=== PATIENT | female | born 2000 | race African-American/Black ===

== ENCOUNTER 2020-12-27 14:59 | Inpatient (IN) ==
[2020-12-27] MEDS ORDERED: ONDANSETRON INJ 2 MG/ML 2 ML VIAL IV STA ×2 (15:35→19:19)
[2020-12-27] MEDS ORDERED: SODIUM CHLORIDE 0.9% 500 ML IV STA (15:35)
[2020-12-27] MEDS ORDERED: SODIUM CHLORIDE 0.9% 1000ML 1,000 ML IV ONE (16:13)
[2020-12-27] MEDS ORDERED: LOPERAMIDE HCL 2 MG CAP PO STA (16:27)
--- NOTE | 2020-12-27 16:33 | Emergency Department Note ---
History of Present Illness General Chief complaint: Vomiting Stated complaint: THROWING UP/DIARRHEA Time Seen by Provider: 12/27/20 16:07 History of Present Illness Maximum Pain Intensity: 5 This 20-year-old female patient with significant past medical history of type 2 diabetes, heart disease, kidney disease presents to the emergency department today for evaluation of nausea, vomiting, diarrhea which began yesterday. Patient reports some burning in her upper abdomen and lower chest as well as some discomfort in her epigastrium associated with vomiting. She denies any other pain. The patient denies any fever. She denies any cough, congestion, difficulty breathing. She states she has been unable to keep down food or fluids since yesterday and has taken 1 dose of Zofran without relief of her symptoms. The patient rates her pain a 5/10 and describes it as burning. Patient did not get a COVID-19 vaccine or a influenza vaccine this year. Home Medications Medication Instructions Recorded Confirmed Type carvedilol 12.5 mg tablet 12.5 mg PO BID 12/27/20 12/27/20 History cetirizine 10 mg tablet 10 mg PO DAILY 12/27/20 12/27/20 History ferrous sulfate 27 mg iron tablet 0 mg PO DAILY 12/27/20 12/27/20 History furosemide 40 mg tablet 40 mg PO QPM 12/27/20 12/27/20 History furosemide 40 mg tablet 80 mg PO QAM 12/27/20 12/27/20 History losartan 25 mg tablet 25 mg PO DAILY 12/27/20 12/27/20 History spironolactone 25 mg tablet 12.5 mg PO DAILY 12/27/20 12/27/20 History Allergies Allergy/AdvReac Type Severity Reaction Status Date / Time latex Allergy Makes skin Verified 12/27/20 17:51 itchy & red Past Med/Surg History Medical History Chronic kidney disease, stage 3 Diabetes mellitus type 2 in obese Heart failure Hypertension Kidney disease Obesity Social History Smoking Status: Never smoker Preferred Language: American Current Living Situation: Family Feels Safe at Home: Yes Review of Systems A total of 10 systems reviewed and were otherwise negative Physical Exam Vital Signs Vital Signs - 24 hr 12/27/20 15:31 12/27/20 17:00 12/27/20 18:44 Temperature 36.5 C Temperature Source Temporal Artery Scan Pulse Rate 92 H Pulse Rate [Finger] 88 85 Pulse Rhythm Regular Pulse Strength Normal Respiratory Rate 20 18 18 Respiratory Effort / Characteristics Non-Labored Spontaneous Respiratory Depth Normal Respiratory Pattern Regular Blood Pressure 137/75 Blood Pressure [Right Arm] 155/109 H 155/109 H Blood Pressure Mean 95 Blood Pressure Mean [Right Arm] 124 124 Blood Pressure Position Sitting Pulse Oximetry 91 94 98 Oxygen Delivery Method Room Air Room Air Nasal Cannula Oxygen Flow Rate 1 Sepsis Recent Fever Within 48 Hours No Sepsis New/Unexplained Change in Mental Status No Sepsis Action Taken by Nursing No Action Required 12/27/20 20:00 12/27/20 22:00 12/28/20 00:10 Temperature Temperature Source Pulse Rate Pulse Rate [Finger] 87 93 H 84 Pulse Rhythm Pulse Strength Respiratory Rate 18 18 24 Respiratory Effort / Characteristics Spontaneous Respiratory Depth Normal Respiratory Pattern Blood Pressure Blood Pressure [Right Arm] 134/107 H 136/83 133/99 Blood Pressure Mean Blood Pressure Mean [Right Arm] 116 100 110 Blood Pressure Position Pulse Oximetry 97 95 96 Oxygen Delivery Method Nasal Cannula Nasal Cannula Nasal Cannula Oxygen Flow Rate 2 3 3 Sepsis Recent Fever Within 48 Hours Sepsis New/Unexplained Change in Mental Status Sepsis Action Taken by Nursing VITALS: Vitals are noted on the nurse's note and reviewed by myself. Vital signs stable. GENERAL: This is a morbidly obese 20-year-old black female, in no acute distress, nondiaphoretic, well-developed well-nourished. SKIN: The skin was without rashes, erythema, edema, or bruising. There is no tenting of the skin. Capillary refill less than 2 seconds. HEAD: Normocephalic atraumatic. EYES: Conjunctivae without injection, sclerae without icterus. NECK: Supple without nuchal rigidity. No lymphadenopathy. No thyromegaly. Cervical spine is nontender. No JVD. HEART: Regular rate and rhythm without murmurs gallops or rubs. LUNGS: Clear to auscultation bilaterally without wheezes, rales or rhonchi. No retractions or accessory muscle use. ABDOMEN: Positive bowel sounds x 4. Epigastric tenderness to palpation. Pt. states "Don't do that!" as I am palpating her epigastrum and RUQ. Otherwise, abdomen soft, nontender, without masses or organomegaly. Cary sign negative. No guarding or rebound tenderness. MUSCULOSKELETAL: No muscle atrophy, erythema, or edema noted. Full range of motion without joint tenderness in all extremities. No tenderness to palpation. Normal gait. Strength 5/5 throughout. NEURO: Patient was alert and oriented to person place and time. No focal neurological deficits. Course Course The patient was seen and evaluated as above. An order was placed for continuous cardiac monitoring. The monitor shows a normal sinus rhythm at a rate of 92 bpm. IV access obtained, labs drawn. Patient medicated with IV fluids, Zofran, p.o. Imodium. Labs reviewed by myself. I discussed the findings with the patient at bedside. I again questioned the patient and her mother regarding past medical history given the significantly elevated creatinine at 5. The patient's mother notes she is uncertain of a baseline. She is uncertain of the patient's CKD staging. She states the patient has not seen her hairpiece stylist in a while. The patient still will not communicate. Further laboratory evaluation and chest x-ray ordered at this time. I discussed the case with the manager night. I discussed with the medical secretary teacher the need for medical records from [facility]. She will attempt to complete a release form. I was notified by the ED medical secretary teacher that the patient is not willing to complete a medical records release form. I again spoke with the patient and her mother. At this time, the patient is upright and speaking, but notes she does not recall me being in the room or evaluating her prior to this time. The patient is unable to clarify any of her past medical history. She did sign records release form. Patient's mother questions why the patient needs to stay in the hospital. I advised her that I am very concerned for the renal failure, particularly given inability up until this point to compare to the patient's baseline. I am concerned she may require the need for dialysis. I am concerned for heart failure or other causes. I asked if the patient has a history of heart failure and the patient's mother states she does not. She indicates that the patient was admitted about a year ago to [place] for "tachycardia." I discussed the case with my attending. I [facility] the [facility] from [facility] have been received at this time. It appears that the patient follows with a heart failure specialist as well as a hairpiece stylist in [place]. He requested I speak with Dr. Reyna, hairpiece stylist on-call to determine whether the patient may be added onto the dialysis list if need be tomorrow or if we would need to transfer the patient to a different facility. I spoke with Dr. Reyna who did review the staffing and schedule for dialysis for tomorrow. He advised that if needed, the patient would likely be able to be dialyzed, added onto the schedule. He did request orders for an echocardiogram, renal ultrasound, coags, and urine protein to creatinine ratio be ordered. We did also discuss the underlying cause of the patient's nausea, vomiting, diarrhea. We decided to add on stool cultures to evaluate for possible GI infection. I again spoke with Dr. Luna. He will see the patient for admission. Administered Medications Discontinued Medications Cholestyramine Resin (Cholestyramine Light 4 Gm Pkt) 4 gm PO NOW STA Stop: 12/27/20 23:30 Last Admin: 12/28/20 00:14 Dose: 4 gm Documented by: [id number] Sodium Chloride (Nss) 500 mls @ 999 mls/hr IV .Q31M STA Stop: 12/27/20 16:05 Last Infusion: 12/27/20 23:31 Dose: 0 mls/hr Documented by: [id number] Admin: 12/27/20 19:26 Dose: 999 mls/hr Documented by: [id number] Sodium Chloride (Nss 1000ml) 1,000 mls @ 999 mls/hr IV .Q1H1M ONE Stop: 12/27/20 17:13 Last Infusion: 12/27/20 19:33 Dose: 0 mls/hr Documented by: [id number] Admin: 12/27/20 17:04 Dose: 999 mls/hr Documented by: [id number] Loperamide HCl (Loperamide Hcl 2 Mg Cap) 4 mg PO NOW STA Stop: 12/27/20 16:28 Last Admin: 12/27/20 17:02 Dose: 4 mg Documented by: [id number] Ondansetron HCl (Ondansetron Inj 2 Mg/Ml 2 Ml Vial) 4 mg IV NOW STA Stop: 12/27/20 15:36 Last Admin: 12/27/20 17:02 Dose: 4 mg Documented by: [id number] Ondansetron HCl (Ondansetron Inj 2 Mg/Ml 2 Ml Vial) 4 mg IV NOW STA Stop: 12/27/20 19:20 Last Admin: 12/27/20 19:26 Dose: 4 mg Documented by: [id number] Medical Decision Making Differential Diagnosis Gastroenteritis, food borne illness, infections, appendicitis, diverticulitis, inflammatory bowel disease, obstruction, GI bleed, biliary pathology, volvulus, as well as other pathologies. Medical Records Attestation: I reviewed the patient's medical records. Home Medications Current Medication List: was personally reviewed by me Laboratory Data Attestation: I reviewed the patient's lab results. No leukocytosis or anemia. No thrombocytopenia. Creatinine elevated at 5.12. BUN 38. Electrolytes without significant abnormality. Troponin negative. BNP greater than 35,000. Hepatic function without significant abnormality. Urinalysis positive for 4+ protein, trace glucose, trace ketones, 1+ blood, 1+ bilirubin, greater than 30,000 white blood cells, 2+ bacteria, does appear to be contaminated specimen. Influenza testing negative. COVID-19 testing negative. INR 1.2. Urine test negative. Result diagrams: 12/27/20 17:20 12/27/20 17:20 Lab Results 12/27/20 12/27/20 12/27/20 Range/Units 15:36 17:20 17:20 WBC 5.55 (4.8-10.8) K/uL RBC 6.14 H (4.2-5.4) M/uL Hgb 15.3 (12.0-16.0) g/dL Hct 49.9 H (37-47) % MCV 81.3 (80-100) fL MCH 24.9 L (25-34) pg MCHC 30.7 L (32-36) g/dL RDW Std Deviation 57.2 H (36.4-46.3) fL RDW Coeff of Nicole 19.6 H (11.5-14.5) % Plt Count 242 (130-400) K/uL MPV 10.4 (7.4-10.4) fL Immature Gran % (Auto) 0.2 % Neut % (Auto) 81.7 % Lymph % (Auto) 13.7 % [place] % (Auto) 3.4 % Eos % (Auto) 0.5 % Baso % (Auto) 0.5 % Neut # (Auto) 4.53 (1.4-6.5) K/uL Lymph # (Auto) 0.76 L (1.2-3.4) K/uL [place] # (Auto) 0.19 (0.11-0.59) K/uL Eos # (Auto) 0.03 (0-0.5) K/uL Baso # (Auto) 0.03 (0-0.2) K/uL Immature Gran # (Auto) 0.01 (0.00-0.02) K/uL PT (9.0-12.0) Seconds INR (0.9-1.1) APTT (21.0-31.0) Seconds PTT Ratio Sodium 141 (136-145) mmol/L Potassium 5.0 (3.5-5.1) mmol/L Chloride 111 H (98-107) mmol/L Carbon Dioxide 18 L (21-32) mmol/L Anion Gap 12.0 H (3-11) BUN 38 H (7-18) mg/dl Creatinine 5.12 H* (0.6-1.2) mg/dl Est Cr Clr Drug Dosing 24.7 ml/min Est GFR ( Amer) 13.0 ml/min Est GFR (Non-Af Amer) 11.3 ml/min BUN/Creatinine Ratio 7.5 L (10-20) Glucose 99 (70-99) mg/dl POC Glucose 105 H (70-99) mg/dl Calcium 7.7 L (8.5-10.1) mg/dl Total Bilirubin 1.3 H (0.2-1) mg/dl AST 15 (15-37) U/L ALT 10 L (12-78) U/L Alkaline Phosphatase 113 (45-117) U/L Troponin I < 0.015 (0-0.045) ng/ml NT-Pro-B Natriuret Pep > 63418 H (0-450) pg/ml Total Protein 6.9 (6.4-8.2) gm/dl Albumin 1.7 L (3.4-5.0) gm/dl Globulin 5.1 H (2.5-4.0) gm/dl Albumin/Globulin Ratio 0.3 L (0.9-2) Lipase 101 (73-393) U/L Urine Color Urine Appearance (Clear) Urine pH (4.5-7.5) Ur Specific [place] (1.000-1.030) Urine Protein (Negative) Urine Glucose (UA) (Negative) Urine Ketones (Negative) Urine Blood (Negative) Urine Nitrite (Negative) Urine Bilirubin (Negative) Urine Urobilinogen (Negative) Ur Leukocyte Esterase (Negative) Urine WBC (Auto) (0-5) /hpf Urine RBC (Auto) (0-4) /hpf U Hyaline Cast (Auto) (0-5) /lpf U Epithel Cells (Auto) (0-5) /lpf Urine Bacteria (Auto) (Negative) Ur Random Creatinine mg/dl U Random Total Protein (0-11.9) mg/dl Protein/Creatinin Ratio (0-0.2) Urine Test (Negative) Influ A Molecular Assay (Negative) Influ B Molecular Assay (Negative) SARS-CoV-2, RNA, NAAT (NEGATIVE) 12/27/20 12/27/20 12/27/20 Range/Units 17:55 17:55 19:30 WBC (4.8-10.8) K/uL RBC (4.2-5.4) M/uL Hgb (12.0-16.0) g/dL Hct (37-47) % MCV (80-100) fL MCH (25-34) pg MCHC (32-36) g/dL RDW Std Deviation (36.4-46.3) fL RDW Coeff of Nicole (11.5-14.5) % Plt Count (130-400) K/uL MPV (7.4-10.4) fL Immature Gran % (Auto) % Neut % (Auto) % Lymph % (Auto) % [place] % (Auto) % Eos % (Auto) % Baso % (Auto) % Neut # (Auto) (1.4-6.5) K/uL Lymph # (Auto) (1.2-3.4) K/uL [place] # (Auto) (0.11-0.59) K/uL Eos # (Auto) (0-0.5) K/uL Baso # (Auto) (0-0.2) K/uL Immature Gran # (Auto) (0.00-0.02) K/uL PT (9.0-12.0) Seconds INR (0.9-1.1) APTT (21.0-31.0) Seconds PTT Ratio Sodium (136-145) mmol/L Potassium (3.5-5.1) mmol/L Chloride (98-107) mmol/L Carbon Dioxide (21-32) mmol/L Anion Gap (3-11) BUN (7-18) mg/dl Creatinine (0.6-1.2) mg/dl Est Cr Clr Drug Dosing ml/min Est GFR ( Amer) ml/min Est GFR (Non-Af Amer) ml/min BUN/Creatinine Ratio (10-20) Glucose (70-99) mg/dl POC Glucose (70-99) mg/dl Calcium (8.5-10.1) mg/dl Total Bilirubin (0.2-1) mg/dl AST (15-37) U/L ALT (12-78) U/L Alkaline Phosphatase (45-117) U/L Troponin I (0-0.045) ng/ml NT-Pro-B Natriuret Pep (0-450) pg/ml Total Protein (6.4-8.2) gm/dl Albumin (3.4-5.0) gm/dl Globulin (2.5-4.0) gm/dl Albumin/Globulin Ratio (0.9-2) Lipase (73-393) U/L Urine Color Dark Yellow Urine Appearance Clear (Clear) Urine pH 6.0 (4.5-7.5) Ur Specific [place] 1.029 (1.000-1.030) Urine Protein 4+ H (Negative) Urine Glucose (UA) Trace H (Negative) Urine Ketones Trace H (Negative) Urine Blood 1+ H (Negative) Urine Nitrite Negative (Negative) Urine Bilirubin 1+ H (Negative) Urine Urobilinogen Negative (Negative) Ur Leukocyte Esterase Negative (Negative) Urine WBC (Auto) >30 H (0-5) /hpf Urine RBC (Auto) 5-10 H (0-4) /hpf U Hyaline Cast (Auto) 5-10 H (0-5) /lpf U Epithel Cells (Auto) >30 H (0-5) /lpf Urine Bacteria (Auto) 2+ H (Negative) Ur Random Creatinine mg/dl U Random Total Protein (0-11.9) mg/dl Protein/Creatinin Ratio (0-0.2) Urine Test (Negative) Influ A Molecular Assay Negative (Negative) Influ B Molecular Assay Negative (Negative) SARS-CoV-2, RNA, NAAT NEGATIVE (NEGATIVE) 12/27/20 12/27/20 12/27/20 Range/Units 19:30 19:30 23:43 WBC (4.8-10.8) K/uL RBC (4.2-5.4) M/uL Hgb (12.0-16.0) g/dL Hct (37-47) % MCV (80-100) fL MCH (25-34) pg MCHC (32-36) g/dL RDW Std Deviation (36.4-46.3) fL RDW Coeff of Nicole (11.5-14.5) % Plt Count (130-400) K/uL MPV (7.4-10.4) fL Immature Gran % (Auto) % Neut % (Auto) % Lymph % (Auto) % [place] % (Auto) % Eos % (Auto) % Baso % (Auto) % Neut # (Auto) (1.4-6.5) K/uL Lymph # (Auto) (1.2-3.4) K/uL [place] # (Auto) (0.11-0.59) K/uL Eos # (Auto) (0-0.5) K/uL Baso # (Auto) (0-0.2) K/uL Immature Gran # (Auto) (0.00-0.02) K/uL PT 12.1 H (9.0-12.0) Seconds INR 1.2 H (0.9-1.1) APTT 30.5 (21.0-31.0) Seconds PTT Ratio 1.2 Sodium (136-145) mmol/L Potassium (3.5-5.1) mmol/L Chloride (98-107) mmol/L Carbon Dioxide (21-32) mmol/L Anion Gap (3-11) BUN (7-18) mg/dl Creatinine (0.6-1.2) mg/dl Est Cr Clr Drug Dosing ml/min Est GFR ( Amer) ml/min Est GFR (Non-Af Amer) ml/min BUN/Creatinine Ratio (10-20) Glucose (70-99) mg/dl POC Glucose (70-99) mg/dl Calcium (8.5-10.1) mg/dl Total Bilirubin (0.2-1) mg/dl AST (15-37) U/L ALT (12-78) U/L Alkaline Phosphatase (45-117) U/L Troponin I (0-0.045) ng/ml NT-Pro-B Natriuret Pep (0-450) pg/ml Total Protein (6.4-8.2) gm/dl Albumin (3.4-5.0) gm/dl Globulin (2.5-4.0) gm/dl Albumin/Globulin Ratio (0.9-2) Lipase (73-393) U/L Urine Color Urine Appearance (Clear) Urine pH (4.5-7.5) Ur Specific [place] (1.000-1.030) Urine Protein (Negative) Urine Glucose (UA) (Negative) Urine Ketones (Negative) Urine Blood (Negative) Urine Nitrite (Negative) Urine Bilirubin (Negative) Urine Urobilinogen (Negative) Ur Leukocyte Esterase (Negative) Urine WBC (Auto) (0-5) /hpf Urine RBC (Auto) (0-4) /hpf U Hyaline Cast (Auto) (0-5) /lpf U Epithel Cells (Auto) (0-5) /lpf Urine Bacteria (Auto) (Negative) Ur Random Creatinine 159.0 mg/dl U Random Total Protein 2317.0 H (0-11.9) mg/dl Protein/Creatinin Ratio 14.6 H (0-0.2) Urine Test Negative (Negative) Influ A Molecular Assay (Negative) Influ B Molecular Assay (Negative) SARS-CoV-2, RNA, NAAT (NEGATIVE) Imaging Data My Impression: Chest x-ray, reviewed by myself: Cardiomegaly. No evidence of consolidation. No pneumothorax, hemothorax, pleural effusion. ECG Data Attestation: I personally reviewed and interpreted this ECG as follows: Indication: + SOB/dyspnea Rate (beats per minute): 90 Rhythm: + normal sinus ECG [place]: + Normal ECG ST segments: no ST depression, no ST elevation or no T-wave inversions Comparison ECG Date: no prior available Blood Pressure Blood Pressure Findings: Elevated blood pressure Blood Pressure Disposition: further management by hospitalist MDM Narrative This 20-year-old female patient presents to the emergency department today ac companied by her mother who provides majority of the history. The patient is refusing to speak throughout most of her stay. She did indicate to the imaging technician that she had a poor experience at [facility] and has been on trusting of healthcare providers since that time. She advised that this is why she has been refusing to speak. The patient's mother indicated her past medical history of hypertension, kidney disease, and type 2 diabetes. Of note, after I was able to review previous medical records from hospitalization in February of this year, it appears that the patient does have a history of heart failure, CKD stage III, had an EF of 20%, was to receive an ICD in March of this year which was not performed. The patient's mother notes the patient was discharged from her primary care provider's office due to missing appointments and she has not been seen by a doctor recently. The patient and her mother are extremely poor historians and are having difficulty communicating her disease state to providers here in the hospital. This inability to obtain an accurate history in this complex patient is providing some barriers to care. I am concerned for the patient's renal failure. Unclear of recent laboratory testing and all of the patient's previous medical records are through [facility]. The patient was hydrated with IV fluids and initial management with antiemetics and Imodium due to her complaints of diarrhea. As more information became available, further testing to include troponin, BNP, chest x-ray performed. The patient was hypoxic at one point while in the ED with an O2 saturation of 85% on room air and was placed on oxygen by nursing staff. [facility] well as the hairpiece stylist who indicated the patient could be added to the dialysis list tomorrow if need be. Further testing added on at the request of Dr. Reyna. The hospitalist team will attempt to obtain further medical records on this apparently very complex patient in order to more appropriately manage her disease process. Please see hospitalist, nephrology dictation regarding ongoing management and care of this patient. The chart was completed utilizing [employer] voice recognition software. Grammatical errors, random word insertions, pronoun errors, and incomplete sentences are an occasional consequence of this system due to software limi tations, ambient noise, and hardware issues. Any formal questions or concerns about the content, text, or information contained within the body of this dictation should be directly addressed to the provider for clarification. Impression & Plan Acute renal failure (ARF), Proteinuria, Nausea & vomiting, Diarrhea, Heart failure, Hypoxia, Diabetes Discharge Plan Visit Data Chief Complaint: Vomiting Stated Complaint: THROWING UP/DIARRHEA ED Provider: Corey Magdaleno ED Midlevel Provider: Iona Bryson Prescriptions Prescriptions: No Action carvedilol 12.5 mg tablet 12.5 mg PO BID RF: 0 furosemide 40 mg tablet 40 mg PO QPM RF: 0 furosemide 40 mg tablet 80 mg PO QAM RF: 0 cetirizine 10 mg tablet 10 mg PO DAILY RF: 0 spironolactone 25 mg tablet 12.5 mg PO DAILY RF: 0 losartan 25 mg tablet 25 mg PO DAILY RF: 0 ferrous sulfate 27 mg iron Tablet 0 mg PO DAILY RF: 0
[2020-12-27 17:51] LABS: Basophils # (auto) 0.03 K/uL (0-0.2); Basophils % (auto) 0.5 %; Eosinophils # (auto) 0.03 K/uL (0-0.5); Eosinophils % (auto) 0.5 %; Hematocrit (blood only) 49.9 % (37-47); Hemoglobin 15.3 g/dL (12.0-16.0); Immature Granulocytes # (auto) 0.01 K/uL (0.00-0.02); Immature Granulocytes % (auto) 0.2 %; Lymphocytes # (auto) 0.76 K/uL (1.2-3.4); Lymphocytes % (auto) 13.7 %; Mean Corpuscular Hemoglobin 24.9 pg (25-34); Mean Corpuscular Hgb Conc 30.7 g/dL (32-36); Mean Corpuscular Volume 81.3 fL (80-100); Mean Platelet Volume 10.4 fL (7.4-10.4); Monocytes # (auto) 0.19 K/uL (0.11-0.59); Monocytes % (auto) 3.4 %; Neutrophils # (auto) 4.53 K/uL (1.4-6.5); Neutrophils % (auto) 81.7 %; Platelet Count 242 K/uL (130-400); RDW Coefficient of Variation 19.6 % (11.5-14.5); RDW Standard Deviation 57.2 fL (36.4-46.3); Red Blood Count 6.14 M/uL (4.2-5.4); White Blood Count 5.55 K/uL (4.8-10.8)
[2020-12-27 18:16] LABS: Alanine Aminotransferase 10 U/L (12-78); Albumin Globulin Ratio 0.3 (0.9-2); Albumin Level 1.7 gm/dl (3.4-5.0); Alkaline Phosphatase 113 U/L (45-117); Aspartate Aminotransferase 15 U/L (15-37); BUN Creatinine Ratio 7.5 (10-20); Bilirubin,Total 1.3 mg/dl (0.2-1); Blood Urea Nitrogen 38 mg/dl (7-18); Calcium 7.7 mg/dl (8.5-10.1); Carbon Dioxide 18 mmol/L (21-32); Chloride 111 mmol/L (98-107); Creatinine Clr Calc Pharmacy 24.7 ml/min; Est GFR (Non-African American) 11.3 ml/min; Globulin 5.1 gm/dl (2.5-4.0); Glucose 99 mg/dl (70-99); Lipase 101 U/L (73-393); Sodium 141 mmol/L (136-145); Total Protein 6.9 gm/dl (6.4-8.2)
[2020-12-27 18:19] LABS: Influenza A virus by PCR Negative (Negative); Influenza B virus by PCR Negative (Negative)
[2020-12-27 19:43] LABS: Appearance Urine Clear (Clear); Bacteria Urine Automated 2+ (Negative); Blood Urine 1+ (Negative); Color Urine Dark Yellow; Epithelial Cell Urine Auto >30 /lpf (0-5); Glucose Urine UA Trace (Negative); Ketones Urine Trace (Negative); Leukocyte Esterase Urine Negative (Negative); Nitrite Urine Negative (Negative); Protein Urine 4+ (Negative); Specific Gravity Urine 1.029 (1.000-1.030); Urobilinogen Urine Negative (Negative); WBC Urine Automated >30 /hpf (0-5)
[2020-12-27 19:45] LABS: Bilirubin Urine 1+ (Negative)
[2020-12-27 19:50] LABS: Pregnancy Test, Urine Negative (Negative)
[2020-12-27 20:25] LABS: NT Pro B Type Natriuretic Pept > 35000 pg/ml (0-450); Troponin I < 0.015 ng/ml (0-0.045)
--- NOTE | 2020-12-27 23:17 | History & Physical Report ---
Date of Service December 27, 2020 Assessment & Plan (1) BRADEN (acute kidney injury): Plan: Patient is a 20 year old female with PMHx Focal segmental glomerulosclerosis, HFrEF 2/2 nonischemic cardiomyopathy, CKD stage III, GERD, Asthma, DM2, that presents with 2 day history of worsening nausea, vomiting, and diarrhea. Patient does not do well in regards to discussion of her medical care while alone, please call her mother at [phone] for questions regarding the patients care and for updates. Vomiting and Diarrhea -Suspect viral gastritis with patient's history -Symptomatic control with cholestyramine and IV Zofran -Fluid given in ED -Stool samples pending -Should symptoms worsen or patient develop abdominal pain, will consider imaging with CT ab/pelv -NPO at this time for bowel rest BRADEN on CKD Stage II with Hx Focal Segmental Glomerulosclerosis -Unsure if patient has FSGS, will request records from patients Biology Laboratory Assistant in [facility], though patient denies history of treatment with steroids or calcineurin inhibitors -Base Cr 2.5-2.6 with acute worsening to 5.12 on admission -Suspect BRADEN more due to pre-renal causes from fluid losses of vomiting and diarrhea -Patient received 1.5L NSS while in the ED, will hold on further fluids at this time due to concerns of her cardiac function -Stat read of b/l renal US shows no hydronephrosis and notes increased echogenicity of kidneys b/l -Urine Microalbumin >10k and Urine Protein/Creatinine ratio 14.6 -Will defer steroids until evaluated by Nephrology -Hold patient's Lasix, Losartan, Spironolactone in the setting of BRADEN -Nephrology consulted Metabolic Acidosis -With slight gap of 12 -Suspect secondary to above renal dysfunction -Repeat labs as patient has had fluid resuscitation -Can consider sodium bicarb vermin exterminator if renal function continues to be compromised HFrEF -Patient with history of HFrEF secondary to nonischemic cardiomyopathy -Last Echo from [facility] records note EF 20% in February 2020 -BNP >35k on admission, no baseline for comparison -Will hold on further fluids at this time, monitor I/O's -Will request patient's cardiology records from [facility] -Continue Carvedilol 12.5mg BID -Hold Lasix as above for BRADEN -Echo in the AM -Cardiology consult DM2 -Will give basal bolus and SSI -HgbA1c in the AM Dispo: Med/Surg Telemetry FEN: NPO DVT: SCDs Code: Full (2) Focal segmental glomerulosclerosis: (3) Chronic kidney disease, stage 3: (4) Diabetes mellitus type 2 in obese: (5) Gastritis: History of Present Illness Chief Complaint: Nausea and Vomiting Primary Care Provider: NO PCP Patient is a 20 year old female with PMHx Focal segmental glomerulosclerosis, HFrEF 2/2 nonischemic cardiomyopathy, CKD stage III, GERD, Asthma, DM2, that presents with 2 day history of worsening nausea, vomiting, and diarrhea. History is limited secondary to patient participation, though some history is obtainable from the patient a majority is obtained through the mother who is also present in the room. Patient notes that for the past 2 days she has been unable to keep anything down that she eats or drinks to which her mother agrees. She has also not been taking her medications as a result as well. Patients mother states that everyone in the family has had a similar illness at least once in the past 1 month. 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 The patient typically follows with physicians in [place] including her Receiving Room Clerk and Biology Laboratory Assistant who had been monitoring her glomerulosclerosis and heart failure. Patient notes that currently her primary concern is in regards to her nausea, vomiting, and diarrhea. She notes that with her emesis she has noted primarily green/bile like emesis without blood. She denies any blood in her stool either, though it has been minimally improved with immodium. Her nausea has been improved with Zofran. She denies any fever, chills, SOB (despite being on 3L O2 NC currently), chest pain, abdominal pain, dizziness, headache, back pain, flank pain. Med Hx: Focal segmental glomerulosclerosis, HFrEF 2/2 nonischemic cardiomyopathy, CKD stage III, GERD, Asthma, DM2 Surg Hx: No surgeries Soc Hx: Denies tobacco, alcohol, illicit drug use Fam Hx: Maternal GMA and Maternal great grandfather DM2 Allergies Allergy/AdvReac Type Severity Reaction Status Date / Time latex Allergy Makes skin Verified 12/27/20 17:51 itchy & red Home Medications Medication Instructions Recorded Confirmed Type carvedilol 12.5 mg tablet 12.5 mg PO BID 12/27/20 12/27/20 History cetirizine 10 mg tablet 10 mg PO DAILY 12/27/20 12/27/20 History ferrous sulfate 27 mg iron tablet 0 mg PO DAILY 12/27/20 12/27/20 History furosemide 40 mg tablet 40 mg PO QPM 12/27/20 12/27/20 History furosemide 40 mg tablet 80 mg PO QAM 12/27/20 12/27/20 History losartan 25 mg tablet 25 mg PO DAILY 12/27/20 12/27/20 History spironolactone 25 mg tablet 12.5 mg PO DAILY 12/27/20 12/27/20 History Past Med/Surg History Medical History (Updated 12/28/20 @ 22:25 by Miguel Angel Noland MD) Chronic kidney disease, stage 3 Chronic systolic CHF (congestive heart failure) Diabetes mellitus type 2 in obese Hypertension Nonischemic cardiomyopathy Obesity Social History Smoking Status: Never smoker Hx Alcohol Use: No Hx Substance Use: No Preferred Language: Slovenian 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 Required: No Beliefs That Will Affect Care: None Current Living Situation: Parent and Family Feels Safe at Home: Yes Assistive Devices: None Review of Systems Review of Systems: All systems reviewed & are unremarkable except as noted in Subjective Physical Exam Constitutional: well developed, well nourished, + ill appearing and + morbidly obese; + uncooperative Eyes: PERRL, conjunctivae normal, anicteric sclerae normal visual kothari by confrontation ENMT: external ear and nose normal, oropharynx normal Neck: normal visual inspection Respiratory: normal respiratory effort; no respiratory distress and no cough Auscultation: lungs clear to auscultation bilaterally and + diminished lung sounds (secondary to body habitus ); no crackles, no rales and no wheezes Cardiovascular: Rate/Rhythm: regular rate and regular rhythm Heart Sounds: no murmur Gastrointestinal (Abdomen): Inspection/Auscultation: abdomen normal to inspection and normal bowel sounds; abdomen not distended Percussion/Palpation: abdomen soft; abdomen nontender, no guarding and abdomen not rigid Musculoskeletal: Head/Neck/Chest: normocephalic and head atraumatic; head normal to inspection Skin: no rashes, warm and dry Neurologic: PERRL, EOMI, accommodation nl, no face palsy, no dysarthria Psychiatric: Orientation: alert and oriented x 3 Eye Contact: + poor eye contact Affect: + flat affect and + irritable affect Results & Data Results & Data ([facility]) Vital Signs (Past 12 Hours) Vital Signs Temp Pulse Pulse Resp BP BP Pulse Ox 12/27/20 22:00 93 H 18 136/83 95 12/27/20 20:00 87 18 134/107 H 97 12/27/20 18:44 85 18 155/109 H 98 12/27/20 17:00 88 18 155/109 H 94 12/27/20 15:31 36.5 C 92 H 20 137/75 91 Laboratory Results Laboratory Results - last 24 hr 12/27/20 12/27/20 12/27/20 15:36 17:20 17:20 WBC 5.55 RBC 6.14 H Hgb 15.3 Hct 49.9 H MCV 81.3 MCH 24.9 L MCHC 30.7 L RDW Std Deviation 57.2 H RDW Coeff of Nicole 19.6 H Plt Count 242 MPV 10.4 Immature Gran % (Auto) 0.2 Neut % (Auto) 81.7 Lymph % (Auto) 13.7 [place] % (Auto) 3.4 Eos % (Auto) 0.5 Baso % (Auto) 0.5 Neut # (Auto) 4.53 Lymph # (Auto) 0.76 L [place] # (Auto) 0.19 Eos # (Auto) 0.03 Baso # (Auto) 0.03 Immature Gran # (Auto) 0.01 PT INR APTT PTT Ratio Sodium 141 Potassium 5.0 Chloride 111 H Carbon Dioxide 18 L Anion Gap 12.0 H BUN 38 H Creatinine 5.12 H* Est Cr Clr Drug Dosing 24.7 Est GFR ( Amer) 13.0 Est GFR (Non-Af Amer) 11.3 BUN/Creatinine Ratio 7.5 L Glucose 99 POC Glucose 105 H Calcium 7.7 L Total Bilirubin 1.3 H AST 15 ALT 10 L Alkaline Phosphatase 113 Troponin I < 0.015 NT-Pro-B Natriuret Pep > 35610 H Total Protein 6.9 Albumin 1.7 L Globulin 5.1 H Albumin/Globulin Ratio 0.3 L Lipase 101 Urine Color Urine Appearance Urine pH Ur Specific [place] Urine Protein Urine Glucose (UA) Urine Ketones Urine Blood Urine Nitrite Urine Bilirubin Urine Urobilinogen Ur Leukocyte Esterase Urine WBC (Auto) Urine RBC (Auto) U Hyaline Cast (Auto) U Epithel Cells (Auto) Urine Bacteria (Auto) Ur Random Creatinine Ur Random Microalbumin U Random Total Protein Protein/Creatinin Ratio Urine Test Giardia Antigen Influ A Molecular Assay Influ B Molecular Assay SARS-CoV-2, RNA, NAAT 12/27/20 12/27/20 12/27/20 17:55 17:55 19:30 WBC RBC Hgb Hct MCV MCH MCHC RDW Std Deviation RDW Coeff of Nicole Plt Count MPV Immature Gran % (Auto) Neut % (Auto) Lymph % (Auto) [place] % (Auto) Eos % (Auto) Baso % (Auto) Neut # (Auto) Lymph # (Auto) [place] # (Auto) Eos # (Auto) Baso # (Auto) Immature Gran # (Auto) PT INR APTT PTT Ratio Sodium Potassium Chloride Carbon Dioxide Anion Gap BUN Creatinine Est Cr Clr Drug Dosing Est GFR ( Amer) Est GFR (Non-Af Amer) BUN/Creatinine Ratio Glucose POC Glucose Calcium Total Bilirubin AST ALT Alkaline Phosphatase Troponin I NT-Pro-B Natriuret Pep Total Protein Albumin Globulin Albumin/Globulin Ratio Lipase Urine Color Dark Yellow Urine Appearance Clear Urine pH 6.0 Ur Specific [place] 1.029 Urine Protein 4+ H Urine Glucose (UA) Trace H Urine Ketones Trace H Urine Blood 1+ H Urine Nitrite Negative Urine Bilirubin 1+ H Urine Urobilinogen Negative Ur Leukocyte Esterase Negative Urine WBC (Auto) >30 H Urine RBC (Auto) 5-10 H U Hyaline Cast (Auto) 5-10 H U Epithel Cells (Auto) >30 H Urine Bacteria (Auto) 2+ H Ur Random Creatinine Ur Random Microalbumin U Random Total Protein Protein/Creatinin Ratio Urine Test Giardia Antigen Influ A Molecular Assay Negative Influ B Molecular Assay Negative SARS-CoV-2, RNA, NAAT NEGATIVE 12/27/20 12/27/20 12/27/20 19:30 19:30 23:43 WBC RBC Hgb Hct MCV MCH MCHC RDW Std Deviation RDW Coeff of Nicole Plt Count MPV Immature Gran % (Auto) Neut % (Auto) Lymph % (Auto) [place] % (Auto) Eos % (Auto) Baso % (Auto) Neut # (Auto) Lymph # (Auto) [place] # (Auto) Eos # (Auto) Baso # (Auto) Immature Gran # (Auto) PT 12.1 H INR 1.2 H APTT 30.5 PTT Ratio 1.2 Sodium Potassium Chloride Carbon Dioxide Anion Gap BUN Creatinine Est Cr Clr Drug Dosing Est GFR ( Amer) Est GFR (Non-Af Amer) BUN/Creatinine Ratio Glucose POC Glucose Calcium Total Bilirubin AST ALT Alkaline Phosphatase Troponin I NT-Pro-B Natriuret Pep Total Protein Albumin Globulin Albumin/Globulin Ratio Lipase Urine Color Urine Appearance Urine pH Ur Specific [place] Urine Protein Urine Glucose (UA) Urine Ketones Urine Blood Urine Nitrite Urine Bilirubin Urine Urobilinogen Ur Leukocyte Esterase Urine WBC (Auto) Urine RBC (Auto) U Hyaline Cast (Auto) U Epithel Cells (Auto) Urine Bacteria (Auto) Ur Random Creatinine 159.0 Ur Random Microalbumin > 29550.0 U Random Total Protein 2317.0 H Protein/Creatinin Ratio 14.6 H Urine Test Negative [place] Antigen Influ A Molecular Assay Influ B Molecular Assay SARS-CoV-2, RNA, NAAT 12/28/20 00:38 WBC RBC Hgb Hct MCV MCH MCHC RDW Std Deviation RDW Coeff of Nicole Plt Count MPV Immature Gran % (Auto) Neut % (Auto) Lymph % (Auto) [place] % (Auto) Eos % (Auto) Baso % (Auto) Neut # (Auto) Lymph # (Auto) [place] # (Auto) Eos # (Auto) Baso # (Auto) Immature Gran # (Auto) PT INR APTT PTT Ratio Sodium Potassium Chloride Carbon Dioxide Anion Gap BUN Creatinine Est Cr Clr Drug Dosing Est GFR ( Amer) Est GFR (Non-Af Amer) BUN/Creatinine Ratio Glucose POC Glucose Calcium Total Bilirubin AST ALT Alkaline Phosphatase Troponin I NT-Pro-B Natriuret Pep Total Protein Albumin Globulin Albumin/Globulin Ratio Lipase Urine Color Urine Appearance Urine pH Ur Specific [place] Urine Protein Urine Glucose (UA) Urine Ketones Urine Blood Urine Nitrite Urine Bilirubin Urine Urobilinogen Ur Leukocyte Esterase Urine WBC (Auto) Urine RBC (Auto) U Hyaline Cast (Auto) U Epithel Cells (Auto) Urine Bacteria (Auto) Ur Random Creatinine Ur Random Microalbumin U Random Total Protein Protein/Creatinin Ratio Urine Test Giardia Antigen Pending Influ A Molecular Assay Influ B Molecular Assay SARS-CoV-2, RNA, NAAT Supervising Physician Co-Signing Physician Notes Attending addendum: I have physically seen this patient, have supervised the medical residents ac tivities, and agree with the H&P unless as otherwise noted. Assessment and Plan: BRADEN on CKD/focal segmental glomerulosclerosis- Creatinine 5.12 upon admission, with baseline 2.5-2.6 Status post 1.5 L normal saline while in the ED Repeat laboratories every morning Renal ultrasound without acute findings Hold furosemide, losartan and spironolactone, repeat laboratories in a.m., and assessment by nephrology Vomiting and diarrhea- Stool studies pending Symptomatic treatment with cholestyramine p.o. and Zofran IV Famotidine 20 mg IV every 12 hours NPO Remaining orders and notations as noted Resident Activity Tracking Resident Involvement: Resident Care Provided Care Provided: Adult [facility]
[2020-12-27] MEDS ORDERED: CHOLESTYRAMINE LIGHT 4 GM PKT PO STA (23:29)
[2020-12-27 23:38] LABS: Protein Creatinine Ratio Urine 14.6 (0-0.2)
[2020-12-28 00:12] LABS: INR 1.2 (0.9-1.1); Partial Thromboplastin Ratio 1.2; Partial Thromboplastin Time 30.5 Seconds (21.0-31.0); Prothrombin Time 12.1 Seconds (9.0-12.0)
[2020-12-28 00:57] LABS: Microalbumin Urine > 10000.0 mg/L
[2020-12-28] MEDS ORDERED: GLUCOSE 40% GEL 15 GM TUBE PO PRN (01:43)
[2020-12-28] MEDS ORDERED: CHOLESTYRAMINE LIGHT 4 GM PKT PO PRN (01:43)
[2020-12-28] MEDS ORDERED: GLUCAGON FOR INJ 1 MG VIAL SQ PRN (01:43)
[2020-12-28] MEDS ORDERED: GLUCOSE 10 TABS/TUBE PO PRN (01:43)
[2020-12-28] MEDS ORDERED: DEXTROSE 50% 50 ML SYRINGE IV PRN (01:43)
[2020-12-28] MEDS ORDERED: ACETAMINOPHEN 325 MG TAB PO PRN (01:43)
[2020-12-28] MEDS: ONDANSETRON INJ 2 MG/ML 2 ML VIAL IV PRN ×3 (03:48→22:26)
[2020-12-28 05:52] LABS: Basophils # (auto) 0.02 K/uL (0-0.2); Basophils % (auto) 0.3 %; Eosinophils # (auto) 0.09 K/uL (0-0.5); Eosinophils % (auto) 1.2 %; Hematocrit (blood only) 42.7 % (37-47); Hemoglobin 13.1 g/dL (12.0-16.0); Immature Granulocytes # (auto) 0.01 K/uL (0.00-0.02); Immature Granulocytes % (auto) 0.1 %; Lymphocytes # (auto) 1.81 K/uL (1.2-3.4); Lymphocytes % (auto) 23.2 %; Mean Corpuscular Hemoglobin 24.6 pg (25-34); Mean Corpuscular Hgb Conc 30.7 g/dL (32-36); Mean Corpuscular Volume 80.3 fL (80-100); Mean Platelet Volume 10.1 fL (7.4-10.4); Monocytes # (auto) 0.64 K/uL (0.11-0.59); Monocytes % (auto) 8.2 %; Neutrophils # (auto) 5.22 K/uL (1.4-6.5); Platelet Count 345 K/uL (130-400); RDW Coefficient of Variation 19.4 % (11.5-14.5); RDW Standard Deviation 55.9 fL (36.4-46.3); Red Blood Count 5.32 M/uL (4.2-5.4); White Blood Count 7.79 K/uL (4.8-10.8)
[2020-12-28] MEDS: INSULIN ASPART 100 UNITS/ML 3 ML PEN SC SCH ×3 (06:12→17:48)
[2020-12-28 06:24] LABS: Albumin Globulin Ratio 0.3 (0.9-2); Albumin Level 1.5 gm/dl (3.4-5.0); BUN Creatinine Ratio 7.8 (10-20); Calcium 7.8 mg/dl (8.5-10.1); Creatinine Clr Calc Pharmacy 25.4 ml/min; Est GFR (African American) 13.5 ml/min; Est GFR (Non-African American) 11.6 ml/min; Globulin 4.7 gm/dl (2.5-4.0); Potassium 4.9 mmol/L (3.5-5.1); Total Protein 6.2 gm/dl (6.4-8.2)
--- NOTE | 2020-12-28 07:58 | Ultrasound Report ---
RENAL ULTRASOUND CLINICAL HISTORY: Renal failure. COMPARISON STUDY: None TECHNIQUE: Sonography of the kidneys and the urinary bladder was performed. FINDINGS: This exam is compromised by suboptimal penetration. The right kidney measures approximately 9.6 x 3.8 x 4.1 cm and the left measures 9.2 x 4.8 x 4.9 cm. There is no hydronephrosis. Both kidney s are echogenic. No renal calculus or mass is identified. Bladder is suboptimally assessed given unde rdistention. IMPRESSION: 1. No hydronephrosis. 2. Echogenic kidneys. This suggests nonspecific medical renal disease. 3. Exam compromised by suboptimal penetration. ACT 112: Negative or not required by law. Electronically signed by: Terrell Michelle M.D. 12/28/2020 7:56 AM
[2020-12-28 08:10] LABS: Estimated Average Glucose 128 mg/dl; Hemoglobin A1C 6.1 % (4.5-5.6)
--- NOTE | 2020-12-28 08:51 | XRay Report ---
XR chest 1V portable HISTORY: cough COMPARISON: None. FINDINGS: Cardiac silhouette is moderately enlarged. There is diffuse interstitial/vascular thickenin g consistent with mild interstitial pulmonary edema. No pneumothorax. Suspect a trace left pleural ef fusion. The trachea is midline and patent. IMPRESSION: 1. Moderate enlargement of the cardiac silhouette. This could be due to cardiomegaly or a pericardial effusion. 2. Diffuse interstitial/vascular thickening likely representing developing pulmonary edema. ACT 112: Negative or not required by law. Electronically signed by: Freddy Cast M.D. 12/28/2020 8:50 AM
[2020-12-28] MEDS: INSULIN GLARGINE SOLOSTAR 100 UNITS/ML 3 ML PEN SC SCH ×2 (09:10→22:18)
[2020-12-28] MEDS: carvediloL 12.5 MG TAB PO SCH ×2 (09:10→22:23)
--- NOTE | 2020-12-28 12:55 | Nephrology Consultation ---
Date of Consultation December 28, 2020 Assessment & Plan (1) BRADEN (acute kidney injury): * BRADEN/CKD likely reflective of intravascular volume depletion related to gastroenteritis, poor renal perfusion associated w/ CMP in the setting of ARB therapy * Cr mildly improved following cautious hydration * Urine microscopy negative for cellular casts * 12/27/20 renal US: R 9.6cm, L 9.2cm. No hydronephrosis. Increased cortical echogenicity bilaterally * SaO2 94% on RA, electrolyte balance is acceptable. No acute indication for HD today * Hold Furosemide, Spironolactone and Losartan * Monitor PRP. Will order urine Na & Cr (2) Chronic kidney disease, stage 3: * CKD likely due to multiple factors including DKD, FSGS, CRS * Baseline Cr 2.6 02/26 * Will request last two OV notes from Dr. Cooper (3) Heart failure: * BNP >55908, CXR w/ moderate CMG, primary service reports AICD considered during hospitalization 03/29 at [facility] * Recommend echocardiogram and consultation w/ Cardiology * Will request last two OV notes from ELVIS Castro Designer/Writer (4) Gastroenteritis: * Recommend testing for enteric pathogens History of Present Illness Reason for Consultation: BRADEN/CKD Attending Physician: Wali Dickinson DO History of Present Illness Miss Cedillo is a 20 year old female who was evaluated in the EMD this morning at the request of the [facility] hospitalist service for evaluation of BRADEN/CKD. Miss Agarwal will speak her name only. When asked about her medical history she called her mother on her cell phone and handed me the phone. Her mother states only that she Roseanne has " a lot of problems" and is under the care of both a Bank Vault Clerk and Designer/Writer in [place]. Available medical records in the EMR were reviewed today and plan of care was discussed w/ the hospitalist ELVIS. Miss Agarwal suffers from obesity, DM, HTN and nonischemic CMP. She is taking Losartan, Furosemide and Spironolactone. Hospitalist service reports that records from recent hospitalization in [place] reveal that AICD was recommended 03/29. Baseline Cr was 2.6 and patient's Bank Vault Clerk is Dr. Cooper. She was diagnosed as having nephrotic syndrome, FSGS, DKD and CRS. Miss Cedillo presented to the [facility] EMD last evening with a 2 day history of n/v and diarrhea. It is unclear whether she has had any ill contacts. She shakes her head "yes" when asked if she was taking her oral medications. Cr was 5.12 upon admission, BNP > 40248. Cr improved to 4.98 following 1 L IV NS. Allergies Allergy/AdvReac Type Severity Reaction Status Date / Time latex Allergy Makes skin Verified 12/27/20 17:51 itchy & red Home Medications Medication Instructions Recorded Confirmed Type carvedilol 12.5 mg tablet 12.5 mg PO BID 12/27/20 12/27/20 History cetirizine 10 mg tablet 10 mg PO DAILY 12/27/20 12/27/20 History ferrous sulfate 27 mg iron tablet 0 mg PO DAILY 12/27/20 12/27/20 History furosemide 40 mg tablet 40 mg PO QPM 12/27/20 12/27/20 History furosemide 40 mg tablet 80 mg PO QAM 12/27/20 12/27/20 History losartan 25 mg tablet 25 mg PO DAILY 12/27/20 12/27/20 History spironolactone 25 mg tablet 12.5 mg PO DAILY 12/27/20 12/27/20 History Patient History Medical History (Updated 12/28/20 @ 16:04 by Felix Reyna MD) Chronic kidney disease, stage 3 Diabetes mellitus type 2 in obese Heart failure Hypertension Kidney disease Obesity Social History Smoking Status: Never smoker Hx Alcohol Use: No Hx Substance Use: No Preferred Language: Rwandan 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 Patient was prone during her evaluation. She would not change to the supine position Constitutional: + obese; not in distress Eyes: PERRL, conjunctivae normal, anicteric sclerae Neck: trachea midline, no thyromegaly Respiratory: normal respiratory effort, lungs clear to auscultation Cardiovascular: Rate/Rhythm: regular rate and regular rhythm Gastrointestinal (Abdomen): normal bowel sounds, soft, nontender, no hepatosplenomegaly Skin: no rashes, warm and dry Neurologic: awake; not confused Results & Data ([facility]) Vital Signs (Past 12 Hours) Vital Signs Pulse Resp BP Pulse Ox 12/28/20 06:21 85 18 135/91 91 12/28/20 01:40 91 H 22 133/99 100 Laboratory Results Laboratory Tests 12/27/20 12/27/20 12/27/20 17:20 19:30 19:30 WBC Hgb Hct Plt Count Sodium Potassium Chloride Carbon Dioxide BUN 38 H Creatinine 5.12 H* Glucose Hemoglobin A1c Calcium NT-Pro-B Natriuret Pep > 78012 H Albumin Urine Color Dark Yellow Urine Appearance Clear Ur Specific [place] 1.029 Urine Protein 4+ H Urine Glucose (UA) Trace H Urine Ketones Trace H Urine Blood 1+ H Urine Nitrite Negative Urine WBC (Auto) >30 H Urine RBC (Auto) 5-10 H U Hyaline Cast (Auto) 5-10 H U Epithel Cells (Auto) >30 H Urine Bacteria (Auto) 2+ H Protein/Creatinin Ratio 14.6 H 12/28/20 12/28/20 12/28/20 05:22 05:22 05:22 WBC 7.79 Hgb 13.1 Hct 42.7 Plt Count 345 Sodium 140 Potassium 4.9 Chloride 110 H Carbon Dioxide 23 BUN 40 H Creatinine 4.98 H* Glucose 111 H Hemoglobin A1c 6.1 H Calcium 7.8 L NT-Pro-B Natriuret Pep Albumin 1.5 L Urine Color Urine Appearance Ur Specific [place] Urine Protein Urine Glucose (UA) Urine Ketones Urine Blood Urine Nitrite Urine WBC (Auto) Urine RBC (Auto) U Hyaline Cast (Auto) U Epithel Cells (Auto) Urine Bacteria (Auto) Protein/Creatinin Ratio Laboratory Tests 12/27/20 23:43 INR 1.2 H Diagnostic Findings 12/27 CXR: moderate CMG with mild pulmonary congestion PG Care Time/CCT Total # of Minutes Spent Total Time Spent with Patient: Total time spent is greater than 50% in coordination of care (as documented) at patient's floor/unit and/or counseling patient: Coding Level of Care Code 35171 Inpt Consult Level 5 Diagnoses BRADEN (acute kidney injury) N17.9 Chronic kidney disease, stage 3 N18.30 Gastroenteritis K52.9 Heart failure I50.9
--- NOTE | 2020-12-28 16:25 | XCELERA ---
[id number]
[2020-12-28] MEDS: LACTATED RINGER'S 1,000 ML IV SCH (17:06)
[2020-12-28] MEDS: PANTOprazole 40 MG in SYRINGE 0 ML IV SCH (17:06)
--- NOTE | 2020-12-28 18:13 | Hospitalist Progress Note ---
Date of Service December 28, 2020 Assessment & Plan (1) BRADEN (acute kidney injury): Plan: Patient is a 20 year old female with PMHx Focal segmental glomerulosclerosis, HFrEF 2/2 nonischemic cardiomyopathy, CKD stage III, GERD, Asthma, DM2, that presents with 2 day history of worsening nausea, vomiting, and diarrhea. Patient does not do well in regards to discussion of her medical care while alone, please call her mother at [phone] for questions regarding the patients care and for updates. Vomiting and Diarrhea -Suspect viral gastritis with patient's history -Symptomatic control with cholestyramine and IV Zofran -Fluid given in ED; began lactated Ringer's at a rate of 60 cc/h. 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 -Stat read of b/l renal US shows no hydronephrosis and notes increased echogenicity of kidneys b/l -Urine Microalbumin >10k and Urine Protein/Creatinine ratio 14.6 -Hold patient's Lasix, Losartan, Spironolactone in the setting of BRADEN -Nephrology consulted Metabolic Acidosis -With slight gap of 12 -Suspect secondary to above renal dysfunction -Repeat labs as patient has had fluid resuscitation -Can consider sodium bicarb half-way if renal function continues to be compromised HFrEF -Patient with history of HFrEF secondary to nonischemic cardiomyopathy due to diabetes according to mother. -Last Echo from [facility] records note EF 20% in February 2020 -Echo today showed EF of 25 to 30% which is an improvement from February 2020. -BNP >35k on admission, no baseline for comparison -Monitor I/O's -Will request patient's cardiology records from [facility] -Continue Carvedilol 12.5mg BID -Hold Lasix as above for BRADEN -Cardiology consulted DM2 -Will give basal bolus and SSI -HgbA1c of 6.1. Dispo: Med/Surg Telemetry FEN: Clear liquids DVT: SCDs Code: Full (2) Focal segmental glomerulosclerosis: (3) Heart failure: (4) Chronic kidney disease, stage 3: (5) Diabetes mellitus type 2 in obese: (6) Gastritis: Admission and Anticipated Discharge Date Admission Date: December 27, 2020 Supervising Physician Co-Signing Physician Notes I personally examined the patient and verified all casanova points of history and exam, discussed case, and agree with decision making with Dr Mark still nauseated. no new vomiting. some stomach pain vitals noted nad heent nc at mmm abd soft but epigastric tender no guarding no rebound intractable nausea, diarrhea - almost certainly viral GE superimposed on baseline illness - supportive care. acid suppression/zofran ARF on CKD - due to above/dehydration - fluids (slowly, cautiously) and appreciate nephro eval as well chronic systolic CHF//HFrEF - currently dry from above, but fluids with caution, cardiology to assist in following volume status as well DVT proph - SCDs Subjective Patient seen at bedside this morning after multiple attempts of revisiting as patient is very much fatigued and unwilling to answer questions without either parent present. When I finally made contact with her, her mother was present and was able to provide a substantial history. Patient states that since Monday she has been having symptoms of nausea, vomiting, and diarrhea with minimal p.o. intake. She has a history of focal segmental glomerulosclerosis, DM 2 that has been controlled, and HFrEF with a last ejection fraction noted to be 20% in February 2020. 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 She often gets sick from volunteering at this daycare. She has tried Imodium which did not help with the diarrhea. She has been having upward to 5-10 bowel movements per day that are loose. She has not vomited today, however, she is nauseous. Patient is asking for something to drink other than water. Patient denies shortness of breath even though without nasal cannula she is satting at 89% oxygen. With nasal cannula at 2 L she is satting at 100%. Patient does not voice any other complaints at this time. Review of Systems Review of Systems: All systems reviewed & are unremarkable except as noted in HPI & below Physical Exam Constitutional: well developed, well nourished, + ill appearing, + morbidly obese and + edematous; + uncooperative Eyes: PERRL, conjunctivae normal, anicteric sclerae Neck: trachea midline, no thyromegaly Respiratory: normal respiratory effort; no respiratory distress, no cough and not tachypneic Breath sounds are difficult to auscultate due to body habitus. Cardiovascular: Rate/Rhythm: regular rate and regular rhythm Extremities: + edema Heart sounds difficult to auscultate due to body habitus. Gastrointestinal (Abdomen): Inspection/Auscultation: + significant pannus and + hyperactive bowel sounds Percussion/Palpation: + abdomen tender (Diffusely) and abdomen soft Skin: no rashes, warm and dry Psychiatric: Orientation: alert Apperance: appropriately groomed Eye Contact: + poor eye contact Lymphatic: no cervical or axillary lymphadenopathy Results & Data Results & Data ([facility]) Vital Signs (Past 12 Hours) Vital Signs Temp Pulse Resp BP Pulse Ox 12/28/20 16:04 36.4 C L 80 20 109/77 94 12/28/20 12:00 37 C 777 H 18 130/68 98 12/28/20 08:00 36.8 C 85 18 134/75 96 12/28/20 06:21 85 18 135/91 91
--- NOTE | 2020-12-28 18:24 | Cardiology Consultation ---
Date of Consultation December 28, 2020 Assessment & Plan (1) Chronic systolic CHF (congestive heart failure): (2) Nonischemic cardiomyopathy: (3) Pericardial effusion: ASSESSMENT/PLAN: 1. Chronic systolic CHF (HFrEF): She does not appear hypervolemic and based on history, would appear hypovolemic. She has been receiving cautious hydration. Difficult exam given body habitus. Maintain strict I&Os and daily weights if possible. Monitor for signs or symptoms of hypervolemia / CHF. She did not present with CHF exacerbation. Low-sodium diet. Close follow-up with her primary trades helper who specializes in advanced heart failure and cardiac transplantation (Dr. Clif Jaramillo). 2. Nonischemic cardiomyopathy: Mother reports etiology as myocarditis. Records requested for review from her primary trades helper with [facility]. Typically takes carvedilol, losartan, and spironolactone. Continue carvedilol. Losartan and spironolactone are on hold due to acute on chronic renal insufficiency. Consider ICD for primary prevention. 3. Pericardial effusion: Small and appeared to be hemodynamically insignificant. Can monitor over time. Not likely contributing to her presentation. 4. Acute on chronic renal insufficiency /CKD with acute kidney injury: Receiving cautious hydration as per Nephrology. 5. Gastroenteritis: As per primary service. GI symptoms similar to recent contacts at work, including mother and sister. It appears as though symptoms have improved. 6.Disposition: Cardiology will continue to follow along. Please call with any questions or concerns. Thank you for allowing me to participate in the care of your patient. Please call for any other questions or concerns. Sincerely, Venkatesh Noland M.D. History of Present Illness Reason for Consultation: Chronic Heart Failure with reduced EF Requesting Physician: Mahesh Fajardo DO Attending Physician: Wali Dickinson DO History of Present Illness Ms. Cedillo ([facility]) is a 20-year-old female with history significant for heart failure with reduced EF, nonischemic cardiomyopathy, focal segmental glomerulosclerosis with CKD, type 2 diabetes (since 8 years of age), and asthma. She does not routinely participate in conversation with medical staff per patient's mother, who was present at the bedside. Today's history was obtained from communication with patient, patient's mother, and chart review. Her mother states that at near the age of 17 or 18, she was diagnosed with cardiomyopathy, felt to be due to myocarditis. Diagnosis was made at [facility] in [place]. She recalls having an EF of 15%. She also underwent renal biopsy around that time. She has since transitioned her cardiology care to Dr. Clif Jaramillo (Advanced Heart failure and Transplant Cardiology) of [facility]. She states that over time, LV systolic function has slightly improved. Patient was sleeping through most of the visit. She was arousable to verbal stimuli and denied shortness of breath or chest pain. She acknowledged that she had some abdominal discomfort and in stated that it was mild. She otherwise did not participate in conversation. Her mother states that this is usual for her daughter due to past unpleasant experiences at other facilities. 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 Her mother and sister have had gastrointestinal symptoms such as diarrhea, but have since improved. Roseanne developed such symptoms on 12/25/2020, initiating as nausea, vomiting, abdominal pain, and diarrhea. She did not tolerate p.o. intake. She took her usual medications that morning and developed the symptoms later that night, after taking her evening meds. On 12/26/2020, she took her medications in the morning and vomited within 5 minutes. She did not take any of her cardiac medicationsleading up to her admission on 12/27/2020. There has not been any further vomiting and no known diarrhea since hospitalization according to her mother. She has denied chest pain, shortness of breath, syncope, palpitations and apparently has intermittent lower extremity swelling, especially if she becomes ill. Her mother states that she has been sleeping as she has been quite tired due to not feeling well. On presentation, she was noted to have acute on chronic renal insufficiency with a creatinine of 5.12, where her baseline creatinine has been reported as 2.5- 2.6. She received IV fluids. Repeat creatinine this morning was 4.98. She has been seen by Nephrology. An echocardiogram was attempted earlier this morning but patient refused completion until her mother was present at the bedside. Echo was then completed later in the day. Unfortunately, documentation from current primary trades helper and injury prevention coordinator have been requested but are not yet available for review. Review of systems: As above and otherwise unobtainable due to lack of participation by the patient. Family history: No known cardiomyopathy. No known CAD in first-degree relati ves although she has grandparents and great grandparents with cardiac disorders. Social history: Her mother reports that Roseanne does not smoke, consume alcohol, or use illicit drugs. She has no children. She lives at home with her mother, father, and 2 sisters. She has 3 sisters total. Her mother was present at the bedside. Allergies Allergy/AdvReac Type Severity Reaction Status Date / Time latex Allergy Makes skin Verified 12/27/20 17:51 itchy & red Home Medications Medication Instructions Recorded Confirmed Type carvedilol 12.5 mg tablet 12.5 mg PO BID 12/27/20 12/27/20 History cetirizine 10 mg tablet 10 mg PO DAILY 12/27/20 12/27/20 History ferrous sulfate 27 mg iron tablet 0 mg PO DAILY 12/27/20 12/27/20 History furosemide 40 mg tablet 40 mg PO QPM 12/27/20 12/27/20 History furosemide 40 mg tablet 80 mg PO QAM 12/27/20 12/27/20 History losartan 25 mg tablet 25 mg PO DAILY 12/27/20 12/27/20 History spironolactone 25 mg tablet 12.5 mg PO DAILY 12/27/20 12/27/20 History Patient History Medical History (Updated 12/28/20 @ 22:25 by Miguel Angel Noland MD) Chronic kidney disease, stage 3 Chronic systolic CHF (congestive heart failure) Diabetes mellitus type 2 in obese Hypertension Nonischemic cardiomyopathy Obesity Social History Smoking Status: Never smoker Hx Alcohol Use: No Hx Substance Use: No Preferred Language: [place] Clinical Operations Manager Required: No Beliefs That Will Affect Care: None Current Living Situation: Parent and Family Feels Safe at Home: Yes Assistive Devices: None Physical Exam Physical Exam: Gen.: No acute distress. Somnolent but arousable with verbal stimuli. She was not conversive but which ache her head yes or no to answer questions. HEENT: Anicteric sclera. Neck: Thick neck. No bruits. Normal carotid upstrokes bilaterally. Cardiac: PMI was nonpalpable. No ventricular heave. Regular. Normal S1-S2. No mu rmurs, rubs, or gallops. Pulmonary: Clear to auscultation bilaterally without wheezes, rales, or rhonchi. Abdomen: Obese. Soft, nondistended, with normoactive bowel sounds. Appeared nontender. No bruits noted. Extremities: 2+ radial pulses bilaterally. 2+ posterior tibialis pulses bilaterally. Trace bilateral lower extremity edema. No cyanosis. Psychiatric: Affect appears appropriate. Results & Data ([facility]) Vital Signs (Past 12 Hours) Vital Signs Temp Pulse Resp BP Pulse Ox 12/28/20 16:04 36.4 C L 80 20 109/77 94 12/28/20 12:00 37 C 777 H 18 130/68 98 12/28/20 08:00 36.8 C 85 18 134/75 96 Intake & Output 12/26/20 12/27/20 12/28/20 12/29/20 06:59 06:59 06:59 06:59 Intake Total 1500 / 1500 Balance 1500 / 1500 Weight 333 lb 5.423 oz Laboratory Results Laboratory Results - last 24 hr 12/27/20 12/27/20 12/27/20 17:20 19:30 19:30 WBC RBC Hgb Hct MCV MCH MCHC RDW Std Deviation RDW Coeff of Nicole Plt Count MPV Immature Gran % (Auto) Neut % (Auto) Lymph % (Auto) Emanuel % (Auto) Eos % (Auto) Baso % (Auto) Neut # (Auto) Lymph # (Auto) Emanuel # (Auto) Eos # (Auto) Baso # (Auto) Immature Gran # (Auto) PT INR APTT PTT Ratio Sodium Potassium Chloride Carbon Dioxide Anion Gap BUN Creatinine Est Cr Clr Drug Dosing Est GFR ( Amer) Est GFR (Non-Af Amer) BUN/Creatinine Ratio Glucose POC Glucose Estimat Average Glucose Hemoglobin A1c Calcium Total Bilirubin AST ALT Alkaline Phosphatase Troponin I < 0.015 NT-Pro-B Natriuret Pep > 54242 H Total Protein Albumin Globulin Albumin/Globulin Ratio Urine Color Dark Yellow Urine Appearance Clear Urine pH 6.0 Ur Specific [place] 1.029 Urine Protein 4+ H Urine Glucose (UA) Trace H Urine Ketones Trace H Urine Blood 1+ H Urine Nitrite Negative Urine Bilirubin 1+ H Urine Urobilinogen Negative Ur Leukocyte Esterase Negative Urine WBC (Auto) >30 H Urine RBC (Auto) 5-10 H U Hyaline Cast (Auto) 5-10 H U Epithel Cells (Auto) >30 H Urine Bacteria (Auto) 2+ H Ur Random Creatinine Ur Random Microalbumin U Random Total Protein Protein/Creatinin Ratio Urine Test Negative Giardia Antigen 12/27/20 12/27/20 12/28/20 19:30 23:43 00:38 WBC RBC Hgb Hct MCV MCH MCHC RDW Std Deviation RDW Coeff of Nicole Plt Count MPV Immature Gran % (Auto) Neut % (Auto) Lymph % (Auto) Emanuel % (Auto) Eos % (Auto) Baso % (Auto) Neut # (Auto) Lymph # (Auto) Emanuel # (Auto) Eos # (Auto) Baso # (Auto) Immature Gran # (Auto) PT 12.1 H INR 1.2 H APTT 30.5 PTT Ratio 1.2 Sodium Potassium Chloride Carbon Dioxide Anion Gap BUN Creatinine Est Cr Clr Drug Dosing Est GFR ( Amer) Est GFR (Non-Af Amer) BUN/Creatinine Ratio Glucose POC Glucose Estimat Average Glucose Hemoglobin A1c Calcium Total Bilirubin AST ALT Alkaline Phosphatase Troponin I NT-Pro-B Natriuret Pep Total Protein Albumin Globulin Albumin/Globulin Ratio Urine Color Urine Appearance Urine pH Ur Specific [place] Urine Protein Urine Glucose (UA) Urine Ketones Urine Blood Urine Nitrite Urine Bilirubin Urine Urobilinogen Ur Leukocyte Esterase Urine WBC (Auto) Urine RBC (Auto) U Hyaline Cast (Auto) U Epithel Cells (Auto) Urine Bacteria (Auto) Ur Random Creatinine 159.0 Ur Random Microalbumin > 80915.0 U Random Total Protein 2317.0 H Protein/Creatinin Ratio 14.6 H Urine Test Giardia Antigen Pending 12/28/20 12/28/20 12/28/20 05:22 05:22 05:22 WBC 7.79 RBC 5.32 Hgb 13.1 Hct 42.7 MCV 80.3 MCH 24.6 L MCHC 30.7 L RDW Std Deviation 55.9 H RDW Coeff of Nicole 19.4 H Plt Count 345 MPV 10.1 Immature Gran % (Auto) 0.1 Neut % (Auto) 67.0 Lymph % (Auto) 23.2 Emanuel % (Auto) 8.2 Eos % (Auto) 1.2 Baso % (Auto) 0.3 Neut # (Auto) 5.22 Lymph # (Auto) 1.81 Emanuel # (Auto) 0.64 H Eos # (Auto) 0.09 Baso # (Auto) 0.02 Immature Gran # (Auto) 0.01 PT INR APTT PTT Ratio Sodium 140 Potassium 4.9 Chloride 110 H Carbon Dioxide 23 Anion Gap 7.0 BUN 40 H Creatinine 4.98 H* Est Cr Clr Drug Dosing 25.4 Est GFR ( Amer) 13.5 Est GFR (Non-Af Amer) 11.6 BUN/Creatinine Ratio 7.8 L Glucose 111 H POC Glucose Estimat Average Glucose 128 Hemoglobin A1c 6.1 H Calcium 7.8 L Total Bilirubin 1.0 AST 14 L ALT 13 Alkaline Phosphatase 103 Troponin I NT-Pro-B Natriuret Pep Total Protein 6.2 L Albumin 1.5 L Globulin 4.7 H Albumin/Globulin Ratio 0.3 L Urine Color Urine Appearance Urine pH Ur Specific [place] Urine Protein Urine Glucose (UA) Urine Ketones Urine Blood Urine Nitrite Urine Bilirubin Urine Urobilinogen Ur Leukocyte Esterase Urine WBC (Auto) Urine RBC (Auto) U Hyaline Cast (Auto) U Epithel Cells (Auto) Urine Bacteria (Auto) Ur Random Creatinine Ur Random Microalbumin U Random Total Protein Protein/Creatinin Ratio Urine Test Giardia Antigen 12/28/20 12/28/20 12/28/20 06:10 12:07 13:27 WBC RBC Hgb Hct MCV MCH MCHC RDW Std Deviation RDW Coeff of Nicole Plt Count MPV Immature Gran % (Auto) Neut % (Auto) Lymph % (Auto) Emanuel % (Auto) Eos % (Auto) Baso % (Auto) Neut # (Auto) Lymph # (Auto) Emanuel # (Auto) Eos # (Auto) Baso # (Auto) Immature Gran # (Auto) PT INR APTT PTT Ratio Sodium Potassium Chloride Carbon Dioxide Anion Gap BUN Creatinine Est Cr Clr Drug Dosing Est GFR ( Amer) Est GFR (Non-Af Amer) BUN/Creatinine Ratio Glucose POC Glucose 94 104 H 95 Estimat Average Glucose Hemoglobin A1c Calcium Total Bilirubin AST ALT Alkaline Phosphatase Troponin I NT-Pro-B Natriuret Pep Total Protein Albumin Globulin Albumin/Globulin Ratio Urine Color Urine Appearance Urine pH Ur Specific [place] Urine Protein Urine Glucose (UA) Urine Ketones Urine Blood Urine Nitrite Urine Bilirubin Urine Urobilinogen Ur Leukocyte Esterase Urine WBC (Auto) Urine RBC (Auto) U Hyaline Cast (Auto) U Epithel Cells (Auto) Urine Bacteria (Auto) Ur Random Creatinine Ur Random Microalbumin U Random Total Protein Protein/Creatinin Ratio Urine Test Giardia Antigen 12/28/20 17:47 WBC RBC Hgb Hct MCV MCH MCHC RDW Std Deviation RDW Coeff of Nicole Plt Count MPV Immature Gran % (Auto) Neut % (Auto) Lymph % (Auto) Emanuel % (Auto) Eos % (Auto) Baso % (Auto) Neut # (Auto) Lymph # (Auto) Emanuel # (Auto) Eos # (Auto) Baso # (Auto) Immature Gran # (Auto) PT INR APTT PTT Ratio Sodium Potassium Chloride Carbon Dioxide Anion Gap BUN Creatinine Est Cr Clr Drug Dosing Est GFR ( Amer) Est GFR (Non-Af Amer) BUN/Creatinine Ratio Glucose POC Glucose 94 Estimat Average Glucose Hemoglobin A1c Calcium Total Bilirubin AST ALT Alkaline Phosphatase Troponin I NT-Pro-B Natriuret Pep Total Protein Albumin Globulin Albumin/Globulin Ratio Urine Color Urine Appearance Urine pH Ur Specific [place] Urine Protein Urine Glucose (UA) Urine Ketones Urine Blood Urine Nitrite Urine Bilirubin Urine Urobilinogen Ur Leukocyte Esterase Urine WBC (Auto) Urine RBC (Auto) U Hyaline Cast (Auto) U Epithel Cells (Auto) Urine Bacteria (Auto) Ur Random Creatinine Ur Random Microalbumin U Random Total Protein Protein/Creatinin Ratio Urine Test Giardia Antigen Diagnostic Findings Chest x-ray 12/27/2020 personally reviewed: No infiltrate. Cardiomegaly. Renal ultrasound 12/27/2020: No hydronephrosis. Echogenic kidneys. Suboptimal penetration. ECG personally reviewed 12/27/2020: Sinus 90 beats per minute. Poor R-wave progression. Low voltage. Echo 12/28/2020: Dilated LV with severely reduced systolic function. EF 25- 30%. Global hypokinesis. Mild MR. RVSP 45. Small posterior pericardial effusion without echocardiographic evidence of tamponade physiology. Chart reviewed. Medications Administered Current Inpatient Medications Acetaminophen (Acetaminophen 325 Mg Tab) 650 mg PO Q4H PRN PRN Reason: Pain or Fever Stop: 01/27/21 01:42 Al Hydrox/Mg Hydrox/Simethicone (Aluminum/Magnesium/Simeth (Maalox Max) 30 Ml Udc) 15 ml PO BID NASEEM Stop: 01/27/21 20:59 Carvedilol (Carvedilol 12.5 Mg Tab) 12.5 mg PO BID NASEEM Stop: 01/27/21 08:59 Last Admin: 12/28/20 09:10 Dose: 12.5 mg Documented by: Cholestyramine Resin (Cholestyramine Light 4 Gm Pkt) 4 gm PO BID PRN PRN Reason: Diarrhea Stop: 01/27/21 01:42 Dextrose (Dextrose 50% 50 Ml Syringe) 25 - 50 ml IV UD PRN; Protocol PRN Reason: Hypoglycemia Protocol Stop: 01/27/21 01:42 Glucagon (Glucagon For Inj 1 Mg Vial) 1 mg SQ UD PRN; Protocol PRN Reason: Hypoglycemia Protocol Stop: 01/27/21 01:42 Glucose (Glucose 10 Tabs/Tube) 4 - 8 tabs PO UD PRN; Protocol PRN Reason: Hypoglycemia Protocol Stop: 01/27/21 01:42 Glucose (Glucose 40% Gel 15 Gm Tube) 15 - 30 gm PO UD PRN; Protocol PRN Reason: Hypoglycemia Protocol Stop: 01/27/21 01:42 Lactated Ringer's (Lr) 1,000 mls @ 60 mls/hr IV .[id number] [facility] Stop: 01/27/21 16:14 Last Admin: 12/28/20 17:06 Dose: 60 mls/hr Documented by: Famotidine 20 mg/ Syringe 5 mls @ 2.5 mls/min IV QD@08 [facility] Stop: 01/28/21 07:59 Pantoprazole Sodium 40 mg/ (Syringe) 10 mls @ 5 mls/min IV DAILY@1700 [facility] Stop: 01/27/21 16:59 Last Admin: 12/28/20 17:06 Dose: 5 mls/min Documented by: Insulin Aspart (Insulin Aspart 100 Units/Ml 3 Ml Pen) 0 units SC Q6 [facility] Stop: 01/27/21 05:59 Last Admin: 12/28/20 17:48 Dose: Not Given Documented by: Insulin Glargine (Insulin Glargine Solostar 100 Units/Ml 3 Ml Pen) 26 units SC BID [facility] Stop: 01/27/21 08:59 Last Admin: 12/28/20 09:10 Dose: 26 units Documented by: Miscellaneous (Carbohydrates For Hypoglycemia ) 15 - 30 gm PO UD PRN PRN Reason: Hypoglycemia Protocol Stop: 01/27/21 01:42 Ondansetron HCl (Ondansetron Inj 2 Mg/Ml 2 Ml Vial) 4 mg IV Q6H PRN PRN Reason: Nausea Stop: 01/27/21 01:42 Last Admin: 12/28/20 14:19 Dose: 4 mg Documented by: She PG Care Time/CCT Total # of Minutes Spent Total Time Spent with Patient: Total time spent is greater than 50% in coordination of care (as documented) at patient's floor/unit and/or counseling patient: Coding Level of Care Code 00535 Initial Inpt Care Lvl 3 Diagnoses Chronic systolic CHF (congestive heart failure) I50.22 Nonischemic cardiomyopathy I42.8 Pericardial effusion I31.3
--- NOTE | 2020-12-28 19:11 | Billing Data ---
Date of Service December 28, 2020 Coding Level of Care Code 26776 Subseq Hosp Care Lvl 3
[2020-12-28] MEDS: ALUMINUM/MAGNESIUM/SIMETH (MAALOX MAX) 30 ML UDC PO SCH (22:22)
[2020-12-29] MEDS ORDERED: hydrOXYzine HCl 25 MG TAB PO STA (00:21)
[2020-12-29] MEDS: INSULIN ASPART 100 UNITS/ML 3 ML PEN SC SCH ×3 (00:42→11:39)
--- NOTE | 2020-12-29 03:31 | Billing Data ---
Date of Service December 29, 2020 Coding Level of Care Code 47687 Initial Inpt Care Lvl 3
--- NOTE | 2020-12-29 06:00 | Electrocardiogram Report ---
Test Reason : Blood Pressure : / mmHG Vent. Rate : 090 BPM Atrial Rate : 090 BPM P-R Int : 180 ms QRS Dur : 092 ms QT Int : 404 ms P-R-T Axes : 059 097 083 degrees QTc Int : 494 ms Normal sinus rhythm Low voltage QRS Poor R wave progression, consider anterior NC vs. lead placement vs. LVH Prolonged QT Abnormal ECG No previous ECGs available Confirmed by Miguel Angel Noland ([id number]) on 12/29/2020 5:59:59 AM Referred By: REFERRED SELF Confirmed By:Miguel Angel Noland
[2020-12-29] MEDS: CARBOHYDRATES FOR HYPOGLYCEMIA PO PRN (06:19)
[2020-12-29] MEDS: ONDANSETRON INJ 2 MG/ML 2 ML VIAL IV PRN (06:30)
[2020-12-29] MEDS: FAMOTIDINE 20 MG in SYRINGE 3 ML IV SCH (07:32)
[2020-12-29] MEDS ORDERED: INSULIN GLARGINE SOLOSTAR 100 UNITS/ML 3 ML PEN SC SCH ×2 (09:00→21:00)
[2020-12-29 09:04] LABS: Hematocrit (blood only) 40.9 % (37-47); Hemoglobin 12.4 g/dL (12.0-16.0); Mean Corpuscular Hemoglobin 24.8 pg (25-34); Mean Corpuscular Hgb Conc 30.3 g/dL (32-36); Mean Platelet Volume 9.5 fL (7.4-10.4); Platelet Count 240 K/uL (130-400); RDW Coefficient of Variation 19.4 % (11.5-14.5); RDW Standard Deviation 57.1 fL (36.4-46.3); Red Blood Count 4.99 M/uL (4.2-5.4); White Blood Count 5.22 K/uL (4.8-10.8)
[2020-12-29] MEDS: ALUMINUM/MAGNESIUM/SIMETH (MAALOX MAX) 30 ML UDC PO SCH ×3 (09:35→20:13)
[2020-12-29] MEDS: LACTATED RINGER'S 1,000 ML IV SCH ×2 (09:35→23:20)
[2020-12-29] MEDS: INSULIN GLARGINE SOLOSTAR 100 UNITS/ML 3 ML PEN SC SCH ×2 (09:36→09:45)
[2020-12-29] MEDS: carvediloL 12.5 MG TAB PO SCH ×2 (09:40→20:13)
[2020-12-29 09:46] LABS: Albumin Globulin Ratio 0.4 (0.9-2); Albumin Level 1.5 gm/dl (3.4-5.0); Bilirubin,Total 0.8 mg/dl (0.2-1); Calcium 7.7 mg/dl (8.5-10.1); Creatinine Clr Calc Pharmacy 24.4 ml/min; Est GFR (African American) 12.9 ml/min; Est GFR (Non-African American) 11.1 ml/min; Globulin 4.2 gm/dl (2.5-4.0); Potassium 4.8 mmol/L (3.5-5.1); Total Protein 5.7 gm/dl (6.4-8.2)
[2020-12-29] MEDS: PROCHLORPERAZINE 10 MG in SYRINGE 8 ML IV SCH ×3 (10:38→22:30)
--- NOTE | 2020-12-29 10:47 | Nephrology Progress Note ---
Date of Service December 29, 2020 Assessment & Plan (1) BRADEN (acute kidney injury): Plan: * BRADEN/CKD likely reflective of intravascular volume depletion related to gastroenteritis, poor renal perfusion associated w/ CMP in the setting of ARB therapy * Patient is net 2.5 L volume +. UO has not been measured. I asked staffing recruiter record all UO. They note that patient has had nausea but no diarrhea over the last 24 hours * Urine microscopy negative for cellular casts * 12/27/20 renal US: R 9.6cm, L 9.2cm. No hydronephrosis. Increased cortical echogenicity bilaterally * SaO2 100% on O2 at 2L/min NC, electrolyte balance is acceptable * Continue to hold Furosemide, Spironolactone and Losartan * FeNa is 0.7%. Patient does not appear clinically volume overloaded. Continue gentle hydration w/ LR at 60 cc/hr * Awaiting records from primary Strategy Associate, [facility] and recent hospitalization at [facility] * If kidney function fails to improve w/ IV hydration, may need to consider THC and initiation of HD. Discussed w/ patient, she did not respond. I have called her mother Shamika this morning and provided an update. The possibility of IJ THC placement and the process of HD were described in detail. (2) Chronic kidney disease, stage 3: Plan: * CKD likely due to multiple factors including DKD, FSGS, CRS * Baseline Cr 2.6 02/26 * Will request last two OV notes from Dr. Cooper (3) Heart failure: Plan: * BNP >55054, CXR w/ moderate CMG, primary service reports AICD considered during hospitalization 03/29 at [facility] * 12/28/20 Echocardiogram: LVEF 25 - 30%, pHTN w/ PASP 45 mm Hg * Will request last two OV notes from [facility] (4) Gastroenteritis: Plan: * Stool culture for enteric pathogens - pending Admission and Anticipated Discharge Date Admission Date: December 27, 2020 Subjective Miss Cedillo was evaluated in her hospital room this morning. No family was present. Miss Cedillo opened her eyes to verbal greeting but would not answer any questions. Upon leaving the room she did say "thank you". Review of Systems Review of Systems: Unobtainable due to cognitive status Physical Exam Constitutional: + obese; not in distress Eyes: PERRL, conjunctivae normal, anicteric sclerae ENMT: external ear and nose normal, oropharynx normal Neck: trachea midline, no thyromegaly Respiratory: normal respiratory effort, lungs clear to auscultation Cardiovascular: Rate/Rhythm: regular rate and regular rhythm Extremities: no edema Gastrointestinal (Abdomen): normal bowel sounds, soft, nontender, no hepatosplenomegaly Skin: no rashes, warm and dry Neurologic: awake; not confused Results & Data ([facility]) Vital Signs (Past 12 Hours) Vital Signs Temp Pulse Pulse Resp BP BP Pulse Ox 12/29/20 07:00 36.4 C L 80 20 95/66 L 100 12/29/20 06:42 70 16 119/84 99 12/29/20 06:23 84 12/29/20 03:14 36.7 C 84 18 139/67 99 12/29/20 00:21 90 18 111/82 99 Laboratory Results Laboratory Tests 12/29/20 12/29/20 08:32 08:32 WBC 5.22 Hgb 12.4 Hct 40.9 Plt Count 240 Sodium 141 Potassium 4.8 Chloride 109 H Carbon Dioxide 22 BUN 36 H Creatinine 5.17 H* Glucose 88 Albumin 1.5 L PG Care Time/CCT Total # of Minutes Spent Total Time Spent with Patient: Total time spent is greater than 50% in coordination of care (as documented) at patient's floor/unit and/or counseling patient: Coding Level of Care Code 91940 Subseq Hosp Care Lvl 3 Diagnoses BRADEN (acute kidney injury) N17.9 Chronic kidney disease, stage 3 N18.30 Heart failure I50.9 Gastroenteritis K52.9
[2020-12-29] MEDS: PANTOprazole 40 MG in SYRINGE 0 ML IV SCH (16:23)
--- NOTE | 2020-12-29 16:44 | Cardiology Progress Note ---
Date of Service December 29, 2020 Assessment & Plan (1) Chronic systolic CHF (congestive heart failure): (2) Nonischemic cardiomyopathy: (3) Pericardial effusion: Plan: ASSESSMENT/PLAN: 1. Chronic systolic CHF (HFrEF): Clinical presentation was consistent with hypovolemia with nausea, vomiting, diarrhea and very little p.o. intake for a few days leading up to hospitalization. Despite hydration, she does not yet appear hypervolemic, however exam is difficult due to body habitus. Her breathing is at baseline and she is able to lay in bed. I&Os and daily weights if possible. Monitor for signs or symptoms of hypervolemia / CHF. She did not present with CHF exacerbation. Low-sodium diet. Close follow-up with her primary boat hop who specializes in advanced heart failure and cardiac transplantation (Dr. Clif Jaramillo). 2. Nonischemic cardiomyopathy: Mother reports etiology as myocarditis. Records requested for review from her primary boat hop with [facility]. Typically takes carvedilol, losartan, and spironolactone. Continue carvedilol. Losartan and spironolactone are on hold due to acute on chronic renal insufficiency. Consider ICD for primary prevention. 3. Pericardial effusion: Small and appeared to be hemodynamically insigni ficant. Can monitor over time. Not likely contributing to her presentation. 4. Acute on chronic renal insufficiency /CKD with acute kidney injury: Receiving cautious hydration as per Nephrology. Renal function has not significantly improved from presentation. Caution with fluids given reduced LV systolic function and chronic HFrEF. 5. Gastroenteritis: As per primary service. GI symptoms similar to recent contacts at work, including mother and sister. It appears as though symptoms have improved. 6. Disposition: Cardiology will continue to follow along. Please call with any questions or concerns. Patient care communicated with Dr. Dickinson of the primary hospitalist service. Admission and Anticipated Discharge Date Admission Date: December 27, 2020 Subjective Patient was seen this afternoon with her mom at the bedside. She had an episode of chest discomfort overnight. She had just finished eating Jell-O a few minutes before. She did not try eating much today until just before we entered the room. She otherwise has been tolerating p.o. fluids. She has been nauseated but no further vomiting. She denies shortness of breath, stating it is at baseline. She was out of bed sitting in the chair today. She was more conversive today. Review of systems: As above. Physical Exam Physical Exam: Gen.: No acute distress. Alert and oriented. HEENT: Anicteric sclera. Neck: Thick neck. Cardiac: Regular. Normal S1-S2. No murmurs, rubs, or gallops. Pulmonary: Distant, but clear to auscultation bilaterally without wheezes, rales, or rhonchi. Abdomen: Obese. Soft, nondistended, with normoactive bowel sounds. Extremities:Trace bilateral lower extremity edema. No cyanosis. Results & Data ([facility]) Vital Signs (Past 12 Hours) Vital Signs Temp Pulse Pulse Resp BP BP Pulse Ox 12/29/20 16:28 36.5 C 87 16 130/80 100 12/29/20 14:19 84 12/29/20 11:00 36.8 C 76 20 132/88 93 12/29/20 07:00 36.4 C L 80 20 95/66 L 100 12/29/20 06:42 70 16 119/84 99 12/29/20 06:23 84 Intake & Output 12/27/20 12/28/20 12/29/20 12/30/20 06:59 06:59 06:59 06:59 Intake Total 1500 / 1500 200 / 200 1397 / 1397 Output Total 100 / 100 Balance 1500 / 1500 200 / 200 1297 / 1297 Weight 333 lb 5.423 oz 333 lb 5.423 oz 333 lb 5.423 oz Laboratory Results Laboratory Results - last 24 hr 12/28/20 12/28/20 12/28/20 00:38 17:47 20:34 WBC RBC Hgb Hct MCV MCH MCHC RDW Std Deviation RDW Coeff of Nicole Plt Count MPV Sodium Potassium Chloride Carbon Dioxide Anion Gap BUN Creatinine Est Cr Clr Drug Dosing Est GFR ( Amer) Est GFR (Non-Af Amer) BUN/Creatinine Ratio Glucose POC Glucose 94 100 H Calcium Total Bilirubin AST ALT Alkaline Phosphatase Total Protein Albumin Globulin Albumin/Globulin Ratio Ur Random Creatinine Ur Random Sodium Giardia Antigen SEE NOTE 12/29/20 12/29/20 12/29/20 00:42 06:18 06:22 WBC RBC Hgb Hct MCV MCH MCHC RDW Std Deviation RDW Coeff of Nicole Plt Count MPV Sodium Potassium Chloride Carbon Dioxide Anion Gap BUN Creatinine Est Cr Clr Drug Dosing Est GFR ( Amer) Est GFR (Non-Af Amer) BUN/Creatinine Ratio Glucose POC Glucose 91 61 L* 60 L* Calcium Total Bilirubin AST ALT Alkaline Phosphatase Total Protein Albumin Globulin Albumin/Globulin Ratio Ur Random Creatinine Ur Random Sodium Giardia Antigen 12/29/20 12/29/20 12/29/20 06:43 07:14 08:32 WBC 5.22 RBC 4.99 Hgb 12.4 Hct 40.9 MCV 82.0 MCH 24.8 L MCHC 30.3 L RDW Std Deviation 57.1 H RDW Coeff of Nicole 19.4 H Plt Count 240 MPV 9.5 Sodium Potassium Chloride Carbon Dioxide Anion Gap BUN Creatinine Est Cr Clr Drug Dosing Est GFR ( Amer) Est GFR (Non-Af Amer) BUN/Creatinine Ratio Glucose POC Glucose 78 Calcium Total Bilirubin AST ALT Alkaline Phosphatase Total Protein Albumin Globulin Albumin/Globulin Ratio Ur Random Creatinine 103.0 Ur Random Sodium 21 Giardia Antigen 12/29/20 12/29/20 08:32 11:33 WBC RBC Hgb Hct MCV MCH MCHC RDW Std Deviation RDW Coeff of Nicole Plt Count MPV Sodium 141 Potassium 4.8 Chloride 109 H Carbon Dioxide 22 Anion Gap 9.0 BUN 36 H Creatinine 5.17 H* Est Cr Clr Drug Dosing 24.4 Est GFR ( Amer) 12.9 Est GFR (Non-Af Amer) 11.1 BUN/Creatinine Ratio 7.0 L Glucose 88 POC Glucose 88 Calcium 7.7 L Total Bilirubin 0.8 AST 13 L ALT 10 L Alkaline Phosphatase 94 Total Protein 5.7 L Albumin 1.5 L Globulin 4.2 H Albumin/Globulin Ratio 0.4 L Ur Random Creatinine Ur Random Sodium Giardia Antigen Diagnostic Findings Telemetry personally reviewed: Sinus rhythm. ECGs personally reviewed: ECG 12/29/2020 at 12:05 a.m.: Sinus rhythm 78 beats per minute. Poor R-wave progression. ECG 12/29/2020 at 6:00 a.m.: Sinus rhythm 72 beats per minute. Poor R-wave progression. Medications Administered Current Inpatient Medications Acetaminophen (Acetaminophen 325 Mg Tab) 650 mg PO Q4H PRN PRN Reason: Pain or Fever Stop: 01/27/21 01:42 Al Hydrox/Mg Hydrox/Simethicone (Aluminum/Magnesium/Simeth (Maalox Max) 30 Ml Udc) 15 ml PO BID NASEEM Stop: 01/27/21 20:59 Last Admin: 12/29/20 13:15 Dose: Not Given Documented by: Carvedilol (Carvedilol 12.5 Mg Tab) 12.5 mg PO BID NASEEM Stop: 01/27/21 08:59 Last Admin: 12/29/20 09:40 Dose: Not Given Documented by: Cholestyramine Resin (Cholestyramine Light 4 Gm Pkt) 4 gm PO BID PRN PRN Reason: Diarrhea Stop: 01/27/21 01:42 Dextrose (Dextrose 50% 50 Ml Syringe) 25 - 50 ml IV UD PRN; Protocol PRN Reason: Hypoglycemia Protocol Stop: 01/27/21 01:42 Glucagon (Glucagon For Inj 1 Mg Vial) 1 mg SQ UD PRN; Protocol PRN Reason: Hypoglycemia Protocol Stop: 01/27/21 01:42 Glucose (Glucose 10 Tabs/Tube) 4 - 8 tabs PO UD PRN; Protocol PRN Reason: Hypoglycemia Protocol Stop: 01/27/21 01:42 Glucose (Glucose 40% Gel 15 Gm Tube) 15 - 30 gm PO UD PRN; Protocol PRN Reason: Hypoglycemia Protocol Stop: 01/27/21 01:42 Lactated Ringer's (Lr) 1,000 mls @ 80 mls/hr IV .[id number] NASEEM Stop: 01/27/21 16:14 Last Infusion: 12/29/20 16:23 Dose: 80 mls/hr Documented by: Famotidine 20 mg/ Syringe 5 mls @ 2.5 mls/min IV QD@08 NASEEM Stop: 01/28/21 07:59 Last Admin: 12/29/20 07:32 Dose: 2.5 mls/min Documented by: Pantoprazole Sodium 40 mg/ (Syringe) 10 mls @ 5 mls/min IV DAILY@1700 [facility] Stop: 01/27/21 16:59 Last Admin: 12/29/20 16:23 Dose: 5 mls/min Documented by: Prochlorperazine 10 mg/ (Syringe) 10 mls @ 5 mls/min IV Q6H [facility] Stop: 01/28/21 10:14 Last Admin: 12/29/20 16:23 Dose: 5 mls/min Documented by: Miscellaneous (Carbohydrates For Hypoglycemia ) 15 - 30 gm PO UD PRN PRN Reason: Hypoglycemia Protocol Stop: 01/27/21 01:42 Last Admin: 12/29/20 06:19 Dose: 15 gm Documented by: Ondansetron HCl (Ondansetron Inj 2 Mg/Ml 2 Ml Vial) 4 mg IV Q6H PRN PRN Reason: Nausea Stop: 01/27/21 01:42 Last Admin: 12/29/20 06:30 Dose: 4 mg Documented by: PG Care Time/CCT Total # of Minutes Spent Total Time Spent with Patient: Total time spent is greater than 50% in coordination of care (as documented) at patient's floor/unit and/or counseling patient: Coding Level of Care Code 12960 Subseq Hosp Care Lvl 3 Diagnoses Chronic systolic CHF (congestive heart failure) I50.22 Nonischemic cardiomyopathy I42.8 Pericardial effusion I31.3
--- NOTE | 2020-12-29 17:51 | Hospitalist Progress Note ---
Date of Service December 29, 2020 Assessment & Plan (1) BRADEN (acute kidney injury): Plan: Patient is a 20 year old female with PMHx Focal segmental glomerulosclerosis, HFrEF 2/2 nonischemic cardiomyopathy, CKD stage III, GERD, Asthma, DM2, that presents with 2 day history of worsening nausea, vomiting, and diarrhea. Patient does not do well in regards to discussion of her medical care while alone, please call her mother at [phone] for questions regarding the patients care and for updates. Vomiting and Diarrhea -Suspect viral gastritis with patient's history -Symptomatic control with cholestyramine and IV Zofran as needed. Started Compazine scheduled every 6 hour. -Fluid given in ED; switched lactated Ringer's solution rate to 80 cc/h. -Stool samples pending -Should symptoms worsen or patient develop abdominal pain, will consider imaging with CT ab/pelv -Switch patient to regular diet until midnight tonight after which she will be put on n.p.o. -Continue famotidine, Protonix, and Mylanta -Gave patient waldo and alcohol to give brief periods of nausea relief in order to have some oral intake. BRADEN on CKD Stage II with Hx Focal Segmental Glomerulosclerosis -Unsure if patient has FSGS, will request records from patients [facility] in [facility], though patient denies history of treatment with steroids or calcineurin inhibitors -Base Cr 2.5-2.6 with acute worsening to 5.12 on admission. Now 5.17. -Suspect BRADEN more due to pre-renal causes from fluid losses of vomiting and diarrhea -Patient received 1.5L NSS while in the ED, resumed lactated Ringer's solution at a rate of 80 cc/h. -Stat read of b/l renal US shows no hydronephrosis and notes increased echogenicity of kidneys b/l -Urine Microalbumin >10k and Urine Protein/Creatinine ratio 14.6 -Hold patient's Lasix, Losartan, Spironolactone in the setting of BRADEN -Nephrology consulted. They are in agreement with slow rehydration. Metabolic Acidosis -With slight gap of 12 on admission. Now resolved at 9.0. -Suspect secondary to above renal dysfunction -Repeat labs as patient has had fluid resuscitation -Can consider sodium bicarb ocean transportation intermediary if renal function continues to be compromised HFrEF -Patient with history of HFrEF secondary to nonischemic cardiomyopathy. -Last Echo from [facility] records note EF 20% in February 2020 -Echo on 12/28 showed EF of 25 to 30% which is an improvement from February 2020. -BNP >35k on admission, no baseline for comparison -Monitor I/O's -Requested patient's cardiology records from [facility] -Continue Carvedilol 12.5mg BID -Hold Lasix as above for BRADEN -Cardiology consulted DM2 -Insulin discontinued as her oral intake is very low and her diabetes has been well controlled. -HgbA1c of 6.1. Dispo: Med/Surg Telemetry FEN: Clear liquids DVT: SCDs Code: Full (2) Focal segmental glomerulosclerosis: (3) Chronic kidney disease, stage 3: (4) Diabetes mellitus type 2 in obese: (5) Gastritis: Admission and Anticipated Discharge Date Admission Date: December 27, 2020 Supervising Physician Co-Signing Physician Notes I personally examined the patient and verified all casanova points of history and exam, discussed case, and agree with decision making with Dr Mark Awake, trying to eat a little bit. Still has abdominal pain, has not vomited. Did have a urinary accident on the floorurine is fairly dark brown. Mom and sister present, updated to the best of our ability and answered all questions to the best of our ability. They will be living closer to [place] for the foreseeable future, and likely would like to shift her care north. Patient seen at the same time as cardiologyinput greatly appreciated. Vitals noted, in general she is awake and alert pleasant appears very fatigued but otherwise no distress. HEENT normocephalic atraumatic mucous membranes moist. Breathing unlabored no accessory muscle use good effort. Skin shows no rashes no pallor or icterus. Neuro without focal deficits. Intractable nausea and diarrheaalmost certainly a viral gastroenteritis superimposed on her baseline illness. In further discussions, the mother notes that actually even preceding this acute illness the patient had had about 10 months of nauseafor now we will work on the acute setting with symptomatic care and advancing diet as tolerated. Depending on how she does, that will dictate how we have to work-up the chronic issue further, although I suspect an EGD may be in order in the near or subacute future. ARF on CKDdue to above/dehydration. We initiated fluids slowly and cautiously, her creatinine did not really improve, but I also suspect a lot of it is because she is fairly significantly volume down, but because of her CKD and cardiomyopathy would been going very slow with fluids. Increase fluids slightly. No acute indications for dialysis. Appreciate nephrology assistance. Follow electrolytes. Chronic systolic CHFcontinues to appear dry to both ourselves and cardiology. Continue to follow volume status Otherwise as above time in ~315p time out ~4p >30mins face to face Subjective Patient was seen at bedside this afternoon. Patient did have chest pain overnight after having eaten some Jell-O. This was subsequently cleared by patient drinking water per Dr. Fajardo. She was also having anxiety so she was given hydroxyzine which improved her symptoms. Today she was seen with her mother present. This morning Lantus was attempted to be given to the patient and she refused that as she is not on Lantus in the outpatient setting. Her mother was concerned that this happened and she was told that if she did not need insulin she would not be given it, but that is clearly not the case right now. We have reassured her that we would not try to purposely give her insulin that would lower her blood sugars to the point that it would be a medical emergency by any means. After having this discussion we assured her that the insulin would be discontinued to put her mind at ease. Otherwise patient overall looks much better today than yesterday and is much more conversive than she was. This was the first time that she has been able to tolerate eating some small amounts of food and she has been tolerating oral hydration. Patient still complains of some nausea, but reports no vomiting or diarrhea. Patient and mother have no other complaints at this time. Review of Systems Review of Systems: All systems reviewed & are unremarkable except as noted in HPI & below Physical Exam Constitutional: WD/WN, vitals as above + ill appearing and + morbidly obese; no acute distress Neck: normal visual inspection and trachea midline Respiratory: normal respiratory effort, lungs clear to auscultation Cardiovascular: RRR, no murmur, no edema Gastrointestinal (Abdomen): Inspection/Auscultation: abdomen normal to inspection and normal bowel sounds Percussion/Palpation: + abdomen tender and abdomen soft Skin: no rashes, warm and dry Psychiatric: Orientation: alert and oriented x 3 Results & Data Results & Data ([facility]) Vital Signs (Past 12 Hours) Vital Signs Temp Pulse Pulse Resp BP BP Pulse Ox 12/29/20 16:28 36.5 C 87 16 130/80 100 12/29/20 14:19 84 12/29/20 11:00 36.8 C 76 20 132/88 93 12/29/20 07:00 36.4 C L 80 20 95/66 L 100 12/29/20 06:42 70 16 119/84 99 12/29/20 06:23 84
--- NOTE | 2020-12-29 19:02 | Billing Data ---
Date of Service December 29, 2020 Coding Level of Care Code 31352 Subseq Hosp Care Lvl 3
--- NOTE | 2020-12-29 19:03 | Billing Data ---
Date of Service December 29, 2020 Coding Level of Care Code 46110 Prolonged Care (int'l)
[2020-12-30] MEDS: PROCHLORPERAZINE 10 MG in SYRINGE 8 ML IV SCH ×2 (04:33→13:11)
--- NOTE | 2020-12-30 06:58 | Electrocardiogram Report ---
Test Reason : Blood Pressure : / mmHG Vent. Rate : 078 BPM Atrial Rate : 078 BPM P-R Int : 180 ms QRS Dur : 096 ms QT Int : 434 ms P-R-T Axes : 069 098 104 degrees QTc Int : 494 ms Normal sinus rhythm Possible Left atrial enlargement Rightward axis Poor R wave progression, consider anterior WA vs. lead placement vs. LVH Prolonged QT Abnormal ECG When compared with ECG of 27-DEC-2020 19:21, No significant change Confirmed by Miguel Angel Noland ([id number]) on 12/30/2020 6:58:29 AM Referred By: REFERRED SELF Confirmed By:Miguel Angel Noland
[2020-12-30 09:10] LABS: Hematocrit (blood only) 39.2 % (37-47); Mean Corpuscular Hgb Conc 30.6 g/dL (32-36); Mean Corpuscular Volume 81.7 fL (80-100); Mean Platelet Volume 9.3 fL (7.4-10.4); Platelet Count 250 K/uL (130-400); RDW Coefficient of Variation 19.4 % (11.5-14.5); RDW Standard Deviation 56.3 fL (36.4-46.3); White Blood Count 5.83 K/uL (4.8-10.8)
[2020-12-30 09:50] LABS: BUN Creatinine Ratio 6.6 (10-20); Calcium 7.7 mg/dl (8.5-10.1); Creatinine Clr Calc Pharmacy 24.8 ml/min; Est GFR (African American) 13.1 ml/min; Est GFR (Non-African American) 11.3 ml/min; Potassium 4.8 mmol/L (3.5-5.1)
--- NOTE | 2020-12-30 11:20 | Nephrology Progress Note ---
Date of Service December 30, 2020 Assessment & Plan (1) BRADEN (acute kidney injury): Plan: * No improvement in kidney function despite IV hydration. Patient remains oliguric * Urine microscopy negative for cellular casts * 12/27/20 renal US: R 9.6cm, L 9.2cm. No hydronephrosis. Increased cortical echogenicity bilaterally * SaO2 100% on O2 at 2L/min NC, electrolyte balance is acceptable * Continue to hold Furosemide, Spironolactone and Losartan * FeNa is 0.7%. Patient does not appear clinically volume overloaded. Continue gentle hydration w/ LR at 60 cc/hr. Monitor PRP and UO * Discharge summary from 09/25 hospitalization at [facility] reviewed: 01/24 Cr 1.75. 2018 renal biopsy at [facility] - FSGS, DKD. 09/25 Cr 2.2. BASSAM-neg, C3 C4-wnl, ANCA-neg. Anti-GBM & HIV were drawn but results unavailable. Patient refused repeat kidney biopsy. She signed out AMA for outpatient follow up w/ Dr. Cooper * Discussed THC and initiation of HD w/ Miss Agarwal and her mother (by telephone) this morning. Miss Agarwal refuses THC or HD at this time. Her mother plans to come to the hospital this afternoon to discuss the plan of care with Roseanne's medical team * Recommend continued hospitalization for medical management and initiation of HD if necessary. If patient leaves [facility] it would be against medical advice due to her advanced renal dysfunction. If she chooses to leave, Miss Cedillo will need to follow up with her regular Nutrition Technician (Dr. Cooper in [place], [place]) GRAY for ongoing medical management. I did explain this in detail to both Roseanne and her mother this morning. (2) Chronic kidney disease, stage 3: Plan: * CKD likely due to multiple factors including DKD, FSGS, CRS (3) Heart failure: Plan: * BNP >94819, CXR w/ moderate CMG, primary service reports AICD considered during hospitalization 03/29 at [facility] * 12/28/20 Echocardiogram: LVEF 25 - 30%, pHTN w/ PASP 45 mm Hg (4) Gastroenteritis: Plan: * Stool was negative for enteric pathogens Admission and Anticipated Discharge Date Admission Date: December 27, 2020 Subjective Miss Cedillo was evaluated in her hospital room this morning. She has persistent nausea but notes that her diarrhea has improved. Miss Cedillo stated repeatedly that she plans to leave this morning because the bed is uncomfortable. tax staff accountant reports that the patient only had 100 cc UO yesterday, no diarrhea. IV access was lost and patient refuses new heplock insertion. Review of Systems Constitutional: no fever Eyes: no problem reported Ear, Nose, Mouth, Throat: no problem reported Respiratory: no dyspnea Cardiovascular: no chest pain Gastrointestinal: + nausea and + diarrhea/loose stools; no abdominal pain Genitourinary: no dysuria and no hematuria Musculoskeletal: no back pain Integumentary: no rash Neurologic: + confusion Physical Exam Physical Exam: Patient refused exam this morning Results & Data ([facility]) Vital Signs (Past 12 Hours) Vital Signs Temp Pulse Pulse Resp BP Pulse Ox 12/30/20 07:58 36.5 C 84 18 126/75 99 12/30/20 06:42 85 12/30/20 04:00 36.6 C 85 18 119/83 97 Laboratory Results Laboratory Tests 12/30/20 12/30/20 08:39 08:39 WBC 5.83 Hgb 12.0 Hct 39.2 Plt Count 250 Sodium 140 Potassium 4.8 Chloride 110 H Carbon Dioxide 21 BUN 34 H Creatinine 5.10 H* Glucose 74 Calcium 7.7 L PG Care Time/CCT Total # of Minutes Spent Total Time Spent with Patient: Total time spent is greater than 50% in coordination of care (as documented) at patient's floor/unit and/or counseling patient: Coding Level of Care Code 96585 Subseq Hosp Care Lvl 3 Diagnoses BRADEN (acute kidney injury) N17.9 Chronic kidney disease, stage 3 N18.30 Heart failure I50.9 Gastroenteritis K52.9
[2020-12-30] MEDS: ALUMINUM/MAGNESIUM/SIMETH (MAALOX MAX) 30 ML UDC PO SCH ×2 (11:46→19:27)
[2020-12-30] MEDS: LACTATED RINGER'S 1,000 ML IV SCH ×2 (11:46→19:27)
[2020-12-30] MEDS: CARBOHYDRATES FOR HYPOGLYCEMIA PO PRN (12:33)
[2020-12-30] MEDS: carvediloL 12.5 MG TAB PO SCH ×2 (13:10→19:27)
[2020-12-30] MEDS: FAMOTIDINE 20 MG in SYRINGE 3 ML IV SCH (13:10)
--- NOTE | 2020-12-30 14:26 | Cardiology Progress Note ---
Date of Service December 30, 2020 Assessment & Plan (1) Chronic systolic CHF (congestive heart failure): (2) Nonischemic cardiomyopathy: (3) Pericardial effusion: Plan: ASSESSMENT/PLAN: 1. Chronic systolic CHF (HFrEF): Clinical presentation was consistent with hypovolemia with nausea, vomiting, diarrhea and very little p.o. intake for a few days leading up to hospitalization. Despite hydration, she had not yet appeared hypervolemic when last examined however exam is difficult due to body habitus. I&Os and daily weights if possible. Monitor for signs or symptoms of hypervolemia / CHF. She did not present with CHF exacerbation. Low-sodium diet. Close follow-up with her primary nuclear equipment sales engineer who specializes in advanced heart failure and cardiac transplantation (Dr. Clif Jaramillo). 2. Nonischemic cardiomyopathy: Mother reports etiology as myocarditis. Records have been requested for review from her primary nuclear equipment sales engineer with [facility]. Typically takes carvedilol, losartan, and spironolactone. Continue carvedilol. Losartan and spironolactone are on hold due to acute on chronic renal insufficiency. Consider ICD for primary prevention. This apparently has been scheduled in the past with her primary cardiology team. If she would like to andujar ve it done while hospitalized, can discussed with electrophysiology. Otherwise, she should follow-up soon after discharge with her primary nuclear equipment sales engineer. 3. Pericardial effusion: Small and appeared to be hemodynamically insignificant on echo during this hospitalization. Records from 2019 also report a small pericardial effusion at that time. This would suggest stable/chronic finding. Can monitor over time. Not likely contributing to her presentation. 4. Acute on chronic renal insufficiency /CKD with acute kidney injury: Receiving cautious hydration as per Nephrology. Renal function has not significantly improved from presentation. Caution with fluids given reduced LV systolic function and chronic HFrEF. 5. Gastroenteritis: As per primary service. GI symptoms similar to recent contacts at work, including mother and sister. It appears as though symptoms have improved since presentation. 6. Disposition: I will be away from the hospital for a prolonged period of time. Please call on-call nuclear equipment sales engineer for any further questions or concerns. She is not experiencing any acute cardiac issue at this time. Patient care has been communicated with Dr. Dickinson of the primary hospitalist service. Once again, recommend close follow-up with her nuclear equipment sales engineer, Dr. Jaramillo. Today's visit was 15 minutes in duration, including record review from [facility], chart review here, coordination with primary hospitalist team, and chart completion. Admission and Anticipated Discharge Date Admission Date: December 27, 2020 Subjective I presented to the bedside to evaluate her this morning. She was laying prone. Several attempts to speak with her but she did not acknowledge. Her glucose was normal and recent vitals demonstrated normal blood pressure and telemetry had been evaluated at that time and she was noted to be in sinus rhythm. Physical Exam Physical Exam: Exam was not performed as she was laying prone. Results & Data ([facility]) Vital Signs (Past 12 Hours) Vital Signs Temp Pulse Pulse Resp BP Pulse Ox 12/30/20 12:04 35.9 C L 76 18 112/77 96 12/30/20 07:58 36.5 C 84 18 126/75 99 12/30/20 06:42 85 12/30/20 04:00 36.6 C 85 18 119/83 97 Intake & Output 12/28/20 12/29/20 12/30/20 12/31/20 06:59 06:59 06:59 06:59 Intake Total 1500 / 1500 200 / 200 3099 / 3099 120 / 120 Output Total 100 / 100 Balance 1500 / 1500 200 / 200 2999 / 2999 120 / 120 Weight 333 lb 5.423 oz 333 lb 5.423 oz 333 lb 5.423 oz Laboratory Results Laboratory Results - last 24 hr 12/29/20 12/30/20 12/30/20 20:04 07:14 08:39 WBC 5.83 RBC 4.80 Hgb 12.0 Hct 39.2 MCV 81.7 MCH 25.0 MCHC 30.6 L RDW Std Deviation 56.3 H RDW Coeff of Nicole 19.4 H Plt Count 250 MPV 9.3 Sodium Potassium Chloride Carbon Dioxide Anion Gap BUN Creatinine Est Cr Clr Drug Dosing Est GFR ( Amer) Est GFR (Non-Af Amer) BUN/Creatinine Ratio Glucose POC Glucose 74 78 Calcium 12/30/20 12/30/20 12/30/20 08:39 12:27 12:59 WBC RBC Hgb Hct MCV MCH MCHC RDW Std Deviation RDW Coeff of Nicole Plt Count MPV Sodium 140 Potassium 4.8 Chloride 110 H Carbon Dioxide 21 Anion Gap 9.0 BUN 34 H Creatinine 5.10 H* Est Cr Clr Drug Dosing 24.8 Est GFR ( Amer) 13.1 Est GFR (Non-Af Amer) 11.3 BUN/Creatinine Ratio 6.6 L Glucose 74 POC Glucose 68 L* 79 Calcium 7.7 L Diagnostic Findings Telemetry personally reviewed: Sinus rhythm. No arrhythmia. ECG personally reviewed 12/30/2020: Sinus rhythm 81 beats per minute. Poor R- wave progression. Available records from [facility] reviewed records indicated qualification for supplemental oxygen, previously documented small pericardial effusion on CT imaging on 09/20/2019, sleep apnea which was reportedly treated in the past with CPAP. There was also mention on a 02/05/2020 note about being scheduled for subcutaneous ICD. Medications Administered Current Inpatient Medications Acetaminophen (Acetaminophen 325 Mg Tab) 650 mg PO Q4H PRN PRN Reason: Pain or Fever Stop: 01/27/21 01:42 Al Hydrox/Mg Hydrox/Simethicone (Aluminum/Magnesium/Simeth (Maalox Max) 30 Ml Udc) 15 ml PO BID NASEEM Stop: 01/27/21 20:59 Last Admin: 12/30/20 11:46 Dose: Not Given Documented by: Carvedilol (Carvedilol 12.5 Mg Tab) 12.5 mg PO BID NASEEM Stop: 01/27/21 08:59 Last Admin: 12/30/20 13:10 Dose: 12.5 mg Documented by: Cholestyramine Resin (Cholestyramine Light 4 Gm Pkt) 4 gm PO BID PRN PRN Reason: Diarrhea Stop: 01/27/21 01:42 Dextrose (Dextrose 50% 50 Ml Syringe) 25 - 50 ml IV UD PRN; Protocol PRN Reason: Hypoglycemia Protocol Stop: 01/27/21 01:42 Glucagon (Glucagon For Inj 1 Mg Vial) 1 mg SQ UD PRN; Protocol PRN Reason: Hypoglycemia Protocol Stop: 01/27/21 01:42 Glucose (Glucose 10 Tabs/Tube) 4 - 8 tabs PO UD PRN; Protocol PRN Reason: Hypoglycemia Protocol Stop: 01/27/21 01:42 Glucose (Glucose 40% Gel 15 Gm Tube) 15 - 30 gm PO UD PRN; Protocol PRN Reason: Hypoglycemia Protocol Stop: 01/27/21 01:42 Lactated Ringer's (Lr) 1,000 mls @ 80 mls/hr IV .[id number] [facility] Stop: 01/27/21 16:14 Last Infusion: 12/30/20 13:03 Dose: 80 mls/hr Documented by: Famotidine 20 mg/ Syringe 5 mls @ 2.5 mls/min IV QD@08 [facility] Stop: 01/28/21 07:59 Last Admin: 12/30/20 13:10 Dose: 2.5 mls/min Documented by: Pantoprazole Sodium 40 mg/ (Syringe) 10 mls @ 5 mls/min IV DAILY@1700 [facility] Stop: 01/27/21 16:59 Last Admin: 12/29/20 16:23 Dose: 5 mls/min Documented by: Miscellaneous (Carbohydrates For Hypoglycemia ) 15 - 30 gm PO UD PRN PRN Reason: Hypoglycemia Protocol Stop: 01/27/21 01:42 Last Admin: 12/30/20 12:33 Dose: 15 gm Documented by: Ondansetron HCl (Ondansetron Inj 2 Mg/Ml 2 Ml Vial) 4 mg IV Q6H PRN PRN Reason: Nausea Stop: 01/27/21 01:42 Last Admin: 12/29/20 06:30 Dose: 4 mg Documented by: PG Care Time/CCT Total # of Minutes Spent Total Time Spent with Patient: Total time spent is greater than 50% in coordination of care (as documented) at patient's floor/unit and/or counseling patient: Coding Level of Care Code 00932 Subseq Hosp Care Lvl 2 Diagnoses Chronic systolic CHF (congestive heart failure) I50.22 Nonischemic cardiomyopathy I42.8 Pericardial effusion I31.3
--- NOTE | 2020-12-30 14:53 | Electrocardiogram Report ---
Test Reason : Blood Pressure : / mmHG Vent. Rate : 072 BPM Atrial Rate : 072 BPM P-R Int : 184 ms QRS Dur : 096 ms QT Int : 440 ms P-R-T Axes : 033 051 028 degrees QTc Int : 482 ms Normal sinus rhythm Poor R wave progression, consider anterior HI vs. lead placement vs. LVH Prolonged QT Nonspecific T wave abnormality Abnormal ECG When compared with ECG of 29-DEC-2020 00:05, No significant change Confirmed by Miguel Angel Noland ([id number]) on 12/30/2020 2:53:25 PM Referred By: REFERRED SELF Confirmed By:Miguel Angel Noland
[2020-12-30 15:38] VITALS: BP 118/78; PULSE 81; TEMP 98.1; O2SAT 94
--- NOTE | 2020-12-30 16:32 | Hospitalist Progress Note ---
Date of Service December 30, 2020 Assessment & Plan (1) BRADEN (acute kidney injury): Plan: Patient is a 20 year old female with PMHx Focal segmental glomerulosclerosis, HFrEF 2/2 nonischemic cardiomyopathy, CKD stage III, GERD, Asthma, DM2, that presents with 2 day history of worsening nausea, vomiting, and diarrhea. Patient does not do well in regards to discussion of her medical care while alone, please call her mother at [phone] for questions regarding the patients care and for updates. Vomiting and Diarrhea -Suspect viral gastritis with patient's history. Patient has not vomited or had episodes of loose stools since being admitted to hospital. -Symptomatic control with cholestyramine and IV Zofran as needed. Discontinue Compazine as QT interval increased to 500. -Fluid given in ED; continue lactated Ringer solution at a rate of 80 cc/h. -Stool samples pending -Should symptoms worsen or patient develop abdominal pain, will consider imaging with CT ab/pelv -Diet switched to regular as dialysis is not being performed at this time. -Continue famotidine, Protonix, and Mylanta -Gave patient waldo and alcohol to give brief periods of nausea relief in order to have some oral intake. BRADEN on CKD Stage II with Hx Focal Segmental Glomerulosclerosis -Unsure if patient has FSGS, will request records from patients Management Planner in [facility], though patient denies history of treatment with steroids or calcineurin inhibitors -Base Cr 2.5-2.6 with acute worsening to 5.12 on admission. Now 5.10. -Ordered urine microscopy due to suspicion of possible acute tubular necrosis. -Suspect BRADEN more due to pre-renal causes from fluid losses of vomiting and diarrhea -Patient received 1.5L NSS while in the ED, resumed lactated Ringer's solution at a rate of 80 cc/h. -Stat read of b/l renal US shows no hydronephrosis and notes increased echogenicity of kidneys b/l -Urine Microalbumin >10k and Urine Protein/Creatinine ratio 14.6 -Hold patient's Lasix, Losartan, Spironolactone in the setting of BRADEN -Nephrology consulted. Consider doing hemodialysis today with the assumption that patient was anuric. After discussion with the patient, it was found patient has been urinating up to 4 times a day and is straw-colored in nature. Plan for now is to continue gentle rehydration with lactated Ringer's. Metabolic Acidosis -With slight gap of 12 on admission. Now resolved at 9.0. -Suspect secondary to above renal dysfunction -Repeat labs as patient has had fluid resuscitation -Can consider sodium bicarb termite control technician if renal function continues to be compromised HFrEF -Patient with history of HFrEF secondary to nonischemic cardiomyopathy. -Last Echo from [facility] records note EF 20% in February 2020 -Echo on 12/28 showed EF of 25 to 30% which is an improvement from February 2020. -BNP >35k on admission, no baseline for comparison -Monitor I/O's. This has been difficult as patient removes hat from toilet and flushes the urine down the drain. -Requested patient's cardiology records from [facility] -Continue Carvedilol 12.5mg BID -Hold Lasix as above for BRADEN -Cardiology consulted DM2 -Insulin discontinued on 12/29 as her oral intake is very low and her diabetes has been well controlled. Sugars have been well controlled since removal of insulin. -HgbA1c of 6.1. Dispo: Med/Surg Telemetry FEN: Regular diet DVT: SCDs Code: Full (2) Focal segmental glomerulosclerosis: (3) Heart failure: (4) Chronic kidney disease, stage 3: (5) Diabetes mellitus type 2 in obese: (6) Gastritis: Admission and Anticipated Discharge Date Admission Date: December 27, 2020 Supervising Physician Co-Signing Physician Notes I personally examined the patient and verified all casanova points of history and exam, discussed case, and agree with decision making with Dr Mark still not eating/drinking very well. IV site went bad - does not want a new one when we first are discussing situation. had previously discussed care w nephrology - biggest acute concern being oliguria with creatinine not improving raising concern for need for HD acutely for volume management -- after discus deepak with patient and mother - pt has been voiding a good bit just not recorded for myriad reasons. Vitals noted, in general she is awake and alert pleasant appears very fatigued but otherwise no distress. HEENT normocephalic atraumatic mucous membranes moist. Breathing unlabored no accessory muscle use good effort. Skin shows no rashes no pallor or icterus. Neuro without focal deficits. Intractable nausea and diarrheaalmost certainly a viral gastroenteritis superimposed on her baseline illness. In further discussions, the mother notes that actually even preceding this acute illness the patient had had about 10 months of nauseafor now we will work on the acute setting with symptomatic care and advancing diet as tolerated. Depending on how she does, that will dictate how we have to work-up the chronic issue further, although I suspect an EGD may be in order in the near or subacute future. also may be due to uremia if CKD //current creatinine is now at baseline but hopefully this isnt' the case ARF on CKDdue to above/dehydration hopefully versus less likely ATN, and least likely but possible progression of her CKD to ESRD. After discussion, patient realizes she is not realistically going to be able to drink enough to continue trial of hydration, and after discussion with patient and mother as well as IV team, patient is amenable to getting an IV placed again. Continue gentle fluids and follow Chronic systolic CHFcontinues to appear probably dry and no worse than euvolemic. The concern earlier was that she was oliguricand therefore at very high risk for acute pulmonary edema that would be difficult to manage without HDbut fortunately this was not the case, but rather was just erroneous ends and outs Otherwise as above time in ~1130a time out ~1220p >30mins face to face Subjective Patient seen at bedside this morning. Per usual patient is not very talkative when one-to-one, however, mother was able to calm around 11:00 this morning so that we can have a conversation with the patient. The case was discussed with nephrology at this morning who had the concerned that with the creatinine not improving overnight and her not having very much urine output, that she would require dialysis as this may be renal failure. After bring this point up to the mother and the patient, we are informed that the patient is actually urinating well about 4 times a day. There is discovered that the patient is taking out the hat in the toilet which is making it difficult to get accurate I's and O's in addition to getting a urine sample for urine microscopy. It was discussed with the patient and the mother that it was important that stay in the toilet so that we can accurately measure her urine output. Patient verbalizes multiple times that she just wants to go home. Overnight, patient's IV failed and there were multiple attempts to get a new one in. The patient became very frustrated and refused any more attempts at getting an IV placed. After discussing the importance of her getting IV fluid to help restore her kidney function as well as the mother positively reinforcing the idea of getting IV, the patient finally agreed to get another IV under the condition it was done by the IV team. Interestingly patient's nausea seems to have improved as she was able to eat the entire lunch tray she received today. Patient still denies shortness of breath, chest pain, diarrhea, or fevers. Patient has no other complaints at this time. Review of Systems Review of Systems: All systems reviewed & are unremarkable except as noted in HPI & below Physical Exam Constitutional: WD/WN, vitals as above well developed, well nourished, + ill appearing, + morbidly obese and + edematous; no acute distress and + uncooperative Eyes: PERRL, conjunctivae normal, anicteric sclerae Neck: normal visual inspection and trachea midline Respiratory: normal respiratory effort, lungs clear to auscultation normal respiratory effort; no respiratory distress, no cough and not tachypneic Cardiovascular: RRR, no murmur, no edema Rate/Rhythm: regular rate and regular rhythm Extremities: + edema Gastrointestinal (Abdomen): Inspection/Auscultation: abdomen normal to inspection, + significant pannus and + hyperactive bowel sounds Percussion/Palpation: + abdomen tender and abdomen soft Skin: no rashes, warm and dry Psychiatric: Orientation: alert and oriented x 3 Apperance: appropriately groomed Eye Contact: + poor eye contact Affect: + depressed affect Results & Data Results & Data ([facility]) Vital Signs (Past 12 Hours) Vital Signs Temp Pulse Pulse Resp BP Pulse Ox 12/30/20 15:37 36.7 C 81 18 118/78 94 12/30/20 14:20 87 12/30/20 12:04 35.9 C L 76 18 112/77 96 12/30/20 07:58 36.5 C 84 18 126/75 99 12/30/20 06:42 85
[2020-12-30] MEDS: PANTOprazole 40 MG in SYRINGE 0 ML IV SCH (16:58)
--- NOTE | 2020-12-30 17:24 | Billing Data ---
Date of Service December 30, 2020 Coding Level of Care Code 69226 Subseq Hosp Care Lvl 3
--- NOTE | 2020-12-30 17:24 | Billing Data ---
Date of Service December 30, 2020 Coding Level of Care Code 58775 Prolonged Care (int'l)
[2020-12-30 20:29] LABS: Bacteria Urine Automated 1+ (Negative); Epithelial Cell Urine Auto >30 /lpf (0-5); RBC Urine Automated 0-4 /hpf (0-4)
--- NOTE | 2020-12-31 06:36 | Electrocardiogram Report ---
Test Reason : Blood Pressure : / mmHG Vent. Rate : 081 BPM Atrial Rate : 081 BPM P-R Int : 184 ms QRS Dur : 096 ms QT Int : 430 ms P-R-T Axes : 065 127 066 degrees QTc Int : 500 ms Poor data quality, interpretation may be adversely affected Normal sinus rhythm Right axis deviation Poor R wave progression, consider anterior SC vs. lead placement vs. LVH Prolonged QT Nonspecific T wave abnormality Abnormal ECG When compared with ECG of 29-DEC-2020 06:00, QRS axis Shifted right Confirmed by Miguel Angel Noland ([id number]) on 12/31/2020 6:36:10 AM Referred By: REFERRED SELF Confirmed By:Miguel Angel Noland
[2020-12-31 08:20] LABS: Hematocrit (blood only) 36.1 % (37-47); Hemoglobin 11.3 g/dL (12.0-16.0); Mean Corpuscular Hemoglobin 25.3 pg (25-34); Mean Corpuscular Hgb Conc 31.3 g/dL (32-36); Mean Corpuscular Volume 80.8 fL (80-100); Mean Platelet Volume 9.2 fL (7.4-10.4); Platelet Count 245 K/uL (130-400); RDW Coefficient of Variation 19.2 % (11.5-14.5); RDW Standard Deviation 54.8 fL (36.4-46.3); Red Blood Count 4.47 M/uL (4.2-5.4); White Blood Count 5.54 K/uL (4.8-10.8)
[2020-12-31 09:02] LABS: BUN Creatinine Ratio 6.3 (10-20); Calcium 7.5 mg/dl (8.5-10.1); Creatinine Clr Calc Pharmacy 23.9 ml/min; Est GFR (African American) 12.6 ml/min; Est GFR (Non-African American) 10.8 ml/min; Potassium 4.5 mmol/L (3.5-5.1)
[2020-12-31] MEDS: LACTATED RINGER'S 1,000 ML IV SCH (09:52)
[2020-12-31] MEDS: carvediloL 12.5 MG TAB PO SCH (09:52)
[2020-12-31] MEDS: ALUMINUM/MAGNESIUM/SIMETH (MAALOX MAX) 30 ML UDC PO SCH (10:31)
[2020-12-31] MEDS: FAMOTIDINE 20 MG in SYRINGE 3 ML IV SCH (10:31)
--- NOTE | 2020-12-31 11:40 | Nephrology Progress Note ---
Date of Service December 31, 2020 Assessment & Plan (1) BRADEN (acute kidney injury): (2) Chronic kidney disease, stage 3: (3) Diabetes mellitus type 2 in obese: (4) Focal segmental glomerulosclerosis: (5) Nonischemic cardiomyopathy: (6) Chronic systolic CHF (congestive heart failure): Plan: 20-year-old female with stage IIIB CKD, baseline creatinine around 2, prior biopsy in 1999 18 as chop showed FSGS and diabetic nephropathy, serological workup was unremarkable at the time. Had repeated episodes of AK I over last 2 years. Admitted with acute kidney injury, creatinine was 5.0 was staying relatively stable but labs this morning showed further worsening. Initially oliguric but urine output slightly improved. Admitted with diarrhea and vomiting and noted to be volume depleted and has been on IV fluid since admission. Clinically she has been relatively stable and just wants to go home. Had detailed discussion with patient and her mom about possible need for dialysis in near future, however she is not sure whether she would to consider dialysis when needed. At this time there is no acute indication as potassium has been normal respiratory status acceptable and has been making urine. Blood pressure well controlled. -- Okay to continue on IV fluid and continue to encourage p.o. intake. Since renal function continues to slowly worsen, we will have to hold discharge and take it to the flanks until we see improvement in renal function or if renal function progressively worsened, at need to get a tunnel catheter and start on dialysis. Had detailed discussion again this morning with patient and her mom however she is adamant that she does not want to stay and just wants to get discharge. Explained that have she will have to sign against medical advise as she has significant risk for electrolyte abnormality and cardiac arrhythmia and other complication which can be fatal. Top will continue to monitor renal function with daily renal panel. No indication for emergency dialysis at this time. Will follow Admission and Anticipated Discharge Date Admission Date: December 27, 2020 Jadon Cronin was seen and examined in her room this morning with her mom and her nurse at bedside. She was overall upset and just wants to go home. Renal function slightly worsened to creatinine 5.3, electrolyte so for acceptable. Made 800 mL of urine over last 24 hours. Blood pressure acceptable. Denies any shortness of breath or chest pain. Review of Systems Review of Systems: Review of system was otherwise unremarkable Physical Exam Constitutional: WD/WN, vitals as above + morbidly obese; no acute distress Eyes: + anicteric sclerae ENMT: Ears: no hearing impairment and no external ear abnormality Nose: nasal mucous membranes not dry Neck: normal visual inspection Respiratory: normal respiratory effort; no respiratory distress Auscultation: lungs clear to auscultation bilaterally Cardiovascular: Rate/Rhythm: regular rate and regular rhythm Heart Sounds: normal S1 and normal S2 Extremities: no edema Skin: normal turgor; no rashes Neurologic: no focal motor deficits and not confused Psychiatric: Orientation: alert and oriented x 3 PG Care Time/CCT Total # of Minutes Spent Total Time Spent with Patient: Total time spent is greater than 50% in coordination of care (as documented) at patient's floor/unit and/or counseling patient: Coding Level of Care Code 45626 Subseq Hosp Care Lvl 3 Diagnoses BRADEN (acute kidney injury) N17.9 Chronic kidney disease, stage 3 N18.30 Diabetes mellitus type 2 in obese E11.69; E66.9 Focal segmental glomerulosclerosis N05.1 Nonischemic cardiomyopathy I42.8 Chronic systolic CHF (congestive heart failure) I50.22
--- NOTE | 2020-12-31 14:24 | Discharge Summary ---
Date of Service December 31, 2020 Admission HPI Per Admitting Provider Patient is a 20 year old female with PMHx Focal segmental glomerulosclerosis, HFrEF 2/2 nonischemic cardiomyopathy, CKD stage III, GERD, Asthma, DM2, that presents with 2 day history of worsening nausea, vomiting, and diarrhea. History is limited secondary to patient participation, though some history is obtainable from the patient a majority is obtained through the mother who is also present in the room. Patient notes that for the past 2 days she has been unable to keep anything down that she eats or drinks to which her mother agrees. She has also not been taking her medications as a result as well. Patients mother states that everyone in the family has had a similar illness at least once in the past 1 month. 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 The patient typically follows with physicians in [place] including her Air Conditioning Installer and Yam Curer who had been monitoring her glomerulosclerosis and heart failure. Patient notes that currently her primary concern is in regards to her nausea, vomiting, and diarrhea. She notes that with her emesis she has noted primarily green/bile like emesis without blood. She denies any blood in her stool either, though it has been minimally improved with immodium. Her nausea has been improved with Zofran. She denies any fever, chills, SOB (despite being on 3L O2 NC currently), chest pain, abdominal pain, dizziness, headache, back pain, flank pain. Med Hx: Focal segmental glomerulosclerosis, HFrEF 2/2 nonischemic cardiomyopathy, CKD stage III, GERD, Asthma, DM2 Surg Hx: No surgeries Soc Hx: Denies tobacco, alcohol, illicit drug use Fam Hx: Maternal GMA and Maternal great grandfather DM2 Principal Diagnosis Acute renal failure Discharge Exam Constitutional WD/WN, vitals as above well developed, well nourished, + ill appearing, + morbidly obese and + edematous; no acute distress and + uncooperative Eyes PERRL, conjunctivae normal, anicteric sclerae Neck trachea midline, no thyromegaly normal visual inspection and trachea midline Respiratory normal respiratory effort, lungs clear to auscultation normal respiratory effort; no respiratory distress, no cough and not tachypneic Cardiovascular RRR, no murmur, no edema Rate/Rhythm: regular rate and regular rhythm Extremities: + edema Gastrointestinal (Abdomen) Inspection/Auscultation: abdomen normal to inspection, + significant pannus and + hyperactive bowel sounds Percussion/Palpation: + abdomen tender and abdomen soft Skin no rashes, warm and dry Psychiatric Orientation: alert and oriented x 3 Apperance: appropriately groomed Eye Contact: + poor eye contact Affect: + depressed affect Discharge Data Allergies Allergy/AdvReac Type Severity Reaction Status Date / Time latex Allergy Makes skin Verified 12/27/20 17:51 itchy & red Consultations 12/27/20 21:19 ED Decision to Admit Stat 12/28/20 00:03 Consult Health Information Management Stat 12/28/20 01:43 Consult Cardiology Routine Consult Nephrology Routine Ordered Studies 12/27/20 21:14 US renal/blad retro comp Urgent Hospital Course (1) BRADEN (acute kidney injury): Patient was very adamant about leaving the hospital and after a long discussion about her prognosis and care plan she still decided to leave AGAINST MEDICAL ADVICE. The hospital course is written below, however, due to the state of her current medical condition, I did not feel right not giving her help after leaving the hospital. The following plan was made with patient in agreement: -Daily kidney function labs that would ideally be done by 9 AM every morning that we will review every day. -She consumes at least 80 ounces of fluids a day. Preferably water. -She has a VERY low threshold for returning to the hospital in the setting of shortness of breath, abnormal heart rhythms, or returning of her nausea or vomiting. -She follow-up with Dr. Remigio Mark at the [facility] residency clinic to continue her care. Patient is a 20 year old female with PMHx Focal segmental glomerulosclerosis, HFrEF 2/2 nonischemic cardiomyopathy, CKD stage III, GERD, Asthma, DM2, that presents with 2 day history of worsening nausea, vomiting, and diarrhea. Patient does not do well in regards to discussion of her medical care while alone, please call her mother at [phone] for questions regarding the patients care and for updates. Vomiting and Diarrhea -Suspect viral gastritis with patient's history. Patient has not vomited or had episodes of loose stools since being admitted to hospital. -Symptomatic control with cholestyramine and IV Zofran as needed. Discontinue Compazine as QT interval increased to 500. -Fluid given in ED; continue lactated Ringer solution at a rate of 80 cc/h. -Stool samples pending -Should symptoms worsen or patient develop abdominal pain, will consider imaging with CT ab/pelv -Diet switched to regular as dialysis is not being performed at this time. -Continue famotidine, Protonix, and Mylanta -Gave patient waldo and alcohol to give brief periods of nausea relief in order to have some oral intake. BRADEN on CKD Stage II with Hx Focal Segmental Glomerulosclerosis -Unsure if patient has FSGS, will request records from patients Yam Curer in [facility], though patient denies history of treatment with steroids or calcineurin inhibitors -Base Cr 2.5-2.6 with acute worsening to 5.12 on admission. Now 5.10. -Ordered urine microscopy due to suspicion of possible acute tubular necrosis. -Suspect BRADEN more due to pre-renal causes from fluid losses of vomiting and diarrhea -Patient received 1.5L NSS while in the ED, resumed lactated Ringer's solution at a rate of 80 cc/h. -Stat read of b/l renal US shows no hydronephrosis and notes increased echogenicity of kidneys b/l -Urine Microalbumin >10k and Urine Protein/Creatinine ratio 14.6 -Hold patient's Lasix, Losartan, Spironolactone in the setting of BRADEN -Nephrology consulted. Consider doing hemodialysis today with the assumption that patient was anuric. After discussion with the patient, it was found patient has been urinating up to 4 times a day and is straw-colored in nature. Plan for now is to continue gentle rehydration with lactated Ringer's. Metabolic Acidosis -With slight gap of 12 on admission. Now resolved at 9.0. -Suspect secondary to above renal dysfunction -Repeat labs as patient has had fluid resuscitation -Can consider sodium bicarb usp if renal function continues to be compromised HFrEF -Patient with history of HFrEF secondary to nonischemic cardiomyopathy. -Last Echo from [facility] records note EF 20% in February 2020 -Echo on 12/28 showed EF of 25 to 30% which is an improvement from February 2020. -BNP >35k on admission, no baseline for comparison -Monitor I/O's. This has been difficult as patient removes hat from toilet and flushes the urine down the drain. -Requested patient's cardiology records from [facility] -Continue Carvedilol 12.5mg BID -Hold Lasix as above for BRADEN -Cardiology consulted DM2 -Insulin discontinued on 12/29 as her oral intake is very low and her diabetes has been well controlled. Sugars have been well controlled since removal of insulin. -HgbA1c of 6.1. Dispo: Med/Surg Telemetry FEN: Regular diet DVT: SCDs Code: Full (2) Focal segmental glomerulosclerosis: (3) Heart failure: (4) Chronic kidney disease, stage 3: (5) Diabetes mellitus type 2 in obese: (6) Gastritis: Total Time Total Time Spent Total Time Spent (In Minutes): >30 Discharge Plan Discharge Items Patient Disposition: Against Medical Advice Reason For Visit: ACUTE RENAL FAILURE, GASTRITIS Activity: Per Instructions section Non-emergency contact: Primary Care Provider, Hospitalist, Air Conditioning Installer and Yam Curer Follow-up/Referrals: Felix Reyna MD [Physician] - Miguel Angel Noland MD [Physician] - Remigio Mark DO [Resident] - PCP,SP [Primary Care Provider] - Ambulatory Orders: Basic Metabolic Panel (DAILY) Timeframe: 20210102 Location: Determined by Patient Ordered By: Dayana Thal Basic Metabolic Panel (DAILY) Timeframe: 20210103 Location: Determined by Patient Ordered By: Dayana Thal Basic Metabolic Panel (DAILY) Timeframe: 20210104 Location: Determined by Patient Ordered By: Dayana Thal Basic Metabolic Panel (DAILY) Timeframe: 20210105 Location: Determined by Patient Ordered By: Daayna Thal Basic Metabolic Panel (DAILY) Timeframe: 20210106 Location: Determined by Patient Ordered By: Dayana Zambrano Addtl Coloring Room Man Provider Instructions: You were seen in the hospital for worsening kidney function likely secondary to gastroenteritis causing a state of dehydration. While you were here you were seen by our hot mill shearer and auto care center manager in addition to our inpatient care team. You were here you were treated with gentle rehydration with the hopes of improving your kidney function. However, after 3 days of gentle hydration as well as oral intake, your kidney function remained at 5% functioning. At this time it is making it less likely that this is an acute kidney injury and may be due to be something called acute tubular necrosis. This may take up to a couple of weeks to return your kidney function to baseline as you recover. We recommended that you continue gentle rehydration in the hospital due to the possibility of severe complications such as flash pulmonary edema (fluid filling the lungs) or hyperkalemia (high potassium) which could cause lethal heart rhythms. At this time we are highly recommending you do not take your Lasix, losartan, or spironolactone because when someone's kidneys are acutely injured, these medications can be more harm than good even though on a normal day they help your kidneys manage fluid and take strain off of your heart. While we would prefer you stay and receive your treatment in the hospital due to your health risks, we are still going to try to treat you at our best even if you are not in the hospital. At this time we are recommending the following since you are leaving the hospital: -We are going to be ordering daily kidney function labs that would ideally be done by 9 AM every morning that we will review every day. -You consume at least 80 ounces of fluids a day. Preferably water. -You have a VERY low threshold for returning to the hospital in the setting of shortness of breath, abnormal heart rhythms, or returning of your nausea or vomiting. -You follow-up with Dr. Remigio Mark at the [facility] residency clinic to continue your care. This appointment will be made for you and you will be called when it is. Diabetes: -It seems that your diabetes has improved and your sugars under control while you are here without insulin. Your A1c was 6.1 which is below a diabetic range. At this time discontinue your diabetic medications and you and Dr. Mark follow this in the outpatient setting. It was a pleasure to be a part of your care and we wish you the best in your health. Pending Studies at Discharge: No Stand-Alone Forms: My [facility], Smoking Cessation Medications and DC Order Prescriptions: Continued carvedilol 12.5 mg tablet 12.5 mg PO BID RF: 0 cetirizine 10 mg tablet 10 mg PO DAILY RF: 0 ferrous sulfate 27 mg iron Tablet 0 mg PO DAILY RF: 0 Discontinued furosemide 40 mg tablet 40 mg PO QPM RF: 0 furosemide 40 mg tablet 80 mg PO QAM RF: 0 spironolactone 25 mg tablet 12.5 mg PO DAILY RF: 0 losartan 25 mg tablet 25 mg PO DAILY RF: 0 Discharge Orders: Left Against Medical Advice (Routine); Ordered 11/25/21 Ordered By: Remigio Mark Admission Data Admit Date/Time: 12/27/20 23:49 Attending Provider: Wali Dickinson Admit Provider: Mahesh Fajardo Primary Care Provider: PCP,NO Other Providers: Nicola Luna ; Tian Paulino ; Felix Reyna Supervising Physician Co-Signing Physician Notes I personally examined the patient and verified all casanova points of history and exam, discussed case, and agree with decision making with Dr Mark eating and drinking better. really wants to leave. mother present at bedside as well, tearful, doesn't want dtr to leave but relates that as an adult the pt is able to make her own decision. Extensive discussions in regards to her current diagnosis and management (patient wondered what was actually happening with her hereI discussed daily labs, and close clinical, serial evaluationsbut the reason it felt like we are not doing anything is the fact that she is fortunately not shown pulmonary edema/hyperkalemia type deterioration)discussed current working diagnoses (given another day of IV fluids with no improvement a purely prerenal process seems less likely, ATN seems more likely, and an unfortunate deterioration where this is her new normal of kidney function is less likely but also possible)discussed preferred ongoing managementgentle fluids/daily labs/close/serial clinical evaluationand discussed very real concerns on decompensation relating that in the setting of rather significant renal failure, when pulmonary edema develops it sometimes happens extremely rapidly and even in the hospital can often lead to rapid deteriorationshould it happen at home, she may not have time for appropriate interventions to even be tried before she would reach a point of severe respiratory duress and/or . Discussed similar with electrolyte abnormalities (hyperkalemia). Patient expressed understanding, mom expressed understanding, but patient still strongly desirous of leaving. Discussed with patient frankly that I harbor grave concerns about this decision, and should she change her mind we would welcome her back to the hospital, even if she changed her mind an hour after leaving. Discussed trying to make this AMA as safe as possible, although not being able to be as safe as still being in the hospital, but outlined red flags (most notably any degree of dyspnea), and need for daily labs and close outpatient follow-up. Vitals noted, in general she is awake and alert upset/angry overall although once she realizes she is leaving AMA, she does make a few clever jokes. HEENT normocephalic atraumatic mucous membranes moist. Breathing unlabored no accessory muscle use good effort. Skin shows no rashes no pallor or icterus. Neuro without focal deficits. Intractable nausea and diarrheaalmost certainly a viral gastroenteritis superimposed on her baseline illness. In further discussions, the mother notes that actually even preceding this acute illness the patient had had about 10 months of nauseafor now we will work on the acute setting with symptomatic care and advancing diet as tolerated. Depending on how she does, that will dictate how we have to work-up the chronic issue further, although I suspect an EGD may be in order in the near or subacute future. also may be due to uremia if CKD //current creatinine is now at baseline but hopefully this isnt' the case. Would prefer to continue to follow through with this as an inpatient, but as she is leaving AMA, this will have to be pursued as an outpatient. It is reassuring that she ate and drank better today. ARF on CKDdue to above with dehydration and a prerenal insult being the initial cause, but now less likely that it still purely prerenal, and more likely that she has had ATN, and least likely but possible progression of her CKD to ESRD to this being a new baseline leaving against advice, see above discussion, patient aware of risk of rapid deterioration//suboptimal careand the inability of our care to possibly remedy the situation if the deterioration starts at home/out of our ability to immediately respond. Leaving against advice anyway. For now holding Lasix, ARB, spironolactone. Daily labs. Close outpatient follo w-up to be arranged. Return to hospital if willing/changes her mind, or if any red flags. Chronic systolic CHFsee above. Right now no dyspnea/hypoxia. Overall seems compensated. Otherwise as above >30mins face to face, largely spent in discussion of the ongoing differential diagnoses/management/plan, the exceedingly high risks posed to her by leaving against advice, alternatives to leaving against advice, and when it was clear she was leaving anyway, trying to make the AMA as safe as possible in the face of her dangerous decision.
--- NOTE | 2020-12-31 17:00 | Billing Data ---
Date of Service December 31, 2020 Coding Level of Care Code D/C DAY MANAGEMENT >30 MINS
== END 2020-12-31 13:00 | disposition left against medical advice (07) | DRG 683 ==
LOC: ED 14:59 → EDINP 23:49 → SUATTDRO 23:49 → 2W 12-28 01:41

== ENCOUNTER 2021-02-09 21:11 | Inpatient (IN) ==
--- NOTE | 2021-02-09 21:34 | Emergency Department Note ---
Impression & Plan Acute renal failure, SOB (shortness of breath), Pulmonary edema, Acute uremia, Acidosis ED Provider Note NAME: RAFAEL AGUAYO AGE: 20 SEX: F : 2000 ARRIVES VIA: Walk-In INFORMANT: Patient, ED PROVIDER(S): Soren Haas DO CHIEF COMPLAINT: Shortness of breath HPI: The patient is a 20-year-old female who has a history of diabetes as well as chronic renal insufficiency who presented to emergency department with her mother. The patient had recent laboratory studies which showed that she was having worsening renal function. She started having more shortness of breath. She denies having any fever. She does complain of a cough. The patient denies having any abdominal pain. She has had no recent trauma. She does complain of lower extremity swelling. The patient states symptoms are moderate to severe. She becomes very short of breath with any exertion. She was noted to have hypoxia and severe tachycardia in triage. I was called directly to room C6 to evaluate the patient. The patient had laboratory studies done yesterday which showed a creatinine that was elevated compared to baseline. Her potassium was normal. She is never had dialysis. She has been managed medically. ROS: See above HPI for pertinent positives & negatives. A total of 10 systems reviewed and were otherwise negative. PAST MEDICAL HISTORY: See Below PAST SURGICAL HISTORY: See Below FAMILY HISTORY: See Below SOCIAL HISTORY: See Below HOME MEDICATIONS: See Below ALLERGIES: See Below VITALS: See Below PHYSICAL EXAMINATION: GENERAL: The patient is awake and alert. She is very anxious appearing. EYES: The conjunctivae are clear. The pupils are round and reactive. EARS, NOSE, MOUTH AND THROAT: The nose is without any evidence of any deformity. NECK: The neck is nontender and supple. RESPIRATORY: Shallow and ineffective respirations were noted. There was significant tachypnea as well as conversational dyspnea. CARDIOVASCULAR: Tachycardic rate was noted to auscultation. There was a regular rhythm noted to auscultation. A rub was suggested. GASTROINTESTINAL: The abdomen is moderately distended. There is no tenderness guarding rigidity. MUSCULOSKELETAL/EXTREMITIES: There is no evidence of gross deformity full range of motion is noted in the hips and shoulders. SKIN: Anasarca was noted up to the abdomen. NEUROLOGIC: Patient is awake alert and oriented x3 MEDICAL DECISION MAKING: The patient is a 20-year-old female who presented to emergency department for an evaluation of difficulty breathing. The patient has a history of chronic renal insufficiency. She also has a history of diabetes and cardiomyopathy. The patient has a low ejection fraction. She had laboratory studies done yesterday. She was called today and told to go to the emergency department because of abnormal creatinine. Patient's creatinine was significantly elevated compared to baseline. Her history and physical exam appear to be consistent with pulmonary edema. The patient has anasarca. The patient was started on supplemental oxygen. Her vital signs continued to improve while she was in the emergency department. I discussed the patient's laboratory and radiographic studies with her and her mother. She does become significantly worse with any exertion. I discussed her case with the on-call life skills specialist as well as the on- call [facility] hospitalist group. The patient is to be evaluated for inpatient management as well as possible dialysis if symptoms do not improve. At this time her creatinine was elevated but her potassium was normal. Her EKG shows no changes consistent with significant electrolyte abnormality. Triage Nursing notes reviewed. Prior medical records reviewed Vital Signs: reviewed and remarkable for no significant abnormalities Differential diagnosis: Reactive airway disease, pneumonia, pneumothorax, COPD, CHF, infections, cardiac ischemia, pulmonary embolism, musculoskeletal, gastrointestinal, as well as other pathologies. ER treatment provided: See below Diagnostics interpreted by me: ECG: EKG was obtained in the emergency department. My interpretation is normal sinus rhythm at 90 bpm. There is no ectopy. Diffuse T wave flattening was noted. There was no acute ST segment abnormalities. This was compared to a tracing from January 182020. T wave flattening is new compared the previous tracing. Cardiac Monitoring: An order was placed for continuous cardiac monitoring. The monitor shows a rate of 90 bpm with sinus rhythm. Laboratory studies: As stated above and show below. Imaging studies: See below Consultation(s): I discussed this case with Dr. Reyna who is on-call for nephrology. I discussed this case with Dr. Luna who is on-call for the [facility] hospitalist group. Past Med/Surg History Medical History Acanthosis ADHD Anemia Chronic kidney disease, stage 3 Chronic systolic CHF (congestive heart failure) with reduced ejection fraction Depressed Diabetes mellitus type 2 in obese GERD (gastroesophageal reflux disease) Hypertension Insomnia Low ferritin level Mitral valve insufficiency Nonischemic cardiomyopathy Obesity Sleep apnea SOB (shortness of breath) Family History Family/Other Diabetes Hypertension Heart disease Prostate cancer Social History Smoking Status: Never smoker Hx Alcohol Use: No Hx Substance Use: No Preferred Language: Turkmen Script Coordinator Required: No Beliefs That Will Affect Care: None Current Living Situation: Parent and Family Feels Safe at Home: Yes Assistive Devices: None Allergies Allergies Allergy/AdvReac Type Severity Reaction Status Date / Time dog dander Allergy Unknown Verified 02/08/21 12:58 pollen extracts Allergy Unknown Verified 02/08/21 12:58 latex Allergy Makes skin Verified 02/08/21 12:58 itchy & red Home Meds Home Medications Medication Instructions Recorded Confirmed carvedilol 12.5 mg tablet 12.5 mg PO BID 12/27/20 02/09/21 cetirizine 10 mg tablet 10 mg PO DAILY 12/27/20 02/09/21 ferrous sulfate 27 mg iron tablet 27 mg PO DAILY 12/27/20 02/09/21 dicyclomine 10 mg capsule 10 mg PO TID 01/14/21 02/09/21 fluticasone propionate 44 2 puff INHALATION BID 01/14/21 02/09/21 mcg/actuation HFA aerosol inhaler (Flovent HFA) pantoprazole 20 mg tablet,delayed 20 mg PO BID tab 01/14/21 02/09/21 release (Protonix) topiramate 25 mg tablet (Topamax) 25 mg PO DAILY 01/14/21 02/09/21 albuterol sulfate 90 mcg/actuation 2 puff INHALATION QID PRN 02/09/21 02/09/21 aerosol inhaler Previous Rx's Medication Instructions Recorded budesonide 180 mcg/actuation 2 inh INHALATION BID #1 ea 01/18/21 breath activated powder inhaler (Pulmicort Flexhaler) furosemide 40 mg tablet 80 mg PO BID #60 tab 02/08/21 Results & Data (ED) Vital Signs Vital Signs - 24 hr 02/09/21 21:16 02/09/21 23:13 02/09/21 23:20 Temperature 37 C Temperature Source Temporal Artery Scan Pulse Rate 192 H 93 H Pulse Rate [Finger] 90 Pulse Rhythm Regular Pulse Rhythm [Finger] Regular Pulse Strength [Finger] Normal Respiratory Rate 18 20 24 Respiratory Effort / Characteristics Non-Labored Spontaneous Non-Labored Spontaneous Respiratory Depth Normal Normal Respiratory Pattern Regular Blood Pressure 116/78 Blood Pressure [Left Arm] 116/66 Blood Pressure Mean 90 Blood Pressure Mean [Left Arm] 82 Blood Pressure Position Sitting Blood Pressure Position [Left Arm] Sitting Pulse Oximetry 85 L 96 98 Oxygen Delivery Method Room Air Room Air Room Air Sepsis Recent Fever Within 48 Hours No Sepsis New/Unexplained Change in Mental Status No Sepsis Action Taken by Nursing No Action Required Home Medications Current Medication List: was personally reviewed by me Laboratory Data Attestation: I reviewed the patient's lab results. Result diagrams: 02/09/21 21:45 02/09/21 21:45 Lab Results 02/09/21 02/09/21 02/09/21 Range/Units 21:45 21:45 21:45 WBC 8.85 (4.8-10.8) K/uL RBC 4.85 (4.2-5.4) M/uL Hgb 11.7 L (12.0-16.0) g/dL POC Hgb (12.0-16.0) g/dl Hct 38.1 (37-47) % POC Hct (37-47) % MCV 78.6 L (80-100) fL MCH 24.1 L (25-34) pg MCHC 30.7 L (32-36) g/dL RDW Std Deviation 56.1 H (36.4-46.3) fL RDW Coeff of Nicole 19.9 H (11.5-14.5) % Plt Count 298 (130-400) K/uL MPV 9.0 (7.4-10.4) fL Immature Gran % (Auto) 0.3 % Neut % (Auto) 77.2 % Lymph % (Auto) 15.5 % [place] % (Auto) 5.5 % Eos % (Auto) 1.2 % Baso % (Auto) 0.3 % Neut # (Auto) 6.82 H (1.4-6.5) K/uL Lymph # (Auto) 1.37 (1.2-3.4) K/uL [place] # (Auto) 0.49 (0.11-0.59) K/uL Eos # (Auto) 0.11 (0-0.5) K/uL Baso # (Auto) 0.03 (0-0.2) K/uL Immature Gran # (Auto) 0.03 H (0.00-0.02) K/uL Absolute Nucleated RBC 0.17 H (0-0) K/uL Nucleated RBC % (auto) 1.9 % PT 12.5 H (9.0-12.0) Seconds INR 1.3 H (0.9-1.1) APTT 28.2 (21.0-31.0) Seconds PTT Ratio 1.1 VBG pH (7.36-7.41) VBG pCO2 (38-50) mmHg VBG pO2 mmHg VBG HCO3 mmol/L VBG O2 Saturation % VBG Base Excess mEq/L Barometric Pressure mm/Hg POC Sodium (135-144) mmol/L Sodium 142 (136-145) mmol/L POC Potassium (3.3-5.0) mmol/L Potassium 4.3 (3.5-5.1) mmol/L POC Chloride (101-112) mmol/L Chloride 112 H (98-107) mmol/L Carbon Dioxide 21 (21-32) mmol/L POC Total CO2 (24-31) mmol/L Anion Gap 9.0 (3-11) POC Anion Gap (16-25) mmol/L POC BUN (7-18) mg/dl BUN 84 H (7-18) mg/dl Creatinine 7.82 H* (0.6-1.2) mg/dl POC Creatinine mg/dl Est Cr Clr Drug Dosing 19.6 ml/min Est GFR ( Amer) 7.8 ml/min Est GFR (Non-Af Amer) 6.7 ml/min BUN/Creatinine Ratio 10.8 (10-20) Glucose 141 H (70-99) mg/dl POC Glucose (other) (70-99) mg/dl Calcium 7.3 L (8.5-10.1) mg/dl POC Ioniz Calcium Mono mmol/l Magnesium 1.8 (1.8-2.4) mg/dl Total Bilirubin 0.6 (0.2-1) mg/dl AST 17 (15-37) U/L ALT 22 (12-78) Alkaline Phosphatase 83 (45-117) U/L Troponin I 0.083 H* (0-0.045) ng/ml Total Protein 6.5 (6.4-8.2) gm/dl Albumin 1.8 L (3.4-5.0) gm/dl Globulin 4.7 H (2.5-4.0) gm/dl Albumin/Globulin Ratio 0.4 L (0.9-2) Lipase 389 (73-393) U/L HCG, Qual (Negative) SARS-CoV-2 (PCR) (Negative) Influenza Type A (PCR) (Neg) Influenza Type B (PCR) (Neg) RSV (RT-PCR) (Neg) 02/09/21 02/09/21 02/09/21 Range/Units 21:45 21:45 21:51 WBC (4.8-10.8) K/uL RBC (4.2-5.4) M/uL Hgb (12.0-16.0) g/dL POC Hgb (12.0-16.0) g/dl Hct (37-47) % POC Hct (37-47) % MCV (80-100) fL MCH (25-34) pg MCHC (32-36) g/dL RDW Std Deviation (36.4-46.3) fL RDW Coeff of Nicole (11.5-14.5) % Plt Count (130-400) K/uL MPV (7.4-10.4) fL Immature Gran % (Auto) % Neut % (Auto) % Lymph % (Auto) % [place] % (Auto) % Eos % (Auto) % Baso % (Auto) % Neut # (Auto) (1.4-6.5) K/uL Lymph # (Auto) (1.2-3.4) K/uL [place] # (Auto) (0.11-0.59) K/uL Eos # (Auto) (0-0.5) K/uL Baso # (Auto) (0-0.2) K/uL Immature Gran # (Auto) (0.00-0.02) K/uL Absolute Nucleated RBC (0-0) K/uL Nucleated RBC % (auto) % PT (9.0-12.0) Seconds INR (0.9-1.1) APTT (21.0-31.0) Seconds PTT Ratio VBG pH 7.26 L (7.36-7.41) VBG pCO2 44 (38-50) mmHg VBG pO2 43 mmHg VBG HCO3 19 mmol/L VBG O2 Saturation 69.6 % VBG Base Excess -7.5 mEq/L Barometric Pressure 734.7 mm/Hg POC Sodium (135-144) mmol/L Sodium (136-145) mmol/L POC Potassium (3.3-5.0) mmol/L Potassium (3.5-5.1) mmol/L POC Chloride (101-112) mmol/L Chloride (98-107) mmol/L Carbon Dioxide (21-32) mmol/L POC Total CO2 (24-31) mmol/L Anion Gap (3-11) POC Anion Gap (16-25) mmol/L POC BUN (7-18) mg/dl BUN (7-18) mg/dl Creatinine (0.6-1.2) mg/dl POC Creatinine mg/dl Est Cr Clr Drug Dosing ml/min Est GFR ( Amer) ml/min Est GFR (Non-Af Amer) ml/min BUN/Creatinine Ratio (10-20) Glucose (70-99) mg/dl POC Glucose (other) (70-99) mg/dl Calcium (8.5-10.1) mg/dl POC Ioniz Calcium Mono mmol/l Magnesium (1.8-2.4) mg/dl Total Bilirubin (0.2-1) mg/dl AST (15-37) U/L ALT (12-78) Alkaline Phosphatase (45-117) U/L Troponin I (0-0.045) ng/ml Total Protein (6.4-8.2) gm/dl Albumin (3.4-5.0) gm/dl Globulin (2.5-4.0) gm/dl Albumin/Globulin Ratio (0.9-2) Lipase (73-393) U/L HCG, Qual Negative (Negative) SARS-CoV-2 (PCR) NEGATIVE (Negative) Influenza Type A (PCR) Negative (Neg) Influenza Type B (PCR) Negative (Neg) RSV (RT-PCR) Negative (Neg) 02/09/21 Range/Units 21:54 WBC (4.8-10.8) K/uL RBC (4.2-5.4) M/uL Hgb (12.0-16.0) g/dL POC Hgb 13.3 (12.0-16.0) g/dl Hct (37-47) % POC Hct 39 (37-47) % MCV (80-100) fL MCH (25-34) pg MCHC (32-36) g/dL RDW Std Deviation (36.4-46.3) fL RDW Coeff of Nicole (11.5-14.5) % Plt Count (130-400) K/uL MPV (7.4-10.4) fL Immature Gran % (Auto) % Neut % (Auto) % Lymph % (Auto) % [place] % (Auto) % Eos % (Auto) % Baso % (Auto) % Neut # (Auto) (1.4-6.5) K/uL Lymph # (Auto) (1.2-3.4) K/uL [place] # (Auto) (0.11-0.59) K/uL Eos # (Auto) (0-0.5) K/uL Baso # (Auto) (0-0.2) K/uL Immature Gran # (Auto) (0.00-0.02) K/uL Absolute Nucleated RBC (0-0) K/uL Nucleated RBC % (auto) % PT (9.0-12.0) Seconds INR (0.9-1.1) APTT (21.0-31.0) Seconds PTT Ratio VBG pH (7.36-7.41) VBG pCO2 (38-50) mmHg VBG pO2 mmHg VBG HCO3 mmol/L VBG O2 Saturation % VBG Base Excess mEq/L Barometric Pressure mm/Hg POC Sodium 141 (135-144) mmol/L Sodium (136-145) mmol/L POC Potassium 4.2 (3.3-5.0) mmol/L Potassium (3.5-5.1) mmol/L POC Chloride 111 (101-112) mmol/L Chloride (98-107) mmol/L Carbon Dioxide (21-32) mmol/L POC Total CO2 19 L (24-31) mmol/L Anion Gap (3-11) POC Anion Gap 16.0 (16-25) mmol/L POC BUN 79 H (7-18) mg/dl BUN (7-18) mg/dl Creatinine (0.6-1.2) mg/dl POC Creatinine 7.8 mg/dl Est Cr Clr Drug Dosing ml/min Est GFR ( Amer) ml/min Est GFR (Non-Af Amer) ml/min BUN/Creatinine Ratio (10-20) Glucose (70-99) mg/dl POC Glucose (other) 138 H (70-99) mg/dl Calcium (8.5-10.1) mg/dl POC Ioniz Calcium Mono 1.02 mmol/l Magnesium (1.8-2.4) mg/dl Total Bilirubin (0.2-1) mg/dl AST (15-37) U/L ALT (12-78) Alkaline Phosphatase (45-117) U/L Troponin I (0-0.045) ng/ml Total Protein (6.4-8.2) gm/dl Albumin (3.4-5.0) gm/dl Globulin (2.5-4.0) gm/dl Albumin/Globulin Ratio (0.9-2) Lipase (73-393) U/L HCG, Qual (Negative) SARS-CoV-2 (PCR) (Negative) Influenza Type A (PCR) (Neg) Influenza Type B (PCR) (Neg) RSV (RT-PCR) (Neg) Imaging Data Radiologist's Impression: Chest X-Ray 02/09/21 21:20 XR chest 1V portable CLINICAL HISTORY: Chest Pain. COMPARISON STUDY: 02/08/2021 TECHNIQUE: 1 view of the chest FINDINGS: Single frontal view of the chest demonstrates the heart to again be enlarged. There has been interval development of mild central vascular congestion. There is no evidence for pleural effusion. No definite alveolar opacities are identified. There is no acute osseous pathology. IMPRESSION: Cardiomegaly with evidence for mild central vascular congestion. ACT 112: Negative or not required by law. Electronically signed by: Ming French M.D. 02/09/2021 9:59 PM Discharge Plan Visit Data Chief Complaint: Flank Pain Stated Complaint: DIALYSIS ED Provider: Soren Haas Discharge Problem: Acute renal failure, SOB (shortness of breath), Pulmonary edema, Acute uremia, Acidosis Patient Disposition: Being Evaluated by Hospitalist Forms Stand Alone Forms: My [facility] Prescriptions Prescriptions: No Action furosemide 40 mg tablet 80 mg PO BID Qty: 60 RF: 5 dicyclomine 10 mg capsule 10 mg PO TID RF: 0 Flovent HFA 44 mcg/actuation HFA aerosol inhaler 2 puff inhalation BID RF: 0 pantoprazole [Protonix] 20 mg tablet,delayed release (DR/EC) 20 mg PO BID RF: 0 topiramate [Topamax] 25 mg tablet 25 mg PO DAILY RF: 0 Pulmicort Flexhaler 180 mcg/actuation aerosol powdr breath activated 2 inh inhalation BID Qty: 1 RF: 2 carvedilol 12.5 mg tablet 12.5 mg PO BID RF: 0 cetirizine 10 mg tablet 10 mg PO DAILY RF: 0 ferrous sulfate 27 mg iron Tablet 27 mg PO DAILY RF: 0 albuterol sulfate 90 mcg/actuation HFA aerosol inhaler 2 puff INHALATION QID PRN (Reason: Wheezing) RF: 0 Referrals Referrals: Remigio Mark DO [Primary Care Provider] -
--- NOTE | 2021-02-09 22:00 | XRay Report ---
XR chest 1V portable CLINICAL HISTORY: Chest Pain. COMPARISON STUDY: 02/08/2021 TECHNIQUE: 1 view of the chest FINDINGS: Single frontal view of the chest demonstrates the heart to again be enlarged. There has been interval development of mild central vascular congestion. There is no evidence for pleural effusion. No defin ite alveolar opacities are identified. There is no acute osseous pathology. IMPRESSION: Cardiomegaly with evidence for mild central vascular congestion. ACT 112: Negative or not required by law. Electronically signed by: Ming French M.D. 02/09/2021 9:59 PM
[2021-02-09 22:01] LABS: Basophils # (auto) 0.03 K/uL (0-0.2); Basophils % (auto) 0.3 %; Eosinophils # (auto) 0.11 K/uL (0-0.5); Eosinophils % (auto) 1.2 %; Hematocrit (blood only) 38.1 % (37-47); Hemoglobin 11.7 g/dL (12.0-16.0); Immature Granulocytes # (auto) 0.03 K/uL (0.00-0.02); Immature Granulocytes % (auto) 0.3 %; Lymphocytes # (auto) 1.37 K/uL (1.2-3.4); Lymphocytes % (auto) 15.5 %; Mean Corpuscular Hemoglobin 24.1 pg (25-34); Mean Corpuscular Hgb Conc 30.7 g/dL (32-36); Mean Corpuscular Volume 78.6 fL (80-100); Monocytes # (auto) 0.49 K/uL (0.11-0.59); Monocytes % (auto) 5.5 %; Neutrophils # (auto) 6.82 K/uL (1.4-6.5); Neutrophils % (auto) 77.2 %; Nucleated RBC # (auto) 0.17 K/uL (0-0); Nucleated RBC % (auto) 1.9 %; Platelet Count 298 K/uL (130-400); RDW Coefficient of Variation 19.9 % (11.5-14.5); RDW Standard Deviation 56.1 fL (36.4-46.3); Red Blood Count 4.85 M/uL (4.2-5.4); White Blood Count 8.85 K/uL (4.8-10.8)
[2021-02-09 22:06] LABS: Base Excess VBG -7.5 mEq/L; Oxygen Saturation VBG 69.6 %; pH VBG 7.26 (7.36-7.41)
[2021-02-09 22:07] LABS: iSTAT Creatinine 7.8 mg/dl; iSTAT Hemoglobin 13.3 g/dl (12.0-16.0); iSTAT Ionized Calcium 1.02 mmol/l; iSTAT Potassium 4.2 mmol/L (3.3-5.0)
[2021-02-09 22:14] LABS: INR 1.3 (0.9-1.1); Partial Thromboplastin Ratio 1.1; Partial Thromboplastin Time 28.2 Seconds (21.0-31.0); Prothrombin Time 12.5 Seconds (9.0-12.0)
[2021-02-09 22:24] LABS: Pregnancy Test, Serum Negative (Negative)
[2021-02-09 22:42] LABS: Influenza A virus by PCR Negative (Neg); Influenza B virus by PCR Negative (Neg); RSV by PCR Negative (Neg); SARS CoV2 RNA(COVID-19) InHosp NEGATIVE (Negative)
[2021-02-09 22:54] LABS: Albumin Globulin Ratio 0.4 (0.9-2); Albumin Level 1.8 gm/dl (3.4-5.0); BUN Creatinine Ratio 10.8 (10-20); Calcium 7.3 mg/dl (8.5-10.1); Creatinine Clr Calc Pharmacy 19.6 ml/min; Est GFR (African American) 7.8 ml/min; Est GFR (Non-African American) 6.7 ml/min; Globulin 4.7 gm/dl (2.5-4.0); Magnesium 1.8 mg/dl (1.8-2.4); Potassium 4.3 mmol/L (3.5-5.1); Total Protein 6.5 gm/dl (6.4-8.2); Troponin I 0.083 ng/ml (0-0.045)
[2021-02-09 23:27] LABS: Bilirubin,Total 0.6 mg/dl (0.2-1)
[2021-02-09] MEDS ORDERED: FUROSEMIDE 40 MG/4 ML VIAL IV ONE (23:58)
--- NOTE | 2021-02-10 00:08 | History & Physical Report ---
Date of Service February 09, 2021 Assessment & Plan (1) Acute renal failure: Plan: Complicated 20 yo F with hx FSGS, nonischemic cardiomyopathy causing HFrEF (25- 30), GERD, CKD3, who is being admitted for management of acute renal failure. Mother Prasanth works in [employer] during the day, please call for updates [phone]. Metabolic acidosis due to acute renal failure in setting of CKD3 and FSGS and decompensated heart failure - BUN/Cr 84/7.82 - VBG 7.26/44/43/19 - no mental status alteration, VSS - case discussed with software application tester nephrology, will defer emergent dialysis at this time - likely mix of pre-existing CKD and poor forward flow from low EF and worsening fluid overload - still making urine - previously was euvolemic/dry on 80 mg PO lasix AM and 40 mg PM prior to last hospital admission - weight increased by 44 kg from 12/30/20. - 80 mg IV Q8h lasix for aggressive diuresis - BMP daily - appreciate nephrology recommendations Acute Decompensated Congested Heart Failure with Reduced Ejection Fraction - outpatient pro BNP >64984 - lasix as above - last tte 12/28/20: Ef 25-30, global hypokinesis, mild pulmonary htn, mild MR, small posterior pericardial effusion without tamponade physiology - daily weights - monitor I/o with khanna - will hold carvedilol while being diuresed - may require dobutamine for inotropic support with dobutamine if not responsive to diuresis with lasix or becoming hypotensive - appreciate cardiology recommendations Morbid Obesity - waffle boots, heel precautions, pressure ulcer precautions - skin check on admission showing mild irritated spots on abdomen but otherwise no signs of skin breakdown/existing ulcerations - khanna to help with preventing skin breakdown during diuresis - bariatric bed - turn Q2h Sinus Infection - continue outpatient doxycycline treatment - added BID flonase nares spray Asthma - cont home albuterol, budesonide, fluticasone inhalers - continue daily cetirizine GERD - cont pantoprazole BRANDON - CPAP nightly Anemia, chronic, stable - on iron at home - stable at 11.7 MISC - [place] [facility], patient is on topiramate and dicyclomine. unsure for which diagnoses. DVT ppx: heparin FEN/GI: low sodium diet, on pantoprazole Bowel regimen: prn Code Status: full code Dispo: PCU (2) Pulmonary edema: (3) Acute uremia: (4) Acidosis: (5) CKD (chronic kidney disease): (6) Acute on chronic HFrEF (heart failure with reduced ejection fraction): (7) GERD (gastroesophageal reflux disease): (8) Insomnia: (9) Nonischemic cardiomyopathy: (10) Focal segmental glomerulosclerosis: History of Present Illness Primary Care Provider: Remigio Mark, DO 20 yo F with a hx Focal segmental glomerulosclerosis, HFrEF 2/2 nonischemic cardiomyopathy(EF 25-30), CKD stage III, GERD, Asthma, DM2, sent to the ER by PCP for abnormal labs. She was seen by her edge roller Dr. Noland yesterday and advised to go to the hospital for acute management of decompensated heart failure, and at the time she declined. Today she received phone call from her PCP that her labs were critically high and she had to go to the ER for treatment and evaluation. Review of [facility] labs reveal the following: Na 138, K 4.3, Cl 112, Hco3 19, BUN 78, Cr 7.90, GFR 8, Gluc 120, Ca 7.3, BNP >70,000. She was brought to the ER by her mother who is her primary caregiver. Roseanne is minimally interactive with the interview, mainly watching tv. She denies much difficulty breathing but says it does worsen if she lays on her side. She also attests to leg weakness with standing and trying to move. She is actively being treated for bacterial sinus infection, for which she has had ongoing symptoms. Allergies Allergy/AdvReac Type Severity Reaction Status Date / Time dog dander Allergy Unknown Verified 02/08/21 12:58 pollen extracts Allergy Unknown Verified 02/08/21 12:58 latex Allergy Makes skin Verified 02/08/21 12:58 itchy & red Home Medications Medication Instructions Recorded Confirmed Type carvedilol 12.5 mg tablet 12.5 mg PO BID 12/27/20 02/09/21 History cetirizine 10 mg tablet 10 mg PO DAILY 12/27/20 02/09/21 History ferrous sulfate 27 mg iron tablet 27 mg PO DAILY 12/27/20 02/09/21 History dicyclomine 10 mg capsule 10 mg PO TID 01/14/21 02/09/21 History fluticasone propionate 44 2 puff INHALATION BID 01/14/21 02/09/21 History mcg/actuation HFA aerosol inhaler (Flovent HFA) pantoprazole 20 mg tablet,delayed 20 mg PO BID tab 01/14/21 02/09/21 History release (Protonix) topiramate 25 mg tablet (Topamax) 25 mg PO DAILY 01/14/21 02/09/21 History budesonide 180 mcg/actuation 2 inh INHALATION BID #1 ea 01/18/21 02/09/21 Rx breath activated powder inhaler (Pulmicort Flexhaler) furosemide 40 mg tablet 80 mg PO BID #60 tab 02/08/21 02/09/21 Rx albuterol sulfate 90 mcg/actuation 2 puff INHALATION QID PRN 02/09/21 02/09/21 History aerosol inhaler Past Med/Surg History Medical History Acanthosis ADHD Anemia Chronic kidney disease, stage 3 Chronic systolic CHF (congestive heart failure) with reduced ejection fraction Depressed Diabetes mellitus type 2 in obese GERD (gastroesophageal reflux disease) Hypertension Insomnia Low ferritin level Mitral valve insufficiency Nonischemic cardiomyopathy Obesity Sleep apnea SOB (shortness of breath) Family History Family/Other Diabetes Hypertension Heart disease Prostate cancer Social History Smoking Status: Never smoker Second Hand Exposure: Yes; Do You Dip or Chew Tobacco: No; Hx Alcohol Use: No Hx Substance Use: No Preferred Language: Estonian Communication Ability: Effective Compensation Consultant Required: No Beliefs That Will Affect Care: None Current Living Situation: Parent and Family Other Information That Helps Us Care for You: No Feels Safe at Home: Yes Safety Concerns: Feels Safe At This Time Assistive Devices: Oxygen - Continuous Review of Systems Constitutional: no fever, no chills, no body aches and no fatigue Respiratory: + cough, + dyspnea, + dyspnea on exertion and + sputum production; no hemoptysis and no pain on inspiration Cardiovascular: + dyspnea at rest and + edema; no chest pain, no dyspnea and no lightheadedness Gastrointestinal: + bloating; no abdominal pain, no nausea, no vomiting, no constipation and no diarrhea/loose stools Genitourinary: no dysuria, no hematuria, no dysmenorrhea, no vaginal discharge, no vaginal odor and no pelvic pain Integumentary: + dry skin and + pruritus; no lesions Physical Exam Physical Exam: Constitutional: morbidly obese, young female, anxious appearing but in no distress Eyes: EOMI, pupils equal and reactive bilaterally, no scleral icterus Cardiac: RRR, no murmurs, gallops or rubs. Normal S1, S2 Pulm: difficult to auscultate. crackles apparent on anterior chest exam, breathing comfortably on 2LNC Abd: soft, distended, tight skin, epigastric tenderness Extremities: 4+ pitting peripheral edema Neuro: no focal deficits, moving all 4 limbs, A&Ox3 Skin: multiple small skin breaks on anterior stomach, no heel or foot ulcerations, no visible ulcerations/lesions on back, hips, glutes on skin exam Results & Data Results & Data ([facility]) Vital Signs (Past 12 Hours) Vital Signs Temp Pulse Pulse Resp BP BP Pulse Ox 02/09/21 23:20 90 24 116/66 98 02/09/21 23:13 93 H 20 96 02/09/21 21:16 37 C 192 H 18 116/78 85 L Laboratory Results Laboratory Results WBC 8.85 K/uL (4.8-10.8) 02/09/21 21:45 RBC 4.85 M/uL (4.2-5.4) 02/09/21 21:45 Hgb 11.7 g/dL (12.0-16.0) L 02/09/21 21:45 POC Hgb 13.3 g/dl (12.0-16.0) 02/09/21 21:54 Hct 38.1 % (37-47) 02/09/21 21:45 POC Hct 39 % (37-47) 02/09/21 21:54 MCV 78.6 fL (80-100) L 02/09/21 21:45 MCH 24.1 pg (25-34) L 02/09/21 21:45 MCHC 30.7 g/dL (32-36) L 02/09/21 21:45 RDW Std Deviation 56.1 fL (36.4-46.3) H 02/09/21 21:45 RDW Coeff of Nicole 19.9 % (11.5-14.5) H 02/09/21 21:45 Plt Count 298 K/uL (130-400) 02/09/21 21:45 MPV 9.0 fL (7.4-10.4) 02/09/21 21:45 Immature Gran % (Auto) 0.3 % 02/09/21 21:45 Neut % (Auto) 77.2 % 02/09/21 21:45 Lymph % (Auto) 15.5 % 02/09/21 21:45 [place] % (Auto) 5.5 % 02/09/21 21:45 Eos % (Auto) 1.2 % 02/09/21 21:45 Baso % (Auto) 0.3 % 02/09/21 21:45 Neut # (Auto) 6.82 K/uL (1.4-6.5) H 02/09/21 21:45 Lymph # (Auto) 1.37 K/uL (1.2-3.4) 02/09/21 21:45 [place] # (Auto) 0.49 K/uL (0.11-0.59) 02/09/21 21:45 Eos # (Auto) 0.11 K/uL (0-0.5) 02/09/21 21:45 Baso # (Auto) 0.03 K/uL (0-0.2) 02/09/21 21:45 Immature Gran # (Auto) 0.03 K/uL (0.00-0.02) H 02/09/21 21:45 Absolute Nucleated RBC 0.17 K/uL (0-0) H 02/09/21 21:45 Nucleated RBC % (auto) 1.9 % 02/09/21 21:45 PT 12.5 Seconds (9.0-12.0) H 02/09/21 21:45 INR 1.3 (0.9-1.1) H 02/09/21 21:45 APTT 28.2 Seconds (21.0-31.0) 02/09/21 21:45 PTT Ratio 1.1 02/09/21 21:45 VBG pH 7.26 (7.36-7.41) L 02/09/21 21:45 VBG pCO2 44 mmHg (38-50) 02/09/21 21:45 VBG pO2 43 mmHg 02/09/21 21:45 VBG HCO3 19 mmol/L 02/09/21 21:45 VBG O2 Saturation 69.6 % 02/09/21 21:45 VBG Base Excess -7.5 mEq/L 02/09/21 21:45 Barometric Pressure 734.7 mm/Hg 02/09/21 21:45 POC Sodium 141 mmol/L (135-144) 02/09/21 21:54 Sodium 142 mmol/L (136-145) 02/09/21 21:45 POC Potassium 4.2 mmol/L (3.3-5.0) 02/09/21 21:54 Potassium 4.3 mmol/L (3.5-5.1) 02/09/21 21:45 POC Chloride 111 mmol/L (101-112) 02/09/21 21:54 Chloride 112 mmol/L (98-107) H 02/09/21 21:45 Carbon Dioxide 21 mmol/L (21-32) 02/09/21 21:45 POC Total CO2 19 mmol/L (24-31) L 02/09/21 21:54 Anion Gap 9.0 (3-11) 02/09/21 21:45 POC Anion Gap 16.0 mmol/L (16-25) 02/09/21 21:54 POC BUN 79 mg/dl (7-18) H 02/09/21 21:54 BUN 84 mg/dl (7-18) H 02/09/21 21:45 Creatinine 7.82 mg/dl (0.6-1.2) H* 02/09/21 21:45 POC Creatinine 7.8 mg/dl 02/09/21 21:54 Est Cr Clr Drug Dosing 19.6 ml/min 02/09/21 21:45 Est GFR ( Amer) 7.8 ml/min 02/09/21 21:45 Est GFR (Non-Af Amer) 6.7 ml/min 02/09/21 21:45 BUN/Creatinine Ratio 10.8 (10-20) 02/09/21 21:45 Glucose 141 mg/dl (70-99) H 02/09/21 21:45 POC Glucose (other) 138 mg/dl (70-99) H 02/09/21 21:54 Calcium 7.3 mg/dl (8.5-10.1) L 02/09/21 21:45 POC Ioniz Calcium Mono 1.02 mmol/l 02/09/21 21:54 Magnesium 1.8 mg/dl (1.8-2.4) 02/09/21 21:45 Total Bilirubin 0.6 mg/dl (0.2-1) 02/09/21 21:45 AST 17 U/L (15-37) 02/09/21 21:45 ALT 22 (12-78) 02/09/21 21:45 Alkaline Phosphatase 83 U/L (45-117) 02/09/21 21:45 Troponin I 0.083 ng/ml (0-0.045) H* 02/09/21 21:45 Total Protein 6.5 gm/dl (6.4-8.2) 02/09/21 21:45 Albumin 1.8 gm/dl (3.4-5.0) L 02/09/21 21:45 Globulin 4.7 gm/dl (2.5-4.0) H 02/09/21 21:45 Albumin/Globulin Ratio 0.4 (0.9-2) L 02/09/21 21:45 Lipase 389 U/L (73-393) 02/09/21 21:45 HCG, Qual Negative (Negative) 02/09/21 21:45 SARS-CoV-2 (PCR) NEGATIVE (Negative) 02/09/21 21:51 Influenza Type A (PCR) Negative (Neg) 02/09/21 21:51 Influenza Type B (PCR) Negative (Neg) 02/09/21 21:51 RSV (RT-PCR) Negative (Neg) 02/09/21 21:51 Impressions Chest X-Ray 02/09/21 21:20 XR chest 1V portable CLINICAL HISTORY: Chest Pain. COMPARISON STUDY: 02/08/2021 TECHNIQUE: 1 view of the chest FINDINGS: Single frontal view of the chest demonstrates the heart to again be enlarged. There has been interval development of mild central vascular congestion. There is no evidence for pleural effusion. No definite alveolar opacities are identified. There is no acute osseous pathology. IMPRESSION: Cardiomegaly with evidence for mild central vascular congestion. ACT 112: Negative or not required by law. Electronically signed by: Ming French M.D. 02/09/2021 9:59 PM Supervising Physician Co-Signing Physician Notes Attending addendum: I have physically seen this patient, have supervised the medical residents activities, and agree with the H&P unless as otherwise noted. Assessment and Plan: Acute on chronic renal failure/acute on chronic HFrEF/hypertension- Creatinine 7.82 upon admission, with most recent in the 5 range Likely combination of FSG and prerenal state due to decreased forward flow with EF 25 to 30% Trial of Lasix 80 mg IV every 8 hours If no significant improvement may require a course of dobutamine Hold carvedilol, oral furosemide. Nephrology consulted Remaining orders and notations as noted Resident Activity Tracking Resident Involvement: Resident Care Provided Care Provided: Adult Hospital Medicine (1) Acute renal failure Acute renal failure type: unspecified Qualified Code(s): N17.9 - Acute kidney failure, unspecified (2) Pulmonary edema Chronicity: acute Qualified Code(s): J81.0 - Acute pulmonary edema
[2021-02-10 01:16] LABS: Appearance Urine Clear (Clear); Bacteria Urine Automated Negative (Negative); Bilirubin Urine Negative (Negative); Blood Urine Trace (Negative); Color Urine Yellow; Epithelial Cell Urine Auto >30 /lpf (0-5); Glucose Urine UA Negative (Negative); Ketones Urine Negative (Negative); Leukocyte Esterase Urine Trace (Negative); Nitrite Urine Negative (Negative); Protein Urine 3+ (Negative); RBC Urine Automated 0-4 /hpf (0-4); Specific Gravity Urine 1.014 (1.000-1.030); Urobilinogen Urine Negative (Negative)
[2021-02-10] MEDS ORDERED: ONDANSETRON INJ 2 MG/ML 2 ML VIAL IV PRN (02:35)
[2021-02-10] MEDS ORDERED: ALBUTEROL HFA 8 GM INHALER INH PRN (02:35)
[2021-02-10] MEDS ORDERED: FUROSEMIDE 40 MG/4 ML VIAL IV ONE (03:05)
[2021-02-10 03:51] LABS: Basophils # (auto) 0.03 K/uL (0-0.2); Basophils % (auto) 0.3 %; Eosinophils # (auto) 0.14 K/uL (0-0.5); Eosinophils % (auto) 1.4 %; Hematocrit (blood only) 36.6 % (37-47); Hemoglobin 11.4 g/dL (12.0-16.0); Immature Granulocytes # (auto) 0.03 K/uL (0.00-0.02); Immature Granulocytes % (auto) 0.3 %; Lymphocytes # (auto) 1.91 K/uL (1.2-3.4); Lymphocytes % (auto) 19.7 %; Mean Corpuscular Hemoglobin 24.5 pg (25-34); Mean Corpuscular Hgb Conc 31.1 g/dL (32-36); Mean Corpuscular Volume 78.5 fL (80-100); Mean Platelet Volume 9.3 fL (7.4-10.4); Monocytes # (auto) 0.71 K/uL (0.11-0.59); Monocytes % (auto) 7.3 %; Neutrophils # (auto) 6.87 K/uL (1.4-6.5); Nucleated RBC # (auto) 0.17 K/uL (0-0); Nucleated RBC % (auto) 1.8 %; Platelet Count 291 K/uL (130-400); RDW Standard Deviation 56.7 fL (36.4-46.3); Red Blood Count 4.66 M/uL (4.2-5.4); White Blood Count 9.69 K/uL (4.8-10.8)
[2021-02-10 04:14] LABS: Anisocytosis Present; Poikilocytosis Present; Polychromasia 1+
[2021-02-10] MEDS: DOXYCYCLINE HYCLATE 100 MG in DEXTROSE 5% 100 ML IV SCH ×2 (04:14→17:45)
[2021-02-10 04:18] LABS: BUN Creatinine Ratio 10.7 (10-20); Calcium 7.4 mg/dl (8.5-10.1); Creatinine Clr Calc Pharmacy 20.2 ml/min; Est GFR (African American) 8.1 ml/min; Potassium 4.3 mmol/L (3.5-5.1); Troponin I 0.098 ng/ml (0-0.045)
[2021-02-10] MEDS: NITROGLYCERIN 2% OINTMENT 30GM TUBE EXT SCH ×3 (06:46→17:45)
--- NOTE | 2021-02-10 07:04 | Hospitalist Progress Note ---
Date of Service February 10, 2021 Assessment & Plan (1) Acute renal failure: Plan: Complicated 20 yo F with hx FSGS, nonischemic cardiomyopathy causing HFrEF (25- 30), GERD, CKD3, who is being admitted for management of acute renal failure. Mother Prasanth works in [employer] during the day, please call for updates [phone]. Acute renal failure in setting of CKD3 and FSGS and decompensated heart failure - BUN/Cr 84/7.82 -- downtrending - VBG 7.26/44/43/19 - no mental status alteration, VSS - likely mix of pre-existing CKD and poor forward flow from low EF and worsening fluid overload - previously was euvolemic/dry on 80 mg PO lasix AM and 40 mg PM prior to last hospital admission - weight increased by 44 kg from 12/30/20 - 80 mg IV Q8h Lasix for aggressive diuresis - Nephrology consulted: - Consult discharge planning to set up outpatient HD and transportation - Start daily nephrovite - Protect nondominant arm for AVF - Vascular consult by nephro -- plan for insertion of catheter for dialysis on 02/11/21 - BMP daily Acute Decompensated Congested Heart Failure with Reduced Ejection Fraction - outpatient pro BNP >52049 - Lasix as above -- nephrology consulted for possible dialysis - last TTE 12/28/20: Ef 25-30, global hypokinesis, mild pulmonary HTN, mild MR, small posterior pericardial effusion without tamponade physiology - daily weights - monitor I/o with Khalil - will hold carvedilol while being diuresed - may require dobutamine for inotropic support with dobutamine if not responsive to diuresis with lasix or becoming hypotensive - Cardiology consulted: - Will likely need dialysis but will defer to Nephrology. - If dialysis is not planned, can attempt Bumex 4 mg IV b.i.d. versus Bumex drip and would also encourage intravenous Diuril - Continue carvedilol at home dose 12.5 mg twice daily - elevated troponin likely due to decompensated CHF in the setting of acute on chronic renal failure. Nonischemic cardiomyopathy - Cardiology consulted: - Given renal failure, JANETTE-inhibitor, ARNI, ARB will not be used. Spironolactone should also be avoided - consider hydralazine/nitrate therapy as alternative therapy - has declined ICD both through [facility] and through outpatient visit here, despite discussion that ventricular arrhythmia can be more likely and fatal. - Nephro c/s: - Will order repeat echocardiogram - Provide one dose IV Diuril in addition to IV Furosemide and monitor UO Morbid Obesity - waffle boots, heel precautions, pressure ulcer precautions - skin check on admission showing mild irritated spots on abdomen but otherwise no signs of skin breakdown/existing ulcerations - Khalil to help with preventing skin breakdown during diuresis - bariatric bed - turn Q2h Sinus Infection - continue outpatient doxycycline treatment - added BID Flonase nares spray Asthma - cont home albuterol, budesonide, fluticasone inhalers - continue daily cetirizine GERD - cont pantoprazole BRANDON - CPAP nightly Anemia, chronic, stable - on iron at home - stable at 11.7 Medications for unclear diagnoses - confirmed with [facility] [place], patient is on topiramate and dicyclomine. unsure for which diagnoses. DVT ppx: heparin FEN/GI: low sodium diet, on pantoprazole Bowel regimen: prn Code Status: full code Dispo: PCU (2) Pulmonary edema: (3) Acute uremia: (4) Acidosis: (5) CKD (chronic kidney disease): (6) Acute on chronic HFrEF (heart failure with reduced ejection fraction): (7) GERD (gastroesophageal reflux disease): (8) Insomnia: (9) Nonischemic cardiomyopathy: (10) Focal segmental glomerulosclerosis: Admission and Anticipated Discharge Date Admission Date: February 09, 2021 Supervising Physician Co-Signing Physician Notes During face to face encounter, Patient seen and examined by bedside. Discussed plan of care with Dr. Xie and patient was updated in my presence. I reviewed above note and agree with it. Patientis complicated. Sadly she has had a difficult life as she has severe comorbdidites which now appear to include Severe non ischemic cardiomyopathy and ESRD. Patient is now fluid overloaded. She will need to start dialysis. 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 She will likely require counselling and a good relationship withher outpatient providers and perhaps psych. This will not be fixed in the short term, but hopefully over time. Appreciate input from Nephro and cardio. Subjective Seen at bedside. Patient was sleeping. Attempted to wake her several times by callling her name but did not respond. Eventually awoke with gentle moving of her arm, to which she responded "please stop shaking me" at which point I did and explained I was her physician and wanted to check up on her. She replied "I'm listening". However, as I started to explain the situation to her she r eplied "I'm not trying to be rude but if you have information you're gonna have to tell my mom because she is the one who needs to know". I told her she'd see Cardiology and Nephrology as well as the Hospitalist team and that we would update her mother daily but it would be in her best interest to engage with her physicians. She did not respond. I asked if she'd be okay with me examining her and she agreed. However, did not move for the exam and insisted on remaining in bed with eyes closed. Review of Systems Review of Systems: per subjective Physical Exam Physical Exam: GENERAL: Somnolent. NAD. CHEST/LUNGS: CTAB A/P. No crackles, wheezes, rales, rhonchi. Breath sounds distant. HEART: RRR. No m/g/r. ABDOMEN: NT/ND, soft. BS+ x4. EXTREMITIES: No cyanosis, no clubbing, no edema SKIN: Warm and dry. No rashes or lesions. PSYCHIATRIC: Euthymic affect, no SI, no pressured speech, no hallucinations NEUROLOGIC: Patient not cooperating with exam. unable to assess. Results & Data Results & Data ([facility]) Vital Signs (Past 12 Hours) Vital Signs Temp Pulse Pulse Pulse Resp BP BP 02/10/21 03:30 94 H 19 02/10/21 03:00 94 H 18 131/98 02/10/21 02:36 36.4 C L 91 H 18 137/65 02/10/21 02:00 36.1 C L 91 H 24 127/99 02/10/21 01:43 96 H 24 148/78 H 02/09/21 23:20 90 24 116/66 02/09/21 23:13 93 H 20 02/09/21 21:16 37 C 192 H 18 116/78 Pulse Ox 02/10/21 03:30 96 02/10/21 03:00 98 02/10/21 02:36 98 02/10/21 02:00 99 02/10/21 01:43 97 02/09/21 23:20 98 02/09/21 23:13 96 02/09/21 21:16 85 L Resident Activity Tracking Resident Involvement: Resident Care Provided Care Provided: Adult Hospital Medicine (1) Acute renal failure Acute renal failure type: unspecified Qualified Code(s): N17.9 - Acute kidney failure, unspecified (2) Pulmonary edema Chronicity: acute Qualified Code(s): J81.0 - Acute pulmonary edema
[2021-02-10] MEDS ORDERED: FLUTICASONE PROP HFA INH 44 MCG INHALER INH SCH (09:00)
--- NOTE | 2021-02-10 09:21 | Cardiology Consultation ---
Date of Consultation February 10, 2021 Assessment & Plan (1) Acute on chronic HFrEF (heart failure with reduced ejection fraction): (2) Acute on chronic renal failure: (3) Nonischemic cardiomyopathy: (4) Mitral valve insufficiency: (5) Pericardial effusion: (6) Elevated troponin: ASSESSMENT/PLAN: 1. Acute on chronic heart failure with reduced EF: Decompensated CHF. This has been progressively worsening over the past several weeks, and also occurring in the setting of acute on chronic renal. Diuresis thus far has been inadequate. Spoke with Nephrology. Dialysis was recommended last hospitalization but refused by patient. Will likely need dialysis but will defer to Nephrology. If dialysis is not planned, would continue diuresis. Can attempt Bumex 4 mg IV b.i.d. verses Bumex drip and would also encourage intravenous Diuril. Nephrology plans on seeing patient this morning to see if dialysis will occur. Could consider inotrope as well but according to records, there is concern of intrinsic kidney disease and is not clear if inotropic therapy will offer much benefit. Low-sodium diet. Strict I&Os. Daily weights. 2. Acute on chronic renal failure: Will defer to Nephrology. She presented last hospitalization hypovolemic in the setting of GI issues and reduced oral intake. She is now hypervolemic and renal dysfunction has progressed. 3. Mitral regurgitation: Non severe. 4. Nonischemic cardiomyopathy: Continue carvedilol at home dose 12.5 mg twice daily. She has been on this medication chronically. Would not titrate beta- shannon while decompensated. Given renal failure, JANETTE-inhibitor, ARNI, ARB will not be used. Spironolactone should also be avoided. Can consider hydralazine/nitrate therapy as alternative therapy. She has declined ICD both through [facility] and through outpatient visit here, despite discussion that ventricular arrhythmia can be more likely and fatal. 5. Pericardial effusion: Chronic. Would not account for her presentation. 6. Elevated troponin: She did not present with acute coronary syndrome. Elevated troponin likely due to decompensated CHF in the setting of acute on chronic renal failure. 7. Disposition: Very challenging situation. She has refused different therapies in the past. She would not participate in today's visit, which in has also been an issue in the past. Tried to contact her mother via telephone but there was no answer. Would consider allowing her mother to spend the day with her as she does communicate more when her mother is present. It is difficult to know her ability to make sound judgment and have insight as she typically does not communicate often in the presence of a provider. Poor overall prognosis given multiple comorbidities and history of signing out against medical advice and declining recommended care. Patient care was communicated with Dr. Reyna of Nephrology who plans to see the patient later this morning. Highly complex medical issues. Thank you for allowing me to participate in the care of your patient. Please call for any other questions or concerns. Sincerely, Venkatesh Noland M.D. History of Present Illness Attending Physician: Eliseo Gamez History of Present Illness [facility] is [facility] 20-year-[facility] female with history significant for heart failure with reduced EF, nonischemic cardiomyopathy, focal segmental glom erulosclerosis with CKD, type 2 diabetes (since 8 years of age), and asthma. She does not routinely participate in conversation with medical staff per patient's mother on previous encounter. Her primary legal administrative secretary is Dr. Clif Jaramillo (Advanced Heart failure and Transplant Cardiology) of [facility]. Near the age of 17 or 18, she was diagnosed with cardiomyopathy, felt to be due to myocarditis. Diagnosis was made at [facility] in [place]. Reportedly, her EF was 15% her mother however notes from [facility] suggested initial EF as mildly reduced and then later in 2019 in the 33-39% range. She also reportedly underwent renal biopsy around that time. She later followed with Dr. Clif Jaramillo (Advanced Heart failure and Transplant Cardiology) of [facility]. She states that over time, LV systolic function has slightly improved. [facility] Cardiology notes have discussed potential for heart/kidney transplant as well as ICD. She has declined ICD. She was hospitalized at [facility] on 12/27/2020 with GI symptoms and concern for hypovolemia with associated acute on chronic renal insufficiency. Her baseline creatinine had been 2.5-2.6 but was 5.12 on presentation. Diuretics were held and she received IV fluids to compensate for her GI volume loss. She eventually signed out against medical advice on 12/31/2020. She was followed by Nephrology throughout her hospital stay. She has had the following studies/procedures: 1. Echo 12/28/2020 [facility]: Moderate to severe LV dilation. EF 25-30%. Global hypokinesis. Mild MR. RVSP 45. Small posterior pericardial effusion without echocardiographic evidence of tamponade physiology (pericardial effusion chronic per [facility] records). She was seen in the office on 02/08/2021 and was significantly hypervolemic. It was recommended that she be hospitalized but she declined despite conversation including she and her mother. She left the office to obtain labs as ordered through her PCP. She was also recommended to take Lasix 80 mg twice daily. Lasix had been held after her last hospitalization after presenting with GI volume loss and felt to be hypovolemic on presentation. She had chronically been on diuretic therapy and most recently Lasix 80 mg in the morning and 40 mg in the evening prior to December 2020 hospitalization. She apparently was notified that her labs through her PCP on 02/08/2021 were significantly abnormal and was told to come to the hospital. Her creatinine is now over 7. Unfortunately, she did not communicate verbally with me today. She was sleeping but awakened with verbal stimuli. She would answer questions by striking her shoulders and shaking her head. This is consistent with some of her behavior during December hospitalization. She has tended to communicate verbally more so when her mother is present. When she was in the office 2 days ago, she initially communicated with hand gestures but as her mother spoke, she became more vocal at that time. When asked if she was short of breath today, she shrugged her shoulders. When asked if she was in pain she shook her head no. When asked if she wanted me to leave her alone so she could sleep, she nodded her head yes. Her creatinine on presentation was 7.8 to. According to nursing staff she has diuresed 300-500 mL of urine output thus far, despite Lasix 80 mg IV x1 and then ordered q.8 hours. Review of systems: As above. Family history:No known cardiomyopathy. No known CAD in first-degree relatives although she has grandparents and great grandparents with cardiac disorders. Social history:Denies tobacco, alcohol or drug abuse. She has no children. She lives at home with her mother, father, and 2 sisters. She has 3 sisters total. She was unaccompanied in her hospital room. Allergies Allergy/AdvReac Type Severity Reaction Status Date / Time dog dander Allergy Unknown Verified 02/08/21 12:58 pollen extracts Allergy Unknown Verified 02/08/21 12:58 latex Allergy Makes skin Verified 02/08/21 12:58 itchy & red Home Medications Medication Instructions Recorded Confirmed Type carvedilol 12.5 mg tablet 12.5 mg PO BID 12/27/20 02/09/21 History cetirizine 10 mg tablet 10 mg PO DAILY 12/27/20 02/09/21 History ferrous sulfate 27 mg iron tablet 27 mg PO DAILY 12/27/20 02/09/21 History dicyclomine 10 mg capsule 10 mg PO TID 01/14/21 02/09/21 History fluticasone propionate 44 2 puff INHALATION BID 01/14/21 02/09/21 History mcg/actuation HFA aerosol inhaler (Flovent HFA) pantoprazole 20 mg tablet,delayed 20 mg PO BID tab 01/14/21 02/09/21 History release (Protonix) topiramate 25 mg tablet (Topamax) 25 mg PO DAILY 01/14/21 02/09/21 History budesonide 180 mcg/actuation 2 inh INHALATION BID #1 ea 01/18/21 02/09/21 Rx breath activated powder inhaler (Pulmicort Flexhaler) furosemide 40 mg tablet 80 mg PO BID #60 tab 02/08/21 02/09/21 Rx albuterol sulfate 90 mcg/actuation 2 puff INHALATION QID PRN 02/09/21 02/09/21 History aerosol inhaler Patient History Medical History Acanthosis ADHD Anemia Chronic kidney disease, stage 3 Chronic systolic CHF (congestive heart failure) with reduced ejection fraction Depressed Diabetes mellitus type 2 in obese GERD (gastroesophageal reflux disease) Hypertension Insomnia Low ferritin level Mitral valve insufficiency Nonischemic cardiomyopathy Obesity Sleep apnea SOB (shortness of breath) Family History Family/Other Diabetes Hypertension Heart disease Prostate cancer Social History Smoking Status: Never smoker Second Hand Exposure: Yes; Do You Dip or Chew Tobacco: No; Hx Alcohol Use: No Hx Substance Use: No Preferred Language: Italian Communication Ability: Effective Cop Required: No Beliefs That Will Affect Care: None Current Living Situation: Parent and Family Other Information That Helps Us Care for You: No Feels Safe at Home: Yes Safety Concerns: Feels Safe At This Time Assistive Devices: Glasses and Walker Physical Exam Physical Exam: Gen.: No acute distress. HEENT: Anicteric sclera. Neck: Thick neck. Cannot assess JVD. Cardiac: PMI was nonpalpable. No ventricular heave. Regular. Normal S1-S2. No murmurs, rubs, or gallops. Pulmonary: Decreased breath sounds but otherwise clear to auscultation bilaterally without wheezes, rales, or rhonchi. Abdomen: Soft, nontender, nondistended, with normoactive bowel sounds. No bruits noted. 3+ abdominal body wall edema to above the umbilicus. Extremities: 2+ radial pulses bilaterally. 2+ posterior tibialis pulses bilaterally. 3+ bilateral lower extremity edema to the hips. No cyanosis. Results & Data ([facility]) Vital Signs (Past 12 Hours) Vital Signs Temp Pulse Pulse Pulse Resp BP BP 02/10/21 03:30 94 H 19 02/10/21 03:00 94 H 18 131/98 02/10/21 02:36 36.4 C L 91 H 18 137/65 02/10/21 02:00 36.1 C L 91 H 24 127/99 02/10/21 01:43 96 H 24 148/78 H 02/09/21 23:20 90 24 116/66 02/09/21 23:13 93 H 20 02/09/21 21:16 37 C 192 H 18 116/78 Pulse Ox 02/10/21 03:30 96 02/10/21 03:00 98 02/10/21 02:36 98 02/10/21 02:00 99 02/10/21 01:43 97 02/09/21 23:20 98 02/09/21 23:13 96 02/09/21 21:16 85 L Intake & Output 02/08/21 02/09/21 02/10/21 02/11/21 06:59 06:59 06:59 06:59 Intake Total 110 / 110 Output Total 350 / 350 Balance -240 / -240 Weight 437 lb 9.881 oz Laboratory Results Laboratory Results - last 24 hr 01/04/22 01/04/22 01/04/22 21:45 21:45 21:45 WBC 8.85 RBC 4.85 Hgb 11.7 L POC Hgb Hct 38.1 POC Hct MCV 78.6 L MCH 24.1 L MCHC 30.7 L RDW Std Deviation 56.1 H RDW Coeff of Nicole 19.9 H Plt Count 298 MPV 9.0 Immature Gran % (Auto) 0.3 Neut % (Auto) 77.2 Lymph % (Auto) 15.5 Charlton % (Auto) 5.5 Eos % (Auto) 1.2 Baso % (Auto) 0.3 Neut # (Auto) 6.82 H Lymph # (Auto) 1.37 Charlton # (Auto) 0.49 Eos # (Auto) 0.11 Baso # (Auto) 0.03 Immature Gran # (Auto) 0.03 H Absolute Nucleated RBC 0.17 H Nucleated RBC % (auto) 1.9 Polychromasia Poikilocytosis Anisocytosis PT 12.5 H INR 1.3 H APTT 28.2 PTT Ratio 1.1 VBG pH VBG pCO2 VBG pO2 VBG HCO3 VBG O2 Saturation VBG Base Excess Barometric Pressure POC Sodium Sodium 142 POC Potassium Potassium 4.3 POC Chloride Chloride 112 H Carbon Dioxide 21 POC Total CO2 Anion Gap 9.0 POC Anion Gap POC BUN BUN 84 H Creatinine 7.82 H* POC Creatinine Est Cr Clr Drug Dosing 19.6 Est GFR ( Amer) 7.8 Est GFR (Non-Af Amer) 6.7 BUN/Creatinine Ratio 10.8 Glucose 141 H POC Glucose (other) Calcium 7.3 L POC Ioniz Calcium Mono Magnesium 1.8 Total Bilirubin 0.6 AST 17 ALT 22 Alkaline Phosphatase 83 Troponin I 0.083 H* Total Protein 6.5 Albumin 1.8 L Globulin 4.7 H Albumin/Globulin Ratio 0.4 L Lipase 389 HCG, Qual Urine Color Urine Appearance Urine pH Ur Specific Pansey Urine Protein Urine Glucose (UA) Urine Ketones Urine Blood Urine Nitrite Urine Bilirubin Urine Urobilinogen Ur Leukocyte Esterase Urine WBC (Auto) Urine RBC (Auto) U Hyaline Cast (Auto) U Epithel Cells (Auto) Urine Bacteria (Auto) Ur Renal Epithelial Cell Ur Random Microalbumin Nasal Screen MRSA (PCR) SARS-CoV-2 (PCR) Influenza Type A (PCR) Influenza Type B (PCR) RSV (RT-PCR) 02/09/21 02/09/2122 21:45 21:45 21:51 WBC RBC Hgb POC Hgb Hct POC Hct MCV MCH MCHC RDW Std Deviation RDW Coeff of Nicole Plt Count MPV Immature Gran % (Auto) Neut % (Auto) Lymph % (Auto) Charlton % (Auto) Eos % (Auto) Baso % (Auto) Neut # (Auto) Lymph # (Auto) Charlton # (Auto) Eos # (Auto) Baso # (Auto) Immature Gran # (Auto) Absolute Nucleated RBC Nucleated RBC % (auto) Polychromasia Poikilocytosis Anisocytosis PT INR APTT PTT Ratio VBG pH 7.26 L VBG pCO2 44 VBG pO2 43 VBG HCO3 19 VBG O2 Saturation 69.6 VBG Base Excess -7.5 Barometric Pressure 734.7 POC Sodium Sodium POC Potassium Potassium POC Chloride Chloride Carbon Dioxide POC Total CO2 Anion Gap POC Anion Gap POC BUN BUN Creatinine POC Creatinine Est Cr Clr Drug Dosing Est GFR ( Amer) Est GFR (Non-Af Amer) BUN/Creatinine Ratio Glucose POC Glucose (other) Calcium POC Ioniz Calcium Mono Magnesium Total Bilirubin AST ALT Alkaline Phosphatase Troponin I Total Protein Albumin Globulin Albumin/Globulin Ratio Lipase HCG, Qual Negative Urine Color Urine Appearance Urine pH Ur Specific Pansey Urine Protein Urine Glucose (UA) Urine Ketones Urine Blood Urine Nitrite Urine Bilirubin Urine Urobilinogen Ur Leukocyte Esterase Urine WBC (Auto) Urine RBC (Auto) U Hyaline Cast (Auto) U Epithel Cells (Auto) Urine Bacteria (Auto) Ur Renal Epithelial Cell Ur Random Microalbumin Nasal Screen MRSA (PCR) SARS-CoV-2 (PCR) NEGATIVE Influenza Type A (PCR) Negative Influenza Type B (PCR) Negative RSV (RT-PCR) Negative 02/09/21 02/10/21 02/10/21 21:54 01:04 01:04 WBC RBC Hgb POC Hgb 13.3 Hct POC Hct 39 MCV MCH MCHC RDW Std Deviation RDW Coeff of Nicole Plt Count MPV Immature Gran % (Auto) Neut % (Auto) Lymph % (Auto) Charlton % (Auto) Eos % (Auto) Baso % (Auto) Neut # (Auto) Lymph # (Auto) Charlton # (Auto) Eos # (Auto) Baso # (Auto) Immature Gran # (Auto) Absolute Nucleated RBC Nucleated RBC % (auto) Polychromasia Poikilocytosis Anisocytosis PT INR APTT PTT Ratio VBG pH VBG pCO2 VBG pO2 VBG HCO3 VBG O2 Saturation VBG Base Excess Barometric Pressure POC Sodium 141 Sodium POC Potassium 4.2 Potassium POC Chloride 111 Chloride Carbon Dioxide POC Total CO2 19 L Anion Gap POC Anion Gap 16.0 POC BUN 79 H BUN Creatinine POC Creatinine 7.8 Est Cr Clr Drug Dosing Est GFR ( Amer) Est GFR (Non-Af Amer) BUN/Creatinine Ratio Glucose POC Glucose (other) 138 H Calcium POC Ioniz Calcium Mono 1.02 Magnesium Total Bilirubin AST ALT Alkaline Phosphatase Troponin I Total Protein Albumin Globulin Albumin/Globulin Ratio Lipase HCG, Qual Urine Color Yellow Urine Appearance Clear Urine pH 5.0 Ur Specific Pansey 1.014 Urine Protein 3+ H Urine Glucose (UA) Negative Urine Ketones Negative Urine Blood Trace H Urine Nitrite Negative Urine Bilirubin Negative Urine Urobilinogen Negative Ur Leukocyte Esterase Trace H Urine WBC (Auto) 10-30 H Urine RBC (Auto) 0-4 U Hyaline Cast (Auto) 1-5 U Epithel Cells (Auto) >30 H Urine Bacteria (Auto) Negative Ur Renal Epithelial Cell Not Reportable Ur Random Microalbumin 3600.0 Nasal Screen MRSA (PCR) SARS-CoV-2 (PCR) Influenza Type A (PCR) Influenza Type B (PCR) RSV (RT-PCR) 02/10/21 02/10/21 02/10/21 03:00 03:30 03:30 WBC 9.69 RBC 4.66 Hgb 11.4 L POC Hgb Hct 36.6 L POC Hct MCV 78.5 L MCH 24.5 L MCHC 31.1 L RDW Std Deviation 56.7 H RDW Coeff of Nicole 20.0 H Plt Count 291 MPV 9.3 Immature Gran % (Auto) 0.3 Neut % (Auto) 71.0 Lymph % (Auto) 19.7 Charlton % (Auto) 7.3 Eos % (Auto) 1.4 Baso % (Auto) 0.3 Neut # (Auto) 6.87 H Lymph # (Auto) 1.91 Charlton # (Auto) 0.71 H Eos # (Auto) 0.14 Baso # (Auto) 0.03 Immature Gran # (Auto) 0.03 H Absolute Nucleated RBC 0.17 H Nucleated RBC % (auto) 1.8 Polychromasia 1+ Poikilocytosis Present Anisocytosis Present PT INR APTT PTT Ratio VBG pH VBG pCO2 VBG pO2 VBG HCO3 VBG O2 Saturation VBG Base Excess Barometric Pressure POC Sodium Sodium 140 POC Potassium Potassium 4.3 POC Chloride Chloride 112 H Carbon Dioxide 18 L POC Total CO2 Anion Gap 10.0 POC Anion Gap POC BUN BUN 81 H Creatinine 7.58 H* POC Creatinine Est Cr Clr Drug Dosing 20.2 Est GFR ( Amer) 8.1 Est GFR (Non-Af Amer) 7.0 BUN/Creatinine Ratio 10.7 Glucose 130 H POC Glucose (other) Calcium 7.4 L POC Ioniz Calcium Mono Magnesium Total Bilirubin AST ALT Alkaline Phosphatase Troponin I 0.098 H* Total Protein Albumin Globulin Albumin/Globulin Ratio Lipase HCG, Qual Urine Color Urine Appearance Urine pH Ur Specific Pansey Urine Protein Urine Glucose (UA) Urine Ketones Urine Blood Urine Nitrite Urine Bilirubin Urine Urobilinogen Ur Leukocyte Esterase Urine WBC (Auto) Urine RBC (Auto) U Hyaline Cast (Auto) U Epithel Cells (Auto) Urine Bacteria (Auto) Ur Renal Epithelial Cell Ur Random Microalbumin Nasal Screen MRSA (PCR) Positive A SARS-CoV-2 (PCR) Influenza Type A (PCR) Influenza Type B (PCR) RSV (RT-PCR) 02/10/21 09:04 WBC RBC Hgb POC Hgb Hct POC Hct MCV MCH MCHC RDW Std Deviation RDW Coeff of Nicole Plt Count MPV Immature Gran % (Auto) Neut % (Auto) Lymph % (Auto) Charlton % (Auto) Eos % (Auto) Baso % (Auto) Neut # (Auto) Lymph # (Auto) Charlton # (Auto) Eos # (Auto) Baso # (Auto) Immature Gran # (Auto) Absolute Nucleated RBC Nucleated RBC % (auto) Polychromasia Poikilocytosis Anisocytosis PT INR APTT PTT Ratio VBG pH VBG pCO2 VBG pO2 VBG HCO3 VBG O2 Saturation VBG Base Excess Barometric Pressure POC Sodium Sodium POC Potassium Potassium POC Chloride Chloride Carbon Dioxide POC Total CO2 Anion Gap POC Anion Gap POC BUN BUN Creatinine POC Creatinine Est Cr Clr Drug Dosing Est GFR ( Amer) Est GFR (Non-Af Amer) BUN/Creatinine Ratio Glucose POC Glucose (other) Calcium POC Ioniz Calcium Mono Magnesium Total Bilirubin AST ALT Alkaline Phosphatase Troponin I Pending Total Protein Albumin Globulin Albumin/Globulin Ratio Lipase HCG, Qual Urine Color Urine Appearance Urine pH Ur Specific Pansey Urine Protein Urine Glucose (UA) Urine Ketones Urine Blood Urine Nitrite Urine Bilirubin Urine Urobilinogen Ur Leukocyte Esterase Urine WBC (Auto) Urine RBC (Auto) U Hyaline Cast (Auto) U Epithel Cells (Auto) Urine Bacteria (Auto) Ur Renal Epithelial Cell Ur Random Microalbumin Nasal Screen MRSA (PCR) SARS-CoV-2 (PCR) Influenza Type A (PCR) Influenza Type B (PCR) RSV (RT-PCR) Diagnostic Findings Telemetry personally reviewed: Sinus rhythm. No arrhythmia. Chest x-ray 02/09/2021: Cardiomegaly with mild central vascular congestion. ECG personally reviewed 02/09/2021: Sinus rhythm 90 beats per minute. Nonspecific T-wave abnormality. Medications Administered Current Inpatient Medications Acetaminophen (Acetaminophen 325 Mg Tab) 650 mg PO Q4H PRN PRN Reason: Pain or Fever Stop: 03/12/21 02:34 Albuterol (Albuterol Hfa 8 Gm Inhaler) 2 puffs INH QID PRN PRN Reason: Wheezing Stop: 03/12/21 02:34 Cetirizine HCl (Cetirizine Hcl 10 Mg Tablet) 10 mg PO DAILY NASEEM Stop: 03/12/21 08:59 Dicyclomine HCl (Dicyclomine Hcl 10 Mg Cap) 10 mg PO TID NASEEM Stop: 03/12/21 08:59 Fluticasone Furoate (Fluticasone Furoate 200mcg 14 Puffs/Inhaler) 1 puffs INH QAM NASEEM Stop: 03/12/21 08:59 Fluticasone Propionate (Fluticasone Propionate Na Spr 16 Gm Btl) 2 sprays NA BID NASEEM Stop: 03/12/21 08:59 Furosemide (Furosemide 40 Mg/4 Ml Vial) 80 mg IV Q8H NASEEM Stop: 03/12/21 02:34 Heparin Sodium (Porcine) (Heparin Sod 5,000 Unit/0.5 Ml Vial) 5,000 units SQ Q12 NASEEM Stop: 03/12/21 08:59 Doxycycline Hyclate 100 mg/ (Dextrose) 110 mls @ 50 mls/hr IV Q12H NASEEM Stop: 02/14/21 03:59 Last Infusion: 02/10/21 06:33 Dose: Infused Documented by: Nitroglycerin (Nitroglycerin 2% Ointment 30gm Tube) 0.5 inch EXT Q6H NASEEM Stop: 03/12/21 05:59 Last Admin: 02/10/21 06:46 Dose: 0.5 inch Documented by: Ondansetron HCl (Ondansetron Inj 2 Mg/Ml 2 Ml Vial) 4 mg IV Q6H PRN PRN Reason: Nausea Stop: 03/12/21 02:34 Pantoprazole Sodium (Pantoprazole 40 Mg Tab) 40 mg PO BID NASEEM Stop: 03/12/21 08:59 Topiramate (Topiramate 25 Mg Tab) 25 mg PO DAILY NASEEM Stop: 03/12/21 08:59 PG Care Time/CCT Total # of Minutes Spent Total Time Spent with Patient: Total time spent is greater than 50% in coordination of care (as documented) at patient's floor/unit and/or counseling patient: Coding Level of Care Code 05751 Initial Inpt Care Lvl 3 Diagnoses Acute on chronic HFrEF (heart failure with reduced ejection fraction) I50.23 Acute on chronic renal failure N17.9; N18.9 Nonischemic cardiomyopathy I42.8 Mitral valve insufficiency I34.0 Pericardial effusion I31.3 Elevated troponin R77.8
[2021-02-10] MEDS: FLUTICASONE FUROATE 200MCG 14 PUFFS/INHALER INH SCH (09:45)
[2021-02-10] MEDS: FLUTICASONE PROPIONATE NA SPR 16 GM BTL SCH ×2 (09:45→20:12)
[2021-02-10] MEDS: DICYCLOMINE HCL 10 MG CAP PO SCH ×3 (09:46→20:12)
[2021-02-10] MEDS: CETIRIZINE HCL 10 MG TABLET PO SCH (09:46)
[2021-02-10] MEDS: TOPIRAMATE 25 MG TAB PO SCH (09:46)
[2021-02-10] MEDS: PANTOprazole 40 MG TAB PO SCH ×2 (09:46→20:12)
[2021-02-10] MEDS: HEPARIN SOD 5,000 UNIT/0.5 ML VIAL SQ SCH ×2 (09:46→20:12)
[2021-02-10] MEDS: carvediloL 12.5 MG TAB PO SCH ×2 (09:47→20:12)
[2021-02-10] MEDS ORDERED: CHLOROTHIAZIDE SODIUM 500 MG in DEXTROSE 5% 50 ML IV ONE (10:00)
--- NOTE | 2021-02-10 10:50 | Consultation ---
Date of Consultation February 10, 2021 Assessment & Plan (1) Acute on chronic renal failure: PT also seen by Dr Barragan today, will plan on permcath insertion tomorrow at noon in OR with anesthesia. Procedure, risks, benefits, and alternatives discussed with pt by Dr Barragan and myself. Consent obtained by myself at Dr Barragan's request. Pt is agreeable, but would like her mother to be present in hospital for her procedure tomorrow. Patient was seen, examined, and chart reviewed. Agree with exam and treatment plan of the Vascular PA. History of Present Illness Reason for Consultation: ESRD Attending Physician: Eliseo Gamez History of Present Illness 20 yo f with multiple medical problems, including nonischemic cardiomyopathy, heart failure with reduced EF, CKD, GERD, DMII, anemia, depression, and morbid obesity, admitted with acute renal failure and fluid overload, seen in consultation today for insertion of tunneled dialysis catheter for HD initiation. HD had been discussed during previous admission d/t progression of kidney disease, however, pt refused and diuresis was attempted. Pt currently states she feels SOB even while sitting at almost 90 degrees, however, her oxygen sats remain around 95% on 2 L NC. Admits severe edema and fatigue. Pt denies CHANEY, fever, chest pain, abd pain, N/V, other complaints. Allergies Allergy/AdvReac Type Severity Reaction Status Date / Time dog dander Allergy Unknown Verified 02/08/21 12:58 pollen extracts Allergy Unknown Verified 02/08/21 12:58 latex Allergy Makes skin Verified 02/08/21 12:58 itchy & red Home Medications Medication Instructions Recorded Confirmed Type carvedilol 12.5 mg tablet 12.5 mg PO BID 12/27/20 02/09/21 History cetirizine 10 mg tablet 10 mg PO DAILY 12/27/20 02/09/21 History ferrous sulfate 27 mg iron tablet 27 mg PO DAILY 12/27/20 02/09/21 History dicyclomine 10 mg capsule 10 mg PO TID 01/14/21 02/09/21 History fluticasone propionate 44 2 puff INHALATION BID 01/14/21 02/09/21 History mcg/actuation HFA aerosol inhaler (Flovent HFA) pantoprazole 20 mg tablet,delayed 20 mg PO BID tab 01/14/21 02/09/21 History release (Protonix) topiramate 25 mg tablet (Topamax) 25 mg PO DAILY 01/14/21 02/09/21 History budesonide 180 mcg/actuation 2 inh INHALATION BID #1 ea 01/18/21 02/09/21 Rx breath activated powder inhaler (Pulmicort Flexhaler) furosemide 40 mg tablet 80 mg PO BID #60 tab 02/08/21 02/09/21 Rx albuterol sulfate 90 mcg/actuation 2 puff INHALATION QID PRN 02/09/21 02/09/21 History aerosol inhaler Patient History Medical History Acanthosis ADHD Anemia Chronic kidney disease, stage 3 Chronic systolic CHF (congestive heart failure) with reduced ejection fraction Depressed Diabetes mellitus type 2 in obese GERD (gastroesophageal reflux disease) Hypertension Insomnia Low ferritin level Mitral valve insufficiency Nonischemic cardiomyopathy Obesity Sleep apnea SOB (shortness of breath) Family History Family/Other Diabetes Hypertension Heart disease Prostate cancer Social History Smoking Status: Never smoker Second Hand Exposure: Yes; Do You Dip or Chew Tobacco: No; Hx Alcohol Use: No Hx Substance Use: No Preferred Language: Canadian Communication Ability: Effective Coroner Forensic Technician Required: No Beliefs That Will Affect Care: None Current Living Situation: Parent and Family Other Information That Helps Us Care for You: No Feels Safe at Home: Yes Safety Concerns: Feels Safe At This Time Assistive Devices: Oxygen - Continuous Review of Systems Review of Systems: All systems reviewed & are unremarkable except as noted in HPI & below Physical Exam Constitutional: well developed, + ill appearing, + morbidly obese and + edematous; not in distress ENMT: Ears: no hearing impairment Neck: trachea midline Respiratory: + labored breathing Auscultation: + diminished lung sounds and + crackles Cardiovascular: Rate/Rhythm: regular rate and regular rhythm Vessels: posterior tibial pulses present, dorsalis pedis pulses present and radial pulses present; + abnormal peripheral pulses Extremities: normal capillary refill and + edema Gastrointestinal (Abdomen): Percussion/Palpation: abdomen soft; abdomen nontender Musculoskeletal: no cyanosis or clubbing, extremities motor strength 5/5 Skin: no rashes Neurologic: moves all extremities and awake; no focal motor deficits and not confused Psychiatric: Orientation: alert and oriented x 3 Affect: + depressed affect and + flat affect Results & Data ([facility]) Vital Signs (Past 12 Hours) Vital Signs Temp Pulse Pulse Pulse Resp BP BP 02/10/21 03:30 94 H 19 02/10/21 03:00 94 H 18 131/98 02/10/21 02:36 36.4 C L 91 H 18 137/65 02/10/21 02:00 36.1 C L 91 H 24 127/99 02/10/21 01:43 96 H 24 148/78 H 02/09/21 23:20 90 24 116/66 02/09/21 23:13 93 H 20 Pulse Ox 02/10/21 03:30 96 02/10/21 03:00 98 02/10/21 02:36 98 02/10/21 02:00 99 02/10/21 01:43 97 02/09/21 23:20 98 02/09/21 23:13 96
[2021-02-10] MEDS: FUROSEMIDE 40 MG/4 ML VIAL IV SCH ×2 (11:44→20:12)
--- NOTE | 2021-02-10 11:47 | Nephrology Consultation ---
Date of Consultation February 10, 2021 Assessment & Plan (1) ESRD (end stage renal disease): * Vascular surgery consulted for IJ THC insertion * 1st run HD pending catheter placement today or tomorrow * Consult discharge planning to set up outpatient HD and transportation * Start daily nephrovite * Protect nondominant arm for AVF * Monitor PRP, CBC, UO (2) Nonischemic cardiomyopathy: * Will order repeat echocardiogram * Provide one dose IV Diuril in addition to IV Furosemide and monitor UO * Await Cardiology input - question need for AICD (3) Psychiatric disturbance: * Patient has often refused interaction w/ medical providers, has refused recommended care and signed out of [facility] and [facility] AMA in the past. Unclear whether she may have a developmental delay or underlying depression/psychiatric disturbance. Recommend Psychiatric consultation to help define cause and outline best plan to improve medical adherence History of Present Illness Reason for Consultation: ESRD Attending Physician: Eliseo Gamez History of Present Illness Telephone consultation was provided to Dr. Haas in the EMD at 11pm last night. Admission was advised for evaluation of progressive renal dysfunction and volume overload. Miss Cedillo has been a resident of [facility]. Previously she was under the Nephrology care of Dr. Cooper. In September 2019 she was hospitalization at [facility]. Records reveal the followin/19 Cr 1.75. 2018 renal biopsy at [facility] - FSGS, DKD. 09/25 Cr 2.2. BASSAM-neg, C3 C4-wnl, ANCA- neg. Anti-GBM & HIV were drawn - results not included. Patient refused repeat kidney biopsy by Dr. Cooper and signed out AMA. Ms. Cedillo was admitted to [facility] 12/28/20 - 12/31/20 for N/V and progressive renal dysfunction. He kidney function did not improve despite IV hydration. Consultation was obtained w/ [facility] rdiology. 12/28/20 echocardiogram: severe LV dilation w/ LVEF 25-30%, global hypokinesis , mild MR, RVSP 45 mmHg. Ms. Cedillo was diagnosed w/ a nonischemic CMP and AICD was recommended. Patient refused. Nephrology evaluation during her hospitalization revealed acellular urine sediment, 9.5 cm kidneys on US without obstruction. It was explained at that time to Ms. Cedillo and her mother that her renal dysfunction was likely due to multiple factors including DKD, FSGS and CRS. IJ THC insertion and initiation of HD was advised. Ms. Cedillo refused and signed out of the hospital AMA. She was seen in the [facility] Cardiology office 02/08/21 and found to be markedly hypervolemic. Hospital admission for IV diuretic/inotropic therapy was advised. Patient refused. Last evening Ms. Cedillo became progressively dyspneic and required transfer to [facility] EMD by EMS. She was subsequently admitted to the ICU for IV diuretic therapy. Ms. Cedillo was interviewed in the presence of Ce Mccollum RN this morning. Patient awoke to voice and was able to call her mother via cell phone and place her on speaker. I explained that Roseanne has gained 47 kg since her last hospitalization. I explained that Roseanne had both heart and kidney failure and has made very little urine despite IV diuretic therapy. I outlined the options of inotropic therapy and high dose diuretics, starting dialysis or considering palliative care. I explained that her prognosis was guarded and outlined the process of IJ THC catheter insertion, AVF creation and 3x/week outpatient HD treatments. Both Ms. Cedillo and her mother voiced understanding. They understand that Roseanne did not respond to IV diuretics last night. They are agreeable to a trial of HD to improve Roseanne's volume status and understand that her cardiac function is poor and could certainly complicate or impede her dialysis treatments. Roseanne indicated that she may consider an AICD if needed as well. Allergies Allergies Allergy/AdvReac Type Severity Reaction Status Date / Time dog dander Allergy Unknown Verified 02/08/21 12:58 pollen extracts Allergy Unknown Verified 02/08/21 12:58 latex Allergy Makes skin Verified 02/08/21 12:58 itchy & red Home Medications Medication Instructions Recorded Confirmed Type carvedilol 12.5 mg tablet 12.5 mg PO BID 12/27/20 02/09/21 History cetirizine 10 mg tablet 10 mg PO DAILY 12/27/20 02/09/21 History ferrous sulfate 27 mg iron tablet 27 mg PO DAILY 12/27/20 02/09/21 History dicyclomine 10 mg capsule 10 mg PO TID 01/14/21 02/09/21 History fluticasone propionate 44 2 puff INHALATION BID 01/14/21 02/09/21 History mcg/actuation HFA aerosol inhaler (Flovent HFA) pantoprazole 20 mg tablet,delayed 20 mg PO BID tab 01/14/21 02/09/21 History release (Protonix) topiramate 25 mg tablet (Topamax) 25 mg PO DAILY 01/14/21 02/09/21 History budesonide 180 mcg/actuation 2 inh INHALATION BID #1 ea 01/18/21 02/09/21 Rx breath activated powder inhaler (Pulmicort Flexhaler) furosemide 40 mg tablet 80 mg PO BID #60 tab 02/08/21 02/09/21 Rx albuterol sulfate 90 mcg/actuation 2 puff INHALATION QID PRN 02/09/21 02/09/21 History aerosol inhaler Patient History Medical History Acanthosis ADHD Anemia Chronic kidney disease, stage 3 Chronic systolic CHF (congestive heart failure) with reduced ejection fraction Depressed Diabetes mellitus type 2 in obese GERD (gastroesophageal reflux disease) Hypertension Insomnia Low ferritin level Mitral valve insufficiency Nonischemic cardiomyopathy Obesity Sleep apnea SOB (shortness of breath) Family History Family/Other Diabetes Hypertension Heart disease Prostate cancer Social History Smoking Status: Never smoker Second Hand Exposure: Yes; Do You Dip or Chew Tobacco: No; Hx Alcohol Use: No Hx Substance Use: No Preferred Language: Chadian Communication Ability: Effective Seaport Planning Manager Required: No Beliefs That Will Affect Care: None Current Living Situation: Parent and Family Other Information That Helps Us Care for You: No Feels Safe at Home: Yes Safety Concerns: Feels Safe At This Time Assistive Devices: Oxygen - Continuous Review of Systems Constitutional: + weakness; no fever Eyes: no problem reported Ear, Nose, Mouth, Throat: no problem reported Respiratory: + dyspnea; no cough Cardiovascular: + edema; no chest pain and no palpitations Gastrointestinal: no abdominal pain, no nausea, no vomiting and no diarrhea/loose stools Genitourinary: no dysuria and no hematuria Musculoskeletal: no back pain Integumentary: no rash Neurologic: no confusion Physical Exam Constitutional: + ill appearing, + morbidly obese and + edematous; not in distress ENMT: external ear and nose normal, oropharynx normal Neck: trachea midline Respiratory: normal respiratory effort Auscultation: + rales Cardiovascular: Rate/Rhythm: regular rate and regular rhythm (distant hear sounds) Extremities: + edema (3+ pitting edema of the arms and legs) Gastrointestinal (Abdomen): Percussion/Palpation: abdomen soft; abdomen nontender Skin: no rashes Neurologic: moves all extremities and awake; no focal motor deficits and not confused Psychiatric: Orientation: alert and oriented x 3 Affect: + depressed affect and + flat affect Insight: + poor insight Results & Data ([facility]) Vital Signs (Past 12 Hours) Vital Signs Temp Pulse Pulse Pulse Resp BP BP 02/10/21 08:00 36.6 C 79 18 139/81 02/10/21 03:30 94 H 19 02/10/21 03:00 94 H 18 131/98 02/10/21 02:36 36.4 C L 91 H 18 137/65 02/10/21 02:00 36.1 C L 91 H 24 127/99 02/10/21 01:43 96 H 24 148/78 H 02/09/21 23:20 90 24 116/66 02/09/21 23:13 93 H 20 Pulse Ox 02/10/21 08:00 95 02/10/21 03:30 96 02/10/21 03:00 98 02/10/21 02:36 98 02/10/21 02:00 99 02/10/21 01:43 97 02/09/21 23:20 98 02/09/21 23:13 96 Laboratory Results Laboratory Tests 12/27/20 02/10/21 02/10/21 19:30 01:04 01:04 WBC Hgb Hct Plt Count Sodium Potassium Chloride Carbon Dioxide BUN Creatinine Glucose Calcium Troponin I Urine Protein 3+ H Urine Blood Trace H Urine WBC (Auto) 10-30 H Urine RBC (Auto) 0-4 Ur Random Microalbumin 3600.0 Protein/Creatinin Ratio 14.6 H 02/10/21 02/10/21 03:30 03:30 WBC 9.69 Hgb 11.4 L Hct 36.6 L Plt Count 291 Sodium 140 Potassium 4.3 Chloride 112 H Carbon Dioxide 18 L BUN 81 H Creatinine 7.58 H* Glucose 130 H Calcium 7.4 L Troponin I 0.098 H* Urine Protein Urine Blood Urine WBC (Auto) Urine RBC (Auto) Ur Random Microalbumin Protein/Creatinin Ratio Diagnostic Findings 02/10/21 CXR: Cardiomegaly with evidence for mild central vascular congestion. PG Care Time/CCT Total # of Minutes Spent Total Time Spent with Patient: Total time spent is greater than 50% in coordination of care (as documented) at patient's floor/unit and/or counseling patient: Coding Level of Care Code 21686 Inpt Consult Level 5 Diagnoses ESRD (end stage renal disease) N18.6 Nonischemic cardiomyopathy I42.8 Psychiatric disturbance F99
--- NOTE | 2021-02-10 12:50 | Electrocardiogram Report ---
Test Reason : Blood Pressure : / mmHG Vent. Rate : 090 BPM Atrial Rate : 090 BPM P-R Int : 164 ms QRS Dur : 094 ms QT Int : 408 ms P-R-T Axes : 044 119 038 degrees QTc Int : 499 ms Normal sinus rhythm Low voltage QRS Right axis deviation Nonspecific T wave abnormality Abnormal ECG When compared with ECG of 18-JAN-2021 19:30, QRS axis Shifted right Criteria for Anterior infarct are no longer Present Nonspecific T wave abnormality now evident in Inferior leads Nonspecific T wave abnormality now evident in Anterior leads Confirmed by Soren Horn ([id number]) on 02/10/2021 12:50:04 PM Referred By: REFERRED SELF Confirmed By:Soren Horn
--- NOTE | 2021-02-10 16:10 | XCELERA ---
[id number]
--- NOTE | 2021-02-10 17:50 | Anesthesiology Consultation ---
Date of Service February 10, 2021 Assessment & Plan (1) Encounter for pre-operative examination: Chart Review Chart Review: Acceptable Risk for Surgery and Patient NOT seen in Pre Admission Testing Consults Requested none History Surgery Operation Date: 02/11/21 08:40 Proposed Procedures p Insertion of Perm Catheter - Ric Barragan MD Height/Weight Height: 5 ft 1 in Weight: 198.5 kg Allergies Allergy/AdvReac Type Severity Reaction Status Date / Time dog dander Allergy Unknown Verified 02/08/21 12:58 pollen extracts Allergy Unknown Verified 02/08/21 12:58 latex Allergy Makes skin Verified 02/08/21 12:58 itchy & red Medications Home Medications Medication Instructions Recorded Confirmed Last Taken carvedilol 12.5 mg tablet 12.5 mg PO BID 12/27/20 02/09/21 02/09/21 08:00 cetirizine 10 mg tablet 10 mg PO DAILY 12/27/20 02/09/21 02/09/21 ferrous sulfate 27 mg iron tablet 27 mg PO DAILY 12/27/20 02/09/21 02/09/21 dicyclomine 10 mg capsule 10 mg PO TID 01/14/21 02/09/21 02/09/21 14:00 fluticasone propionate 44 2 puff INHALATION BID 01/14/21 02/09/21 02/09/21 08:00 mcg/actuation HFA aerosol inhaler (Flovent HFA) pantoprazole 20 mg tablet,delayed 20 mg PO BID tab 01/14/21 02/09/21 02/09/21 08:00 release (Protonix) topiramate 25 mg tablet (Topamax) 25 mg PO DAILY 01/14/21 02/09/21 02/09/21 budesonide 180 mcg/actuation 2 inh INHALATION BID #1 ea 01/18/21 02/09/21 02/09/21 08:00 breath activated powder inhaler (Pulmicort Flexhaler) furosemide 40 mg tablet 80 mg PO BID #60 tab 02/08/21 02/09/21 02/09/21 08:00 albuterol sulfate 90 mcg/actuation 2 puff INHALATION QID PRN 02/09/21 02/09/21 Unknown aerosol inhaler Active Medications Generic Name Dose Route Start Last Admin Trade Name Freq PRN Reason Stop Dose Admin Carvedilol 12.5 mg 02/10/21 09:45 02/10/21 09:47 Carvedilol 12.5 Mg Tab PO 03/12/21 09:44 12.5 mg BID NASEEM Administration Cetirizine HCl 10 mg 02/10/21 09:00 02/10/21 09:46 Cetirizine Hcl 10 Mg Tablet PO 03/12/21 08:59 10 mg DAILY NASEEM Administration Dicyclomine HCl 10 mg 02/10/21 09:00 02/10/21 13:43 Dicyclomine Hcl 10 Mg Cap PO 03/12/21 08:59 Not Given TID NASEEM Fluticasone Furoate 1 puffs 02/10/21 09:00 02/10/21 09:45 Fluticasone Furoate 200mcg 14 Puffs/Inhaler INH 03/12/21 08:59 1 puffs QAM NASEEM Administration Fluticasone Propionate 2 sprays 02/10/21 09:00 02/10/21 09:45 Fluticasone Propionate Na Spr 16 Gm Btl NA 03/12/21 08:59 2 sprays BID NASEEM Administration Furosemide 80 mg 02/10/21 12:00 02/10/21 11:44 Furosemide 40 Mg/4 Ml Vial IV 03/12/21 02:34 80 mg Q8H NASEEM Administration Heparin Sodium (Porcine) 5,000 units 02/10/21 09:00 02/10/21 09:46 Heparin Sod 5,000 Unit/0.5 Ml Vial SQ 03/12/21 08:59 5,000 units Q12 NASEEM Administration Doxycycline Hyclate 100 mg/ 110 mls @ 50 mls/hr 02/10/21 04:00 02/10/21 06:33 Dextrose IV 02/14/21 03:59 Infused Q12H NASEEM Infusion Nitroglycerin 0.5 inch 02/10/21 06:00 02/10/21 11:45 Nitroglycerin 2% Ointment 30gm Tube EXT 03/12/21 05:59 0.5 inch Q6H NASEEM Administration Pantoprazole Sodium 40 mg 02/10/21 09:00 02/10/21 09:46 Pantoprazole 40 Mg Tab PO 03/12/21 08:59 40 mg BID NASEEM Administration Topiramate 25 mg 02/10/21 09:00 02/10/21 09:46 Topiramate 25 Mg Tab PO 03/12/21 08:59 25 mg DAILY NASEEM Administration Past Medical History Medical History Acanthosis ADHD Anemia Chronic kidney disease, stage 3 Chronic systolic CHF (congestive heart failure) with reduced ejection fraction Depressed Diabetes mellitus type 2 in obese GERD (gastroesophageal reflux disease) Hypertension Insomnia Low ferritin level Mitral valve insufficiency Nonischemic cardiomyopathy Obesity Sleep apnea SOB (shortness of breath) Past Family History Family History Family/Other Diabetes Hypertension Heart disease Prostate cancer Social History Smoking Status: Never smoker Do You Dip or Chew Tobacco: No Hx Alcohol Use: No Hx Substance Use: No substance use type: does not use Physical Exam Vital Signs Last Vital Signs Temp 36.9 C 02/10/21 11:50 Pulse 82 02/10/21 16:00 Resp 16 02/10/21 11:50 BP 122/82 02/10/21 11:50 Pulse Ox 92 02/10/21 11:50 Testing Laboratory Results 02/10/21 03:30 02/10/21 03:30 PT 12.5 Seconds (9.0-12.0) H 02/09/21 21:45 INR 1.3 (0.9-1.1) H 02/09/21 21:45 APTT 28.2 Seconds (21.0-31.0) 02/09/21 21:45 Urine Color Yellow 02/10/21 01:04 Urine Appearance Clear (Clear) 02/10/21 01:04 Urine pH 5.0 (4.5-7.5) 02/10/21 01:04 Ur Specific [place] 1.014 (1.000-1.030) 02/10/21 01:04 Urine Protein 3+ (Negative) H 02/10/21 01:04 Urine Glucose (UA) Negative (Negative) 02/10/21 01:04 Urine Ketones Negative (Negative) 02/10/21 01:04 Urine Nitrite Negative (Negative) 02/10/21 01:04 Ur Leukocyte Esterase Trace (Negative) H 02/10/21 01:04 Urine WBC (Auto) 10-30 /hpf (0-5) H 02/10/21 01:04 Urine RBC (Auto) 0-4 /hpf (0-4) 02/10/21 01:04 U Hyaline Cast (Auto) 1-5 /lpf (0-5) 02/10/21 01:04 U Epithel Cells (Auto) >30 /lpf (0-5) H 02/10/21 01:04 Urine Bacteria (Auto) Negative (Negative) 02/10/21 01:04 Electrocardiogram Date: 02/09/21 Normal sinus rhythm (90) Low voltage QRS Right axis deviation Nonspecific T wave abnormality Abnormal ECG When compared with ECG of 18-JAN-2021 19:30, QRS axis Shifted right Criteria for Anterior infarct are no longer Present Nonspecific T wave abnormality now evident in Inferior leads Nonspecific T wave abnormality now evident in Anterior leads Chest X-Ray Date: 02/09/21 Cardiomegaly with evidence for mild central vascular congestion. Echocardiogram Date: 02/10/21 EF: 20% LV systolic function severely decreased, severe global hypokinesis of left ventr icle, moderate tricuspid regurg, mild mitral regurg, Other Testing 12/28/20 echocardiogram: severe LV dilation w/ LVEF 25-30%, global hypokinesis , mild MR, RVSP 45 mmHg.
--- NOTE | 2021-02-10 19:48 | Billing Data ---
Date of Service February 10, 2021 Coding Level of Care Code 87680 Subseq Hosp Care Lvl 3
--- NOTE | 2021-02-10 20:20 | Billing Data ---
Date of Service February 10, 2021 Coding Level of Care Code 78260 Initial Inpt Care Lvl 3
[2021-02-11] MEDS: NITROGLYCERIN 2% OINTMENT 30GM TUBE EXT SCH ×4 (01:09→22:00)
[2021-02-11] MEDS: DOXYCYCLINE HYCLATE 100 MG in DEXTROSE 5% 100 ML IV SCH ×2 (03:58→20:20)
[2021-02-11] MEDS: FUROSEMIDE 40 MG/4 ML VIAL IV SCH ×3 (03:58→21:48)
[2021-02-11 06:08] LABS: Basophils # (auto) 0.01 K/uL (0-0.2); Basophils % (auto) 0.1 %; Eosinophils # (auto) 0.14 K/uL (0-0.5); Eosinophils % (auto) 1.7 %; Hematocrit (blood only) 35.9 % (37-47); Hemoglobin 10.9 g/dL (12.0-16.0); Immature Granulocytes # (auto) 0.03 K/uL (0.00-0.02); Immature Granulocytes % (auto) 0.4 %; Lymphocytes # (auto) 1.57 K/uL (1.2-3.4); Mean Corpuscular Hemoglobin 24.3 pg (25-34); Mean Corpuscular Hgb Conc 30.4 g/dL (32-36); Mean Corpuscular Volume 80.1 fL (80-100); Mean Platelet Volume 9.1 fL (7.4-10.4); Monocytes # (auto) 0.62 K/uL (0.11-0.59); Monocytes % (auto) 7.5 %; Neutrophils # (auto) 5.89 K/uL (1.4-6.5); Neutrophils % (auto) 71.3 %; Nucleated RBC # (auto) 0.16 K/uL (0-0); Nucleated RBC % (auto) 1.9 %; Platelet Count 278 K/uL (130-400); RDW Coefficient of Variation 20.3 % (11.5-14.5); RDW Standard Deviation 58.3 fL (36.4-46.3); Red Blood Count 4.48 M/uL (4.2-5.4); White Blood Count 8.26 K/uL (4.8-10.8)
[2021-02-11 06:45] LABS: BUN Creatinine Ratio 10.9 (10-20); Calcium 7.6 mg/dl (8.5-10.1); Creatinine Clr Calc Pharmacy 19.8 ml/min; Est GFR (African American) 7.9 ml/min; Est GFR (Non-African American) 6.8 ml/min; Potassium 4.6 mmol/L (3.5-5.1)
[2021-02-11 06:54] LABS: Anisocytosis Present; Poikilocytosis Present; Polychromasia 1+
[2021-02-11] MEDS ORDERED: SODIUM CHLORIDE 0.9% 1000ML 1,000 ML IV PRN (07:00)
--- NOTE | 2021-02-11 08:01 | Hospitalist Progress Note ---
Date of Service February 11, 2021 Assessment & Plan (1) Acute renal failure: Plan: Complicated 20 yo F with hx FSGS, nonischemic cardiomyopathy causing HFrEF (25- 30), GERD, CKD3, who is being admitted for management of acute renal failure. Mother Prasanth works in [employer] during the day, please call for updates [phone]. ESRD - weight increased by 44 kg from 12/30/20 - Continue Lasix 80mg IV q8h - Nephrology consulted: - IJ THC insertion and 1st run HD today - Consult discharge planning to set up outpatient HD and transportation - Continue daily nephrovite - Protect nondominant arm for AVF - Nephro discussion with pt's mother re: possible kidney transplant: cardiomyopathy will likely preclude kidney transplantation - IJ THC placed by vascular surgery 02/11/21 - First dialysis planned today - BMP daily Acute Decompensated Congested Heart Failure with Reduced Ejection Fraction - outpatient pro BNP >23082 - Lasix as above -- nephrology consulted for possible dialysis - last TTE 12/28/20: Ef 25-30, global hypokinesis, mild pulmonary HTN, mild MR, small posterior pericardial effusion without tamponade physiology - daily weights - monitor I/o with Khalil - will hold carvedilol while being diuresed - may require dobutamine for inotropic support with dobutamine if not responsive to diuresis with lasix or becoming hypotensive - Cardiology consulted: - Will likely need dialysis but will defer to Nephrology. - If dialysis is not planned, can attempt Bumex 4 mg IV b.i.d. versus Bumex drip and would also encourage intravenous Diuril - Continue carvedilol at home dose 12.5 mg twice daily - elevated troponin likely due to decompensated CHF in the setting of acute on chronic renal failure. Nonischemic cardiomyopathy - Cardiology consulted: - Given renal failure, JANETTE-inhibitor, ARNI, ARB will not be used. Spironolactone should also be avoided - consider hydralazine/nitrate therapy as alternative therapy - has declined ICD both through [facility] and through outpatient visit here, despite discussion that ventricular arrhythmia can be more likely and fatal. - Repeat Echo showing severely reduced LV fxn with EF of 20%, severe global hypokinesis of LV, moderate tricuspid regurg, mild mitral regurg - Patient reportedly more open now to discussion of ICD placement Morbid Obesity - waffle boots, heel precautions, pressure ulcer precautions - skin check on admission showing mild irritated spots on abdomen but otherwise no signs of skin breakdown/existing ulcerations - Khalil to help with preventing skin breakdown during diuresis - bariatric bed - turn Q2h Sinus Infection - continue outpatient doxycycline treatment - added BID Flonase nares spray Asthma - cont home albuterol, budesonide, fluticasone inhalers - continue daily cetirizine GERD - cont pantoprazole BRANDON - CPAP nightly Anemia, chronic, stable - on iron at home - stable at 11.7 Medications for unclear diagnoses - [place] [facility] [place], patient is on topiramate and dicyclomine. unsure for which diagnoses. DVT ppx: heparin FEN/GI: low sodium diet, on pantoprazole Bowel regimen: prn Code Status: full code Dispo: PCU (2) Pulmonary edema: (3) Acute uremia: (4) Acidosis: (5) CKD (chronic kidney disease): (6) Acute on chronic HFrEF (heart failure with reduced ejection fraction): (7) GERD (gastroesophageal reflux disease): (8) Insomnia: (9) Nonischemic cardiomyopathy: (10) Focal segmental glomerulosclerosis: Admission and Anticipated Discharge Date Admission Date: February 09, 2021 Supervising Physician Co-Signing Physician Notes Attending addendum: I have physically seen this patient, have supervised the medical residents activities, and agree with the H&P unless as otherwise noted. Assessment and Plan: Acute on chronic renal failure/acute on chronic HFrEF/hypertension- Creatinine 7.82 upon admission, with most recent in the 5 range Likely combination of FSG and prerenal state due to decreased forward flow with EF 25 to 30% Continue Lasix 80 mg IV every 8 hours will have first dialysis session today after Dialysis cath is place. Hold carvedilol, oral furosemide. Nephrology consulted Remaining orders and notations as noted Subjective Seen at bedside this AM. Somnolent during conversation. Asks where her mom is. I explain visiting hours are 2-6PM and it is 8:30AM. She then goes back to sleep and does not engage with me further. Seen again just prior to her surgery, with mom in the room. She is more talkative and asking whether she'll be able to eat after surgery. I explain this depends on when dialysis will occur, which will be determined later. Addressed mom's concerns regarding positive MRSA nares -- explained this does not indicate infection. Review of Systems Review of Systems: Other (patient refusing to engage in conversation) per subjective Physical Exam Physical Exam: GENERAL: Alerto, oriented. NAD. CHEST/LUNGS: CTAB A/P. No crackles, wheezes, rales, rhonchi. Breath sounds distant. HEART: RRR. No m/g/r. SKIN: Warm and dry. No rashes or lesions. Results & Data Results & Data ([facility]) Vital Signs (Past 12 Hours) Vital Signs Temp Pulse Resp BP Pulse Ox 02/11/21 04:01 36.1 C L 80 20 145/83 H 95 02/11/21 00:01 36.6 C 81 20 119/95 93 02/11/21 00:00 82 02/10/21 20:31 37.3 C 94 H 30 H 111/84 92 Resident Activity Tracking Resident Involvement: Resident Care Provided Care Provided: Adult Hospital Medicine (1) Acute renal failure Acute renal failure type: unspecified Qualified Code(s): N17.9 - Acute kidney failure, unspecified (2) Pulmonary edema Chronicity: acute Qualified Code(s): J81.0 - Acute pulmonary edema
[2021-02-11 09:51] LABS: Hepatitis B Surface Ab Quant < 3.10 mIU/mL (>or=10mIU/mL Immune); Hepatitis B Surface Antibody Non-Immune
[2021-02-11 10:02] LABS: Hepatitis B Surf Ag Rflx Conf Neg (Neg)
[2021-02-11] MEDS ORDERED: ceFAZolin 3000MG/72.5 ML BAG IV ONE (10:55)
--- NOTE | 2021-02-11 11:05 | Communication Note ---
Date of Service: February 11, 2021 The patient was seen by 2 liaison nurses, PHQ-9 screen subclinical for depression, some hx of panic but not prior psychiatric treatment or diagnosis. Denied SI. Our service reached out to clarify consult question as patient is agreeing to procedure this am and is declining psychiatric consult. Liaison states official consult is being cancelled but our service can be recontacted if additional concerns arise.
--- NOTE | 2021-02-11 11:16 | Nephrology Progress Note ---
Date of Service February 11, 2021 Assessment & Plan (1) ESRD (end stage renal disease): Plan: * 1400 cc UO overnight in response to high dose loop + thiazide diuretic therapy however Cr has risen further to 7.7 * Explained to Miss Cedillo and her mother that kidney function is worsening despite medical therapy. IJ THC insertion and 1st run HD planned for today * Patient and her mother questioned whether HD is permanent and whether she could be considered for kidney transplant. I explained that dialysis will likely be permanent once it is started. She will require AVF creation in the near future. I reviewed the echocardiogram report with them - LVEF 20%. I explained that her CMP will likely preclude kidney transplantation. Patient and mother both voiced understanding * Discharge planning has been consulted to set up outpatient HD and transportati on * Protect nondominant arm for AVF * Monitor PRP, CBC, UO (2) Nonischemic cardiomyopathy: Plan: * 02/10/21 Echocardiogram: LVEF 20% * Await Cardiology input - dobutamine trial, AICD? (3) Psychiatric disturbance: Plan: * Patient has often refused interaction w/ medical providers, refused prescribed medical care and signed out of both [facility] and [facility] in the past. Question whether she has developmental delay or underlying depression/psychiatric condition. Recommend consultation w/ Psychiatry to define cause and outline best plan to improve patient's medical adherence Admission and Anticipated Discharge Date Admission Date: February 09, 2021 Subjective Miss Cedillo was evaluated in her hospital room this morning. She awoke to my voice and did call her mother to place her on speaker phone. Miss Cedillo remains agreeable to IJ THC insertion and initiation of HD Review of Systems Constitutional: + weakness; no fever Eyes: no problem reported Ear, Nose, Mouth, Throat: no problem reported Respiratory: + dyspnea; no cough Cardiovascular: + edema; no chest pain and no palpitations Gastrointestinal: no abdominal pain, no nausea, no vomiting and no diarrhea/loose stools Genitourinary: no dysuria and no hematuria Musculoskeletal: no back pain Integumentary: no rash Neurologic: no confusion Physical Exam Constitutional: + ill appearing, + morbidly obese and + edematous; not in distress ENMT: external ear and nose normal, oropharynx normal Neck: trachea midline Respiratory: normal respiratory effort Auscultation: + rales Cardiovascular: Rate/Rhythm: regular rate and regular rhythm (distant hear sounds) Extremities: + edema (3+ pitting edema of the arms and legs) Gastrointestinal (Abdomen): Percussion/Palpation: abdomen soft; abdomen nontender Skin: no rashes Neurologic: moves all extremities and awake; no focal motor deficits and not confused Psychiatric: Orientation: alert and oriented x 3 Affect: + depressed affect and + flat affect Insight: + poor insight Results & Data ([facility]) Vital Signs (Past 12 Hours) Vital Signs Temp Pulse Pulse Resp BP BP Pulse Ox 02/11/21 10:45 36.6 C 82 16 141/93 H 91 02/11/21 10:12 91 H 18 02/11/21 09:00 36 C L 02/11/21 08:43 81 02/11/21 08:00 36.5 C 81 20 132/96 93 02/11/21 06:00 36.3 C L 80 18 02/11/21 04:01 36.1 C L 80 20 145/83 H 95 02/11/21 00:01 36.6 C 81 20 119/95 93 02/11/21 00:00 82 Laboratory Results Laboratory Tests 02/11/21 02/11/21 05:23 05:23 WBC 8.26 Hgb 10.9 L Hct 35.9 L Plt Count 278 Sodium 138 Potassium 4.6 Chloride 110 H Carbon Dioxide 19 L BUN 84 H Creatinine 7.74 H* Glucose 106 H Calcium 7.6 L PG Care Time/CCT Total # of Minutes Spent Total Time Spent with Patient: Total time spent is greater than 50% in coordination of care (as documented) at patient's floor/unit and/or counseling patient: Coding Level of Care Code 71670 Subseq Hosp Care Lvl 3 Diagnoses ESRD (end stage renal disease) N18.6 Nonischemic cardiomyopathy I42.8 Psychiatric disturbance F99
[2021-02-11] MEDS: FLUTICASONE FUROATE 200MCG 14 PUFFS/INHALER INH SCH (11:29)
[2021-02-11] MEDS: FLUTICASONE PROPIONATE NA SPR 16 GM BTL SCH ×2 (11:29→21:49)
[2021-02-11] MEDS: DICYCLOMINE HCL 10 MG CAP PO SCH ×3 (11:30→21:50)
[2021-02-11] MEDS ORDERED: ceFAZolin 1000MG 1,000 MG/7.5 ML SYR IV ONE (12:00)
[2021-02-11] MEDS ORDERED: ceFAZolin 3,000 MG in DEXTROSE 5% 50 ML IV SCH (12:00)
[2021-02-11] MEDS ORDERED: ceFAZolin 3,000 MG in DEXTROSE 5% 50 ML IV ONE (12:00)
[2021-02-11] MEDS ORDERED: DexMEDEtomidine HCL IV 100 MCG/ML VIAL ONE (12:30)
[2021-02-11] MEDS ORDERED: LIDOCAINE 1% LOCAL 20 ML VIAL ONE (12:36)
[2021-02-11] MEDS ORDERED: HEPARIN SOD (PORCINE) 5,000 UNITS/ML VIAL ONE (12:36)
[2021-02-11] MEDS ORDERED: KETAMINE 50 MG/5 ML SYRINGE ONE (12:37)
[2021-02-11] MEDS ORDERED: MIDAZOLAM HCL 1 MG/ML 2ML VIAL ONE (12:37)
--- NOTE | 2021-02-11 12:50 | History & Physical Bridge Note ---
Date of Service February 11, 2021 History & Physical Bridge Note Patient for permcath insertion today. I have discussed the risks options and benefits of the procedure with the patient. The patient understands the risks options and benefits and agrees to the procedure. I have examined the patient, reviewed the History & Physical and in the interval since the performance of the History & Physical I have noted the following changes of clinical significance: no changes noted
[2021-02-11] MEDS ORDERED: ATROPINE SULFATE 0.1 MG/ML 10ML SYR IV PRN (12:52)
[2021-02-11] MEDS ORDERED: ONDANSETRON INJ 2 MG/ML 2 ML VIAL IV PRN (12:52)
[2021-02-11] MEDS ORDERED: ePHEDrine sulfate 50 MG/ML AMP IV PRN (12:52)
[2021-02-11] MEDS ORDERED: ARISTA ABSORBABLE HEMOSTAT 3GM TOP ONE (13:25)
--- NOTE | 2021-02-11 13:31 | Operative Report ---
Post Operative Report Pre & Post Diagnosis Operation Date: 02/11/21 08:40 Pre-Op Diagnosis: ACUTE RENAL FAILURE Post-Op Diagnosis: ACUTE RENAL FAILURE I identified the patient and participated in the time-out.: Yes Procedure Operation Date: 02/11/21 08:40 Actual Procedures p Insertion of Perm Catheter, Right Internal Jugular Approach, Ultrasound Localization of Right Internal Jugular Vein, Fluoroscopy for Positioning - Ric Barragan MD Surgeon Ric Barragan MD [employer] Counsel[employer] none Estimated Blood Loss 20 Findings Consistent with Post-Op Diagnosis Specimens none Anesthesia Type MAC Complications none Disposition Accompanied Patient To Recovery: No Disposition: Recovery Room Indications This 20-year-old female with idiopathic cardiomyopathy and renal failure need of dialysis for congestive heart failure and fluid overload. PermCath was recommended. I have discussed the risks options and benefits of the procedure with the patient. The patient understands the risks options and benefits and agrees to the procedure. Description of Procedure Patient was taken to the angio suite and placed in the supine position. The right side of the neck and chest wall were prepped and draped in a sterile manner. The patient was identified and a timeout performed. Local anesthesia was then administered to the appropriate areas of the neck and chest wall. U ltrasound was then used to locate the right internal jugular vein. The vein compressed easily, had no filing defects, and was patent. The vein was then punctured under direct ultrasound imaging. A guidewire was then passed centrally under fluoroscopic imaging. A stab wound was then made in the anterior chest wall and a 19 cm permcath was passed from the stab wound on the chest wall to the puncture site on the neck. The puncture site was then dilated till the 14Fr peel away sheath was inserted. The permcath was then inserted through the sheath to a central position in the distal superior vena cava. The peel away sheath was then removed. The catheter was then sutured in place using nylon sutures. The puncture was then closed using a 4-0 Vicryl subcuticular suture. Dermabond was used for a dressing on the puncture site. Both ports aspirated and flushed easily and were then packed with heparin. A sterile dressing was applied to the catheter. The patient left the operation room in satisfactory condition and tolerated the procedure well. All needle and sponge counts were correct at the end of the procedure. I attest to the content of the Intraoperative Record and any orders documented therein. Any exceptions are noted below.
[2021-02-11] MEDS ORDERED: oxyCODONE/ACETAMINOPHEN 5mg/325mg TAB PO STA (13:48)
[2021-02-11] MEDS: NEPHROCAPS PO SCH (13:56)
[2021-02-11] MEDS: CETIRIZINE HCL 10 MG TABLET PO SCH (14:06)
[2021-02-11] MEDS: PANTOprazole 40 MG TAB PO SCH ×2 (14:06→21:50)
[2021-02-11] MEDS: TOPIRAMATE 25 MG TAB PO SCH (14:06)
--- NOTE | 2021-02-11 14:26 | Anesthesiology Progress Note ---
Date of Service February 11, 2021 Anesthesia Post Procedure Vital Signs Vital Signs: Temp Pulse Pulse Resp BP BP Pulse Ox 02/11/21 12:00 98.1 F 85 24 02/11/21 10:45 97.9 F 82 16 141/93 H 91 02/11/21 10:43 86 24 141/93 H 02/11/21 10:42 84 19 139/105 H 02/11/21 10:12 91 H 18 02/11/21 09:00 96.8 F L 02/11/21 08:43 81 02/11/21 08:00 97.7 F 81 20 132/96 93 02/11/21 06:00 97.3 F L 80 18 02/11/21 04:01 97.0 F L 80 20 145/83 H 95 02/11/21 00:01 97.9 F 81 20 119/95 93 02/11/21 00:00 82 02/10/21 20:31 99.1 F 94 H 30 H 111/84 92 02/10/21 20:00 99.1 F 84 23 111/84 92 02/10/21 18:00 97.9 F 86 20 110/83 96 02/10/21 16:00 82 Pain Intensity Bilateral Hip: Pain Intensity: 2 Transfer of Care Handoff Completed per policy Notes Mental Status: alert / awake / arousable and participated in evaluation Patient Amnestic to Procedure: Yes Nausea / Vomiting: adequately controlled Pain: adequately controlled Airway Patency, RR, SpO2: stable & adequate BP & HR: stable & adequate Hydration State: stable & adequate Anesthetic Complications: no major complications apparent and Pt Satisfied with anesthetic care
[2021-02-11] MEDS: HEPARIN SOD 5,000 UNIT/0.5 ML VIAL SQ SCH ×2 (15:27→21:49)
--- NOTE | 2021-02-11 15:54 | Cardiology Progress Note ---
Date of Service February 11, 2021 Assessment & Plan (1) Acute on chronic HFrEF (heart failure with reduced ejection fraction): (2) Acute on chronic renal failure: (3) Nonischemic cardiomyopathy: (4) Mitral valve insufficiency: (5) Pericardial effusion: (6) Elevated troponin: Plan: ASSESSMENT/PLAN: 1. Acute on chronic heart failure with reduced EF: Decompensated CHF in the setting of renal failure. She has diuresed somewhat and plan for dialysis later today after access achieved. Continue carvedilol at current dose but this can be further titrated once decompensated heart failure improved. Avoiding JANETTE- inhibitor/ARNI/ARB/spironolactone due to advanced renal failure. Consider hydralazine and nitrate therapy. Currently receiving nitrate therapy but will hold off on hydralazine to avoid significant drops in blood pressure while initiating dialysis. Low sodium diet. Strict I&Os. Daily weights. 2. Acute on chronic renal failure: Dialysis scheduled to begin today as per Nephrology. History of focal segmental glomerulosclerosis per report/history. Reportedly had renal biopsy in the past. 3. Mitral regurgitation: Non severe. 4. Nonischemic cardiomyopathy: Continue carvedilol at home dose 12.5 mg twice daily. She has been on this medication chronically. Would not titrate beta- shannon while decompensated. Given renal failure, JANETTE-inhibitor, ARNI, ARB, spironolactone will not be used. S Can consider hydralazine/nitrate therapy as alternative therapy. She has declined ICD both through [facility] and through outpatient visit here, but inquired about it today and stated that she would undergo ICD placement. We discussed the fact that ICD would not improve her quality of life or cardiac/renal function but simply hopefully provide life- saving care in setting of significant ventricular arrhythmia. Discussed with Dr. Parada of electrophysiology who planned to meet with patient. 5. Pericardial effusion: Chronic. Would not account for her presentation. 6. Elevated troponin: She did not present with acute coronary syndrome. Elevated troponin likely due to decompensated CHF in the setting of acute on chronic renal failure. 7. Disposition: Cardiology will continue to follow. Had a very thoughtful discussion today regarding overall plan. She was agreeable for me to contact Dr. 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 Attempt for discussion is underway. Admission and Anticipated Discharge Date Admission Date: February 09, 2021 Subjective Patient was seen this morning with her mother at the bedside. She was much more talkative today. She states that her breathing has improved. She also believes that her edema has improved. Her biggest complaint was that this hospital was not feeding her regularly. She has been NPO this morning for planned procedure to provide access for hemodialysis. She inquired about defibrillator, which she refused when discussing earlier this week as an outpatient. She states that she would like to pursue defibrillator. She also inquired about heart and renal transplantation. She denies chest pain. Review of systems: As above. Physical Exam Physical Exam: Gen.: No acute distress. Alert. HEENT: Anicteric sclera. Neck: Thick neck. Cannot assess JVD. Cardiac: Regular. Normal S1-S2. No murmurs, rubs, or gallops. Pulmonary: Decreased breath sounds but otherwise clear to auscultation bilaterally without wheezes, rales, or rhonchi. Abdomen: Soft, nontender, nondistended, with normoactive bowel sounds. No bruits noted. 2+ abdominal body wall edema to above the umbilicus. Extremities: 2+ radial pulses bilaterally. 2+ posterior tibialis pulses bilaterally. 3+ bilateral lower extremity edema to the hips. No cyanosis. Results & Data ([facility]) Vital Signs (Past 12 Hours) Vital Signs Temp Pulse Pulse Resp BP BP Pulse Ox 02/11/21 12:00 36.7 C 85 24 02/11/21 10:45 36.6 C 82 16 141/93 H 91 02/11/21 10:43 86 24 141/93 H 02/11/21 10:42 84 19 139/105 H 02/11/21 10:12 91 H 18 02/11/21 09:00 36 C L 02/11/21 08:43 81 02/11/21 08:00 36.5 C 81 20 132/96 93 02/11/21 06:00 36.3 C L 80 18 02/11/21 04:01 36.1 C L 80 20 145/83 H 95 Intake & Output 02/09/21 02/10/21 02/11/21 02/12/21 06:59 06:59 06:59 06:59 Intake Total 110 / 110 588 / 588 72.5 / 72.5 Output Total 350 / 350 1400 / 1400 551 / 551 Balance -240 / -240 -812 / -812 -478.5 / -478.5 Weight 437 lb 9.881 oz 439 lb 2.573 oz 439 lb 2.573 oz Laboratory Results Laboratory Results - last 24 hr 02/11/21 02/11/21 02/11/21 05:23 05:23 08:57 WBC 8.26 RBC 4.48 Hgb 10.9 L Hct 35.9 L MCV 80.1 MCH 24.3 L MCHC 30.4 L RDW Std Deviation 58.3 H RDW Coeff of Nicole 20.3 H Plt Count 278 MPV 9.1 Immature Gran % (Auto) 0.4 Neut % (Auto) 71.3 Lymph % (Auto) 19.0 Guadalupe % (Auto) 7.5 Eos % (Auto) 1.7 Baso % (Auto) 0.1 Neut # (Auto) 5.89 Lymph # (Auto) 1.57 Guadalupe # (Auto) 0.62 H Eos # (Auto) 0.14 Baso # (Auto) 0.01 Immature Gran # (Auto) 0.03 H Absolute Nucleated RBC 0.16 H Nucleated RBC % (auto) 1.9 Polychromasia 1+ Poikilocytosis Present Anisocytosis Present Sodium 138 Potassium 4.6 Chloride 110 H Carbon Dioxide 19 L Anion Gap 9.0 BUN 84 H Creatinine 7.74 H* Est Cr Clr Drug Dosing 19.8 Est GFR ( Amer) 7.9 Est GFR (Non-Af Amer) 6.8 BUN/Creatinine Ratio 10.9 Glucose 106 H Calcium 7.6 L Hep Bs Antigen Neg Hep Bs Antibody Non-Immune Hep Bs Antibody, Quant < 3.10 L Diagnostic Findings Echo 02/10/2021: Severely reduced LV systolic function. Reported EF 20%. Mod erate TR. Mild MR. Medications Administered Current Inpatient Medications Acetaminophen (Acetaminophen 325 Mg Tab) 650 mg PO Q4H PRN PRN Reason: Pain or Fever Stop: 03/12/21 02:34 Albuterol (Albuterol Hfa 8 Gm Inhaler) 2 puffs INH QID PRN PRN Reason: Wheezing Stop: 03/12/21 02:34 Atropine Sulfate (Atropine Sulfate 0.1 Mg/Ml 10ml Syr) 0.5 mg IV Q1M PRN PRN Reason: PACU Use-HR<40 &/or Bradycardi Stop: 02/11/21 20:52 Carvedilol (Carvedilol 12.5 Mg Tab) 12.5 mg PO BID [facility] Stop: 03/12/21 09:44 Last Admin: 02/10/21 20:12 Dose: 12.5 mg Documented by: Cetirizine HCl (Cetirizine Hcl 10 Mg Tablet) 10 mg PO DAILY NASEEM Stop: 03/12/21 08:59 Last Admin: 02/11/21 14:06 Dose: 10 mg Documented by: Dicyclomine HCl (Dicyclomine Hcl 10 Mg Cap) 10 mg PO TID NASEEM Stop: 03/12/21 08:59 Last Admin: 02/11/21 14:06 Dose: 10 mg Documented by: Ephedrine Sulfate (Ephedrine Sulfate 50 Mg/Ml Amp) 5 mg IV Q5M PRN PRN Reason: PACU Use Only-SBP<90 mmHg Stop: 02/11/21 20:52 Fluticasone Furoate (Fluticasone Furoate 200mcg 14 Puffs/Inhaler) 1 puffs INH QAM NASEEM Stop: 03/12/21 08:59 Last Admin: 02/11/21 11:29 Dose: 1 puffs Documented by: Fluticasone Propionate (Fluticasone Propionate Na Spr 16 Gm Btl) 2 sprays NA BID [facility] Stop: 03/12/21 08:59 Last Admin: 02/11/21 11:29 Dose: 2 sprays Documented by: Furosemide (Furosemide 40 Mg/4 Ml Vial) 80 mg IV Q8H [facility] Stop: 03/12/21 02:34 Last Admin: 02/11/21 13:53 Dose: 80 mg Documented by: Heparin Sodium (Porcine) (Heparin Sod 5,000 Unit/0.5 Ml Vial) 5,000 units SQ Q12 NASEEM Stop: 03/12/21 08:59 Last Admin: 02/11/21 15:27 Dose: Not Given Documented by: Doxycycline Hyclate 100 mg/ (Dextrose) 110 mls @ 50 mls/hr IV Q12H NASEEM Stop: 02/14/21 03:59 Last Infusion: 02/11/21 06:19 Dose: Infused Documented by: Nitroglycerin (Nitroglycerin 2% Ointment 30gm Tube) 0.5 inch EXT Q6H NASEEM Stop: 03/12/21 05:59 Last Admin: 02/11/21 13:57 Dose: 0.5 inch Documented by: Ondansetron HCl (Ondansetron Inj 2 Mg/Ml 2 Ml Vial) 4 mg IV Q6H PRN PRN Reason: Nausea Stop: 03/12/21 02:34 Ondansetron HCl (Ondansetron Inj 2 Mg/Ml 2 Ml Vial) 4 mg IV ONCE PRN PRN Reason: PACU Use Only-Nausea/Vomiting Stop: 02/11/21 20:52 Pantoprazole Sodium (Pantoprazole 40 Mg Tab) 40 mg PO BID NASEEM Stop: 03/12/21 08:59 Last Admin: 02/11/21 14:06 Dose: 40 mg Documented by: Topiramate (Topiramate 25 Mg Tab) 25 mg PO DAILY [facility] Stop: 03/12/21 08:59 Last Admin: 02/11/21 14:06 Dose: 25 mg Documented by: Vitamin B Complex/Folic Acid (Nephrocaps) 1 cap PO QAM NASEEM Stop: 03/13/21 08:59 Last Admin: 02/11/21 13:56 Dose: 1 cap Documented by: PG Care Time/CCT Total # of Minutes Spent Total Time Spent with Patient: Total time spent is greater than 50% in coordination of care (as documented) at patient's floor/unit and/or counseling patient: Coding Level of Care Code 10909 Subseq Hosp Care Lvl 3 Diagnoses Acute on chronic HFrEF (heart failure with reduced ejection fraction) I50.23 Acute on chronic renal failure N17.9; N18.9 Nonischemic cardiomyopathy I42.8 Mitral valve insufficiency I34.0 Pericardial effusion I31.3 Elevated troponin R77.8
[2021-02-11] MEDS: carvediloL 12.5 MG TAB PO SCH ×2 (18:04→21:49)
--- NOTE | 2021-02-11 22:04 | Billing Data ---
Date of Service February 11, 2021 Coding Level of Care Code 56718 Subseq Hosp Care Lvl 2
[2021-02-11] MEDS: ACETAMINOPHEN 325 MG TAB PO PRN (22:32)
[2021-02-12] MEDS ORDERED: COUGH DROP (SUGAR FREE) LOZ 24 LOZ/1 BOX BUCCAL STA (00:45)
[2021-02-12] MEDS: FUROSEMIDE 40 MG/4 ML VIAL IV SCH ×3 (03:05→22:07)
[2021-02-12] MEDS: NITROGLYCERIN 2% OINTMENT 30GM TUBE EXT SCH ×4 (03:13→22:15)
[2021-02-12] MEDS: DOXYCYCLINE HYCLATE 100 MG in DEXTROSE 5% 100 ML IV SCH ×2 (03:13→18:06)
[2021-02-12 04:55] LABS: Basophils # (auto) 0.02 K/uL (0-0.2); Basophils % (auto) 0.2 %; Eosinophils % (auto) 2.2 %; Hematocrit (blood only) 34.9 % (37-47); Hemoglobin 10.4 g/dL (12.0-16.0); Immature Granulocytes # (auto) 0.05 K/uL (0.00-0.02); Immature Granulocytes % (auto) 0.5 %; Lymphocytes # (auto) 1.23 K/uL (1.2-3.4); Lymphocytes % (auto) 13.4 %; Mean Corpuscular Hemoglobin 23.8 pg (25-34); Mean Corpuscular Hgb Conc 29.8 g/dL (32-36); Mean Corpuscular Volume 79.9 fL (80-100); Mean Platelet Volume 10.3 fL (7.4-10.4); Monocytes # (auto) 0.73 K/uL (0.11-0.59); Neutrophils # (auto) 6.92 K/uL (1.4-6.5); Neutrophils % (auto) 75.7 %; Nucleated RBC # (auto) 0.29 K/uL (0-0); Nucleated RBC % (auto) 3.1 %; Platelet Count 257 K/uL (130-400); RDW Coefficient of Variation 20.2 % (11.5-14.5); RDW Standard Deviation 57.7 fL (36.4-46.3); Red Blood Count 4.37 M/uL (4.2-5.4); White Blood Count 9.15 K/uL (4.8-10.8)
[2021-02-12 05:34] LABS: Echinocytes 1+; Hypochromasia Present; Ovalocytes 1+; Polychromasia 1+
[2021-02-12 05:48] LABS: BUN Creatinine Ratio 9.7 (10-20); Calcium 7.4 mg/dl (8.5-10.1); Creatinine Clr Calc Pharmacy 22.9 ml/min; Est GFR (African American) 9.4 ml/min; Est GFR (Non-African American) 8.1 ml/min; Potassium 4.3 mmol/L (3.5-5.1)
[2021-02-12] MEDS ORDERED: HEPARIN SOD (PORCINE) 1000 UNIT/ML IV ONE (07:00)
[2021-02-12] MEDS ORDERED: SODIUM CHLORIDE 0.9% 1000ML 1,000 ML IV PRN (07:00)
--- NOTE | 2021-02-12 08:04 | Hospitalist Progress Note ---
Date of Service February 12, 2021 Assessment & Plan (1) Acute renal failure: Plan: Complicated 20 yo F with hx FSGS, nonischemic cardiomyopathy causing HFrEF (25- 30), GERD, CKD3, who is being admitted for management of acute renal failure in the setting of acute on chronic heart failure. Mother Prasanth works in [place] during the day, please call for updates [phone]. ESRD - weight increased by 44 kg from 12/30/20 - Continue Lasix 80mg IV q8h - Nephrology consulted: - Plan 2nd dialysis treatment this afternoon (02/12). Will attempt 3L UF. Orders placed in EMR and HD RN notified - Will schedule 3rd dialysis treatment for Monday (02/13) - She will require AVF creation in the near future and will need to attend outpatient treatments - Her kidney failure is due to DKD and CRS (LVEF 20%) - Continue Furosemide to promote volume removal in between dialysis treatments - IJ THC placed by vascular surgery with subsequent 1st run dialysis 02/11 -- dialysis planned as above - BMP daily Acute Decompensated Congested Heart Failure with Reduced Ejection Fraction - outpatient pro BNP >52350 - Lasix as above - last TTE 12/28/20: Ef 25-30, global hypokinesis, mild pulmonary HTN, mild MR, small posterior pericardial effusion without tamponade physiology - daily weights - Khalil inadvertently came out toay and patient had been complaining of discomfort from it -- spoke to RN who relayed that pt is generally able to ambulate to bedside commode - Will trial this option -- consider reinserting if she is unable to manage without it - Continue carvedilol 12.5mg BID per cardiology - Cardiology consulted: - Continue carvedilol at current dose but this can be further titrated once decompensated heart failure improved. - Avoiding JANETTE-inhibitor/ARNI/ARB/spironolactone due to advanced renal failure. - Currently receiving nitrate therapy but will hold off on hydralazine to avoid significant drops in blood pressure while initiating dialysis. - Consider isosorbide mononitrate in place of nitropaste Nonischemic cardiomyopathy - Cardiology consulted: - Continue carvedilol at home dose 12.5 mg twice daily. Would not titrate beta-shannon while decompensated. - Given renal failure, JANETTE-inhibitor, ARNI, ARB, spironolactone will not be used.Can consider hydralazine/nitrate therapy as alternative therapy. - She stated that she would undergo ICD placement. - she may receive ICD during this hospital stay, but defer to Dr. Parada for timing - Repeat Echo showing severely reduced LV fxn with EF of 20%, severe global hypokinesis of LV, moderate tricuspid regurg, mild mitral regurg - Patient reportedly more open now to discussion of ICD placement Morbid Obesity - waffle boots, heel precautions, pressure ulcer precautions - skin check on admission showing mild irritated spots on abdomen but otherwise no signs of skin breakdown/existing ulcerations - Khalil to help with preventing skin breakdown during diuresis - bariatric bed - turn Q2h Sinus Infection - continue outpatient doxycycline treatment - added BID Flonase nares spray Asthma - cont home albuterol, budesonide, fluticasone inhalers - continue daily cetirizine GERD - cont pantoprazole BRANDON - CPAP nightly Anemia, chronic, stable - on iron at home - stable at 11.7 Medications for unclear diagnoses - confirmed with [facility] [place], patient is on topiramate and dicyclomine. unsure for which diagnoses. DVT ppx: heparin FEN/GI: low sodium diet, on pantoprazole Bowel regimen: prn Code Status: full code Dispo: PCU (2) Pulmonary edema: (3) Acute uremia: (4) Acidosis: (5) CKD (chronic kidney disease): (6) Acute on chronic HFrEF (heart failure with reduced ejection fraction): (7) GERD (gastroesophageal reflux disease): (8) Insomnia: (9) Nonischemic cardiomyopathy: (10) Focal segmental glomerulosclerosis: Admission and Anticipated Discharge Date Admission Date: February 09, 2021 Supervising Physician Co-Signing Physician Notes I have physically seen this patient, have supervised the medical residents activities, and agree unless as otherwise noted. General: A&Ox3. NAD. Cooperative. HEENT: Atraumatic, normocephalic. Thorax: R IJ permacath intact without overlying erythema/warmth. Pulm: Symmetrical chest rise. No increased work of breathing. No respiratory distress. Cardiac: Radial pulses intact and symmetrical. Assessment and Plan: Normotensive at bedside assessment, not tachypneic at bedside assessment. AoCHFrEF: Decompensated. Cards consulted. Continue carvedilol. No janette/arb/arni/chandra. Dialysis as below. 20% EF. nonischemic, not a xplant candidate at this time. Lasix as below AoC Renal Failure: Dialysis catheter in palce. Hx of FSGS. Tolerated initial dialysis today. Scheduled today/tomorrow. electrolytes acceptable. Pt is not a renal/cardiac xplant candidate at this time. Continue lasix between dialysis tx (80mg IV q8H). Psych: A&O. Has refused psych liason. ?developemental delay. Case discussed w/ family by resident provider. Subjective Seen at bedside this AM. She has been complaining of neck and left arm pain. Feels the catheter inserted yesterday is very uncomfortable and any movement bothers her. She feels Tylenol will not work and refuses further doses. Received percocet x1 yesterday post surgery, which made her very drowsy. Additionally discussed that narcotics prior to dialysis could result in significant hypotension. Encouraged to try Tylenol as this can help reduce pain in a cumulative way and decrease need for stronger options. She denies CP, palp, n/v, f/c, abd pain, diarrhea, constipation, CHANEY, dizziness. Review of Systems Review of Systems: per subjective Physical Exam Physical Exam: GENERAL: Alerto, oriented. NAD. CHEST/LUNGS: CTAB A/P. No crackles, wheezes, rales, rhonchi. Breath sounds distant. HEART: RRR. No m/g/r. SKIN: Warm and dry. No rashes or lesions. EXTREMITIES: 2+ pulses bilaterally. 3+ pitting edema at lower extremities. No cyanosis, no clubbing. Results & Data Results & Data ([facility]) Vital Signs (Past 12 Hours) Vital Signs Temp Pulse Resp BP Pulse Ox 02/12/21 06:01 36.6 C 81 17 120/94 94 02/12/21 06:00 36.6 C 80 18 94 02/12/21 05:01 36.8 C 81 18 155/76 H 94 02/12/21 05:00 36.9 C 82 17 94 02/12/21 04:01 37.0 C 89 23 134/105 H 91 02/12/21 04:00 36.9 C 91 H 19 90 02/12/21 03:11 37.1 C 88 21 134/91 98 02/12/21 03:00 37.1 C 86 26 H 95 02/12/21 02:01 37.0 C 89 22 121/64 02/12/21 02:00 37.0 C 89 28 H 95 02/12/21 01:16 86 02/12/21 01:01 37.1 C 88 21 116/73 02/12/21 01:00 37.1 C 91 H 23 02/12/21 00:02 37.0 C 87 23 127/84 95 02/12/21 00:00 37.0 C 92 H 17 95 02/11/21 23:05 36.9 C 90 23 134/85 94 02/11/21 23:00 36.9 C 95 H 26 H 93 02/11/21 22:00 36.7 C 87 32 H 123/93 95 02/11/21 21:00 36.8 C 82 27 H 124/103 H 95 02/11/21 20:00 36.8 C 88 20 94 Resident Activity Tracking Resident Involvement: Resident Care Provided Care Provided: Adult Hospital Medicine (1) Acute renal failure Acute renal failure type: unspecified Qualified Code(s): N17.9 - Acute kidney failure, unspecified (2) Pulmonary edema Chronicity: acute Qualified Code(s): J81.0 - Acute pulmonary edema
[2021-02-12] MEDS: NEPHROCAPS PO SCH (08:44)
[2021-02-12] MEDS: PANTOprazole 40 MG TAB PO SCH ×2 (08:44→22:07)
[2021-02-12] MEDS: TOPIRAMATE 25 MG TAB PO SCH (08:44)
[2021-02-12] MEDS: carvediloL 12.5 MG TAB PO SCH ×2 (08:44→22:07)
[2021-02-12] MEDS: FLUTICASONE FUROATE 200MCG 14 PUFFS/INHALER INH SCH (08:45)
[2021-02-12] MEDS: DICYCLOMINE HCL 10 MG CAP PO SCH ×3 (08:46→22:08)
[2021-02-12] MEDS: CETIRIZINE HCL 10 MG TABLET PO SCH (08:46)
[2021-02-12] MEDS: HEPARIN SOD 5,000 UNIT/0.5 ML VIAL SQ SCH ×2 (08:53→22:08)
[2021-02-12] MEDS: FLUTICASONE PROPIONATE NA SPR 16 GM BTL SCH ×2 (09:05→22:08)
--- NOTE | 2021-02-12 10:20 | Nephrology Progress Note ---
Date of Service February 12, 2021 Assessment & Plan (1) ESRD (end stage renal disease): Plan: * 1st run HD completed yesterday without complication * Plan 2nd dialysis treatment this afternoon. Will attempt 3L UF. Orders placed in EMR and HD RN notified * Will schedule 3rd dialysis treatment for Monday. Note that patient's discharge weight 12/27 was 151kg (332 lb) * I have explained to patient that dialysis will be permanent once it is started. She will require AVF creation in the near future and will need to attend outpatient treatments. I explained that her kidney failure is due to DKD and CRS (LVEF 20%). CMP and morbid obesity preclude kidney transplantation * Discharge planning has been consulted to set up outpatient HD and transportation. 02/11/21 Case Management note indicates that patient is living temporarily with sister in [place] area. Her home in [place] requires treatment/removal of mold * Protect nondominant arm for AVF creation as outpatient * Continue Furosemide to promote volume removal in between dialysis treatments. Patient is nonoliguric * Monitor PRP, CBC, UO (2) Nonischemic cardiomyopathy: Plan: * 02/10/21 Echocardiogram: LVEF 20% * Spoke w/ Dr. Noland this morning. He has contacted Dr. Jaramillo (advanced heart failure/transplant district manager postal service - [facility]). Miss Cedillo has been a "no show" for several visits. She is not a candidate for heart transplant due to poor medical adherence and morbid obesity * Prognosis is poor due to advanced CMP, ESRD, morbid obesity (3) Psychiatric disturbance: Plan: * Patient has often refused interaction w/ medical providers, refused prescribed medical care and signed out of both [facility] and [facility] AMA in the past. Question whether she has developmental delay or underlying depression/psychiatric condition. Recommend consultation w/ Psychiatry to define cause and outline best plan to improve patient's medical adherence Admission and Anticipated Discharge Date Admission Date: February 09, 2021 Subjective Miss Cedillo was evaluated in her hospital room this morning. She awoke to my voice and stated that her breathing is improved. She tolerated her 1st HD treatment yesterday without complication. 2 L UF obtained Review of Systems Constitutional: + weakness; no fever Eyes: no problem reported Ear, Nose, Mouth, Throat: no problem reported Respiratory: + dyspnea; no cough Cardiovascular: + edema; no chest pain and no palpitations Gastrointestinal: no abdominal pain, no nausea, no vomiting and no diarrhea/loose stools Genitourinary: no dysuria and no hematuria Musculoskeletal: no back pain Integumentary: no rash Neurologic: no confusion Physical Exam Constitutional: + ill appearing, + morbidly obese and + edematous; not in distress ENMT: external ear and nose normal, oropharynx normal Neck: trachea midline Respiratory: normal respiratory effort Auscultation: + rales Cardiovascular: Rate/Rhythm: regular rate and regular rhythm (distant hear sounds) Extremities: + edema (3+ pitting edema of the arms and legs) Gastrointestinal (Abdomen): Percussion/Palpation: abdomen soft; abdomen nontender Skin: no rashes Neurologic: moves all extremities and awake; no focal motor deficits and not confused Psychiatric: Orientation: alert and oriented x 3 Affect: + depressed affect and + flat affect Insight: + poor insight Results & Data ([facility]) Vital Signs (Past 12 Hours) Vital Signs Temp Pulse Resp BP Pulse Ox 02/12/21 08:00 82 02/12/21 06:01 36.6 C 81 17 120/94 94 02/12/21 06:00 36.6 C 80 18 94 02/12/21 05:01 36.8 C 81 18 155/76 H 94 02/12/21 05:00 36.9 C 82 17 94 02/12/21 04:01 37.0 C 89 23 134/105 H 91 02/12/21 04:00 36.9 C 91 H 19 90 02/12/21 03:11 37.1 C 88 21 134/91 98 02/12/21 03:00 37.1 C 86 26 H 95 02/12/21 02:01 37.0 C 89 22 121/64 02/12/21 02:00 37.0 C 89 28 H 95 02/12/21 01:16 86 02/12/21 01:01 37.1 C 88 21 116/73 02/12/21 01:00 37.1 C 91 H 23 02/12/21 00:02 37.0 C 87 23 127/84 95 02/12/21 00:00 37.0 C 92 H 17 95 02/11/21 23:05 36.9 C 90 23 134/85 94 02/11/21 23:00 36.9 C 95 H 26 H 93 Laboratory Results Laboratory Tests 02/12/21 02/12/21 04:40 04:40 WBC 9.15 Hgb 10.4 L Hct 34.9 L Plt Count 257 Sodium 136 Potassium 4.3 Chloride 106 Carbon Dioxide 20 L BUN 65 H Creatinine 6.69 H* D Calcium 7.4 L PG Care Time/CCT Total # of Minutes Spent Total Time Spent with Patient: Total time spent is greater than 50% in coordination of care (as documented) at patient's floor/unit and/or counseling patient: Coding Level of Care Code 60155 Subseq Hosp Care Lvl 3 Diagnoses ESRD (end stage renal disease) N18.6 Nonischemic cardiomyopathy I42.8 Psychiatric disturbance F99
--- NOTE | 2021-02-12 10:27 | Cardiology Progress Note ---
Date of Service February 12, 2021 Assessment & Plan (1) Acute on chronic HFrEF (heart failure with reduced ejection fraction): (2) Acute on chronic renal failure: (3) Nonischemic cardiomyopathy: (4) Mitral valve insufficiency: (5) Pericardial effusion: (6) Elevated troponin: Plan: ASSESSMENT/PLAN: 1. Acute on chronic heart failure with reduced EF: Decompensated CHF in the setting of end-stage renal failure. Continues to diurese with diuretics and also receive hemodialysis, which was initiated on 02/11/2021. Continue carvedilol at current dose but this can be further titrated once decompensated heart failure improved. Avoiding JANETTE-inhibitor/ARNI/ARB/spironolactone due to advanced renal failure. Consider hydralazine and nitrate therapy. Consider isosorbide mononitrate in place of nitropaste. Would consider hydralazine at some point but not initiating now to avoid potential hypotension while initiating hemodialysis and volume removal. Low sodium diet. Strict I&Os. Daily weights. 2. Acute on chronic renal failure: Hemodialysis was initiated on 02/11/2021. History of focal segmental glomerulosclerosis per report/history. Reportedly had renal biopsy in the past. 3. Mitral regurgitation: Non severe. 4. Nonischemic cardiomyopathy: Continue carvedilol at home dose 12.5 mg twice daily. She has been on this medication chronically. Would not titrate beta- shannon while decompensated. Given renal failure, JANETTE-inhibitor, ARNI, ARB, spironolactone will not be used. Can consider hydralazine/nitrate therapy as alternative therapy. She has declined ICD both through [facility] and through outpatient visit here, but inquired about it during this hospitalization and stated that she would undergo ICD placement. We discussed the fact that ICD would not improve her quality of life or cardiac/renal function but simply hopefully provide life-saving care in setting of significant ventricular arrhythmia. Discussed with Dr. Parada of electrophysiology who has discussed this with patient. If agreeable, she may receive ICD during this hospital stay, but defer to Dr. Parada for timing. 5. Pericardial effusion: Chronic. Would not account for her presentation. 6. Elevated troponin: She did not present with acute coronary syndrome. Elevated troponin likely due to decompensated CHF in the setting of acute on chronic renal failure. 7. Disposition: Cardiology will continue to follow. Discussed importance of keeping her outpatient appointment with Dr. Jaramillo, her advanced heart failure/transplant application specialist through [facility] system. Patient care discussed with Dr. Reyna of Nephrology. Patient's mother was contacted via telephone to give her updates of conversation with Dr. Jaramillo and overall cardiology planned for today. Admission and Anticipated Discharge Date Admission Date: February 09, 2021 Subjective She was seen this morning. She was alone in her hospital room. She denies chest pain. She has some pain near her surgical site where her perm catheter was placed yesterday by Dr. Barragan. She also complains about discomfort from her Khalil catheter, which nursing staff was updated about. She otherwise has not noted any significant improvement in her breathing thus far. She underwent dialysis for the first time on 02/11/2021. Reached out to Dr. Clif Jaramillo of [facility] Heart failure/Transplant Cardiology yesterday. She and her mother were agreeable for this conversation. We discussed her cardiology care. Currently he stated that she is not a candidate for heart transplant but had recommended heart and renal transplant if she becomes a candidate. Current issues that would preclude her from transplant per Transplant Cardiology, is obesity and compliance issues as she has not kept appointments with [facility] Cardiology per his report. He would still like to follow with her in the office and work towards that goal. Initiated this conversation today with her but she stated that she would not remember any of this and that I could discuss this with her mother. Her mother was contacted via telephone. She was updated and also discussed concerns by Transplant Cardiology. She acknowledged that her in her daughter discussed losing weight yesterday. She also acknowledges that she first has to get through her current issues of hypervolemia and dialysis but is willing to try to achieve weight loss goal. Also discussed transplant concerns with compliance. Review of systems: As above. Physical Exam Physical Exam: Gen.: No acute distress. Alert. HEENT: Anicteric sclera. Neck: Thick neck. Cannot assess JVD. Cardiac: Regular. Normal S1-S2. No ectopy. No murmurs, rubs, or gallops. Pulmonary: Decreased breath sounds but otherwise clear to auscultation bilaterally without wheezes, rales, or rhonchi. Abdomen: Soft, nontender, nondistended, with normoactive bowel sounds. No bruits noted. 2+ abdominal body wall edema to above the umbilicus. Extremities: 2+ radial pulses bilaterally. 2+ posterior tibialis pulses bilaterally. 3+ bilateral lower extremity edema to the hips. No cyanosis. Results & Data ([facility]) Vital Signs (Past 12 Hours) Vital Signs Temp Pulse Resp BP Pulse Ox 02/12/21 08:00 82 02/12/21 06:01 36.6 C 81 17 120/94 94 02/12/21 06:00 36.6 C 80 18 94 02/12/21 05:01 36.8 C 81 18 155/76 H 94 02/12/21 05:00 36.9 C 82 17 94 02/12/21 04:01 37.0 C 89 23 134/105 H 91 02/12/21 04:00 36.9 C 91 H 19 90 02/12/21 03:11 37.1 C 88 21 134/91 98 02/12/21 03:00 37.1 C 86 26 H 95 02/12/21 02:01 37.0 C 89 22 121/64 02/12/21 02:00 37.0 C 89 28 H 95 02/12/21 01:16 86 02/12/21 01:01 37.1 C 88 21 116/73 02/12/21 01:00 37.1 C 91 H 23 02/12/21 00:02 37.0 C 87 23 127/84 95 02/12/21 00:00 37.0 C 92 H 17 95 02/11/21 23:05 36.9 C 90 23 134/85 94 02/11/21 23:00 36.9 C 95 H 26 H 93 Intake & Output 02/10/21 02/11/21 02/12/21 02/13/21 06:59 06:59 06:59 06:59 Intake Total 110 / 110 588 / 588 292.5 / 292.5 Output Total 350 / 350 1400 / 1400 1502 / 1502 Balance -240 / -240 -812 / -812 -1209.5 / -1209.5 Weight 437 lb 9.881 oz 439 lb 2.573 oz 439 lb 2.573 oz Laboratory Results Laboratory Results - last 24 hr 02/12/21 02/12/21 04:40 04:40 WBC 9.15 RBC 4.37 Hgb 10.4 L Hct 34.9 L MCV 79.9 L MCH 23.8 L MCHC 29.8 L RDW Std Deviation 57.7 H RDW Coeff of Nicole 20.2 H Plt Count 257 MPV 10.3 Immature Gran % (Auto) 0.5 Neut % (Auto) 75.7 Lymph % (Auto) 13.4 [place] % (Auto) 8.0 Eos % (Auto) 2.2 Baso % (Auto) 0.2 Neut # (Auto) 6.92 H Lymph # (Auto) 1.23 [place] # (Auto) 0.73 H Eos # (Auto) 0.20 Baso # (Auto) 0.02 Immature Gran # (Auto) 0.05 H Absolute Nucleated RBC 0.29 H Nucleated RBC % (auto) 3.1 Polychromasia 1+ Hypochromasia Present Ovalocytes 1+ Echinocytes 1+ Sodium 136 Potassium 4.3 Chloride 106 Carbon Dioxide 20 L Anion Gap 10.0 BUN 65 H Creatinine 6.69 H* D Est Cr Clr Drug Dosing 22.9 Est GFR ( Amer) 9.4 Est GFR (Non-Af Amer) 8.1 BUN/Creatinine Ratio 9.7 L Glucose 165 H Calcium 7.4 L Diagnostic Findings Telemetry personally reviewed: Sinus rhythm. No arrhythmia. Medications Administered Current Inpatient Medications Acetaminophen (Acetaminophen 325 Mg Tab) 650 mg PO Q4H PRN PRN Reason: Pain or Fever Stop: 03/12/21 02:34 Last Admin: 02/11/21 22:32 Dose: 650 mg Documented by: Albuterol (Albuterol Hfa 8 Gm Inhaler) 2 puffs INH QID PRN PRN Reason: Wheezing Stop: 03/12/21 02:34 Carvedilol (Carvedilol 12.5 Mg Tab) 12.5 mg PO BID [facility] Stop: 03/12/21 09:44 Last Admin: 02/12/21 08:44 Dose: 12.5 mg Documented by: Cetirizine HCl (Cetirizine Hcl 10 Mg Tablet) 10 mg PO DAILY [facility] Stop: 03/12/21 08:59 Last Admin: 02/12/21 08:46 Dose: 10 mg Documented by: Dicyclomine HCl (Dicyclomine Hcl 10 Mg Cap) 10 mg PO TID [facility] Stop: 03/12/21 08:59 Last Admin: 02/12/21 08:46 Dose: 10 mg Documented by: Fluticasone Furoate (Fluticasone Furoate 200mcg 14 Puffs/Inhaler) 1 puffs INH QAM [facility] Stop: 03/12/21 08:59 Last Admin: 02/12/21 08:45 Dose: 1 puffs Documented by: Fluticasone Propionate (Fluticasone Propionate Na Spr 16 Gm Btl) 2 sprays NA BID [facility] Stop: 03/12/21 08:59 Last Admin: 02/12/21 09:05 Dose: 2 sprays Documented by: Furosemide (Furosemide 40 Mg/4 Ml Vial) 80 mg IV Q8H [facility] Stop: 03/12/21 02:34 Last Admin: 02/12/21 03:05 Dose: 80 mg Documented by: Heparin Sodium (Porcine) (Heparin Sod 5,000 Unit/0.5 Ml Vial) 5,000 units SQ Q12 [facility] Stop: 03/12/21 08:59 Last Admin: 02/12/21 08:53 Dose: 5,000 units Documented by: Doxycycline Hyclate 100 mg/ (Dextrose) 110 mls @ 50 mls/hr IV Q12H [facility] Stop: 02/14/21 03:59 Last Infusion: 02/12/21 05:25 Dose: Infused Documented by: Sodium Chloride (Nss 1000ml) 1,000 mls @ 0 mls/hr IV .Q0M PRN PRN Reason: For Hemodialysis Use ONLY Stop: 02/12/21 12:59 Nitroglycerin (Nitroglycerin 2% Ointment 30gm Tube) 0.5 inch EXT Q6H [facility] Stop: 03/12/21 05:59 Last Admin: 02/12/21 03:13 Dose: 0.5 inch Documented by: Ondansetron HCl (Ondansetron Inj 2 Mg/Ml 2 Ml Vial) 4 mg IV Q6H PRN PRN Reason: Nausea Stop: 03/12/21 02:34 Pantoprazole Sodium (Pantoprazole 40 Mg Tab) 40 mg PO BID [facility] Stop: 03/12/21 08:59 Last Admin: 02/12/21 08:44 Dose: 40 mg Documented by: Topiramate (Topiramate 25 Mg Tab) 25 mg PO DAILY [facility] Stop: 03/12/21 08:59 Last Admin: 02/12/21 08:44 Dose: 25 mg Documented by: Vitamin B Complex/Folic Acid (Nephrocaps) 1 cap PO QAM [facility] Stop: 03/13/21 08:59 Last Admin: 02/12/21 08:44 Dose: 1 cap Documented by: PG Care Time/CCT Total # of Minutes Spent Total Time Spent with Patient: Total time spent is greater than 50% in coordination of care (as documented) at patient's floor/unit and/or counseling patient: Coding Level of Care Code 28491 Subseq Hosp Care Lvl 3 Diagnoses Acute on chronic HFrEF (heart failure with reduced ejection fraction) I50.23 Acute on chronic renal failure N17.9; N18.9 Nonischemic cardiomyopathy I42.8 Mitral valve insufficiency I34.0 Pericardial effusion I31.3 Elevated troponin R77.8
--- NOTE | 2021-02-12 17:37 | Billing Data ---
Date of Service February 12, 2021 Coding Level of Care Code 33078 Subseq Hosp Care Lvl 3
[2021-02-13] MEDS: FUROSEMIDE 40 MG/4 ML VIAL IV SCH ×3 (03:40→20:21)
[2021-02-13] MEDS: DOXYCYCLINE HYCLATE 100 MG in DEXTROSE 5% 100 ML IV SCH ×2 (03:40→20:20)
[2021-02-13 05:56] LABS: Basophils # (auto) 0.03 K/uL (0-0.2); Basophils % (auto) 0.3 %; Eosinophils # (auto) 0.17 K/uL (0-0.5); Eosinophils % (auto) 1.9 %; Hematocrit (blood only) 33.1 % (37-47); Hemoglobin 9.9 g/dL (12.0-16.0); Immature Granulocytes # (auto) 0.03 K/uL (0.00-0.02); Immature Granulocytes % (auto) 0.3 %; Lymphocytes % (auto) 18.2 %; Mean Corpuscular Hemoglobin 23.9 pg (25-34); Mean Corpuscular Hgb Conc 29.9 g/dL (32-36); Mean Platelet Volume 10.1 fL (7.4-10.4); Monocytes # (auto) 0.97 K/uL (0.11-0.59); Neutrophils % (auto) 68.3 %; Nucleated RBC # (auto) 0.21 K/uL (0-0); Nucleated RBC % (auto) 2.4 %; Platelet Count 217 K/uL (130-400); RDW Coefficient of Variation 20.1 % (11.5-14.5); RDW Standard Deviation 57.7 fL (36.4-46.3); Red Blood Count 4.14 M/uL (4.2-5.4)
[2021-02-13 06:41] LABS: BUN Creatinine Ratio 9.3 (10-20); Calcium 7.3 mg/dl (8.5-10.1); Creatinine Clr Calc Pharmacy 26.8 ml/min; Est GFR (African American) 11.4 ml/min; Est GFR (Non-African American) 9.8 ml/min; Potassium 3.8 mmol/L (3.5-5.1)
[2021-02-13] MEDS ORDERED: HEPARIN SOD (PORCINE) 1000 UNIT/ML IV ONE (07:00)
[2021-02-13] MEDS ORDERED: SODIUM CHLORIDE 0.9% 1000ML 1,000 ML IV PRN (07:00)
[2021-02-13 07:07] LABS: Anisocytosis Present; Echinocytes 1+; Ovalocytes 1+; Polychromasia 1+
--- NOTE | 2021-02-13 07:50 | Hospitalist Progress Note ---
Date of Service February 13, 2021 Assessment & Plan (1) Acute renal failure: Plan: Complicated 20 yo F with hx FSGS, nonischemic cardiomyopathy causing HFrEF (25- 30), GERD, CKD3, who is being admitted for management of acute renal failure in the setting of acute on chronic heart failure. Mother Prasanth works in [place] during the day, please call for updates [phone]. ESRD - s/p IJ THC placement by V[facility] on 02/11/21 - Weight increased by 44 kg from 12/30/20 - Continue Lasix 80mg IV q8h - Nephrology consulted: - plan for dialysis today with 3K bath, in for 3 liters UF, then continue on intermittent hemodialysis. - Social service consulted for outpatient dialysis at [facility] - dose medications for GFR less than 10, left arm nephrology precaution - BMP daily Acute Decompensated Congested Heart Failure with Reduced Ejection Fraction - outpatient pro BNP >14527 - Lasix as above - last TTE 12/28/20: Ef 25-30, global hypokinesis, mild pulmonary HTN, mild MR, small posterior pericardial effusion without tamponade physiology - daily weights - Continue carvedilol 12.5mg BID per cardiology - Cardiology consulted: - Continue carvedilol at current dose but this can be further titrated once decompensated heart failure improved. - Avoiding JANETTE-inhibitor/ARNI/ARB/spironolactone due to advanced renal failure. - Continue isosorbide mononitrate. - Recommend hydralazine 10 mg t.i.d. if blood pressure continues to tolerate dialysis in the future. - Monitor fluid status with I/Os - Low Na diet Nonischemic cardiomyopathy - Cardiology consulted: - Continue carvedilol at home dose 12.5 mg twice daily. Would not titrate beta-shannon while decompensated. - Given renal failure, JANETTE-inhibitor, ARNI, ARB, spironolactone will not be used.Can consider hydralazine/nitrate therapy as alternative therapy. - She stated that she would undergo ICD placement. - she may receive ICD during this hospital stay, but defer to Dr. Parada for timing - Repeat Echo showing severely reduced LV fxn with EF of 20%, severe global hypokinesis of LV, moderate tricuspid regurg, mild mitral regurg - Patient reportedly more open now to discussion of ICD placement Morbid Obesity - waffle boots, heel precautions, pressure ulcer precautions - skin check on admission showing mild irritated spots on abdomen but otherwise no signs of skin breakdown/existing ulcerations - Remi to help with preventing skin breakdown during diuresis - bariatric bed - turn Q2h Sinus Infection - continue outpatient doxycycline treatment - added BID Flonase nares spray Asthma - cont home albuterol, budesonide, fluticasone inhalers - continue daily cetirizine GERD - cont pantoprazole BRANDON - CPAP nightly Anemia, chronic, stable - on iron at home - stable at 11.7 Medications for unclear diagnoses - confirmed with [facility] records, patient is on topiramate and dicyclomine. unsure for which diagnoses. DVT ppx: heparin FEN/GI: low sodium diet, on pantoprazole Bowel regimen: prn Code Status: full code Dispo: PCU (2) Pulmonary edema: (3) Acute uremia: (4) Acidosis: (5) CKD (chronic kidney disease): (6) Acute on chronic HFrEF (heart failure with reduced ejection fraction): (7) GERD (gastroesophageal reflux disease): (8) Insomnia: (9) Nonischemic cardiomyopathy: (10) Focal segmental glomerulosclerosis: Admission and Anticipated Discharge Date Admission Date: February 09, 2021 Supervising Physician Co-Signing Physician Notes I have physically seen this patient, have supervised the medical residents activities, and agree unless as otherwise noted. General: A&Ox3. NAD. Cooperative. HEENT: Atraumatic, normocephalic. Thorax: R IJ permacath intact without overlying erythema/warmth. Pulm: Symmetrical chest rise. No increased work of breathing. No respiratory distress. Cardiac: Radial pulses intact and symmetrical. Assessment and Plan: 20-year-old female with heart failure and renal failure with history of focal segmental glomerulosclerosis, currently undergoing dialysis. Tolerating well with adequate hemodynamic parameters. Receiving additional dialysis 02/13/2021. No leukocytosis, hemoglobin 9.9 without bleeding, potassium normal, adequate glycemic control while inpatient. Acute on chronic heart failure with reduced ejection fraction: Decompensated. Cards consulted. Continue carvedilol. No janette/arb/arni/chandra. Dialysis as below. 20% EF. nonischemic, not a xplant candidate at this time. Lasix as below, continues to have output. Patient continued on isosorbide. Considering ICD placement, pt known to Dr. Parada. [facility] Renal Failure: Tunnelled Dialysis catheter in place. Hx of FSGS. Pt is not a renal/cardiac xplant candidate at this time. Continue lasix between dialysis tx (80mg IV q8H). Tolerating dialysis well so far, additional plan for dialysis today. Case management aware, anticipate outpatient dialysis at [facility]. Psych: A&O. Has refused psych liason. ?developemental delay. Case discussed w/ family by resident provider. Subjective Seen at bedside this morning. Patient reports some mild left lower extremity pain. Reports that her neck and arm pain, which she had reported yesterday, have now improved. No chest pain, palpitations, shortness of breath, fever, chills, nausea, vomiting. Review of Systems Review of Systems: per subjective Physical Exam Physical Exam: GENERAL: Alerto, oriented. Tired-appearing. NAD. NECK: Right IJ in place, c/d/i. CHEST/LUNGS: CTAB A/P. No crackles, wheezes, rales, rhonchi. Breath sounds distant. HEART: RRR. No m/g/r. SKIN: Warm and dry. No rashes or lesions. EXTREMITIES: 2+ pulses bilaterally. 3+ pitting edema at lower extremities. No cyanosis, no clubbing. Results & Data Results & Data ([facility]) Vital Signs (Past 12 Hours) Vital Signs Temp Pulse Pulse Resp BP BP BP 02/13/21 03:52 36.8 C 91 H 16 148/85 H 02/13/21 02:00 88 8 L 02/13/21 01:06 88 23 118/100 02/13/21 01:00 85 16 02/13/21 00:19 86 02/13/21 00:00 91 H 23 02/12/21 23:00 90 27 H 02/12/21 22:16 36.7 C 85 85 148/94 H 148/94 H 02/12/21 22:14 85 19 148/94 H 02/12/21 22:01 89 22 142/91 H 02/12/21 22:00 84 19 142/91 H 02/12/21 21:45 84 134/91 02/12/21 21:29 83 149/100 H 02/12/21 21:15 83 120/97 01/07/22 21:00 83 118/96 02/12/21 20:45 84 151/93 H 02/12/21 20:30 83 154/115 H 02/12/21 20:15 89 148/115 H 02/12/21 20:00 89 142/84 H Pulse Ox 02/13/21 03:52 95 02/13/21 02:00 96 02/13/21 01:06 97 02/13/21 01:00 94 02/13/21 00:19 02/13/21 00:00 97 02/12/21 23:00 90 02/12/21 22:16 02/12/21 22:14 97 02/12/21 22:01 98 02/12/21 22:00 97 02/12/21 21:45 02/12/21 21:29 02/12/21 21:15 02/12/21 21:00 02/12/21 20:45 02/12/21 20:30 02/12/21 20:15 02/12/21 20:00 Resident Activity Tracking Resident Involvement: Resident Care Provided Care Provided: Adult Hospital Medicine (1) Acute renal failure Acute renal failure type: unspecified Qualified Code(s): N17.9 - Acute kidney failure, unspecified (2) Pulmonary edema Chronicity: acute Qualified Code(s): J81.0 - Acute pulmonary edema
[2021-02-13] MEDS: TOPIRAMATE 25 MG TAB PO SCH (09:50)
[2021-02-13] MEDS: DICYCLOMINE HCL 10 MG CAP PO SCH ×3 (09:50→20:21)
[2021-02-13] MEDS: ISOSORBIDE MONO EXTENDED REL 30 MG TABCR PO SCH (09:50)
[2021-02-13] MEDS: NEPHROCAPS PO SCH (09:50)
[2021-02-13] MEDS: CETIRIZINE HCL 10 MG TABLET PO SCH (09:50)
[2021-02-13] MEDS: PANTOprazole 40 MG TAB PO SCH ×2 (09:51→20:23)
[2021-02-13] MEDS: HEPARIN SOD 5,000 UNIT/0.5 ML VIAL SQ SCH ×2 (09:51→20:22)
[2021-02-13] MEDS: FLUTICASONE FUROATE 200MCG 14 PUFFS/INHALER INH SCH (09:52)
[2021-02-13] MEDS: carvediloL 12.5 MG TAB PO SCH ×2 (09:52→20:22)
[2021-02-13] MEDS: FLUTICASONE PROPIONATE NA SPR 16 GM BTL SCH ×2 (09:53→20:22)
--- NOTE | 2021-02-13 10:45 | Nephrology Progress Note ---
Date of Service February 13, 2021 Assessment & Plan (1) ESRD (end stage renal disease): (2) Anemia: (3) Nonischemic cardiomyopathy: (4) Diabetes mellitus type 2 in obese: Plan: ESRD, on hemodialysis with severe nonischemic cardiomyopathy, EF 20-25 percent And poorly controlled diabetes. Started on hemodialysis on 02/12/2021 via right IJ tunneled dialysis catheter. Had 1st dialysis treatment yesterday, had 3 liters UF. Vital sign stable today on nasal cannula oxygen 2 liters. Hemoglobin stable. -- plan for dialysis today with 3K bath, in for 3 liters UF, then continue on intermittent hemodialysis. Social service consulted for outpatient dialysis at [facility].. -- dose medications for GFR less than 10, left arm nephrology precaution will follow Admission and Anticipated Discharge Date Admission Date: February 09, 2021 Jadon Cronin was seen and examined in her room this morning. She had dialysis yesterday, had 3 liters UF. Vital signs stable. Has mild tenderness and pain at tunneled dialysis catheter side but no active bleeding. Hemoglobin stable. Review of Systems Review of Systems: Detailed review of system was otherwise unremarkable. Physical Exam Constitutional: WD/WN, vitals as above + ill appearing and + morbidly obese; no acute distress Eyes: + anicteric sclerae Respiratory: normal respiratory effort; no respiratory distress Auscultation: + diminished lung sounds Cardiovascular: Rate/Rhythm: regular rate and regular rhythm Heart Sounds: normal S1 and normal S2 Extremities: + edema and + vascular access device ( Right IJ tunneled dialysis catheter) Neurologic: no focal motor deficits and not confused Psychiatric: Orientation: alert and oriented x 3 Results & Data ([facility]) Vital Signs (Past 12 Hours) Vital Signs Temp Pulse Pulse Pulse Resp BP BP 02/13/21 08:59 36.6 C 90 20 123/71 02/13/21 08:00 83 02/13/21 03:52 36.8 C 91 H 16 02/13/21 02:00 88 8 L 02/13/21 01:06 88 23 118/100 02/13/21 01:00 85 16 02/13/21 00:19 86 02/13/21 00:00 91 H 23 02/12/21 23:00 90 27 H BP Pulse Ox 02/13/21 08:59 94 02/13/21 08:00 02/13/21 03:52 148/85 H 95 02/13/21 02:00 96 02/13/21 01:06 97 02/13/21 01:00 94 02/13/21 00:19 02/13/21 00:00 97 02/12/21 23:00 90 PG Care Time/CCT Total # of Minutes Spent Total Time Spent with Patient: Total time spent is greater than 50% in coordination of care (as documented) at patient's floor/unit and/or counseling patient: Coding Level of Care Code 52679 Subseq Hosp Care Lvl 3 Diagnoses ESRD (end stage renal disease) N18.6 Anemia D64.9 Nonischemic cardiomyopathy I42.8 Diabetes mellitus type 2 in obese E11.69; E66.9
[2021-02-13] MEDS ORDERED: EPOETIN ALFA 10,000 UNITS/ML VIAL IV ONE (11:30)
--- NOTE | 2021-02-13 12:14 | Cardiology Progress Note ---
Date of Service February 13, 2021 Assessment & Plan (1) Acute on chronic HFrEF (heart failure with reduced ejection fraction): (2) Acute on chronic renal failure: (3) Nonischemic cardiomyopathy: (4) Mitral valve insufficiency: (5) Pericardial effusion: (6) Elevated troponin: Plan: ASSESSMENT/PLAN: 1. Acute on chronic heart failure with reduced EF: Decompensated CHF in the setting of end-stage renal failure. Continues to diurese with diuretics and also receive hemodialysis, which was initiated on 02/11/2021. Continue carvedilol at current dose but this can be further titrated once decompensated heart failure improved. Avoiding JANETTE-inhibitor/ARNI/ARB/spironolactone due to advanced renal failure. Continue isosorbide mononitrate. Recommend hydralazine 10 mg t.i.d. if blood pressure continues to tolerate dialysis in the future. Low sodium diet. Strict I&Os. Daily weights. 2. Acute on chronic renal failure: Hemodialysis was initiated on 02/11/2021. History of focal segmental glomerulosclerosis per report/history. Reportedly had renal biopsy in the past. 3. Mitral regurgitation: Non severe. 4. Nonischemic cardiomyopathy: Continue carvedilol at home dose 12.5 mg twice daily. She has been on this medication chronically. Would not titrate beta- shannon while decompensated. Given renal failure, JANETTE-inhibitor, ARNI, ARB, spironolactone will not be used. Hydralazine/nitrate therapy as alternative therapy. She has agreed to consider ICD for primary prevention. Discussed with Dr. Parada of electrophysiology who has discussed this with patient. If agreeable, she may receive ICD during this hospital stay, but defer to Dr. Jarred scruggs for timing. 5. Pericardial effusion: Chronic. Would not account for her presentation. 6. Elevated troponin: She did not present with acute coronary syndrome. Elevated troponin likely due to decompensated CHF in the setting of acute on chronic renal failure. 7. Disposition: Cardiology will continue to follow. Very important to keep her outpatient appointment with Dr. Jaramillo, her advanced heart failure/transplant regulatory technician through [facility] system. Admission and Anticipated Discharge Date Admission Date: February 09, 2021 Subjective Patient was sleeping in her hospital bed today. She easily awakened with verbal stimuli. She did not engage in conversation however. When asked if she was having any chest pain or shortness of breath, she shook her head no. When asked if she wanted to go back to sleep, she acknowledged yes. She was alone in her hospital room. Physical Exam Physical Exam: Gen.: No acute distress. Somnolent but easily arousable with verbal stimuli. HEENT: Anicteric sclera. Neck: Thick neck. Cannot assess JVD. Cardiac: Regular. Normal S1-S2. No ectopy. No murmurs, rubs, or gallops. Pulmonary: Decreased breath sounds but otherwise clear to auscultation bilaterally without wheezes, rales, or rhonchi. Abdomen: Soft, nontender, nondistended, with normoactive bowel sounds. No bruits noted. Abdominal body wall edema to above the umbilicus. Extremities: 2+ radial pulses bilaterally. 2+ posterior tibialis pulses bilaterally. 3+ bilateral lower extremity edema. No cyanosis. Results & Data ([facility]) Vital Signs (Past 12 Hours) Vital Signs Temp Pulse Pulse Pulse Resp BP BP 02/13/21 10:00 92 H 22 02/13/21 08:59 36.6 C 90 20 123/71 02/13/21 08:00 83 24 02/13/21 03:52 36.8 C 91 H 16 02/13/21 02:00 88 8 L 02/13/21 01:06 88 23 118/100 02/13/21 01:00 85 16 02/13/21 00:19 86 BP Pulse Ox 02/13/21 10:00 94 02/13/21 08:59 94 02/13/21 08:00 94 02/13/21 03:52 148/85 H 95 02/13/21 02:00 96 02/13/21 01:06 97 02/13/21 01:00 94 02/13/21 00:19 Intake & Output 02/11/21 02/12/21 02/13/21 02/14/21 06:59 06:59 06:59 06:59 Intake Total 588 / 588 292.5 / 292.5 910.0 / 910.0 470 / 470 Output Total 1400 / 1400 1502 / 1502 1602 / 1602 Balance -812 / -812 -1209.5 / -1209.5 -692.0 / -692.0 470 / 470 Weight 439 lb 2.573 oz 439 lb 2.573 oz 439 lb 2.573 oz Laboratory Results Laboratory Results - last 24 hr 02/13/21 02/13/21 05:16 05:16 WBC 8.80 RBC 4.14 L Hgb 9.9 L Hct 33.1 L MCV 80.0 MCH 23.9 L MCHC 29.9 L RDW Std Deviation 57.7 H RDW Coeff of Nicole 20.1 H Plt Count 217 MPV 10.1 Immature Gran % (Auto) 0.3 Neut % (Auto) 68.3 Lymph % (Auto) 18.2 Emery % (Auto) 11.0 Eos % (Auto) 1.9 Baso % (Auto) 0.3 Neut # (Auto) 6.00 Lymph # (Auto) 1.60 Emery # (Auto) 0.97 H Eos # (Auto) 0.17 Baso # (Auto) 0.03 Immature Gran # (Auto) 0.03 H Absolute Nucleated RBC 0.21 H Nucleated RBC % (auto) 2.4 Polychromasia 1+ Anisocytosis Present Ovalocytes 1+ Echinocytes 1+ Sodium 139 Potassium 3.8 Chloride 107 Carbon Dioxide 23 Anion Gap 9.0 BUN 54 H Creatinine 5.73 H* D Est Cr Clr Drug Dosing 26.8 Est GFR ( Amer) 11.4 Est GFR (Non-Af Amer) 9.8 BUN/Creatinine Ratio 9.3 L Glucose 118 H Calcium 7.3 L Diagnostic Findings Telemetry personally reviewed: No arrhythmia. Sinus rhythm. Medications Administered Current Inpatient Medications Acetaminophen (Acetaminophen 325 Mg Tab) 650 mg PO Q4H PRN PRN Reason: Pain or Fever Stop: 03/12/21 02:34 Last Admin: 02/11/21 22:32 Dose: 650 mg Documented by: Albuterol (Albuterol Hfa 8 Gm Inhaler) 2 puffs INH QID PRN PRN Reason: Wheezing Stop: 03/12/21 02:34 Carvedilol (Carvedilol 12.5 Mg Tab) 12.5 mg PO BID [facility] Stop: 03/12/21 09:44 Last Admin: 02/13/21 09:52 Dose: 12.5 mg Documented by: Cetirizine HCl (Cetirizine Hcl 10 Mg Tablet) 10 mg PO DAILY [facility] Stop: 03/12/21 08:59 Last Admin: 02/13/21 09:50 Dose: 10 mg Documented by: Dicyclomine HCl (Dicyclomine Hcl 10 Mg Cap) 10 mg PO TID [facility] Stop: 03/12/21 08:59 Last Admin: 02/13/21 09:50 Dose: 10 mg Documented by: Fluticasone Furoate (Fluticasone Furoate 200mcg 14 Puffs/Inhaler) 1 puffs INH QAM [facility] Stop: 03/12/21 08:59 Last Admin: 02/13/21 09:52 Dose: 1 puffs Documented by: Fluticasone Propionate (Fluticasone Propionate Na Spr 16 Gm Btl) 2 sprays NA BID [facility] Stop: 03/12/21 08:59 Last Admin: 02/13/21 09:53 Dose: Not Given Documented by: Furosemide (Furosemide 40 Mg/4 Ml Vial) 80 mg IV Q8H [facility] Stop: 03/12/21 02:34 Last Admin: 02/13/21 03:40 Dose: 80 mg Documented by: Heparin Sodium (Porcine) (Heparin Sod 5,000 Unit/0.5 Ml Vial) 5,000 units SQ Q12 [facility] Stop: 03/12/21 08:59 Last Admin: 02/13/21 09:51 Dose: 5,000 units Documented by: Doxycycline Hyclate 100 mg/ (Dextrose) 110 mls @ 50 mls/hr IV Q12H [facility] Stop: 02/14/21 03:59 Last Infusion: 02/13/21 08:22 Dose: Infused Documented by: Sodium Chloride (Nss 1000ml) 1,000 mls @ 0 mls/hr IV .Q0M PRN PRN Reason: For Hemodialysis Use ONLY Stop: 02/13/21 12:59 Isosorbide Mononitrate (Isosorbide Emery Extended Rel 30 Mg Tabcr) 30 mg PO QAM [facility] Stop: 03/15/21 08:59 Last Admin: 02/13/21 09:50 Dose: 30 mg Documented by: Ondansetron HCl (Ondansetron Inj 2 Mg/Ml 2 Ml Vial) 4 mg IV Q6H PRN PRN Reason: Nausea Stop: 03/12/21 02:34 Pantoprazole Sodium (Pantoprazole 40 Mg Tab) 40 mg PO BID [facility] Stop: 02/04/22 08:59 Last Admin: 02/13/21 09:51 Dose: 40 mg Documented by: Topiramate (Topiramate 25 Mg Tab) 25 mg PO DAILY [facility] Stop: 03/12/21 08:59 Last Admin: 02/13/21 09:50 Dose: 25 mg Documented by: Vitamin B Complex/Folic Acid (Nephrocaps) 1 cap PO QAM [facility] Stop: 03/13/21 08:59 Last Admin: 02/13/21 09:50 Dose: 1 cap Documented by: PG Care Time/CCT Total # of Minutes Spent Total Time Spent with Patient: Total time spent is greater than 50% in coordination of care (as documented) at patient's floor/unit and/or counseling patient: Coding Level of Care Code 66234 Subseq Hosp Care Lvl 3 Diagnoses Acute on chronic HFrEF (heart failure with reduced ejection fraction) I50.23 Acute on chronic renal failure N17.9; N18.9 Nonischemic cardiomyopathy I42.8 Mitral valve insufficiency I34.0 Pericardial effusion I31.3 Elevated troponin R77.8
--- NOTE | 2021-02-13 13:11 | Billing Data ---
Date of Service February 13, 2021 Coding Level of Care Code 73270 Subseq Hosp Care Lvl 3
[2021-02-13] MEDS ORDERED: ACETAMINOPHEN W/CODEINE #3 1 TAB PO PRN (22:29)
[2021-02-14] MEDS: FUROSEMIDE 40 MG/4 ML VIAL IV SCH ×3 (03:46→20:36)
--- NOTE | 2021-02-14 06:56 | Hospitalist Progress Note ---
Date of Service February 14, 2021 Assessment & Plan (1) Acute renal failure: Plan: Complicated 20 yo F with hx FSGS, nonischemic cardiomyopathy causing HFrEF (25- 30), GERD, CKD3, who is being admitted for management of acute renal failure in the setting of acute on chronic heart failure. Mother Prasanth works in [place] during the day, please call for updates [phone]. ESRD - s/p IJ THC placement by [facility] on 02/11/21 - Weight increased by 44 kg from 12/30/20 - Continue Lasix 80mg IV q8h - Per I/Os patient now 3L negative -- weight measurements continue to increase but they have been bed scale weights, which tend to be inaccurate - Nephrology consulted: -- plan for dialysis MWF, Social service consulted for outpatient dialysis at [facility].. -- dose medications for GFR less than 10, left arm nephrology precaution - Defer further dialysis in hospital to Nephrology - CM working on referrals to [facility] in [place] and [place]. Approvals pending. Await determination and treatment schedule. - BMP daily Acute Decompensated Congested Heart Failure with Reduced Ejection Fraction - Outpatient pro BNP >39124 - Lasix as above - Last TTE 12/28/20: Ef 25-30, global hypokinesis, mild pulmonary HTN, mild MR, small posterior pericardial effusion without tamponade physiology - Daily weights - Continue carvedilol 12.5mg BID per cardiology - Cardiology consulted: - Continue carvedilol at current dose but this can be further titrated once decompensated heart failure improved. - Avoiding JANETTE-inhibitor/ARNI/ARB/spironolactone due to advanced renal failure. - Continue isosorbide mononitrate. - Recommend hydralazine 10 mg t.i.d. if blood pressure continues to tolerate dialysis in the future. - Monitor fluid status with I/Os - Low Na diet Nonischemic cardiomyopathy - Cardiology consulted: - Continue carvedilol at home dose 12.5 mg twice daily. Would not titrate beta-shannon while decompensated. - Given renal failure, JANETTE-inhibitor, ARNI, ARB, spironolactone will not be used.Can consider hydralazine/nitrate therapy as alternative therapy. - She stated that she would undergo ICD placement. - she may receive ICD during this hospital stay, but defer to Dr. Parada for timing - Repeat Echo showing severely reduced LV fxn with EF of 20%, severe global hypokinesis of LV, moderate tricuspid regurg, mild mitral regurg - Patient reportedly more open now to discussion of ICD placement Morbid Obesity - waffle boots, heel precautions, pressure ulcer precautions - skin check on admission showing mild irritated spots on abdomen but otherwise no signs of skin breakdown/existing ulcerations - Khalil to help with preventing skin breakdown during diuresis - bariatric bed - turn Q2h Sinus Infection - continue outpatient doxycycline treatment - added BID Flonase nares spray Asthma - cont home albuterol, budesonide, fluticasone inhalers - continue daily cetirizine GERD - cont pantoprazole BRANDON - CPAP nightly Anemia, chronic, stable - on iron at home - stable at 11.7 Medications for unclear diagnoses - confirmed with [facility] records, patient is on topiramate and dicyclomine. unsure for which diagnoses. DVT ppx: heparin FEN/GI: low sodium diet, on pantoprazole Bowel regimen: prn Code Status: full code Dispo: PCU (2) Pulmonary edema: (3) Acute uremia: (4) Acidosis: (5) CKD (chronic kidney disease): (6) Acute on chronic HFrEF (heart failure with reduced ejection fraction): (7) GERD (gastroesophageal reflux disease): (8) Insomnia: (9) Nonischemic cardiomyopathy: (10) Focal segmental glomerulosclerosis: Admission and Anticipated Discharge Date Admission Date: February 09, 2021 Supervising Physician Co-Signing Physician Notes I have physically seen this patient, have supervised the medical residents activities, and agree unless as otherwise noted. General: A&Ox3. NAD. Cooperative. HEENT: Atraumatic, normocephalic. Thorax: R IJ permacath intact without overlying erythema/warmth. Pulm: Symmetrical chest rise. No increased work of breathing. No respiratory distress. Cardiac: Radial pulses intact and symmetrical. Assessment and Plan: 20-year-old female with heart failure and renal failure with history of focal segmental glomerulosclerosis, currently undergoing dialysis. Tolerating well with adequate hemodynamic parameters. Receiving additional dialysis 02/13/2021. No leukocytosis, hemoglobin 9.9 without bleeding, potassium normal, adequate glycemic control while inpatient. Acute on chronic heart failure with reduced ejection fraction: Decompensated. Cards consulted. Continue carvedilol. No janette/arb/arni/chandra. Dialysis as below. 20% EF. nonischemic, not a xplant candidate at this time. Lasix as below, continues to have output. Patient continued on isosorbide. Considering ICD placement, pt known to Dr. Parada. [facility] Renal Failure: Tunnelled Dialysis catheter in place. Hx of FSGS. Pt is not a renal/cardiac xplant candidate at this time. Continue lasix between dialysis tx (80mg IV q8H). Tolerating dialysis well so far, additional plan for dialysis today. Case management aware, anticipate outpatient dialysis at [facility]. Once this is setup, patient may be discharged. Psych: A&O. Has refused psych liason. ?developemental delay. Case discussed w/ family by resident provider. Subjective No acute events overnight. Patient reports that she is feeling very tired/fatigued. Additionally her neck continues to hurt with certain movements. Has intermittent leg pain/discomfort and itching, which she says is getting better. Expresses frustration that her mom can't be around full-time due to visiting hours. Explained that this is hospital policy due to pandemic precautions. She voices understanding. She denies fever, chills, abd pain, CP, palp, SOB. Review of Systems Review of Systems: per subjective Physical Exam Physical Exam: GENERAL: Alerto, oriented. Tired-appearing. NAD. NECK: Right IJ in place, c/d/i. CHEST/LUNGS: CTAB A/P. No crackles, wheezes, rales, rhonchi. Breath sounds distant. HEART: RRR. No m/g/r. SKIN: Warm and dry. No rashes or lesions. EXTREMITIES: 2+ pulses bilaterally. 3+ pitting edema at lower extremities. No cyanosis, no clubbing. Results & Data Results & Data ([facility]) Vital Signs (Past 12 Hours) Vital Signs Temp Pulse Pulse Resp BP BP 02/14/21 02:00 91 H 29 H 02/14/21 01:00 96 H 19 02/14/21 00:00 97 H 27 H 114/76 02/13/21 23:00 97 H 31 H 02/13/21 22:00 98 H 25 H 02/13/21 21:00 97 H 31 H 02/13/21 20:12 102 H 13 02/13/21 19:10 37.3 C 94 H 127/76 02/13/21 19:03 93 H 30 H 127/76 02/13/21 19:00 94 H 24 Resident Activity Tracking Resident Involvement: Resident Care Provided Care Provided: Adult Hospital Medicine (1) Acute renal failure Acute renal failure type: unspecified Qualified Code(s): N17.9 - Acute kidney failure, unspecified (2) Pulmonary edema Chronicity: acute Qualified Code(s): J81.0 - Acute pulmonary edema
[2021-02-14] MEDS: carvediloL 12.5 MG TAB PO SCH ×2 (07:49→20:38)
[2021-02-14] MEDS: FLUTICASONE FUROATE 200MCG 14 PUFFS/INHALER INH SCH (07:49)
[2021-02-14] MEDS: CETIRIZINE HCL 10 MG TABLET PO SCH (07:49)
[2021-02-14] MEDS: DICYCLOMINE HCL 10 MG CAP PO SCH ×3 (07:49→20:37)
[2021-02-14] MEDS: HEPARIN SOD 5,000 UNIT/0.5 ML VIAL SQ SCH ×2 (07:50→20:36)
[2021-02-14] MEDS: ISOSORBIDE MONO EXTENDED REL 30 MG TABCR PO SCH (07:50)
[2021-02-14] MEDS: NEPHROCAPS PO SCH (07:50)
[2021-02-14] MEDS: FLUTICASONE PROPIONATE NA SPR 16 GM BTL SCH ×2 (07:50→20:35)
[2021-02-14] MEDS: TOPIRAMATE 25 MG TAB PO SCH (07:51)
[2021-02-14] MEDS: PANTOprazole 40 MG TAB PO SCH ×2 (07:51→20:39)
--- NOTE | 2021-02-14 11:02 | Nephrology Progress Note ---
Date of Service February 14, 2021 Assessment & Plan (1) ESRD (end stage renal disease): (2) Anemia: (3) Nonischemic cardiomyopathy: (4) Diabetes mellitus type 2 in obese: Plan: ESRD, on hemodialysis with severe nonischemic cardiomyopathy, EF 20-25 percent And poorly controlled diabetes. Started on hemodialysis on 02/12/2021 via right IJ tunneled dialysis catheter. Vital sign stable today on nasal cannula oxygen 2 liters. Hemoglobin stable. -- plan for dialysis MWF, Social service consulted for outpatient dialysis at [facility].. -- dose medications for GFR less than 10, left arm nephrology precaution will follow Admission and Anticipated Discharge Date Admission Date: February 09, 2021 Jadon Cronin was seen and examined in her room this morning, no overnight events, clinically stable. She had dialysis yesterday, had 4 liters UF. Vital signs stable. Has mild pain tenderness and pain at tunneled dialysis catheter side but no active bleeding. Hemoglobin stable. Review of Systems Review of Systems: Detailed review of system was otherwise unremarkable. Physical Exam Constitutional: WD/WN, vitals as above + ill appearing and + morbidly obese; no acute distress Eyes: + anicteric sclerae Respiratory: normal respiratory effort; no respiratory distress Auscultation: + diminished lung sounds Cardiovascular: Rate/Rhythm: regular rate and regular rhythm Heart Sounds: normal S1 and normal S2 Extremities: + edema and + vascular access device ( Right IJ tunneled dialysis catheter) Neurologic: no focal motor deficits and not confused Psychiatric: Orientation: alert and oriented x 3 Results & Data ([facility]) Vital Signs (Past 12 Hours) Vital Signs Temp Pulse Pulse Resp BP BP Pulse Ox 02/14/21 09:43 36.6 C 96 H 20 153/83 H 87 L 02/14/21 02:00 91 H 29 H 02/14/21 01:00 96 H 19 02/14/21 00:00 97 H 27 H 114/76 PG Care Time/CCT Total # of Minutes Spent Total Time Spent with Patient: Total time spent is greater than 50% in coordination of care (as documented) at patient's floor/unit and/or counseling patient: Coding Level of Care Code 72645 Subseq Hosp Care Lvl 2 Diagnoses ESRD (end stage renal disease) N18.6 Anemia D64.9 Nonischemic cardiomyopathy I42.8 Diabetes mellitus type 2 in obese E11.69; E66.9
--- NOTE | 2021-02-14 15:21 | Cardiology Progress Note ---
Date of Service February 14, 2021 Assessment & Plan (1) Acute on chronic HFrEF (heart failure with reduced ejection fraction): (2) Acute on chronic renal failure: (3) Nonischemic cardiomyopathy: (4) Mitral valve insufficiency: (5) Pericardial effusion: (6) Elevated troponin: Plan: ASSESSMENT/PLAN: 1. Acute on chronic heart failure with reduced EF: Decompensated CHF in the setting of end-stage renal failure. Continues to diurese with diuretics and also receive hemodialysis, which was initiated on 02/11/2021. Continue carvedilol at current dose but this can be further titrated once decompensated heart failure improved. Avoiding JANETTE-inhibitor/ARNI/ARB/spironolactone due to advanced renal failure. Continue isosorbide mononitrate. Start hydralazine 10 mg t.i.d., which can be further titrated over time if tolerated. Low sodium diet. Strict I&Os. Daily weights. 2. Acute on chronic renal failure: Hemodialysis was initiated on 02/11/2021. History of focal segmental glomerulosclerosis per report/history. Reportedly had renal biopsy in the past. 3. Mitral regurgitation: Non severe. 4. Nonischemic cardiomyopathy: Continue carvedilol at home dose 12.5 mg twice daily. She has been on this medication chronically. Would not titrate beta- shannon while decompensated. Given renal failure, JANETTE-inhibitor, ARNI, ARB, spironolactone will not be used. Hydralazine/nitrate therapy as alternative therapy. She has agreed to consider ICD for primary prevention. Discussed with Dr. Parada of electrophysiology who has discussed this with patient. If agreeable, she may receive ICD during this hospital stay, but defer to Dr. Parada for timing. 5. Pericardial effusion: Chronic. Would not account for her presentation. 6. Elevated troponin: She did not present with acute coronary syndrome. Elevated troponin likely due to decompensated CHF in the setting of acute on chronic renal failure. 7. Disposition: Please call with any further questions or concerns. Volume status is now being managed by Nephrology in the form of hemodialysis. Very important to keep her outpatient appointment with Dr. 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 As per Dr. Jaramillo, not currently transplant candidate given obesity and issues with noncompliance. If improvement can be made on these grounds, transplant status could change. Admission and Anticipated Discharge Date Admission Date: February 09, 2021 Subjective Patient seen earlier today. She was sleeping but was easily arousable with verbal stimuli. She did not engage in conversation again today. She denies chest pain or shortness of breath. She did not answer any other questions. She was alone in her hospital room. Physical Exam Physical Exam: Gen.: No acute distress. Somnolent but easily arousable with verbal stimuli. HEENT: Anicteric sclera. Neck: Thick neck. Cannot assess JVD. Cardiac: Regular. Normal S1-S2. No ectopy. No murmurs, rubs, or gallops. Pulmonary: Decreased breath sounds but otherwise clear to auscultation bilaterally without wheezes, rales, or rhonchi. Abdomen: Soft, nontender, nondistended, with normoactive bowel sounds. No bruits noted. Abdominal body wall edema. Extremities: 2+ radial pulses bilaterally. 2+ posterior tibialis pulses bilaterally. 2-3+ bilateral lower extremity edema. No cyanosis. Results & Data ([facility]) Vital Signs (Past 12 Hours) Vital Signs Temp Pulse Resp BP Pulse Ox 02/14/21 09:43 36.6 C 96 H 20 153/83 H 87 L Intake & Output 02/12/21 02/13/21 02/14/21 02/15/21 06:59 06:59 06:59 06:59 Intake Total 292.5 / 292.5 910.0 / 910.0 1800 / 1800 Output Total 1502 / 1502 1602 / 1602 1876 / 1876 Balance -1209.5 / -1209.5 -692.0 / -692.0 -76 / -76 Weight 439 lb 2.573 oz 439 lb 2.573 oz 442 lb 0.429 oz Laboratory Results Laboratory Results - last 24 hr 02/14/21 03:37 POC Glucose 120 H Diagnostic Findings Telemetry personally reviewed: Sinus rhythm. Medications Administered Current Inpatient Medications Acetaminophen (Acetaminophen 325 Mg Tab) 650 mg PO Q4H PRN PRN Reason: Pain or Fever Stop: 03/12/21 02:34 Last Admin: 02/11/21 22:32 Dose: 650 mg Documented by: Acetaminophen/Codeine Phosphate (Acetaminophen W/Codeine #3 1 Tab) 1 tab PO Q4H PRN PRN Reason: Pain Stop: 03/15/21 22:28 Last Admin: 02/13/21 22:50 Dose: 1 tab Documented by: Albuterol (Albuterol Hfa 8 Gm Inhaler) 2 puffs INH QID PRN PRN Reason: Wheezing Stop: 03/12/21 02:34 Carvedilol (Carvedilol 12.5 Mg Tab) 12.5 mg PO BID [facility] Stop: 03/12/21 09:44 Last Admin: 02/14/21 07:49 Dose: 12.5 mg Documented by: Cetirizine HCl (Cetirizine Hcl 10 Mg Tablet) 10 mg PO DAILY [facility] Stop: 03/12/21 08:59 Last Admin: 02/14/21 07:49 Dose: 10 mg Documented by: Dicyclomine HCl (Dicyclomine Hcl 10 Mg Cap) 10 mg PO TID [facility] Stop: 03/12/21 08:59 Last Admin: 02/14/21 07:49 Dose: 10 mg Documented by: Fluticasone Furoate (Fluticasone Furoate 200mcg 14 Puffs/Inhaler) 1 puffs INH QAM [facility] Stop: 03/12/21 08:59 Last Admin: 02/14/21 07:49 Dose: 1 puffs Documented by: Fluticasone Propionate (Fluticasone Propionate Na Spr 16 Gm Btl) 2 sprays NA BID [facility] Stop: 03/12/21 08:59 Last Admin: 02/14/21 07:50 Dose: 2 sprays Documented by: Furosemide (Furosemide 40 Mg/4 Ml Vial) 80 mg IV Q8H [facility] Stop: 03/12/21 02:34 Last Admin: 02/14/21 12:14 Dose: 80 mg Documented by: Heparin Sodium (Porcine) (Heparin Sod 5,000 Unit/0.5 Ml Vial) 5,000 units SQ Q12 [facility] Stop: 03/12/21 08:59 Last Admin: 02/14/21 07:50 Dose: 5,000 units Documented by: Isosorbide Mononitrate (Isosorbide Deuel Extended Rel 30 Mg Tabcr) 30 mg PO QAM [facility] Stop: 03/15/21 08:59 Last Admin: 02/14/21 07:50 Dose: 30 mg Documented by: Ondansetron HCl (Ondansetron Inj 2 Mg/Ml 2 Ml Vial) 4 mg IV Q6H PRN PRN Reason: Nausea Stop: 03/12/21 02:34 Pantoprazole Sodium (Pantoprazole 40 Mg Tab) 40 mg PO BID [facility] Stop: 03/12/21 08:59 Last Admin: 02/14/21 07:51 Dose: 40 mg Documented by: Topiramate (Topiramate 25 Mg Tab) 25 mg PO DAILY [facility] Stop: 03/12/21 08:59 Last Admin: 02/14/21 07:51 Dose: 25 mg Documented by: Vitamin B Complex/Folic Acid (Nephrocaps) 1 cap PO QAM NASE[facility] Stop: 03/13/21 08:59 Last Admin: 02/14/21 07:50 Dose: 1 cap Documented by: PG Care Time/CCT Total # of Minutes Spent Total Time Spent with Patient: Total time spent is greater than 50% in coordination of care (as documented) at patient's floor/unit and/or counseling patient: Coding Level of Care Code 48618 Subseq Hosp Care Lvl 3 Diagnoses Acute on chronic HFrEF (heart failure with reduced ejection fraction) I50.23 Acute on chronic renal failure N17.9; N18.9 Nonischemic cardiomyopathy I42.8 Mitral valve insufficiency I34.0 Pericardial effusion I31.3 Elevated troponin R77.8
[2021-02-14] MEDS ORDERED: guaiFENesin/DEXTROM SYRUP 200MG/20MG 10ML UDC PO PRN (17:46)
--- NOTE | 2021-02-14 18:08 | Billing Data ---
Date of Service February 14, 2021 Coding Level of Care Code 75110 Subseq Hosp Care Lvl 2
[2021-02-14] MEDS: hydrALAZINE 10 MG TAB PO SCH (20:38)
[2021-02-15] MEDS: FUROSEMIDE 40 MG/4 ML VIAL IV SCH ×3 (03:47→21:06)
[2021-02-15 07:37] LABS: Albumin Level 1.9 gm/dl (3.4-5.0); BUN Creatinine Ratio 8.5 (10-20); Calcium 8.1 mg/dl (8.5-10.1); Creatinine Clr Calc Pharmacy 28.3 ml/min; Est GFR (African American) 12.7 ml/min; Est GFR (Non-African American) 10.9 ml/min; Phosphorus 4.8 mg/dl (2.5-4.9); Potassium 4.1 mmol/L (3.5-5.1)
--- NOTE | 2021-02-15 07:41 | Hospitalist Progress Note ---
Date of Service February 15, 2021 Assessment & Plan (1) Acute renal failure: Plan: Complicated 20 yo F with hx FSGS, nonischemic cardiomyopathy causing HFrEF (25- 30), GERD, CKD3, who is being admitted for management of acute renal failure in the setting of acute on chronic heart failure. Mother Prasanth works in [place] during the day, please call for updates [phone]. ESRD - s/p IJ THC placement by [facility] on 02/11/21 - Continue Lasix 80mg IV q8h - Per I/Os patient now 3.8 L negative - - weight: 199.2 ->190.4 - Nephrology consulted: -- plan for dialysis MWF, Social service consulted for outpatient dialysis at [place] -- dose medications for GFR less than 10, left arm nephrology precaution - CM working on referrals to [facility] in [place]. Approvals pending. Await determination and treatment schedule. - BMP daily Acute Decompensated Congested Heart Failure with Reduced Ejection Fraction secondary to Nonischemic cardiomyopathy - Outpatient pro BNP >[id number]. Last TTE 12/28/20: Ef 25-30, global hypokinesis, mild pulmonary HTN, mild MR, small posterior pericardial effusion without tamponade physiology. Repeat Echo this visit showing severely reduced LV fxn with EF of 20%, severe global hypokinesis of LV, moderate tricuspid regurg, mild mitral regurg - Cardiology consulted: - Continue carvedilol at current dose 12.5mg BID but this can be further titrated once decompensated heart failure improved. - Avoiding JANETTE-inhibitor/ARNI/ARB/spironolactone due to advanced renal failure. - Continue isosorbide mononitrate. - Recommend hydralazine 10 mg t.i.d. if blood pressure continues to tolerate dialysis in the future. - She stated that she would undergo ICD placement - further per cardio - Lasix as above - Diuresis for fluid removal - Monitor fluid status with I/Os - Daily weights :190.4 - Low Na diet - On discharge patient will need a hospital bed. As she will require frequent position changes, this is not feasible with an ordinary bed. Furthermore the head of bed must be elevated to at least 30 degrees most of the time secondary to a CHF cardiomyopathy. Morbid Obesity skin check on admission showing mild irritated spots on abdomen but otherwise no signs of skin breakdown/existing ulcerations - Remi to help with preventing skin breakdown during diuresis, waffle boots, heel precautions, pressure ulcer precautions - bariatric bed - turn Q2h Sinus Infection - Completed outpatient doxycycline treatment - added BID Flonase nares spray Asthma - cont home albuterol, budesonide, fluticasone inhalers - continue daily cetirizine GERD - cont pantoprazole BRANDON - CPAP nightly Anemia, chronic, stable - on iron at home - stable at 11.7 Diabetes Patient's record indicates diagnosis of diabetes. However the patient adamantly states that she was "cured "of her diabetes and was alerted this up by her primary care physician who discontinued her diabetes medications. A1c during this admission was 7, daily BMPs have been stable and within normal limits. -Patient refusing blood sugar checks AC at bedtime Medications for unclear diagnoses - [place] [facility], patient is on topiramate and dicyclomine. unsure for which diagnoses. DVT ppx: heparin FEN/GI: low sodium diet, on pantoprazole Bowel regimen: prn Code Status: full code Dispo: PCU, dc pending scheduling outpt dialysis (2) Pulmonary edema: (3) Acute uremia: (4) Acidosis: (5) CKD (chronic kidney disease): (6) Acute on chronic HFrEF (heart failure with reduced ejection fraction): (7) GERD (gastroesophageal reflux disease): (8) Insomnia: (9) Nonischemic cardiomyopathy: (10) Focal segmental glomerulosclerosis: Admission and Anticipated Discharge Date Admission Date: February 09, 2021 Supervising Physician Co-Signing Physician Notes Resident Physician Supervision Note: I independently interviewed and examined the patient and verified the casanova history and physical, reviewed labs and image studies and agree with resident Dr. Upton findings and care plan. Subjective Patient lying in bed this morning in no acute distress. Patient reports not sleeping well overnight otherwise tolerating her diet, Khalil in place, stooling. She stated "please talk to my mother ". All concerns are present related to discharge Physical Exam Physical Exam: General: In no acute distress HEENT: Normocephalic atraumatic Neck: Right IJ in place, clean dry and intact Cardiac: Regular rate and rhythm I did not appreciate significant murmurs or gallops, no S1, normal S2, negative pedal edema, Respiratory: Clear to auscultation bilaterally with symmetrical chest expansion did not appreciate any significant wheezes, rales, rhonchi GI: Soft, nontender, nondistended MSK: Moves all extremities Psych: Not cooperative with the interview, poor insight into her general medical state Results & Data Results & Data ([facility]) Vital Signs (Past 12 Hours) Vital Signs Temp Pulse Resp BP Pulse Ox 02/15/21 03:10 36.5 C 86 15 135/77 96 02/15/21 03:00 85 22 02/15/21 00:00 79 16 02/14/21 23:00 80 13 02/14/21 20:27 86 18 109/72 96 Laboratory Results 02/15/21 02/15/21 02/15/21 Range/Units 08:19 08:19 06:53 WBC 7.14 RBC 4.35 Hgb 10.5 L Hct 35.2 L MCV 80.9 MCH 24.1 L MCHC 29.8 L RDW Std Deviation 59.6 H RDW Coeff of Nicole 20.3 H Plt Count 199 MPV 9.6 Immature Gran % (Auto) 0.6 Neut % (Auto) 56.2 Lymph % (Auto) 31.5 [place] % (Auto) 8.8 Eos % (Auto) 2.5 Baso % (Auto) 0.4 Neut # (Auto) 4.01 Lymph # (Auto) 2.25 [place] # (Auto) 0.63 H Eos # (Auto) 0.18 Baso # (Auto) 0.03 Immature Gran # (Auto) 0.04 H Absolute Nucleated RBC 0.15 H Nucleated RBC % (auto) 2.1 Neutrophils % (Manual) Band Neutrophils % Lymphocytes % (Manual) Prolymphocyte % Reactive Lymphs % (Man) Monocytes % (Manual) Eosinophils % (Manual) Basophils % (Manual) Metamyelocytes % (Man) Myelocytes % (Man) Promyelocytes % (Man) Blast Cells % (Manual) Plasma Cell % (Manual) Other Cells % Nucleated RBC % Neutrophils # (Manual) Band Neutrophils # Total Absolute Neuts Lymphocytes # (Manual) Prolymphocyte # Reactive Lymphs # Total Abs Lymphocytes Monocytes # (Manual) Eosinophils # (Manual) Basophils # (Manual) Metamyelocytes # (Man) Myelocytes # (Manual) Promyelocytes # (Man) Blast Cells # (Man) Plasma Cell # (Manual) Other Cells # Nucleated RBCs # (Man) Hypersegmented Neuts Hyposegmented Neuts Hypogranular Neuts Large Granular Lymphs # Lrg Granular Lymphs Hairy Cells Smudge Cells Toxic Granulation Toxic Vacuolation Dohle Bodies Mart Rods Platelet Estimate Hypogranular Platelets Clumped Platelets Giant Platelets Platelet Satelliting RBC Morphology Polychromasia Hypochromasia Present Poikilocytosis Basophilic Stippling Anisocytosis Present Microcytosis Present Macrocytosis Spherocytes Pappenheimer Bodies Sickle Cells Target Cells 1+ Tear Drop Cells Ovalocytes Stomatocytes [place] Bodies Echinocytes Acanthocytes (Spur) Rouleaux RBC Agglutinates Schistocytes RBC Morph Comment Sezary Cell Sodium 136 (136-145) mmol/L Potassium 4.1 (3.5-5.1) mmol/L Chloride 104 (98-107) mmol/L Carbon Dioxide 23 (21-32) mmol/L Anion Gap 9.0 (3-11) BUN 44 H (7-18) mg/dl Creatinine 5.25 H* (0.6-1.2) mg/dl Est Cr Clr Drug Dosing 28.3 ml/min Est GFR ( Amer) 12.7 ml/min Est GFR (Non-Af Amer) 10.9 ml/min BUN/Creatinine Ratio 8.5 L (10-20) Glucose 117 H (70-99) mg/dl Estimat Average Glucose 154 mg/dl Hemoglobin A1c 7.0 H (4.5-5.6) % Calcium 8.1 L (8.5-10.1) mg/dl Phosphorus 4.8 (2.5-4.9) mg/dl Albumin 1.9 L (3.4-5.0) gm/dl 02/15/21 Range/Units 06:53 WBC Cancelled RBC Cancelled Hgb Cancelled Hct Cancelled MCV Cancelled MCH Cancelled MCHC Cancelled RDW Std Deviation Cancelled RDW Coeff of Nicole Cancelled Plt Count Cancelled MPV Cancelled Immature Gran % (Auto) Cancelled Neut % (Auto) Cancelled Lymph % (Auto) Cancelled [place] % (Auto) Cancelled Eos % (Auto) Cancelled Baso % (Auto) Cancelled Neut # (Auto) Cancelled Lymph # (Auto) Cancelled [place] # (Auto) Cancelled Eos # (Auto) Cancelled Baso # (Auto) Cancelled Immature Gran # (Auto) Cancelled Absolute Nucleated RBC Cancelled Nucleated RBC % (auto) Cancelled Neutrophils % (Manual) Cancelled Band Neutrophils % Cancelled Lymphocytes % (Manual) Cancelled Prolymphocyte % Cancelled Reactive Lymphs % (Man) Cancelled Monocytes % (Manual) Cancelled Eosinophils % (Manual) Cancelled Basophils % (Manual) Cancelled Metamyelocytes % (Man) Cancelled Myelocytes % (Man) Cancelled Promyelocytes % (Man) Cancelled Blast Cells % (Manual) Cancelled Plasma Cell % (Manual) Cancelled Other Cells % Cancelled Nucleated RBC % Cancelled Neutrophils # (Manual) Cancelled Band Neutrophils # Cancelled Total Absolute Neuts Cancelled Lymphocytes # (Manual) Cancelled Prolymphocyte # Cancelled Reactive Lymphs # Cancelled Total Abs Lymphocytes Cancelled Monocytes # (Manual) Cancelled Eosinophils # (Manual) Cancelled Basophils # (Manual) Cancelled Metamyelocytes # (Man) Cancelled Myelocytes # (Manual) Cancelled Promyelocytes # (Man) Cancelled Blast Cells # (Man) Cancelled Plasma Cell # (Manual) Cancelled Other Cells # Cancelled Nucleated RBCs # (Man) Cancelled Hypersegmented Neuts Cancelled Hyposegmented Neuts Cancelled Hypogranular Neuts Cancelled Large Granular Lymphs Cancelled # Lrg Granular Lymphs Cancelled Hairy Cells Cancelled Smudge Cells Cancelled Toxic Granulation Cancelled Toxic Vacuolation Cancelled Dohle Bodies Cancelled Mart Rods Cancelled Platelet Estimate Cancelled Hypogranular Platelets Cancelled Clumped Platelets Cancelled Giant Platelets Cancelled Platelet Satelliting Cancelled RBC Morphology Cancelled Polychromasia Cancelled Hypochromasia Cancelled Poikilocytosis Cancelled Basophilic Stippling Cancelled Anisocytosis Cancelled Microcytosis Cancelled Macrocytosis Cancelled Spherocytes Cancelled Pappenheimer Bodies Cancelled Sickle Cells Cancelled Target Cells Cancelled Tear Drop Cells Cancelled Ovalocytes Cancelled Stomatocytes Cancelled [place] Bodies Cancelled Echinocytes Cancelled Acanthocytes (Spur) Cancelled Rouleaux Cancelled RBC Agglutinates Cancelled Schistocytes Cancelled RBC Morph Comment Cancelled Sezary Cell Cancelled Sodium (136-145) mmol/L Potassium (3.5-5.1) mmol/L Chloride (98-107) mmol/L Carbon Dioxide (21-32) mmol/L Anion Gap (3-11) BUN (7-18) mg/dl Creatinine (0.6-1.2) mg/dl Est Cr Clr Drug Dosing ml/min Est GFR ( Amer) ml/min Est GFR (Non-Af Amer) ml/min BUN/Creatinine Ratio (10-20) Glucose (70-99) mg/dl Estimat Average Glucose mg/dl Hemoglobin A1c (4.5-5.6) % Calcium (8.5-10.1) mg/dl Phosphorus (2.5-4.9) mg/dl Albumin (3.4-5.0) gm/dl Medications Administered Current Inpatient Medications Acetaminophen (Acetaminophen 325 Mg Tab) 650 mg PO Q4H PRN PRN Reason: Pain or Fever Stop: 03/12/21 02:34 Last Admin: 02/11/21 22:32 Dose: 650 mg Documented by: Acetaminophen/Codeine Phosphate (Acetaminophen W/Codeine #3 1 Tab) 1 tab PO Q4H PRN PRN Reason: Pain Stop: 03/15/21 22:28 Last Admin: 02/13/21 22:50 Dose: 1 tab Documented by: Albuterol (Albuterol Hfa 8 Gm Inhaler) 2 puffs INH QID PRN PRN Reason: Wheezing Stop: 03/12/21 02:34 Carvedilol (Carvedilol 12.5 Mg Tab) 12.5 mg PO BID [facility] Stop: 03/12/21 09:44 Last Admin: 02/15/21 08:52 Dose: 12.5 mg Documented by: Cetirizine HCl (Cetirizine Hcl 10 Mg Tablet) 10 mg PO DAILY [facility] Stop: 03/12/21 08:59 Last Admin: 02/15/21 08:52 Dose: 10 mg Documented by: Dicyclomine HCl (Dicyclomine Hcl 10 Mg Cap) 10 mg PO TID [facility] Stop: 03/12/21 08:59 Last Admin: 02/15/21 15:13 Dose: 10 mg Documented by: Fluticasone Furoate (Fluticasone Furoate 200mcg 14 Puffs/Inhaler) 1 puffs INH QAM [facility] Stop: 03/12/21 08:59 Last Admin: 02/15/21 08:50 Dose: Not Given Documented by: Fluticasone Propionate (Fluticasone Propionate Na Spr 16 Gm Btl) 2 sprays NA BID [facility] Stop: 03/12/21 08:59 Last Admin: 02/15/21 08:52 Dose: 2 sprays Documented by: Furosemide (Furosemide 40 Mg/4 Ml Vial) 80 mg IV Q8H [facility] Stop: 03/12/21 02:34 Last Admin: 02/15/21 12:45 Dose: 80 mg Documented by: Guaifenesin/Dextromethorphan (Guaifenesin/Dextrom Syrup 200mg/20mg 10ml Udc) 10 ml PO Q6H PRN PRN Reason: Cough Stop: 03/16/21 17:45 Last Admin: 02/14/21 18:23 Dose: 10 ml Documented by: Heparin Sodium (Porcine) (Heparin Sod 5,000 Unit/0.5 Ml Vial) 5,000 units SQ Q12 [facility] Stop: 03/12/21 08:59 Last Admin: 02/15/21 08:52 Dose: 5,000 units Documented by: Hydralazine HCl (Hydralazine 10 Mg Tab) 10 mg PO TID [facility] Stop: 03/16/21 20:59 Last Admin: 02/15/21 15:13 Dose: 10 mg Documented by: Isosorbide Mononitrate (Isosorbide [place] Extended Rel 30 Mg Tabcr) 30 mg PO QAM [facility] Stop: 03/15/21 08:59 Last Admin: 02/15/21 08:52 Dose: 30 mg Documented by: Ondansetron HCl (Ondansetron Inj 2 Mg/Ml 2 Ml Vial) 4 mg IV Q6H PRN PRN Reason: Nausea Stop: 03/12/21 02:34 Pantoprazole Sodium (Pantoprazole 40 Mg Tab) 40 mg PO BID [facility] Stop: 03/12/21 08:59 Last Admin: 02/15/21 08:52 Dose: 40 mg Documented by: Topiramate (Topiramate 25 Mg Tab) 25 mg PO DAILY [facility] Stop: 03/12/21 08:59 Last Admin: 02/15/21 08:52 Dose: 25 mg Documented by: Vitamin B Complex/Folic Acid (Nephrocaps) 1 cap PO QAM [facility] Stop: 03/13/21 08:59 Last Admin: 02/15/21 08:52 Dose: 1 cap Documented by: (1) Acute renal failure Acute renal failure type: unspecified Qualified Code(s): N17.9 - Acute kidney failure, unspecified (2) Pulmonary edema Chronicity: acute Qualified Code(s): J81.0 - Acute pulmonary edema
[2021-02-15 08:26] LABS: Basophils # (auto) 0.03 K/uL (0-0.2); Basophils % (auto) 0.4 %; Eosinophils # (auto) 0.18 K/uL (0-0.5); Eosinophils % (auto) 2.5 %; Hematocrit (blood only) 35.2 % (37-47); Hemoglobin 10.5 g/dL (12.0-16.0); Immature Granulocytes # (auto) 0.04 K/uL (0.00-0.02); Immature Granulocytes % (auto) 0.6 %; Lymphocytes # (auto) 2.25 K/uL (1.2-3.4); Lymphocytes % (auto) 31.5 %; Mean Corpuscular Hemoglobin 24.1 pg (25-34); Mean Corpuscular Volume 80.9 fL (80-100); Mean Platelet Volume 9.6 fL (7.4-10.4); Monocytes # (auto) 0.63 K/uL (0.11-0.59); Monocytes % (auto) 8.8 %; Neutrophils # (auto) 4.01 K/uL (1.4-6.5); Neutrophils % (auto) 56.2 %; Nucleated RBC # (auto) 0.15 K/uL (0-0); Nucleated RBC % (auto) 2.1 %; Platelet Count 199 K/uL (130-400); RDW Coefficient of Variation 20.3 % (11.5-14.5); RDW Standard Deviation 59.6 fL (36.4-46.3); Red Blood Count 4.35 M/uL (4.2-5.4); White Blood Count 7.14 K/uL (4.8-10.8)
[2021-02-15 08:38] LABS: Mean Corpuscular Hgb Conc 29.8 g/dL (32-36)
[2021-02-15 08:47] LABS: Anisocytosis Present; Hypochromasia Present; Microcytosis Present; Target Cells 1+
[2021-02-15] MEDS: FLUTICASONE FUROATE 200MCG 14 PUFFS/INHALER INH SCH (08:50)
[2021-02-15] MEDS: carvediloL 12.5 MG TAB PO SCH ×2 (08:52→21:07)
[2021-02-15] MEDS: hydrALAZINE 10 MG TAB PO SCH ×3 (08:52→21:09)
[2021-02-15] MEDS: CETIRIZINE HCL 10 MG TABLET PO SCH (08:52)
[2021-02-15] MEDS: HEPARIN SOD 5,000 UNIT/0.5 ML VIAL SQ SCH ×2 (08:52→21:08)
[2021-02-15] MEDS: ISOSORBIDE MONO EXTENDED REL 30 MG TABCR PO SCH (08:52)
[2021-02-15] MEDS: FLUTICASONE PROPIONATE NA SPR 16 GM BTL SCH ×2 (08:52→21:07)
[2021-02-15] MEDS: PANTOprazole 40 MG TAB PO SCH ×2 (08:52→21:10)
[2021-02-15] MEDS: NEPHROCAPS PO SCH (08:52)
[2021-02-15] MEDS: TOPIRAMATE 25 MG TAB PO SCH (08:52)
[2021-02-15] MEDS: DICYCLOMINE HCL 10 MG CAP PO SCH ×3 (08:52→21:07)
--- NOTE | 2021-02-15 08:52 | Cardiology Progress Note ---
Date of Service February 15, 2021 Assessment & Plan (1) Acute on chronic HFrEF (heart failure with reduced ejection fraction): (2) Acute on chronic renal failure: (3) Nonischemic cardiomyopathy: (4) Mitral valve insufficiency: (5) Pericardial effusion: (6) Elevated troponin: Plan: ASSESSMENT/PLAN: 1. Acute on chronic heart failure with reduced EF: Decompensated CHF in the setting of end-stage renal failure. Continues to diurese with diuretics and also receive hemodialysis, which was initiated on 02/11/2021. Based on today's weight, she has lost approximately 20 lb. Continue carvedilol. Recommend increasing carvedilol to 25 mg twice daily later this hospitalization, prior to discharge. Avoiding JANETTE-inhibitor/ARNI/ARB/spironolactone due to advanced renal failure. Continue isosorbide mononitrate. Hydralazine initiated yesterday and can be further titrated as long as blood pressure remains reasonable during dialysis. Low sodium diet. Strict I&Os. Daily weights. 2. Acute on chronic renal failure: Hemodialysis was initiated on 02/11/2021. History of focal segmental glomerulosclerosis per report/history. Reportedly had renal biopsy in the past. 3. Mitral regurgitation: Non severe. 4. Nonischemic cardiomyopathy: Continue carvedilol and would increase to 25 mg twice daily later this week, and certainly before discharge as tolerated. Given renal failure, JANETTE-inhibitor, ARNI, ARB, spironolactone will not be used. Hydralazine/nitrate therapy as alternative therapy. She has agreed to consider ICD for primary prevention. Discussed with Dr. Parada of electrophysiology who has discussed this with patient. If agreeable, she may receive ICD during this hospital stay, but defer to Dr. Parada for timing. 5. Pericardial effusion: Chronic. Would not account for her presentation. 6. Elevated troponin: She did not present with acute coronary syndrome. Elevated troponin likely due to decompensated CHF in the setting of acute on chronic renal failure. 7. Disposition: Cardiology will follow more peripherally at this point as volume management is being done predominantly through dialysis. Very important to keep her outpatient appointment with Dr. Jaramillo, her advanced heart failure/transplant artist and repertoire manager through [facility]. As per Dr. Jaramillo, not currently transplant candidate given obesity and issues with noncompliance. If improvement can be made on these grounds, transplant status could change. Can also follow-up with me/heart failure program shortly after discharge. Please call on-call artist and repertoire manager with any questions or concerns. Admission and Anticipated Discharge Date Admission Date: February 09, 2021 Subjective Patient seen this morning at approximately 8:00 a.m.. She denies shortness of breath and states that she has not had any issues with shortness of breath even prior. She denies chest pain. She has lower back pain which she believes is due to sitting in bed. She has been out of bed including ambulating to the restroom overnight. She misses salt in her food, stating that food tastes bland, but also acknowledged why she is being maintained on a low-sodium diet. When asked how she is tolerating dialysis, she states that she did not know. She was alone in her hospital room. Review of systems: As above. Physical Exam Physical Exam: Gen.: No acute distress. Alert. HEENT: Anicteric sclera. Neck: Thick neck. Cannot assess JVD. Cardiac: Regular. Normal S1-S2. No ectopy. No murmurs, rubs, or gallops. Pulmonary: Decreased breath sounds but otherwise clear to auscultation bilaterally without wheezes, rales, or rhonchi. Abdomen: Soft, nontender, nondistended, with normoactive bowel sounds. No bruits noted. Abdominal body wall edema. Extremities: 2+ radial pulses bilaterally. 2+ posterior tibialis pulses bilaterally. 2-3+ bilateral lower extremity edema. No cyanosis. Results & Data ([facility]) Vital Signs (Past 12 Hours) Vital Signs Temp Pulse Pulse Resp BP BP Pulse Ox 02/15/21 08:00 92 H 02/15/21 07:12 37.0 C 85 18 127/86 98 02/15/21 03:10 36.5 C 86 15 135/77 96 02/15/21 03:00 85 22 02/15/21 00:00 79 16 02/14/21 23:00 80 13 Intake & Output 02/13/21 02/14/21 02/15/21 02/16/21 06:59 06:59 06:59 06:59 Intake Total 910.0 / 910.0 1800 / 1800 480 / 480 Output Total 1602 / 1602 1876 / 1876 1301 / 1301 Balance -692.0 / -692.0 -76 / -76 -821 / -821 Weight 439 lb 2.573 oz 442 lb 0.429 oz 419 lb 12.162 oz Laboratory Results Laboratory Results - last 24 hr 02/15/21 02/15/21 02/15/21 06:53 06:53 08:19 WBC Cancelled 7.14 RBC Cancelled 4.35 Hgb Cancelled 10.5 L Hct Cancelled 35.2 L MCV Cancelled 80.9 MCH Cancelled 24.1 L MCHC Cancelled 29.8 L RDW Std Deviation Cancelled 59.6 H RDW Coeff of Nicole Cancelled 20.3 H Plt Count Cancelled 199 MPV Cancelled 9.6 Immature Gran % (Auto) Cancelled 0.6 Neut % (Auto) Cancelled 56.2 Lymph % (Auto) Cancelled 31.5 Newberry % (Auto) Cancelled 8.8 Eos % (Auto) Cancelled 2.5 Baso % (Auto) Cancelled 0.4 Neut # (Auto) Cancelled 4.01 Lymph # (Auto) Cancelled 2.25 Newberry # (Auto) Cancelled 0.63 H Eos # (Auto) Cancelled 0.18 Baso # (Auto) Cancelled 0.03 Immature Gran # (Auto) Cancelled 0.04 H Absolute Nucleated RBC Cancelled 0.15 H Nucleated RBC % (auto) Cancelled 2.1 Neutrophils % (Manual) Cancelled Band Neutrophils % Cancelled Lymphocytes % (Manual) Cancelled Prolymphocyte % Cancelled Reactive Lymphs % (Man) Cancelled Monocytes % (Manual) Cancelled Eosinophils % (Manual) Cancelled Basophils % (Manual) Cancelled Metamyelocytes % (Man) Cancelled Myelocytes % (Man) Cancelled Promyelocytes % (Man) Cancelled Blast Cells % (Manual) Cancelled Plasma Cell % (Manual) Cancelled Other Cells % Cancelled Nucleated RBC % Cancelled Neutrophils # (Manual) Cancelled Band Neutrophils # Cancelled Total Absolute Neuts Cancelled Lymphocytes # (Manual) Cancelled Prolymphocyte # Cancelled Reactive Lymphs # Cancelled Total Abs Lymphocytes Cancelled Monocytes # (Manual) Cancelled Eosinophils # (Manual) Cancelled Basophils # (Manual) Cancelled Metamyelocytes # (Man) Cancelled Myelocytes # (Manual) Cancelled Promyelocytes # (Man) Cancelled Blast Cells # (Man) Cancelled Plasma Cell # (Manual) Cancelled Other Cells # Cancelled Nucleated RBCs # (Man) Cancelled Hypersegmented Neuts Cancelled Hyposegmented Neuts Cancelled Hypogranular Neuts Cancelled Large Granular Lymphs Cancelled # Lrg Granular Lymphs Cancelled Hairy Cells Cancelled Smudge Cells Cancelled Toxic Granulation Cancelled Toxic Vacuolation Cancelled Dohle Bodies Cancelled Mart Rods Cancelled Platelet Estimate Cancelled Hypogranular Platelets Cancelled Clumped Platelets Cancelled Giant Platelets Cancelled Platelet Satelliting Cancelled RBC Morphology Cancelled Polychromasia Cancelled Hypochromasia Cancelled Present Poikilocytosis Cancelled Basophilic Stippling Cancelled Anisocytosis Cancelled Present Microcytosis Cancelled Present Macrocytosis Cancelled Spherocytes Cancelled Pappenheimer Bodies Cancelled Sickle Cells Cancelled Target Cells Cancelled 1+ Tear Drop Cells Cancelled Ovalocytes Cancelled Stomatocytes Cancelled [place] Bodies Cancelled Echinocytes Cancelled Acanthocytes (Spur) Cancelled Rouleaux Cancelled RBC Agglutinates Cancelled Schistocytes Cancelled RBC Morph Comment Cancelled Sezary Cell Cancelled Sodium 136 Potassium 4.1 Chloride 104 Carbon Dioxide 23 Anion Gap 9.0 BUN 44 H Creatinine 5.25 H* Est Cr Clr Drug Dosing 28.3 Est GFR ( Amer) 12.7 Est GFR (Non-Af Amer) 10.9 BUN/Creatinine Ratio 8.5 L Glucose 117 H Calcium 8.1 L Phosphorus 4.8 Albumin 1.9 L Diagnostic Findings Telemetry personally reviewed: Sinus rhythm. PVCs. Medications Administered Current Inpatient Medications Acetaminophen (Acetaminophen 325 Mg Tab) 650 mg PO Q4H PRN PRN Reason: Pain or Fever Stop: 03/12/21 02:34 Last Admin: 02/11/21 22:32 Dose: 650 mg Documented by: Acetaminophen/Codeine Phosphate (Acetaminophen W/Codeine #3 1 Tab) 1 tab PO Q4H PRN PRN Reason: Pain Stop: 03/15/21 22:28 Last Admin: 02/13/21 22:50 Dose: 1 tab Documented by: Albuterol (Albuterol Hfa 8 Gm Inhaler) 2 puffs INH QID PRN PRN Reason: Wheezing Stop: 03/12/21 02:34 Carvedilol (Carvedilol 12.5 Mg Tab) 12.5 mg PO BID [facility] Stop: 03/12/21 09:44 Last Admin: 02/14/21 20:38 Dose: 12.5 mg Documented by: Cetirizine HCl (Cetirizine Hcl 10 Mg Tablet) 10 mg PO DAILY [facility] Stop: 03/12/21 08:59 Last Admin: 02/14/21 07:49 Dose: 10 mg Documented by: Dicyclomine HCl (Dicyclomine Hcl 10 Mg Cap) 10 mg PO TID [facility] Stop: 03/12/21 08:59 Last Admin: 02/14/21 20:37 Dose: 10 mg Documented by: Fluticasone Furoate (Fluticasone Furoate 200mcg 14 Puffs/Inhaler) 1 puffs INH QAM [facility] Stop: 03/12/21 08:59 Last Admin: 02/14/21 07:49 Dose: 1 puffs Documented by: Fluticasone Propionate (Fluticasone Propionate Na Spr 16 Gm Btl) 2 sprays NA BID [facility] Stop: 03/12/21 08:59 Last Admin: 02/14/21 20:35 Dose: 2 sprays Documented by: Furosemide (Furosemide 40 Mg/4 Ml Vial) 80 mg IV Q8H [facility] Stop: 03/12/21 02:34 Last Admin: 02/15/21 03:47 Dose: 80 mg Documented by: Guaifenesin/Dextromethorphan (Guaifenesin/Dextrom Syrup 200mg/20mg 10ml Udc) 10 ml PO Q6H PRN PRN Reason: Cough Stop: 03/16/21 17:45 Last Admin: 02/14/21 18:23 Dose: 10 ml Documented by: Heparin Sodium (Porcine) (Heparin Sod 5,000 Unit/0.5 Ml Vial) 5,000 units SQ Q12 [facility] Stop: 03/12/21 08:59 Last Admin: 02/14/21 20:36 Dose: 5,000 units Documented by: Hydralazine HCl (Hydralazine 10 Mg Tab) 10 mg PO TID [facility] Stop: 03/16/21 20:59 Last Admin: 02/14/21 20:38 Dose: 10 mg Documented by: Isosorbide Mononitrate (Isosorbide Newberry Extended Rel 30 Mg Tabcr) 30 mg PO QAM [facility] Stop: 03/15/21 08:59 Last Admin: 02/14/21 07:50 Dose: 30 mg Documented by: Ondansetron HCl (Ondansetron Inj 2 Mg/Ml 2 Ml Vial) 4 mg IV Q6H PRN PRN Reason: Nausea Stop: 03/12/21 02:34 Pantoprazole Sodium (Pantoprazole 40 Mg Tab) 40 mg PO BID [facility] Stop: 03/12/21 08:59 Last Admin: 02/14/21 20:39 Dose: 40 mg Documented by: Topiramate (Topiramate 25 Mg Tab) 25 mg PO DAILY [facility] Stop: 03/12/21 08:59 Last Admin: 02/14/21 07:51 Dose: 25 mg Documented by: Vitamin B Complex/Folic Acid (Nephrocaps) 1 cap PO QAM [facility] Stop: 03/13/21 08:59 Last Admin: 02/14/21 07:50 Dose: 1 cap Documented by: PG Care Time/CCT Total # of Minutes Spent Total Time Spent with Patient: Total time spent is greater than 50% in coordination of care (as documented) at patient's floor/unit and/or counseling patient: Coding Level of Care Code 09704 Subseq Hosp Care Lvl 3 Diagnoses Acute on chronic HFrEF (heart failure with reduced ejection fraction) I50.23 Acute on chronic renal failure N17.9; N18.9 Nonischemic cardiomyopathy I42.8 Mitral valve insufficiency I34.0 Pericardial effusion I31.3 Elevated troponin R77.8
--- NOTE | 2021-02-15 10:30 | Nephrology Progress Note ---
Date of Service February 15, 2021 Assessment & Plan (1) ESRD (end stage renal disease): (2) Anemia: (3) Nonischemic cardiomyopathy: (4) Diabetes mellitus type 2 in obese: Plan: ESRD, on hemodialysis with severe nonischemic cardiomyopathy, EF 20-25 percent and poorly controlled diabetes. Started on hemodialysis on 02/11/2021 via right IJ tunneled dialysis catheter. Vital sign stable today on nasal cannula oxygen 2 liters. Hemoglobin stable. -- plan for dialysis MWF, HD later today,Social service consulted for outpatient dialysis at [facility]. -- dose medications for GFR less than 10, left arm nephrology precaution will follow Admission and Anticipated Discharge Date Admission Date: February 09, 2021 Jadon Cronin was seen and examined in her room this morning, no overnight events, clinically stable. She was crying as she was not able to sleep. Vital signs stable. Has mild pain tenderness and pain at tunneled dialysis catheter side but no active bleeding. Hemoglobin stable. Review of Systems Review of Systems: Detailed review of system was otherwise unremarkable. Physical Exam Physical Exam: pt refused PE today. Results & Data ([facility]) Vital Signs (Past 12 Hours) Vital Signs Temp Pulse Pulse Resp BP BP Pulse Ox 02/15/21 08:00 92 H 02/15/21 07:12 37.0 C 85 18 127/86 98 02/15/21 03:10 36.5 C 86 15 135/77 96 02/15/21 03:00 85 22 02/15/21 00:00 79 16 02/14/21 23:00 80 13 PG Care Time/CCT Total # of Minutes Spent Total Time Spent with Patient: Total time spent is greater than 50% in coordination of care (as documented) at patient's floor/unit and/or counseling patient: Coding Level of Care Code 36561 Subseq Hosp Care Lvl 2 Diagnoses ESRD (end stage renal disease) N18.6 Anemia D64.9 Nonischemic cardiomyopathy I42.8 Diabetes mellitus type 2 in obese E11.69; E66.9
[2021-02-15 11:18] LABS: Estimated Average Glucose 154 mg/dl
[2021-02-16] MEDS ORDERED: COUGH DROP (SUGAR FREE) LOZ 24 LOZ/1 BOX BUCCAL ONE (01:29)
[2021-02-16] MEDS ORDERED: diphenhydrAMINE 50 MG/ML VIAL IV STA (02:15)
--- NOTE | 2021-02-16 02:21 | Communication Note ---
Date of Service: February 16, 2021 Patient had 16 beat run of monomorphic ventricular tachycardia. She reports associated palpitation and SOB. Reports feeling very anxious, unable to sleep. She is frustrated that her mother has not been able to visit due to work conflict. On exam she is afebrile, HD stable, NSR on monitor Answering questions appropriately Assessment/Plan - 20yo female with NICM, ESRD on HD with 16 beat run of VT -Check BMP, Mg and PO4 now -Consider increasing Carvedilol to 25mg BID as discussed by Cardiology -Encouraged patient to have ICD placed - has been discussed with Cardiology and primary team. She is reluctant at this time to have device placed at this time. Told her that it could be lifesaving given her degree of heart failure and presence of ventricular arrhythmia.
[2021-02-16] MEDS: ACETAMINOPHEN 325 MG TAB PO PRN (02:52)
[2021-02-16 03:15] LABS: BUN Creatinine Ratio 8.1 (10-20); Calcium 7.8 mg/dl (8.5-10.1); Creatinine Clr Calc Pharmacy 35.4 ml/min; Est GFR (African American) 16.6 ml/min; Est GFR (Non-African American) 14.3 ml/min; Magnesium 1.7 mg/dl (1.8-2.4); Potassium 3.8 mmol/L (3.5-5.1)
[2021-02-16 03:18] LABS: Phosphorus 3.5 mg/dl (2.5-4.9)
[2021-02-16] MEDS ORDERED: MAGNESIUM SULFATE / D5W 1 GM/100 ML BAG IV ONE (04:30)
[2021-02-16] MEDS: FUROSEMIDE 40 MG/4 ML VIAL IV SCH (04:34)
[2021-02-16] MEDS ORDERED: MAGNESIUM OXIDE 400 MG TAB PO ONE (08:08)
--- NOTE | 2021-02-16 08:08 | Discharge Summary ---
Date of Service February 16, 2021 Admission HPI Per Admitting Provider 20 yo F with a hx Focal segmental glomerulosclerosis, HFrEF 2/2 nonischemic cardiomyopathy(EF 25-30), CKD stage III, GERD, Asthma, DM2, sent to the ER by PCP for abnormal labs. She was seen by her nickel operator Dr. Noland yesterday and advised to go to the hospital for acute management of decompensated heart failure, and at the time she declined. Today she received phone call from her PCP that her labs were critically high and she had to go to the ER for treatment and evaluation. Review of [facility] labs reveal the following: Na 138, K 4.3, Cl 112, Hco3 19, BUN 78, Cr 7.90, GFR 8, Gluc 120, Ca 7.3, BNP >70,000. She was brought to the ER by her mother who is her primary caregiver. Roseanne is minimally interactive with the interview, mainly watching tv. She denies much difficulty breathing but says it does worsen if she lays on her side. She also attests to leg weakness with standing and trying to move. She is actively being treated for bacterial sinus infection, for which she has had ongoing symptoms. Principal Diagnosis Acute decompensated heart failure secondary to nonischemic cardiomyopathy complicated and acute renal failure in the setting of ESRD secondary to history of focal segmental glomerular sclerosis Discharge Exam General: In no acute distress HEENT: Normocephalic atraumatic Neck: Right IJ in place, clean dry and intact Cardiac: Regular rate and rhythm I did not appreciate significant murmurs or gallops, no S1, normal S2, negative pedal edema, Respiratory: Clear to auscultation bilaterally with symmetrical chest expansion did not appreciate any significant wheezes, rales, rhonchi GI: Soft, nontender, nondistended MSK: Moves all extremities Psych: Not cooperative with the interview, poor insight into her general medical state Discharge Data Allergies Allergy/AdvReac Type Severity Reaction Status Date / Time dog dander Allergy Unknown Verified 02/08/21 12:58 pollen extracts Allergy Unknown Verified 02/08/21 12:58 latex Allergy Makes skin Verified 02/08/21 12:58 itchy & red red (food color) Allergy Verified 02/15/21 12:00 red dye Allergy Verified 02/15/21 12:00 Consultations 02/09/21 23:08 Consult Nephrology Stat ED Decision to Admit Stat 02/10/21 02:35 Consult Cardiology Routine 02/10/21 09:51 Consult Vascular Surgery Routine Procedures Performed Operation Date: 02/11/21 08:40 Actual Procedures p Insertion of Perm Catheter, Right Internal Jugular Approach, Ultrasound Localization of Right Internal Jugular Vein, Fluoroscopy for Positioning - Ric Barragan MD Ordered Studies 02/11/21 11:22 EV cvc insrt tnnl with prt/case folder Urgent US EV guide vascular access Urgent Hospital Course (1) Acute renal failure: Complicated 20 yo F with hx FSGS, nonischemic cardiomyopathy causing HFrEF (25-30), GERD, CKD3, who is being admitted for management of acute renal failure in the setting of acute on chronic heart failure. Mother Prasanth works in [place] during the day, please call for updates [phone]. ESRD - s/p IJ THC placement by Vascular Sx on 02/11/21 - Continue Lasix 80mg IV q8h - Per I/Os patient now 4.7 L negative - - weight: 199.2 ->190.4 - Nephrology consulted: -- plan for dialysis MWF, Social service consulted for outpatient dialysis at [place] -- dose medications for GFR less than 10, left arm nephrology precaution - CM working on referrals to [facility] in [place]. Approvals pending. Await determination and treatment schedule. - BMP daily Acute Decompensated Congested Heart Failure with Reduced Ejection Fraction secondary to Nonischemic cardiomyopathy Outpatient pro BNP >94135. Last TTE 12/28/20: Ef 25-30, global hypokinesis, mild pulmonary HTN, mild MR, small posterior pericardial effusion without tamponade physiology. Repeat Echo this visit showing severely reduced LV fxn with EF of 20%, severe global hypokinesis of LV, moderate tricuspid regurg, mild mitral regurg. During the admission cardiology was consulted to assist with volume management. They recommend avoiding JANETTE inhibitor's, ARN I, ARB's, spironolactone due to advanced renal failure. They recommend continuing isosorbide mononitrate, initiating hydralazine 10 mg 3 times daily and tolerating as pressures allow. They recommended continuing her carvedilol dose to 12.5 mg twice daily with a goal to increase to 25 mg twice daily By discharge. Given her recurrent arrhythmias it is strongly recommended that she receive an ICD however the patient has repeatedly refused during the hospitalization. To consider elective ICD placement as an outpatient. - Lasix as above - Monitor fluid status with I/Os - Daily weights :190.4KG - Low Na diet - On discharge patient will need a hospital bed. As she will require frequent position changes, this is not feasible with an ordinary bed. Furthermore the head of bed must be elevated to at least 30 degrees most of the time secondary to a CHF cardiomyopathy. Morbid Obesity skin check on admission showing mild irritated spots on abdomen but otherwise no signs of skin breakdown/existing ulcerations - Khalil to help with preventing skin breakdown during diuresis, waffle boots, heel precautions, pressure ulcer precautions - bariatric bed - turn Q2h Sinus Infection - Completed outpatient doxycycline treatment - added BID Flonase nares spray Asthma - cont home albuterol, budesonide, fluticasone inhalers - continue daily cetirizine GERD - cont pantoprazole BRANDON - CPAP nightly Anemia, chronic, stable - on iron at home - stable at 11.7 Diabetes Patient's record indicates diagnosis of diabetes. However the patient adamantly states that she was "cured "of her diabetes and was alerted this up by her primary care physician who discontinued her diabetes medications. A1c during this admission was 7, daily BMPs have been stable and within normal limits. -Patient refusing blood sugar checks AC at bedtime Medications for unclear diagnoses - confirmed with [facility] [place], patient is on topiramate and dicyclomine. unsure for which diagnoses. DVT ppx: heparin FEN/GI: low sodium diet, on pantoprazole Bowel regimen: prn Code Status: full code Dispo: PCU, dc pending scheduling outpt dialysis (2) Pulmonary edema: (3) Acute uremia: (4) Acidosis: (5) CKD (chronic kidney disease): (6) Acute on chronic HFrEF (heart failure with reduced ejection fraction): (7) GERD (gastroesophageal reflux disease): (8) Insomnia: (9) Nonischemic cardiomyopathy: (10) Focal segmental glomerulosclerosis: Discharge Plan Discharge Items Patient Disposition: Home - Home Health Services Reason For Visit: ACUTE HFrER, ARF Discharge Diagnosis: Acute decompensated heart failure secondary to nonischemic cardiomyopathy complicated and acute renal failure in the setting of ESRD secondary to history of focal segmental glomerular sclerosis Activity: Resume your previous activity Follow-up/Referrals: Remigio Mark DO [Primary Care Provider] - Stand-Alone Forms: [facility], Smoking Cessation Medications and DC Order Prescriptions: No Action furosemide 40 mg tablet 80 mg PO BID Qty: 60 RF: 5 dicyclomine 10 mg capsule 10 mg PO TID RF: 0 Flovent HFA 44 mcg/actuation HFA aerosol inhaler 2 puff inhalation BID RF: 0 pantoprazole [Protonix] 20 mg tablet,delayed release (DR/EC) 20 mg PO BID RF: 0 topiramate [Topamax] 25 mg tablet 25 mg PO DAILY RF: 0 Pulmicort Flexhaler 180 mcg/actuation aerosol powdr breath activated 2 inh inhalation BID Qty: 1 RF: 2 carvedilol 12.5 mg tablet 12.5 mg PO BID RF: 0 cetirizine 10 mg tablet 10 mg PO DAILY RF: 0 ferrous sulfate 27 mg iron Tablet 27 mg PO DAILY RF: 0 albuterol sulfate 90 mcg/actuation HFA aerosol inhaler 2 puff INHALATION QID PRN (Reason: Wheezing) RF: 0 Admission Data Admit Date/Time: 02/09/21 23:56 Attending Provider: Yesi Alvarado Admit Provider: Maggi Kirby Primary Care Provider: Remigio Mark Other Providers: Felix Reyna ; Nicola Luna ; Tian Paulino ; Ric Barragan Supervising Physician Co-Signing Physician Notes Resident Physician Supervision Note: I independently interviewed and examined the patient and verified the casanova history and physical, reviewed labs and image studies and agree with resident Dr. Upton findings and care plan.
[2021-02-16] MEDS: NEPHROCAPS PO SCH (08:26)
[2021-02-16] MEDS: PANTOprazole 40 MG TAB PO SCH ×2 (08:26→20:38)
[2021-02-16] MEDS: TOPIRAMATE 25 MG TAB PO SCH (08:26)
[2021-02-16] MEDS: ISOSORBIDE MONO EXTENDED REL 30 MG TABCR PO SCH (08:26)
[2021-02-16] MEDS: hydrALAZINE 10 MG TAB PO SCH ×3 (08:26→20:39)
[2021-02-16] MEDS: FLUTICASONE PROPIONATE NA SPR 16 GM BTL SCH ×2 (08:27→20:38)
[2021-02-16] MEDS: DICYCLOMINE HCL 10 MG CAP PO SCH ×3 (08:27→20:38)
[2021-02-16] MEDS: CETIRIZINE HCL 10 MG TABLET PO SCH (08:27)
[2021-02-16] MEDS: FUROSEMIDE 80 MG TAB PO SCH ×2 (08:56→17:13)
[2021-02-16] MEDS: HEPARIN SOD 5,000 UNIT/0.5 ML VIAL SQ SCH ×2 (08:56→20:39)
[2021-02-16] MEDS: carvediloL 25 MG TAB PO SCH ×2 (08:56→20:41)
[2021-02-16] MEDS: FLUTICASONE FUROATE 200MCG 14 PUFFS/INHALER INH SCH (08:57)
--- NOTE | 2021-02-16 11:46 | Nephrology Progress Note ---
Date of Service February 16, 2021 Assessment & Plan (1) ESRD (end stage renal disease): (2) Anemia: (3) Nonischemic cardiomyopathy: (4) Diabetes mellitus type 2 in obese: Plan: ESRD, on hemodialysis with severe nonischemic cardiomyopathy, EF 20-25 percent and poorly controlled diabetes. Started on hemodialysis on 02/11/2021 via right IJ tunneled dialysis catheter. Vital sign stable today on nasal cannula oxygen 2 liters. Hemoglobin stable. -- continue dialysis MWF, HD later today, Social service consulted for outpatient dialysis at [facility]. okay to be discharged whenever outpatient dialysis date and time is known. -- dose medications for GFR less than 10, left arm nephrology precaution will follow Admission and Anticipated Discharge Date Admission Date: February 09, 2021 Jadon Cronin was seen and examined in her room this morning, no overnight events, clinically stable. She reports overall not feeling well, "feeling sick". Vital signs stable. Hemoglobin stable. Review of Systems Review of Systems: Detailed review of system was otherwise unremarkable. Physical Exam Constitutional: WD/WN, vitals as above + ill appearing and + morbidly obese; no acute distress Eyes: + anicteric sclerae Respiratory: no respiratory distress Auscultation: + diminished lung sounds Cardiovascular: Rate/Rhythm: regular rate and regular rhythm Heart Sounds: normal S1 and normal S2 Extremities: + edema and + vascular access device ( Right IJ tunneled dialysis catheter) Neurologic: no focal motor deficits and not confused Psychiatric: Orientation: alert and oriented x 3 Results & Data ([facility]) Vital Signs (Past 12 Hours) Vital Signs Temp Pulse Pulse Resp BP BP Pulse Ox 02/16/21 08:06 36.7 C 89 20 123/69 95 02/16/21 04:28 36.7 C 97 H 22 112/88 96 02/16/21 04:00 89 24 02/16/21 02:00 86 18 02/16/21 01:43 92 H 20 110/54 L 02/16/21 01:09 92 H 25 H 116/58 L 96 02/16/21 00:00 91 H 23 PG Care Time/CCT Total # of Minutes Spent Total Time Spent with Patient: Total time spent is greater than 50% in coordination of care (as documented) at patient's floor/unit and/or counseling patient: Coding Level of Care Code 50685 Subseq Hosp Care Lvl 2 Diagnoses ESRD (end stage renal disease) N18.6 Anemia D64.9 Nonischemic cardiomyopathy I42.8 Diabetes mellitus type 2 in obese E11.69; E66.9
--- NOTE | 2021-02-16 14:00 | Cardiology Progress Note ---
Date of Service February 16, 2021 Assessment & Plan (1) Acute on chronic HFrEF (heart failure with reduced ejection fraction): (2) Non-cardiac chest pain: (3) Nonsustained ventricular tachycardia: Plan: Congestive symptoms being well managed with dialysis. Transient chest pain seems noncardiac, benign ECG during pain. 2 episodes of nonsustained ventricular tachycardia last evening, benign throughout the day today. In the absence of symptomatic or sustained vent ricular tachycardia (greater than 30 seconds) would not recommend antiarrhythmic therapy. Patient is being considered for an ICD longer-term. Electrolytes unremarkable. Admission and Anticipated Discharge Date Admission Date: February 09, 2021 Subjective Patient had episode of transient chest discomfort this afternoon, ECG obtained during chest pain was unremarkable. 2 episodes of nonsustained ventricular tachycardia last evening, isolated events without significant ventricular ectopy or any further dysrhythmias since approximately 1 AM this morning. At the time of my evaluation, patient was asking "Can I go home?". She denied any current chest pain and noted no dyspnea or other specific complaints. Physical Exam Physical Exam: No distress. I/O -900 BP has been normotensive overnight. Pulse 80-100 bpm range. Skin: no ecchymoses or generalized lesions. HEENT: unremarkable. Neck: General venous pulse appears mildly elevated but is difficult to assess, no carotid bruits. Lungs: Decreased breath sounds but generally clear. Cardiac: regular rhythm, no murmur or gallop. Abdomen: benign. Extremities: Bilateral 2+ partially pitting pretibial edema, pulses intact. Feet warm. Neurologic: Reticent affect, grossly nonfocal. Results & Data ([facility]) Vital Signs (Past 12 Hours) Vital Signs Temp Pulse Pulse Resp BP BP BP 02/16/21 11:52 98.6 F 86 20 103/51 L 02/16/21 08:06 98.1 F 89 20 123/69 02/16/21 04:28 98.1 F 97 H 22 112/88 02/16/21 04:00 89 24 02/16/21 02:00 86 18 Pulse Ox 02/16/21 11:52 91 02/16/21 08:06 95 02/16/21 04:28 96 02/16/21 04:00 02/16/21 02:00 Laboratory Results Normal electrolytes, BUN 34, creatinine 4.2 (down from 5.5) Diagnostic Findings ECG during chest pain showed sinus rhythm with some motion artifact, otherwise unremarkable. PG Care Time/CCT Total # of Minutes Spent Total Time Spent with Patient: Total time spent is greater than 50% in coordination of care (as documented) at patient's floor/unit and/or counseling patient: Coding Level of Care Code 08002 Subseq Hosp Care Lvl 3 Diagnoses Acute on chronic HFrEF (heart failure with reduced ejection fraction) I50.23 Non-cardiac chest pain R07.89 Nonsustained ventricular tachycardia I47.2
--- NOTE | 2021-02-16 17:42 | Hospitalist Progress Note ---
Date of Service February 16, 2021 Assessment & Plan (1) Acute renal failure: Plan: Complicated 20 yo F with hx FSGS, nonischemic cardiomyopathy causing HFrEF (25- 30), GERD, CKD3, who is being admitted for management of acute renal failure in the setting of acute on chronic heart failure. Mother Prasanth works in [place] during the day, please call for updates [phone]. ESRD - s/p IJ THC placement by Vascular Sx on 02/11/21 - Continue Lasix 80mg IV q8h - Per I/Os patient now 4.7 L negative - - weight: 199.2 ->190.4->190 - Nephrology consulted: -- plan for dialysis MWF, Social service consulted for outpatient dialysis at [place] -- dose medications for GFR less than 10, left arm nephrology precaution - CM working on referrals to [facility] in [place]. Approvaled - BMP daily Acute Decompensated Congested Heart Failure with Reduced Ejection Fraction secondary to Nonischemic cardiomyopathy Outpatient pro BNP >[phone]. Last TTE 12/28/20: Ef 25-30, global hypokinesis, mild pulmonary HTN, mild MR, small posterior pericardial effusion without tamponade physiology. Repeat Echo this visit showing severely reduced LV fxn with EF of 20%, severe global hypokinesis of LV, moderate tricuspid regurg, mild mitral regurg. Cardiology consulted - Recommend avoiding JANETTE inhibitor's, ARN I, ARB's, spironolactone due to advanced renal failure. Continue isosorbide mononitrate, initiating hydralazine 10 mg 3 times daily and tolerating as pressures allow. Continue her carvedilol dose to 12.5 mg twice daily with a goal to increase to 25 mg twice daily By discharge. Given her recurrent arrhythmias it was strongly recommended that she receive an ICD however the patient has repeatedly refused during the hospitalization. To consider elective ICD placement as an outpatient. - Lasix as above - Carvedilol 25 mg twice daily - Monitor fluid status with I/Os - Daily weights :190KG - Low Na diet - Continued dialysis. - On discharge patient will need a hospital bed. As she will require frequent position changes, this is not feasible with an ordinary bed. Furthermore the head of bed must be elevated to at least 30 degrees most of the time secondary to a CHF cardiomyopathy. Bed to be delivered Monday 10:30 am Morbid Obesity skin check on admission showing mild irritated spots on abdomen but otherwise no signs of skin breakdown/existing ulceration - bariatric bed - turn Q2h Sinus Infection - Completed outpatient doxycycline treatment - added BID Flonase nares spray Asthma - cont home albuterol, budesonide, fluticasone inhalers - continue daily cetirizine GERD - cont pantoprazole BRANDON - CPAP nightly Anemia, chronic, stable - on iron at home - stable at 11.7 Diabetes Patient's record indicates diagnosis of diabetes. However the patient adamantly states that she was "cured "of her diabetes and was alerted this up by her primary care physician who discontinued her diabetes medications. A1c during this admission was 7, daily BMPs have been stable and within normal limits. -Patient refusing blood sugar checks AC at bedtime Medications for unclear diagnoses - confirmed with [facility] records, patient is on topiramate and dicyclomine. unsure for which diagnoses. DVT ppx: heparin FEN/GI: low sodium diet, on pantoprazole Bowel regimen: prn Code Status: full code Dispo: PCU, anticipate d/c tomorrow (2) Pulmonary edema: (3) Acute uremia: (4) Acidosis: (5) CKD (chronic kidney disease): (6) Acute on chronic HFrEF (heart failure with reduced ejection fraction): (7) GERD (gastroesophageal reflux disease): (8) Insomnia: (9) Nonischemic cardiomyopathy: (10) Focal segmental glomerulosclerosis: Admission and Anticipated Discharge Date Admission Date: February 09, 2021 Supervising Physician Co-Signing Physician Notes Resident Physician Supervision Note: I independently interviewed and examined the patient and verified the casanova history and physical, reviewed labs and image studies and agree with resident Dr. Upton findings and care plan. Subjective Patient sitting in bed in no acute distress. Tolerating her diet, voiding, stooling, sleeping well. Acute concerns related to discharge, all questions answered. Physical Exam Physical Exam: General: In no acute distress HEENT: Normocephalic atraumatic Neck: Right IJ in place, clean dry and intact Cardiac: Regular rate and rhythm I did not appreciate significant murmurs or gallops, no S1, normal S2, negative pedal edema, Respiratory: Clear to auscultation bilaterally with symmetrical chest expansion did not appreciate any significant wheezes, rales, rhonchi GI: Soft, nontender, nondistended MSK: Moves all extremities Psych: Not cooperative with the interview, poor insight into her general medical state Results & Data Results & Data ([facility]) Vital Signs (Past 12 Hours) Vital Signs Temp Pulse Pulse Resp BP BP Pulse Ox 02/16/21 16:30 36.4 C L 85 20 105/44 L 96 02/16/21 16:00 89 02/16/21 11:52 37.0 C 86 20 103/51 L 91 02/16/21 08:06 36.7 C 89 20 123/69 95 02/16/21 08:00 81 (1) Acute renal failure Acute renal failure type: unspecified Qualified Code(s): N17.9 - Acute kidney failure, unspecified (2) Pulmonary edema Chronicity: acute Qualified Code(s): J81.0 - Acute pulmonary edema
--- NOTE | 2021-02-17 07:31 | Discharge Summary ---
Date of Service February 17, 2021 Admission HPI Per Admitting Provider 20 yo F with a hx Focal segmental glomerulosclerosis, HFrEF 2/2 nonischemic cardiomyopathy(EF 25-30), CKD stage III, GERD, Asthma, DM2, sent to the ER by PCP for abnormal labs. She was seen by her senior administrative associate Dr. Noland yesterday and advised to go to the hospital for acute management of decompensated heart failure, and at the time she declined. Today she received phone call from her PCP that her labs were critically high and she had to go to the ER for treatment and evaluation. Review of [facility] labs reveal the following: Na 138, K 4.3, Cl 112, Hco3 19, BUN 78, Cr 7.90, GFR 8, Gluc 120, Ca 7.3, BNP >70,000. She was brought to the ER by her mother who is her primary caregiver. Roseanne is minimally interactive with the interview, mainly watching tv. She denies much difficulty breathing but says it does worsen if she lays on her side. She also attests to leg weakness with standing and trying to move. She is actively being treated for bacterial sinus infection, for which she has had ongoing symptoms. Admission Exam Per Admitting Provider Constitutional: morbidly obese, young female, anxious appearing but in no distress Eyes: EOMI, pupils equal and reactive bilaterally, no scleral icterus Cardiac: RRR, no murmurs, gallops or rubs. Normal S1, S2 Pulm: difficult to auscultate. crackles apparent on anterior chest exam, breathing comfortably on 2LNC Abd: soft, distended, tight skin, epigastric tenderness Extremities: 4+ pitting peripheral edema Neuro: no focal deficits, moving all 4 limbs, A&Ox3 Skin: multiple small skin breaks on anterior stomach, no heel or foot ulcerations, no visible ulcerations/lesions on back, hips, glutes on skin exam Principal Diagnosis Acute Decompensated Congested Heart Failure with Reduced Ejection Fraction secondary to Nonischemic cardiomyopathy complicated by ESRD secondary to focal segmental glomerular sclerosis requiring dialysis Discharge Exam General: In no acute distress HEENT: Normocephalic atraumatic Neck: Right IJ in place, clean dry and intact Cardiac: Regular rate and rhythm I did not appreciate significant murmurs or gallops, no S1, normal S2, negative pedal edema, Respiratory: Clear to auscultation bilaterally with symmetrical chest expansion did not appreciate any significant wheezes, rales, rhonchi GI: Soft, nontender, nondistended MSK: Moves all extremities Psych: Not cooperative with the interview, poor insight into her general medical state Discharge Data Allergies Allergy/AdvReac Type Severity Reaction Status Date / Time dog dander Allergy Unknown Verified 02/08/21 12:58 pollen extracts Allergy Unknown Verified 02/08/21 12:58 latex Allergy Makes skin Verified 02/08/21 12:58 itchy & red red (food color) Allergy Verified 02/15/21 12:00 red dye Allergy Verified 02/15/21 12:00 Consultations 02/09/21 23:08 Consult Nephrology Stat ED Decision to Admit Stat 02/10/21 02:35 Consult Cardiology Routine 02/10/21 09:51 Consult Vascular Surgery Routine Procedures Performed Operation Date: 02/11/21 08:40 Actual Procedures p Insertion of Perm Catheter, Right Internal Jugular Approach, Ultrasound Localization of Right Internal Jugular Vein, Fluoroscopy for Positioning - Ric Barragan MD Ordered Studies 02/11/21 11:22 EV cvc insrt tnnl with prt/glass finisher Urgent US EV guide vascular access Urgent Hospital Course (1) Acute renal failure: Complicated 20 yo F with hx FSGS, nonischemic cardiomyopathy causing HFrEF (25-30), GERD, CKD3, who is being admitted for management of acute renal failure in the setting of acute on chronic heart failure. Mother Prasanth works in [place] during the day, please call for updates [phone]. Acute Decompensated Congested Heart Failure with Reduced Ejection Fraction secondary to Nonischemic cardiomyopathy Outpatient pro BNP >48659. Last TTE 12/28/20: Ef 25-30, global hypokinesis, mild pulmonary HTN, mild MR, small posterior pericardial effusion without tamponade physiology. Repeat Echo this visit showing severely reduced LV fxn with EF of 20%, severe global hypokinesis of LV, moderate tricuspid regurg, mild mitral regurg. Cardiology consulted. Recommendations - Avoid JANETTE inhibitor's, ARN I, ARB's, spironolactone due to advanced renal failure. Continue isosorbide mononitrate, initiating hydralazine 10 mg 3 times daily and tolerating as pressures allow. Continue carvedilol dose to 12.5 mg twice daily with a goal to increase to 25 mg twice daily By discharge. Given her recurrent arrhythmias it was strongly recommended that she receive an ICD however the patient has repeatedly refused during the hospitalization. To consider elective ICD placement as an outpatient. - Lasix as above - Carvedilol 25 mg twice daily - Monitor fluid status with I/Os - Monitor Daily weights on D/C - Low Na diet Acute respiratory failure - suspect now it will be chronic -Patient experiencing hypoxia on room air secondary to her CHF and ESRD and OHS. Will require home O2 2 to 3 L continuously. -Home O2 arranged on discharge ESRD - s/p IJ THC placement by Vascular Sx on 02/11/21 - on Discharge - 80 mg Lasix PO BID - Per I/Os patient now 3.5 L negative for admission - weight: 199.2 ->190.4->190 ->193 - Nephrology consulted: -- dose medications for GFR less than 10, left arm nephrology precaution - CM[facility] [place] [facility] Morbid Obesity skin check on admission showing mild irritated spots on abdomen but otherwise no signs of skin breakdown/existing ulceration - bariatric bed - turn Q2h Sinus Infection - Completed outpatient doxycycline treatment - added BID Flonase nares spray Asthma - cont home albuterol, budesonide, fluticasone inhalers - continue daily cetirizine GERD - cont pantoprazole BRANDON - CPAP nightly Anemia, chronic, stable - on iron at home - stable at 11.7 Diabetes Patient's record indicates diagnosis of diabetes. However the patient adamantly states that she was "cured "of her diabetes and was alerted this up by her primary care physician who discontinued her diabetes medications. A1c during this admission was 7, daily BMPs have been stable and within normal limits. -Patient refusing blood sugar checks AC at bedtime Medications for unclear diagnoses to be clarified by outpt pcp - confirmed with [facility] records, patient is on topiramate and dicyclomine. unsure for which diagnoses. DVT ppx: heparin FEN/GI: low sodium diet, on pantoprazole Bowel regimen: prn Code Status: full code Dispo: Home with services - On discharge patient will need a hospital bed. As she will require frequent position changes, this is not feasible with an ordinary bed. Furthermore the head of bed must be elevated to at least 30 degrees most of the time secondary to a CHF cardiomyopathy. Bed to be delivered Monday 10:30 am (2) Pulmonary edema: (3) Acute uremia: (4) Acidosis: (5) CKD (chronic kidney disease): (6) Acute on chronic HFrEF (heart failure with reduced ejection fraction): (7) GERD (gastroesophageal reflux disease): (8) Insomnia: (9) Nonischemic cardiomyopathy: (10) Focal segmental glomerulosclerosis: Total Time Total Time Spent Total Time Spent (In Minutes): 56 Discharge Plan Discharge Items Patient Disposition: Home - Home Health Services Reason For Visit: ACUTE HFrER, ARF Discharge Diagnosis: Acute decompensated heart failure secondary to nonischemic cardiomyopathy complicated and acute renal failure in the setting of ESRD secondary to history of focal segmental glomerular sclerosis Activity: Resume your previous activity Non-emergency contact: Primary Care Provider Call non-emergency contact if: you have any medication questions Follow-up/Referrals: Tian Paulino MD [Physician] - Remigio Mark DO [Primary Care Provider] - 02/22/21 9:50 am Diet: Dialysis Renal Fluids: 1200ml (5 cups) Addtl Attending Provider Instructions: Care instructions: You were admitted to [facility] for treatment of acute decompensated heart failure secondary to nonischemic cardiomyopathy and end- stage renal disease secondary to focal segmental glomerular sclerosis necessitating hemodialysis. While hospitalized you were stabilized and aggressively diuresed. On discharge a number of different medication changes were made to her regimen. He has been detailed below. On discharge it is important that you adhere to your medication regimen. It is also important that you follow-up with your [facility] senior administrative associate Dr. Jaramillo. We request that you monitor your daily weights, and if you notice significant weight gain that you contact your primary care provider for further instructions. On discharge her weight was 193 kg which equates to 425 pounds. We also recommend that you keep your scheduled follow-up with your local senior administrative associate Dr. Noland. Your medications have been called into the [facility] on [facility] ([address] [place] [address]) -Carvedilol increased to 25 mg 2 times per day -Lasix(furosemide) 80 mg 2 times per day -Hydralazine 10 mg 3 times per day -Isosorbide mononitrate 30 mg p.o. every morning -Nephrocaps 1 every morning A discharge summary will be sent to your primary care physician to ensure continuity of care. Please bring this discharge summary with you to your next office appointment so that your provider can review it at that time. Follow-up appointments: - Keep all your follow-up appointments as already scheduled. If you cannot make an appointment, notify your provider. - Please call to request a follow-up appointment with your primary care physician within one week of discharge. Please let us know if you are unable to obtain an appointment Medications: - Your medication list has been reviewed and reconciled upon discharge to ensure accuracy and continuity of care. - You are provided with a list of all your current medications at this time. Please review this list closely and make note of any changes. - Please take all of your medications exactly as prescribed. - Tell your primary care provider if you cannot afford your medications. - Call your primary care provider if you are having any side effects or any other problems. - Call your primary care provider before taking any over the counter medications or supplements, including herbals and vitamins, because some of these may interact with your current medications and/or make your symptoms worse. Symptoms: Please call your primary care provider for symptoms including, but not limited to: fevers (temperatures greater than 100.4), chills, intractable nausea or vomiting, diarrhea, rash, shortness of breath, bleeding, pain, or if you experience any worsening of the symptoms that brought you to the hospital. For EMERGENCY and VERY SERIOUS health-related issues, such as chest pain, shortness of breath, or sudden onset of the symptoms that brought you to the hospital, you may need to call 911 or go directly to the Emergency Room It has been our privilege to take care of you during your hospital stay. And Above All Else Feel Better! Best Wishes, Wai Upton MD PGY2 Resident, Family & Community Medicine [facility] Residency at [facility] [address], [address] : [place] [address] Pending Studies at Discharge: No Stand-Alone Forms: My [facility], Smoking Cessation Medications and DC Order Prescriptions: New hydralazine 10 mg Tablet 10 mg PO TID 30 Days Qty: 90 RF: 0 carvedilol 25 mg Tablet 25 mg PO BID 30 Days Qty: 60 RF: 0 isosorbide mononitrate 30 mg Tablet Extended Release 24 Hr 30 mg PO QAM 30 Days Qty: 30 RF: 0 furosemide 80 mg Tablet 80 mg PO BID17 30 Days Qty: 30 RF: 0 Renal Caps 1 mg Capsule 1 cap PO QAM Qty: 30 RF: 0 Continued dicyclomine 10 mg capsule 10 mg PO TID RF: 0 Flovent HFA 44 mcg/actuation HFA aerosol inhaler 2 puff inhalation BID RF: 0 pantoprazole [Protonix] 20 mg tablet,delayed release (DR/EC) 20 mg PO BID RF: 0 topiramate [Topamax] 25 mg tablet 25 mg PO DAILY RF: 0 Pulmicort Flexhaler 180 mcg/actuation aerosol powdr breath activated 2 inh inhalation BID Qty: 1 RF: 2 cetirizine 10 mg tablet 10 mg PO DAILY RF: 0 ferrous sulfate 27 mg iron Tablet 27 mg PO DAILY RF: 0 albuterol sulfate 90 mcg/actuation HFA aerosol inhaler 2 puff INHALATION QID PRN (Reason: Wheezing) RF: 0 Discontinued furosemide 40 mg tablet 80 mg PO BID Qty: 60 RF: 5 carvedilol 12.5 mg tablet 12.5 mg PO BID RF: 0 Discharge Orders: Discharge Order (Routine); Ordered 02/17/21 Ordered By: Wai Upton Admission Data Admit Date/Time: 02/09/21 23:56 Attending Provider: Yesi Alvarado Admit Provider: Maggi Kirby Primary Care Provider: Remigio Mark Other Providers: Felix Reyna ; Nicola Luna ; Tian Paulino ; Ric Barragan ; [facility] Other Interventions: Discharge Summary Assessment (RN) Last Done: 02/17/21 10:51 Supervising Physician Co-Signing Physician Notes Resident Physician Supervision Note: I independently interviewed and examined the patient and verified the casanova history and physical, reviewed labs and image studies and agree with resident Dr. Upton findings and care plan.
--- NOTE | 2021-02-17 08:00 | Electrocardiogram Report ---
Test Reason : Blood Pressure : / mmHG Vent. Rate : 083 BPM Atrial Rate : 083 BPM P-R Int : 170 ms QRS Dur : 090 ms QT Int : 508 ms P-R-T Axes : 058 122 -24 degrees QTc Int : 596 ms Normal sinus rhythm Right axis deviation Low voltage QRS Poor R wave progression, consider anterior VA vs. lead placement vs. LVH Abnormal ECG When compared with ECG of 09-FEB-2021 22:07, No significant change Confirmed by Vinay Park ([id number]) on 02/17/2021 8:00:11 AM Referred By: REFERRED SELF Confirmed By:Vinay Park
[2021-02-17] MEDS: PANTOprazole 40 MG TAB PO SCH (09:23)
[2021-02-17] MEDS: carvediloL 25 MG TAB PO SCH (09:24)
[2021-02-17] MEDS: hydrALAZINE 10 MG TAB PO SCH ×2 (09:24→12:09)
[2021-02-17] MEDS: DICYCLOMINE HCL 10 MG CAP PO SCH (09:24)
[2021-02-17] MEDS: NEPHROCAPS PO SCH (09:25)
[2021-02-17] MEDS: ISOSORBIDE MONO EXTENDED REL 30 MG TABCR PO SCH (09:25)
[2021-02-17] MEDS: TOPIRAMATE 25 MG TAB PO SCH (09:25)
[2021-02-17] MEDS: CETIRIZINE HCL 10 MG TABLET PO SCH (09:25)
[2021-02-17] MEDS: FUROSEMIDE 80 MG TAB PO SCH (09:26)
[2021-02-17] MEDS: FLUTICASONE FUROATE 200MCG 14 PUFFS/INHALER INH SCH (09:27)
[2021-02-17] MEDS: HEPARIN SOD 5,000 UNIT/0.5 ML VIAL SQ SCH (09:27)
[2021-02-17] MEDS: FLUTICASONE PROPIONATE NA SPR 16 GM BTL SCH (09:27)
--- NOTE | 2021-02-17 11:48 | Nephrology Progress Note ---
Date of Service February 17, 2021 Assessment & Plan (1) ESRD (end stage renal disease): (2) Anemia: (3) Nonischemic cardiomyopathy: (4) Diabetes mellitus type 2 in obese: Plan: ESRD, on hemodialysis with severe nonischemic cardiomyopathy, EF 20-25 percent and poorly controlled diabetes. Started on hemodialysis on 02/11/2021 via right IJ tunneled dialysis catheter. Vital sign stable today on nasal cannula oxygen 2 liters. Hemoglobin stable. -- continue dialysis MWF, although there was plan for dialysis today but she will not be able to get dialysis here until later today due to other emergency HD pt's. Since she has checked them available for 10:45 am tomorrow at outpatient unit, okay to discuss discharge with a plan to have dialysis tomorrow at outpatient unit. --she will need to be on home O2 --dose medications for GFR less than 10, left arm nephrology precaution will follow Admission and Anticipated Discharge Date Admission Date: February 09, 2021 Subjective Clinically staying about the same. Room air oxygen saturation continues to drop significantly with minimum exertion or movement, No shortness of breath at rest. Blood pressure Fair. Electrolyte acceptable. Review of Systems Review of Systems: Detailed review of system was otherwise unremarkable. Physical Exam Constitutional: WD/WN, vitals as above + ill appearing and + morbidly obese; no acute distress Eyes: + anicteric sclerae Respiratory: normal respiratory effort; no respiratory distress Auscultation: + diminished lung sounds Cardiovascular: Rate/Rhythm: regular rate and regular rhythm Heart Sounds: normal S1 and normal S2 Extremities: + edema and + vascular access device ( Right IJ tunneled dialysis catheter) Neurologic: no focal motor deficits and not confused Psychiatric: Orientation: alert and oriented x 3 Results & Data ([facility]) Vital Signs (Past 12 Hours) Vital Signs Temp Pulse Pulse Pulse Resp BP BP 02/17/21 10:51 36.7 C 84 81 20 107/65 02/17/21 10:17 97 H 02/17/21 10:16 02/17/21 10:00 98 H 20 02/17/21 08:00 93 H 20 114/59 L 02/17/21 06:00 36.7 C 93 H 21 114/59 L 02/17/21 04:23 84 16 02/17/21 00:00 82 BP Pulse Ox 02/17/21 10:51 123/69 95 01/12/22 10:17 02/17/21 10:16 94 02/17/21 10:00 74 L 02/17/21 08:00 02/17/21 06:00 95 02/17/21 04:23 02/17/21 00:00 PG Care Time/CCT Total # of Minutes Spent Total Time Spent with Patient: Total time spent is greater than 50% in coordination of care (as documented) at patient's floor/unit and/or counseling patient: Coding Level of Care Code 23666 Subseq Hosp Care Lvl 2 Diagnoses ESRD (end stage renal disease) N18.6 Anemia D64.9 Nonischemic cardiomyopathy I42.8 Diabetes mellitus type 2 in obese E11.69; E66.9
== END 2021-02-17 14:01 | disposition home health service (06) | DRG 673 ==
LOC: ED 21:11 → SUATTDRO 23:56 → 1E 23:56